=== PATIENT | male | born 1940 | race Caucasian/White ===

== ENCOUNTER 2022-09-05 13:58 | Outpatient (OUT) | payer MEDICARE, OTHER, SELFPAY ==
--- NOTE | 2022-09-05 10:56 | P.CN_ITS ---
Consult Note: HPI Data of Consult Patient: new to practice Consult date: 09/05/22 Requesting Physician: Anneliese Contreras MD Primary Care Provider: CALIN RODRÍGUEZ Consult Narrative Reason for consult: Low back pain, bilateral buttock and hip pain Narrative: this is a pleasant 82-year-old gentleman who presents for evaluation. He notes increasing pain throughout his low back that radiates into the bilateral hips and lower extremities. His lumbar imaging was reviewed, which is significant for a fusion at L3-L4, as well as foraminal narrowing at multiple levels, including L5-S1. There is facet degeneration noted at multiple levels. He currently engages in provider directed home exercises and physical therapy exercises, but these have not provided relief. He utilizes [id number] pain medications. He otherwise denies adverse medication side effects or loss of bowel or bladder control. cc:: CC: Anneliese Contreras MD Review of Systems ROS Status of ROS 10 or more systems reviewed and unremarkable except as noted in history and below Exam Constitutional Common normals: no apparent distress, oriented x3 and healthy appearing Respiratory Common normals: normal respiratory effort Effort & inspection: able to speak in complete sentences Back & Pelvis Other: tenderness to palpation throughout the bilateral lower extremity. Pain is elicited with flexion, extension, and lateral rotation the lumbar spine. Facet loading maneuvers are positive bilaterally. Strength noted to be unremarkable throughout the bilateral lower extremity success for decreased strength four out of five in the bilateral quadriceps femoris, anterior tibialis. Sensation noted to be unremarkable throughout the bilateral lower extremities except for dysesthesia in the bilateral L4, L5 dermatomal distributions. Tenderness to palpation throughout the bilateral PSIS. Mu's maneuver is positive bilaterally. positive Eliseo's bilaterally. Coordination remains intact. Gait remains nonantalgic. Extremity Common normals: normal to inspection Neuro Common normals: oriented x3, CN's II-XII intact bilaterally and no focal motor deficits Psych Common normals: mental status grossly normal and cooperative Assessment and Plan Assessment and Plan (1) Lumbar stenosis with neurogenic claudication: (2) Lumbar spondylosis: (3) Sacroiliac joint disease: (4) Lumbar postlaminectomy syndrome: Plan this is a pleasant 82-year-old gentleman who presents for evaluation. He has failed physical and medical modalities, as listed above. Imaging was reviewed, as noted above. Given his symptomatology and imaging findings, it is present to attempt bilateral L5 transforaminal epidural steroid injections to provide analg esia. He may even benefit from bilateral sacroiliac joint injections. He is in agreement with this plan. Medications were reviewed, and no changes were made at this time. He'll follow up after the procedures completed.
== END 2022-09-05 13:59 ==
LOC: PM 10-13 13:58
PROVIDERS: PCP Family Medicine; Visit Provider Anesthesiology
DX: M47.819 Spondylosis without myelopathy or radiculopathy, site unspecified (principal); M96.1 Postlaminectomy syndrome, not elsewhere classified; M48.062 Spinal stenosis, lumbar region with neurogenic claudication; M53.3 Sacrococcygeal disorders, not elsewhere classified
CPT/HCPCS: G0463

== ENCOUNTER 2022-09-19 08:32 | Day surgery (SDC) | payer MEDICARE, OTHER, SELFPAY ==
[2022-09-19 09:40] VITALS: BP 131/76; PULSE 80; RESP 16; TEMP 36.2; O2SAT 96
[2022-09-19] MEDS: 0.9 % SODIUM CHLORIDE 10 ML INJ (10:26)
[2022-09-19] MEDS: BUPIVACAINE HCL 0.25% PF 25 MG/10 ML VIAL INJ (10:26)
[2022-09-19] MEDS: IOHEXOL 240 MG/ML - 10 ML VIAL INJ (10:27)
[2022-09-19] MEDS: LIDOCAINE HCL 2% PF 100 MG/5 ML VIAL INJ (10:27)
[2022-09-19] MEDS: TRIAMCINOLONE ACETONIDE 40 MG/ML VIAL INJ (10:28)
--- NOTE | 2022-09-19 10:29 | W.PM.PROCNOT ---
Date of procedure: 09/19/22 Pre-op diagnosis: lumbar stenosis w neurogenic claudication, lumbar postlaminectomy syndrome Post-op diagnosis: same Procedure: Procedure: Bilateral L4-5 transforaminal epidural steroid injection Medications: Bupivacaine 0.25% 2cc, kenalog 40mg, normal saline 0.9% 1cc The patient was seen and examined in the preoperative holding area.? Informed consent was obtained and placed on the chart.? Patient was brought to the medical procedure unit and placed in the prone position where a timeout was completed verifying the correct patient, procedure site, position, and planned special equipment using sterile aseptic technique.? Under direct fluoroscopic visualization a 25-gauge Quincke tipped spinal needle was advanced at level left L4-5 to the designated neural foramen where contrast dye was injected to show adequate spread.? There was no evidence of vascular or adverse uptake.? Epidural spread was appreciated.? The above-mentioned injectate was then placed in a 1.5 mL aliquot preceded by negative aspiration.? The needle was removed. The same procedure, at the same level, was completed on the opposite side. ? Patient was taken to the postprocedural recovery area and monitored for an appropriate length of time before found suitable for discharge in the accompaniment of a responsible adult. Anesthesia: None Surgeon: Anneliese Contreras Condition: stable
[2022-09-19 12:32] VITALS: BP 149/84; BP 158/74; PULSE 73; PULSE 80; RESP 18; O2SAT 97; O2SAT 98
== END 2022-09-19 10:33 | disposition home or self-care (01) ==
LOC: SURGOUT 08:33
PROVIDERS: PCP Family Medicine; Visit Provider Anesthesiology
DX: M48.062 Spinal stenosis, lumbar region with neurogenic claudication (principal); M96.1 Postlaminectomy syndrome, not elsewhere classified
CPT/HCPCS: 64483; Q9966

== ENCOUNTER 2022-10-03 07:55 | Day surgery (SDC) | payer MEDICARE, OTHER, SELFPAY ==
[2022-10-03 07:56] VITALS: BP 119/70; PULSE 91; RESP 14; TEMP 36.2; O2SAT 97
[2022-10-03] MEDS: BUPIVACAINE HCL 0.25% PF 25 MG/10 ML VIAL INJ (08:34)
[2022-10-03] MEDS: IOHEXOL 240 MG/ML - 10 ML VIAL INJ (08:35)
[2022-10-03] MEDS: LIDOCAINE HCL 2% PF 100 MG/5 ML VIAL INJ (08:35)
[2022-10-03] MEDS: TRIAMCINOLONE ACETONIDE 40 MG/ML VIAL INJ (08:36)
--- NOTE | 2022-10-03 08:36 | W.PM.PROCNOT ---
Date of procedure: 10/03/22 Pre-op diagnosis: Sacroiliitis, bilateral Post-op diagnosis: same Procedure: Procedure: Bilateral block of the nerve innervating the sacroiliac joint Medications: Bupivacaine 0.25% 3cc, kenalog 40mg x2 After informed consent was obtained, the patient was brought to the medical procedure unit and placed in the prone position, when a timeout was completed verifying correct patient, procedure, site, positioning, implant, and/or special equipment.? The skin overlying the area was prepped and draped in standard sterile fashion using alcohol.? A 25-gauge needle was directed towards the nerve innervating the left sacroiliac joint under direct fluoroscopic imaging.? Needle tip was advanced until the nerve was encountered.? After contrast dye was injected and showed no vascular uptake, we instilled a total of 3 mL of solution.? Postoperatively needles were removed. The same procedure was then completed on the opposite side. The patient tolerated the procedure well without complication.? The patient reported reduction in pain symptoms postoperatively. Anesthesia: None Surgeon: Anneliese Contreras Pathology: none sent Condition: stable Disposition: no change
[2022-10-03 09:13] VITALS: BP 108/61; BP 109/55; PULSE 78; PULSE 84; RESP 18; O2SAT 97
== END 2022-10-03 09:30 | disposition home or self-care (01) ==
PROVIDERS: PCP Family Medicine; Visit Provider Anesthesiology
DX: M46.1 Sacroiliitis, not elsewhere classified (principal)
CPT/HCPCS: 64451; 77002; Q9966

== ENCOUNTER 2022-10-20 09:37 | Outpatient (OUT) | payer MEDICARE, OTHER, SELFPAY ==
--- NOTE | 2022-10-20 10:13 | PM.CN ---
Consult Note: HPI Data of Consult Patient: known to practice within the last 3 years Consult date: 10/20/22 Requesting Physician: NUPUR QUILES NP Primary Care Provider: CALIN RODRÍGUEZ Consult Narrative Narrative: Patient is here for f/u of right bilat TFESI and SI injections. He had 50% relief of pain with increased fx procedure continued through today. He has not had to take any pain meds anymore after procedure. Pain is in bilat lumbar area, worse with standing and walking. We did discuss the RFA procedure and educational materials were given. No new sensorimotor sx or bowel or bladder issues. No adverse medication SE. Medications assist patient with better ability to perform ADLs. cc:: CC: NUPUR QUILES NP Review of Systems ROS Status of ROS 10 or more systems reviewed and unremarkable except as noted in history and below Musculoskeletal Reports: back pain PFSH PFSH Medical History Surgical History Meds Home Medications and Allergies Home Medications Medication Instructions Recorded Confirmed Type aspirin 81 mg tablet,delayed 81 mg PO DAILY 09/05/22 10/03/22 History release clopidogrel 75 mg tablet 75 mg PO DAILY 09/05/22 10/03/22 History gabapentin 300 mg capsule 300 mg PO DAILY 09/05/22 10/03/22 History melatonin 10 mg tablet 10 mg PO DAILY 09/05/22 10/03/22 History ranolazine 500 mg tablet,extended 500 mg PO BID 09/05/22 10/03/22 History release,12 hr rosuvastatin 40 mg tablet 40 mg PO DAILY 09/05/22 10/03/22 History acetaminophen 500 mg capsule 500 mg PO Q6H PRN pain 09/19/22 10/03/22 History Allergies Allergy/AdvReac Type Severity Reaction Status Date / Time No Known Drug Allergies Allergy Verified 10/03/22 07:52 Exam Constitutional Documenting provider has reviewed patient's vital signs: yes Common normals: no apparent distress, average body habitus, oriented x3, no limitations, healthy appearing, alert and well nourished General appearance: cooperative, comfortable and well developed Nutritional appearance: overweight Orientation/consciousness: Yes awake, Yes oriented to person, Yes oriented to place and Yes oriented to time HENMT Common normals: normocephalic and moist oral mucous membranes Respiratory Common normals: normal respiratory effort, no retractions and no use of accessory muscles Effort & inspection: able to speak in complete sentences and symmetric chest movement Back & Pelvis Lumbar spine/lower back: normal to inspection, ROM limited, pain with ROM and paraspinal muscle tenderness Other: negative facet and helen muscle strength 5/5 bilat LE with intact sensation Assessment and Plan Assessment and Plan (1) Lumbar postlaminectomy syndrome: (2) Sacroiliac joint disease: (3) Lumbar spondylosis: (4) Lumbar stenosis with neurogenic claudication:
== END 2022-10-20 09:38 | disposition home or self-care (01) ==
LOC: PM 09:37
PROVIDERS: PCP Family Medicine; Visit Provider Nurse Practitioner
DX: M96.1 Postlaminectomy syndrome, not elsewhere classified (principal); M47.816 Spondylosis without myelopathy or radiculopathy, lumbar region; M48.062 Spinal stenosis, lumbar region with neurogenic claudication; M53.3 Sacrococcygeal disorders, not elsewhere classified
CPT/HCPCS: G0463

== ENCOUNTER 2022-12-26 09:07 | Outpatient (OUT) | payer MEDICARE, OTHER, SELFPAY ==
--- NOTE | 2022-12-26 11:07 | P.CN_ITS ---
Consult Note: HPI Data of Consult Patient: known to practice within the last 3 years Consult date: 12/26/22 Requesting Physician: Anneliese Contreras MD Primary Care Provider: CALIN RODRÍGUEZ Consult Narrative Reason for consult: low back pain Narrative: 82yom who presents for assessment. worsening axial low back pain. imaging reviewed, significant for lumbar facet arthropathy. engages in >6 weeks of provider directed home exercise, with minimal benefit. utilizes tylenol. denies adverse med side effects. 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 of unspecified finger, initial encounter (ICD-10) Angina at rest ?I20.8 - Other forms of angina pectoris (ICD-10) Hearing deficit ?H91.90 - Unspecified hearing loss, unspecified ear (ICD-10) Hiatal hernia ?K44.9 - Diaphragmatic hernia without obstruction or gangrene (ICD-10) Low back pain ?M54.50 - Low back pain, unspecified (ICD-10) Obesity ?E66.9 - Obesity, unspecified (ICD-10) Trigger finger ?M65.30 - Trigger finger, unspecified finger (ICD-10) Surgical History History of carpal tunnel release ?Z98.890 - Other specified postprocedural states (ICD-10) History of lumbar surgery ?Z98.890 - Other specified postprocedural states (ICD-10) History of open heart surgery ?Z98.890 - Other specified postprocedural states (ICD-10) Status post wrist surgery ?Z98.890 - Other specified postprocedural states (ICD-10) Meds Home Medications and Allergies Home Medications Medication Instructions Recorded Confirmed Type aspirin 81 mg tablet,delayed 81 mg PO DAILY 09/05/22 10/03/22 History release clopidogrel 75 mg tablet 75 mg PO DAILY 09/05/22 10/03/22 History gabapentin 300 mg capsule 300 mg PO DAILY 09/05/22 10/03/22 History melatonin 10 mg tablet 10 mg PO DAILY 09/05/22 10/03/22 History ranolazine 500 mg tablet,extended 500 mg PO BID 09/05/22 10/03/22 History release,12 hr rosuvastatin 40 mg tablet 40 mg PO DAILY 09/05/22 10/03/22 History acetaminophen 500 mg capsule 500 mg PO Q6H PRN pain 09/19/22 10/03/22 History Allergies Allergy/AdvReac Type Severity Reaction Status Date / Time No Known Drug Allergies Allergy Verified 10/03/22 07:52 Exam Narrative Exam Narrative: Psych-alert and oriented x 3. Attentive and appropriate, constitutionally normal, displays normal mood and affect per situation.? There are no obvious deficits in memory, reasoning, or intellect.? Skin-no obvious rashes, bruising, erythema noted to the patient's area of pain. Extremities- extremities are warm with minimal edema and palpable pulses. Lumbar-no significant tenderness to palpation noted in the lumbar spine and paraspinal musculature.? Pain is elicited with extension, and lateral rotation of the lumbar spine. Range of motion is slightly diminished with these motions due to pain. Facet loading maneuvers are positive bilaterally and do appear to be concordant with the patient's normal complaints of pain.? Coordination remains intact.? Gait remains non-antalgic. Assessment and Plan Assessment and Plan (1) Lumbar spondylosis: (2) Lumbar stenosis with neurogenic claudication: Plan 82yom who presents for assessment. failed conservative measures, as noted. imaging reviewed, as noted. given symptoms and imaging, prudent to proceed with diagnostic bilateral l4-5, l5-s1 medial branch block under fluoroscopic guidance with intention of proceeding to radiofrequency ablation. he is in agreement. medications reviewed, no changes. he wishes to avoid pain medications. follow up after procedure.
== END 2022-12-26 09:08 | disposition home or self-care (01) ==
LOC: PM 09:08
PROVIDERS: PCP Family Medicine; Visit Provider Anesthesiology
DX: M47.816 Spondylosis without myelopathy or radiculopathy, lumbar region (principal); M48.062 Spinal stenosis, lumbar region with neurogenic claudication
CPT/HCPCS: G0463

== ENCOUNTER 2023-01-09 07:45 | Day surgery (SDC) | payer MEDICARE, OTHER, SELFPAY ==
[2023-01-09 08:11] VITALS: BP 107/73; PULSE 89; RESP 14; TEMP 36.6; O2SAT 97
[2023-01-09] MEDS: LIDOCAINE HCL 2% PF 100 MG/5 ML VIAL INJ (09:00)
[2023-01-09] MEDS: TRIAMCINOLONE ACETONIDE 40 MG/ML VIAL INJ (09:00)
[2023-01-09] MEDS: BUPIVACAINE HCL 0.5% PF 50 MG/10 ML VIAL 8 ML INJ (09:00)
[2023-01-09 09:02] VITALS: BP 97/50; BP 97/54; PULSE 84; PULSE 86; RESP 18; O2SAT 97; O2SAT 98
--- NOTE | 2023-01-09 09:04 | W.PM.PROCNOT ---
Date of procedure: 01/09/23 Pre-op diagnosis: Lumbar spondylosis Post-op diagnosis: same as pre-op Procedure: Procedure: Bilateral L2-3, L5-S1 medial branch block Medications: Bupivacaine 0.25% 4cc The patient was seen and examined in the preoperative holding area.? An informed consent was obtained and placed on the chart.? The patient was brought to the medical procedure unit and placed in the prone position.? A timeout was completed verifying correct patient, procedure site, positioning, plan, and special equipment.? Using aseptic technique, the needle was placed at left L2. Under direct fluoroscopic visualization a Quincke-tipped spinal needle was advanced to the junction of the superior articulating process with the transverse process at the designated medial branch segment.? Preceded by negative aspiration, the above-mentioned injectate was placed in 1 mL aliquots.? The procedure was repeated at left L3, L5, S1.? The needle was removed and insertion site was covered. The same procedure, at the same levels, was completed on the right side. The patient was taken to the postprocedural recovery area and monitored for an appropriate length of time before found suitable for discharge in the company of a responsible adult. Anesthesia: Local Surgeon: Anneliese Contreras Pathology: none sent Condition: stable Disposition: no change
== END 2023-01-09 09:08 | disposition home or self-care (01) ==
PROVIDERS: PCP Family Medicine; Visit Provider Anesthesiology
DX: M47.816 Spondylosis without myelopathy or radiculopathy, lumbar region (principal)
CPT/HCPCS: 64493; 64494

== ENCOUNTER 2023-01-19 09:57 | Outpatient (OUT) | payer MEDICARE, OTHER, SELFPAY ==
--- NOTE | 2023-01-19 10:09 | PM.CN ---
Consult Note: HPI Data of Consult Patient: known to practice within the last 3 years Requesting Physician: Shavon Tsai NP Primary Care Provider: CALIN RODRÍGUEZ Consult Narrative Reason for consult: f/u Narrative: Radu Ruiz a pleasant 82 year old male presents for evaluation and management of chronic low back and bilateral SIJ pain. Today rating pain in low back 7/10 without radiculopathy, describes it as a dull ache. Patient had 90% pain relief and functional improvement immediately following MBB #1 at bilateral L4-5 L5-S1 and hours after the procedure. Patient would like to discuss proceeding with second MBB working towards thermal RFA. 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, initial encounter (ICD-10) Angina at rest ?I20.8 - Other forms of angina pectoris (ICD-10) Hearing deficit ?H91.90 - Unspecified hearing loss, unspecified ear (ICD-10) Hiatal hernia ?K44.9 - Diaphragmatic hernia without obstruction or gangrene (ICD-10) Low back pain ?M54.50 - Low back pain, unspecified (ICD-10) Obesity ?E66.9 - Obesity, unspecified (ICD-10) Trigger finger ?M65.30 - Trigger finger, unspecified finger (ICD-10) Surgical History History of carpal tunnel release ?Z98.890 - Other specified postprocedural states (ICD-10) History of lumbar surgery ?Z98.890 - Other specified postprocedural states (ICD-10) History of open heart surgery ?Z98.890 - Other specified postprocedural states (ICD-10) Status post wrist surgery ?Z98.890 - Other specified postprocedural states (ICD-10) Meds Home Medications and Allergies Home Medications Medication Instructions Recorded Confirmed Type aspirin 81 mg tablet,delayed 81 mg PO DAILY 09/05/22 01/09/23 History release clopidogrel 75 mg tablet 75 mg PO DAILY 09/05/22 01/09/23 History gabapentin 300 mg capsule 300 mg PO DAILY 09/05/22 01/09/23 History melatonin 10 mg tablet 10 mg PO DAILY 09/05/22 01/09/23 History ranolazine 500 mg tablet,extended 500 mg PO BID 09/05/22 01/09/23 History release,12 hr rosuvastatin 40 mg tablet 40 mg PO DAILY 09/05/22 01/09/23 History acetaminophen 500 mg capsule 500 mg PO Q6H PRN pain 09/19/22 01/09/23 History Allergies Allergy/AdvReac Type Severity Reaction Status Date / Time No Known Drug Allergies Allergy Verified 10/03/22 07:52 Exam Constitutional Documenting provider has reviewed patient's vital signs: yes Common normals: no apparent distress, oriented x3, healthy appearing, alert and well nourished General appearance: cooperative Nutritional appearance: overweight Orientation/consciousness: Yes awake, Yes oriented to person, Yes oriented to place and Yes oriented to time HENMT Common normals: normocephalic, hearing grossly normal bilaterally and moist oral mucous membranes Head and scalp: normocephalic Eye Common normals: PERRL Pupil: PERRL Neck & C-Spine Common normals: full ROM General: normal visual inspection Chest Common normals: inspection of chest normal Respiratory Common normals: normal respiratory effort, no retractions and no use of accessory muscles Effort & inspection: able to speak in complete sentences and symmetric chest movement Back & Pelvis Lumbar spine/lower back: normal to inspection, ROM limited, pain with ROM and straight leg raise negative bilaterally Sacroiliac joints: SI joint(s) abnormal Other: bilateral facet loading pain over L4-5 L5-S1 facets bilateral positive helen, thigh thrust, and gaenslens. Pain over bialteral PSIS. Extremity Common normals: normal to inspection and full ROM Neuro Common normals: oriented x3, CN's II-XII intact bilaterally, moves all extremities, no focal motor deficits, no sensory deficits noted and deep tendon reflexes 2+ bilaterally Sensorium/orientation: alert Gait (neuro): antalgic Motor exam: strength 5/5 throughout and no movement abnormalities noted Psych Common normals: mental status grossly normal, thought process normal, cooperative, affect normal, speech normal and activity/motor behavior normal Speech: normal speech Thought process: normal thought process Results Additional Findings Additional findings: I have checked an [place] report on this patient today and there are no aberrancies noted in the prescribing history.?? A drug screen was completed and reviewed within the last year, and if there has not been a drug screen completed we ordered one today to monitor higher risk, state monitored pain medication use. As part of providing excellent, safe, comprehensive care, the following was completed at our patient's visit: 1. A medication reconciliation and review to ensure accurate knowledge of current/active medications, including asking our patients to inform us about any [id number] medications or herbal remedies/nutritional supplements/alternative remedies. 2. A review to specifically ensure our patients have had annual screening for: elevated body mass index (BMI), tobacco use, screening for depression, and screening for unhealthy alcohol use. When screening is concerning, patients are provided with education and the specific recommendation to discuss the concerning health issue and treatment options with their primary care provider. Assessment and Plan Assessment and Plan (1) Lumbar spondylosis: Assessment and Plan: The patient has had over 3 months of moderate to severe low back pain with functional impairment and inadequate response to conservative care including NSAIDS (unless there are contraindication such as concurrent blood thinners), multiple oral or topical pain medications, and home exercise program/physical therapy.? Patient has completed >6 weeks of guided home exercise program and/or formal physical therapy program without relief of their symptoms.? I have reviewed the imaging of the lumbar spine and no red flags were identified.? The imaging reveals radiographic findings consistent with lumbar spondylosis We discussed the risks and benefits of the procedure with the patient, and we are not planning on using sedation as outlined in the guidelines from Medicare unless there is a documented reason that sedation would be strongly recommended.?? ?The procedure will be completed with fluoroscopic guidance.? (2) Sacroiliac joint disease: Plan bilateral L4-5 L5-S1 MBB #2 working towards thermal RFA consider repeat bilateral SIJ injections in the future continue current medications avoid NSAIDs with plavix f/u 1 week after MBB
== END 2023-01-19 09:58 | disposition home or self-care (01) ==
LOC: PM 09:58
PROVIDERS: PCP Family Medicine; Visit Provider Nurse Practitioner
DX: M47.816 Spondylosis without myelopathy or radiculopathy, lumbar region (principal); M53.3 Sacrococcygeal disorders, not elsewhere classified
CPT/HCPCS: G0463

== ENCOUNTER 2023-01-30 08:28 | Day surgery (SDC) | payer MEDICARE, OTHER, SELFPAY ==
[2023-01-30 09:01] VITALS: BP 151/82; PULSE 75; RESP 16; TEMP 36.5; O2SAT 96
[2023-01-30 09:45] VITALS: BP 105/62; PULSE 85; RESP 18; O2SAT 97
[2023-01-30 09:48] VITALS: BP 113/63; PULSE 89; RESP 18; O2SAT 97
[2023-01-30] MEDS: BUPIVACAINE HCL 0.5% PF 50 MG/10 ML VIAL 8 ML INJ (09:48)
[2023-01-30] MEDS: LIDOCAINE HCL 2% PF 100 MG/5 ML VIAL 4 ML INJ (09:48)
--- NOTE | 2023-01-30 09:50 | W.PM.PROCNOT ---
Date of procedure: 01/30/23 Pre-op diagnosis: Lumbar spondylosis Post-op diagnosis: same as pre-op Procedure: Procedure: Bilateral L2-3, L5-S1 medial branch block Medications: Bupivacaine 0.5% 4cc x2 The patient was seen and examined in the preoperative holding area.? An informed consent was obtained and placed on the chart.? The patient was brought to the medical procedure unit and placed in the prone position.? A timeout was completed verifying correct patient, procedure site, positioning, plan, and special equipment.? Using aseptic technique, the needle was placed at left L2. Under direct fluoroscopic visualization a Quincke-tipped spinal needle was advanced to the junction of the superior articulating process with the transverse process at the designated medial branch segment.? Preceded by negative aspiration, the above-mentioned injectate was placed in 1 mL aliquots.? The procedure was repeated at left L3, L5, S1.? The needle was removed and insertion site was covered. The same procedure, at the same levels, was completed on the right side. The patient was taken to the postprocedural recovery area and monitored for an appropriate length of time before found suitable for discharge in the company of a responsible adult. Anesthesia: Local Surgeon: Anneliese Contreras Pathology: none sent Condition: stable Disposition: no change
== END 2023-01-30 09:56 | disposition home or self-care (01) ==
PROVIDERS: PCP Family Medicine; Visit Provider Anesthesiology
DX: M47.816 Spondylosis without myelopathy or radiculopathy, lumbar region (principal)
CPT/HCPCS: 64493; 64494

== ENCOUNTER 2023-02-08 10:08 | Outpatient (OUT) | payer MEDICARE, OTHER, SELFPAY ==
--- NOTE | 2023-02-08 10:21 | PM.CN ---
Consult Note: HPI Data of Consult Patient: known to practice within the last 3 years Requesting Physician: Shavon Tsai NP Primary Care Provider: CALIN RODRÍGUEZ Consult Narrative Reason for consult: f/u Narrative: Radu Ruiz a pleasant 82 year old male presents for evaluation and management of chronic low back pain, today rating pain 7/10. Patient has underwent bilateral L2-3 L5-S1 MBB x2 with 90% pain relief and functional improvement immediately after and hours following the procedure. Patient would like to discuss proceeding with thermal RFA. 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, initial encounter (ICD-10) Angina at rest ?I20.8 - Other forms of angina pectoris (ICD-10) Hearing deficit ?H91.90 - Unspecified hearing loss, unspecified ear (ICD-10) Hiatal hernia ?K44.9 - Diaphragmatic hernia without obstruction or gangrene (ICD-10) Low back pain ?M54.50 - Low back pain, unspecified (ICD-10) Obesity ?E66.9 - Obesity, unspecified (ICD-10) Trigger finger ?M65.30 - Trigger finger, unspecified finger (ICD-10) Surgical History History of carpal tunnel release ?Z98.890 - Other specified postprocedural states (ICD-10) History of lumbar surgery ?Z98.890 - Other specified postprocedural states (ICD-10) History of open heart surgery ?Z98.890 - Other specified postprocedural states (ICD-10) Status post wrist surgery ?Z98.890 - Other specified postprocedural states (ICD-10) Meds Home Medications and Allergies Home Medications Medication Instructions Recorded Confirmed Type aspirin 81 mg tablet,delayed 81 mg PO DAILY 09/05/22 01/30/23 History release clopidogrel 75 mg tablet 75 mg PO DAILY 09/05/22 01/30/23 History gabapentin 300 mg capsule 300 mg PO DAILY 09/05/22 01/30/23 History ranolazine 500 mg tablet,extended 500 mg PO BID 09/05/22 01/30/23 History release,12 hr rosuvastatin 40 mg tablet 40 mg PO DAILY 09/05/22 01/30/23 History acetaminophen 500 mg capsule 500 mg PO Q6H PRN pain 09/19/22 01/30/23 History Allergies Allergy/AdvReac Type Severity Reaction Status Date / Time No Known Drug Allergies Allergy Verified 01/30/23 08:58 Exam Constitutional Documenting provider has reviewed patient's vital signs: yes Common normals: no apparent distress, oriented x3, healthy appearing, alert and well nourished General appearance: cooperative Nutritional appearance: overweight Orientation/consciousness: Yes awake, Yes oriented to person, Yes oriented to place and Yes oriented to time HENSC Common normals: normocephalic, hearing grossly normal bilaterally and moist oral mucous membranes Head and scalp: normocephalic Eye Common normals: PERRL Pupil: PERRL Neck & C-Spine Common normals: full ROM General: normal visual inspection Chest Common normals: inspection of chest normal Respiratory Common normals: normal respiratory effort, no retractions and no use of accessory muscles Effort & inspection: able to speak in complete sentences and symmetric chest movement Back & Pelvis Lumbar spine/lower back: normal to inspection, ROM limited, pain with ROM and straight leg raise negative bilaterally Sacroiliac joints: SI joint(s) abnormal Other: bilateral facet loading pain over L2-3 L5-S1 facets bilateral positive helen, thigh thrust, and gaenslens. Pain over bialteral PSIS. Extremity Common normals: normal to inspection and full ROM Neuro Common normals: oriented x3, CN's II-XII intact bilaterally, moves all extremities, no focal motor deficits, no sensory deficits noted and deep tendon reflexes 2+ bilaterally Sensorium/orientation: alert Gait (neuro): antalgic Motor exam: strength 5/5 throughout and no movement abnormalities noted Psych Common normals: mental status grossly normal, thought process normal, cooperative, affect normal, speech normal and activity/motor behavior normal Speech: normal speech Thought process: normal thought process Results Additional Findings Additional findings: I have checked an [place] report on this patient today and there are no aberrancies noted in the prescribing history.?? A drug screen was completed and reviewed within the last year, and if there has not been a drug screen completed we ordered one today to monitor higher risk, state monitored pain medication use. As part of providing excellent, safe, comprehensive care, the following was completed at our patient's visit: 1. A medication reconciliation and review to ensure accurate knowledge of current/active medications, including asking our patients to inform us about any [id number] medications or herbal remedies/nutritional supplements/alternative remedies. 2. A review to specifically ensure our patients have had annual screening for: elevated body mass index (BMI), tobacco use, screening for depression, and screening for unhealthy alcohol use. When screening is concerning, patients are provided with education and the specific recommendation to discuss the concerning health issue and treatment options with their primary care provider. Assessment and Plan Assessment and Plan (1) Lumbar spondylosis: Assessment and Plan: The patient has had over 3 months of moderate to severe low backl pain with functional impairment and inadequate response to conservative care including NSAIDS (unless there are contraindication such as concurrent blood thinners), multiple oral or topical pain medications, and home exercise program/physical therapy.? Patient has completed >6 weeks of guided home exercise program and/or formal physical therapy program without relief of their symptoms.? I have reviewed the imaging of the lumbar spine and no red flags were identified.? The imaging reveals radiographic findings consistent with lumbar spondylosis The Oswestry Disability Index was completed, and the patient scored a 34%.? We discussed the risks and benefits of the procedure with the patient ?The procedure will be completed with fluoroscopic guidance.? Plan -proceed with bilateral L2-3 L5-S1 thermal RFA with 10mg PO valium prior to the procedure -continue prn Tylenol -f/u 1 month after RFA
== END 2023-02-08 10:09 | disposition home or self-care (01) ==
LOC: PM 10:08
PROVIDERS: PCP Family Medicine; Visit Provider Nurse Practitioner
DX: M47.816 Spondylosis without myelopathy or radiculopathy, lumbar region (principal)
CPT/HCPCS: G0463

== ENCOUNTER 2023-02-27 09:31 | Day surgery (SDC) | payer MEDICARE, OTHER, SELFPAY ==
[2023-02-27 10:32] VITALS: BP 146/89; PULSE 75; RESP 14; TEMP 36.4; O2SAT 94
[2023-02-27 10:59] VITALS: BP 129/73; PULSE 83; RESP 18; O2SAT 96
[2023-02-27] MEDS: BUPIVACAINE HCL 0.25% PF 25 MG/10 ML VIAL 4 ML INJ (11:00)
[2023-02-27] MEDS: LIDOCAINE HCL 2% 400 MG/20 ML MDV 16 ML INJ (11:00)
[2023-02-27] MEDS: TRIAMCINOLONE ACETONIDE 40 MG/ML VIAL 80 MG INJ (11:00)
[2023-02-27 11:04] VITALS: BP 140/73; PULSE 78; RESP 16; O2SAT 97
--- NOTE | 2023-02-27 11:14 | P.ON_ITS ---
Date of procedure: 02/27/23 Pre-op diagnosis: Lumbar spondylosis Post-op diagnosis: same as pre-op Procedure: Procedure: Bilateral L2-3, L5-S1 radiofrequency ablation Medications: Bupivacaine 0.25% 6cc, lidocaine 2% 6cc, kenalog 80mg The patient was seen and examined in the preoperative holding area.? The site was marked.? Written informed consent was obtained and placed on the chart.? The patient was brought to the medical procedure unit and placed in the prone position.? A timeout was completed verifying correct patient, procedure, positioning, and special requirements.? The skin overlying the target points, the designated medial branch, were prepped and draped in the usual sterile fashion.? The target point was achieved with a 20-gauge 15 cm with a 10 mm curved active tip radiofrequency cannula under direct fluoroscopic visualization.? The needle was inserted at level L2 on the right side. Needle tip position was confirmed with lateral fluoroscopic position.? Motor stimulation was carried out at 2 Hz up to 5 volts with the absence of extremity activity.? This was repeated at level L3, L5, S1 on right side.?? Sensory stimulation was carried out.? Concordant pain was realized at the above- mentioned sites.? Then radiofrequency lesioning was carried out times 90 seconds at 80 degrees times 2 lesions at each level.? The radiofrequency probe was removed prior to cannula removal.? The above-mentioned injectate was placed in 1 mL increments.? The needle was removed. The same procedure, with the same steps, was then completed on the left side at the same levels. Insertion sites were covered.? The patient was taken to the postoperative recovery area and monitored for an appropriate length of time before being found suitable for discharge in the company of a responsible adult. Anesthesia: Local Surgeon: Anneliese Contreras Pathology: none sent Condition: stable Disposition: no change
== END 2023-02-27 11:21 | disposition home or self-care (01) ==
PROVIDERS: PCP Family Medicine; Visit Provider Anesthesiology
DX: M47.816 Spondylosis without myelopathy or radiculopathy, lumbar region (principal)
CPT/HCPCS: 64635; 64636

== ENCOUNTER 2023-04-06 10:32 | Outpatient (OUT) | payer MEDICARE, OTHER, SELFPAY ==
--- NOTE | 2023-04-06 10:52 | P.CN_ITS ---
Consult Note: HPI Data of Consult Patient: known to practice within the last 3 years Requesting Physician: Shavon Tsai NP Primary Care Provider: CALIN RODRÍGUEZ Consult Narrative Reason for consult: f/u Narrative: Radu Ruiz a pleasant 82 year old male presents for evaluation and management of chronic low back pain, today rating pain 5/10. Patient has underwent bilateral L2-3 L5-S1 thermal RFA with 50% ongoing improvement, notices he is now able to spend time on the floor with grandkids. Pain increased with activity and decreased with sitting. 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 - Complete traumatic metacarpophalangeal amputation of unspecified finger, initial encounter (ICD-10) Angina at rest ?I20.8 - Other forms of angina pectoris (ICD-10) Hearing deficit ?H91.90 - Unspecified hearing loss, unspecified ear (ICD-10) Hiatal hernia ?K44.9 - Diaphragmatic hernia without obstruction or gangrene (ICD-10) Low back pain ?M54.50 - Low back pain, unspecified (ICD-10) Obesity ?E66.9 - Obesity, unspecified (ICD-10) Trigger finger ?M65.30 - Trigger finger, unspecified finger (ICD-10) Surgical History Status post wrist surgery ?Z98.890 - Other specified postprocedural states (ICD-10) History of lumbar surgery ?Z98.890 - Other specified postprocedural states (ICD-10) History of carpal tunnel release ?Z98.890 - Other specified postprocedural states (ICD-10) History of open heart surgery ?Z98.890 - Other specified postprocedural states (ICD-10) Meds Home Medications and Allergies Home Medications Medication Instructions Recorded Confirmed Type aspirin 81 mg tablet,delayed 81 mg PO DAILY 09/05/22 02/27/23 History release clopidogrel 75 mg tablet 75 mg PO DAILY 09/05/22 02/27/23 History gabapentin 300 mg capsule 300 mg PO DAILY 09/05/22 02/27/23 History ranolazine 500 mg tablet,extended 500 mg PO BID 09/05/22 02/27/23 History release,12 hr rosuvastatin 40 mg tablet 40 mg PO DAILY 09/05/22 02/27/23 History acetaminophen 500 mg capsule 500 mg PO Q6H PRN pain 09/19/22 02/27/23 History diazepam 10 mg tablet mg 02/27/23 History Allergies Allergy/AdvReac Type Severity Reaction Status Date / Time No Known Drug Allergies Allergy Verified 02/27/23 10:23 Exam Constitutional Documenting provider has reviewed patient's vital signs: yes Common normals: no apparent distress, oriented x3, healthy appearing, alert and well nourished General appearance: cooperative Nutritional appearance: overweight Orientation/consciousness: Yes awake, Yes oriented to person, Yes oriented to place and Yes oriented to time HENMT Common normals: normocephalic, hearing grossly normal bilaterally and moist oral mucous membranes Head and scalp: normocephalic Eye Common normals: PERRL Pupil: PERRL Neck & C-Spine Common normals: full ROM General: normal visual inspection Chest Common normals: inspection of chest normal Respiratory Common normals: normal respiratory effort, no retractions and no use of accessory muscles Effort & inspection: able to speak in complete sentences and symmetric chest movement Back & Pelvis Lumbar spine/lower back: normal to inspection, ROM limited, pain with ROM and straight leg raise negative bilaterally Sacroiliac joints: SI joint(s) abnormal Other: bilateral facet loading pain over L2-3 bilateral positive helen, thigh thrust, and gaenslens. Pain over bialteral PSIS. Extremity Common normals: normal to inspection and full ROM Neuro Common normals: oriented x3, CN's II-XII intact bilaterally, moves all extremities, no focal motor deficits, no sensory deficits noted and deep tendon reflexes 2+ bilaterally Sensorium/orientation: alert Gait (neuro): antalgic Motor exam: strength 5/5 throughout and no movement abnormalities noted Psych Common normals: mental status grossly normal, thought process normal, cooperative, affect normal, speech normal and activity/motor behavior normal Speech: normal speech Thought process: normal thought process Assessment and Plan Assessment and Plan (1) Lumbar stenosis with neurogenic claudication: (2) Lumbar spondylosis: (3) Sacroiliac joint disease: Plan bilateral L2 TFESI based on physical exam, xray findings, and patient complaints of bilateral radiating lumbar pain continue current medications f/u 2 weeks after TFESI
--- OUTSIDE RECORDS SUMMARY | 2023-04-06 10:52 | XMS_ITS | CCD ---
Author Name Unknown Address [address] [place] [address] Organization [facility] Care Team Providers Care Major Case Detective Name Role Phone Francisco RIVERA, [facility] Primary Care Provider DR RHODA GARAY Primary Care Unavailable GIEDRAITIS, ANDRIUS Attending Unavailable GIEDRAITIS, ANDRIUS Admitting Unavailable MD Francisco [facility] Primary Care Provider DO Haroldo Rausch Attending Provider Kandy RIVERA, Jim Unavailable Haroldo Rausch Attending Unavailable Haroldo Rausch Admitting Unavailable [facility] Care Unavailable Gisotoitis , Andrius Vytautdamir Attending Unavailable Giedraitis , Andrius Vytautdamir Attending Unavailable Giedraitis , Andrius Vytautdamir Attending Unavailable Giedraitis , Andrius Vytautas Attending Unavailable Giedraitis , Andrius Vytautas Attending Unavailable Giedraitis , Andrius Vytautas Attending Unavailable Giedraitis , Andrius Vytautdamir Attending Unavailable [facility] Primary Care Unavailable QUATROMONI, JIM Referring Unavailable [facility] Primary Care Unavailable QUATROMONI, JIM Referring Unavailable [facility] Primary Care Unavailable QUATROMONI, JIM Referring Unavailable ABHYANKAR, FITO Referring Unavailable [facility] Primary Care Unavailable [facility] Primary Care Unavailable QUATROMONI, JIM Referring Unavailable [facility] Primary Care Unavailable QUATROMONI, JIM Referring Unavailable QUATROMONI, JIM Attending Unavailable [facility] Primary Care Unavailable QUATROMONI, JIM Referring Unavailable [facility] Primary Care Unavailable QUATROMONI, JIM Referring Unavailable GALEAS, JENAYE Referring Unavailable SHAISTA DORADO Attending Unavailable CRYSTAL SINGH Primary Care Unavailable ROBYN GALEAS Attending Unavailable CRYSTAL SINGH Primary Care Unavailable GINTARIQJIM GUTIERREZ Referring Unavailable FITO ROGERS Attending Unavailable CRYSTAL SINGH Primary Care Unavailable LAURAAndreas, JIM Referring Unavailable CRYSTAL SINGH Primary Care Unavailable ELI SIBLEY Attending Unavailable CRYSTAL SINGH Primary Care Unavailable AI SWIFT Referring Unavailable HAROLDO RAUSCH Attending Unavailable IRINEO NAGEL Attending Unavailable AI SWIFT Attending Unavailable Medications Current Medications Medication Drug Class(es) Dates Sig (Normalized) Sig (Original) montelukast 10 mg oral tablet (1 source) Leukotriene Receptor Antagonist Start: 04-07-2017 take 10 mg by mouth at bedtime Montelukast Active 10 MG PO Bedtime April 07, 2017 1:00am Completed/Discontinued Medications Medication Drug Class(es) Dates Sig (Normalized) Sig (Original) acetaminophen 500 mg oral capsule (12 sources) Acetaminophen 50 0 mg cap Indications: Coronary artery 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 , Orthostatic hypotension , Spinal stenosis, unspecified spinal region , SOB (shortness of breath) , Weight gain , Bilateral carpal tunnel syndrome , Hyperlipidemia, unspecified hyperlipidemia type , Former tobacco use , Coronary stent patent , Hx of CABG , Chest pain, unspecified type Take 500 mg by mouth. 0 Active Comment on above: Take 500 mg by mouth . aspirin 81 mg delayed release oral tablet (15 sources) Platelet Aggregation Inhibitor, Nonsteroidal Anti-inflammatory Drug Start: 12-23-2020 take 1 tablet by mouth once daily aspirin, enteric coated (ASPIRIN, ENTERIC COATED) 81 mg EC tablet Take 81 mg by mouth once daily. 0 12/23/2020 Active Comment on above: Take 81 mg by mouth once daily. clopidogrel 75 mg oral tablet (15 sources) P2Y12 Platelet Inhibitor Start: 08-13-2021 take 1 tablet by mouth once daily clopidogrel (PLAVIX) 75 mg tablet Take 75 mg by mouth once daily. 0 08/13/2021 Active Comment on above: Take 75 mg by mouth once daily. fluticasone propionate 0.05 mg/actuat metered dose nasal spray (12 sources) Corticosteroid Start: 04-27-2022 End: 03-06-2023 take 1 spray(s) nasal route twice daily fluticasone (FLONASE) 50 mcg/actuation nasal spray Indications: Negative middle ear pressure of left ear , Nasal congestion SPRAY 1 SPRAY INTO EACH NOSTRIL TWICE A DAY 48 mL 2 04/27/2022 03/06/2023 Discontinued (Course of therapy completed) Start: 04-13-2022 End: 04-27-2022 take 1 spray(s) nasal route twice daily fluticasone (FLONASE ALLERGY RELIEF) 50 mcg/actuation nasal spray Indications: Negative middle ear pressure of left ear , Nasal congestion Use 1 [place] in each nostril twice daily. 16 g 1 04/13/2022 04/27/2022 Discontinued Comment on above: SPRAY 1 SPRAY INTO E ACH NOSTRIL TWICE A DAY Use 1 [place] in each nostril twice daily. 24 hr isosorbide mononitrate 30 mg extended release oral tablet (12 sources) Nitrate Vasodilator Start: 12-03-19 take 1 tablet by mouth once isosorbide mononitrate ER (IMDUR) 30 mg 24 hr tablet Indications: Coronary artery 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 , Orthostatic hypotension , Spinal stenosis, unspecified spinal region , SOB (shortness of breath) , Weight gain , Bilateral carpal tunnel syndrome , Hyperlipidemia, unspecified hyperlipidemia type , Former tobacco use , Coronary stent patent , Hx of CABG , Chest pain, unspecified type Take 1 tablet by mouth every afternoon. 0 12/02/2022 Active Comment on above: Take 1 tablet by cristino th every afternoon. melatonin 1 mg oral tablet (12 sources) End: 03-06-20 take 10 mg by mouth once daily melatonin 1 mg tablet Take 10 mg by mouth once daily. 0 03/06/2023 Discontinued (Course of therapy completed) Comment on above: Take 10 mg by mouth once daily. pantoprazole 40 mg delayed release oral tablet (15 sources) Proton Pump Inhibitor Start: 03-09-[address] (PROTONIX) 40 mg tablet Take 40 mg by mouth as needed. 0 03/09/2022 Active Comment on above: Take 40 mg by mouth as needed. perflutren lipid microspheres 1.3 mL in NaCl (PF) 0.9% 10 mL injection (DEFINITY) (4 sources) Start: 03-03-20 23 End: 03-10-20 23 perflutren lipid microspheres 1.3 mL in NaCl (PF) 0.9% 10 mL injection (DEFINITY) 12 hr ranolazine 1000 mg extended release oral tablet (12 sources) Anti-anginal Start: 03-06-20 take 1 tablet by mouth twice daily ranolazine ER (RANEXA) 1,000 mg tab ER 12 hr Indications: Coronary artery 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 , Orthostatic hypotension , Spinal stenosis, unspecified spinal region , SOB (shortness of breath) , Weight gain , Bilateral carpal tunnel syndrome , Hyperlipidemia, unspecified hyperlipidemia type , Former tobacco use , Coronary stent patent , Hx of CABG , Chest pain, unspecified type Take 1 tablet by mouth two times a day. 180 tablet 3 03/06/2023 Active Start: 07-19-2022 End: 03-06-2023 take 1 tablet by mouth twice daily, then take 1 tablet by mouth every twelve hours ranolazine ER (RANEXA) 500 mg 12 hr tablet Indications: Coronary artery 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 , Orthostatic hypotension , Spinal stenosis, unspecified spinal region , SOB (shortness of breath) , Weight gain , Bilateral carpal tunnel syndrome , Hyperlipidemia, unspecified hyperlipidemia type , Former tobacco use , Coronary stent patent , Hx of CABG , Chest pain, unspecified type Take 500 mg by mouth two times a day. 0 07/19/2022 03/06/2023 Discontinued Comment on above: Take 500 mg by mouth . Take 500 mg by mouth two times a day. Take 1 tablet by cristino th two times a day. rosuvastatin calcium 40 mg oral tablet (15 sources) HMG-CoA Reductase Inhibitor Start: 2 take 1 tablet by mouth once daily rosuvastatin (CRESTOR) 40 mg tablet Take 40 mg by mouth once daily. 0 07/13/2021 Active Comment on above: Take 40 mg by mouth once daily. 125 ml sodium chloride 9 mg/ml prefilled syringe (4 sources) Start: 3 End: 3 sodium chloride 0.9 % (flush) 10 mL (BD POSIFLUSH) Problems Problem Classification Problem Date Documented Da te Episodic/Chronic Coma; stupor; and brain damage (1 source) Daytime somnolence; Translations: [Somnolence] 03-09-2023 Episodic Conditions associated with dizziness or vertigo (1 source) Lightheadedness; Translations: [Dizziness and giddiness] 02-04-2023 Episodic Coronary atherosclerosis and other heart disease (7 sources) Coronary atherosclerosis; Translations: [Atherosclerotic heart disease of [place] coronary artery without angina pectoris] Onset: 03-03-2023 02-03-2023 Chronic Coronary atherosclerosis and other heart disease (3 sources) Coronary stent patent; Translations: [Presence of coronary angioplasty implant and graft] Onset: 03-03-2023 02-04-2023 Episodic Diseases of white blood cells (3 sources) Non-malignant lymphocyte AND/OR plasma cell disorder; Translations: [Disorder of white blood cells, unspecified] Onset: 03-09-2023 02-28-2023 Chronic Disorders of lipid metabolism (2 sources) Hyperlipidemia; Translations: [Hyperlipidemia, unspecified] Onset: 03-03-2023 02-04-2023 Chronic Neoplasms of unspecified nature or uncertain behavior (1 source) Monoclonal gammopathy of uncertain significance; Translations: [Monoclonal gammopathy] 03-01-2023 Chronic Nonspecific chest pain (5 sources) Chest pain; Translations: [Other chest pain] Onset: 02-03-2023 01-20-2023 Episodic Other circulatory disease (1 source) Orthostatic hypotension; Translations: [Orthostatic hypotension] 02-03-2023 Episodic Other circulatory disease (1 source) Orthostatic hypotension; Translations: [Orthostatic hypotension] Onset: 03-03-2023 Episodic Other lower respiratory disease (1 source) Dyspnea; Translations: [Shortness of breath] 02-04-2023 Episodic Other lower respiratory disease (4 sources) Dyspnea on exertion; Translations: [Other forms of dyspnea] Onset: 03-06-2023 03-06-2023 Episodic Other lower respiratory disease (1 source) Snoring; Translations: [Snoring] 03-09-2023 Episodic Other lower respiratory disease (1 source) Shortness of breath; Translations: [SOB (shortness of breath)] Onset: 03-03-2023 Episodic Other nervous system disorders (1 source) Bilateral carpal tunnel syndrome; Translations: [Carpal tunnel syndrome, bilateral upper limbs] 02-04-2023 Chronic Other nervous system disorders (1 source) Carpal tunnel syndrome, bilateral upper limbs; Translations: [Bilateral carpal tunnel syndrome] Onset: 03-03-2023 Chronic Other nutritional; endocrine; and metabolic disorders (13 sources) Morbid obesity; Translations: [Morbid (severe) obesity due to excess calories] Onset: 02-04-2023 02-04-2023 Chronic Other nutritional; endocrine; and metabolic disorders (4 sources) Obese class II; Translations: [Obesity, unspecified] Onset: 03-06-2023 03-06-2023 Chronic Other nutritional; endocrine; and metabolic disorders (1 source) Weight gain; Translations: [Abnormal weight gain] 02-03-2023 Episodic Other nutritional; endocrine; and metabolic disorders (1 source) Abnormal weight gain; Translations: [Weight gain] Onset: 03-03-2023 Episodic Other upper respiratory disease (1 source) Nasal congestion; Translations: [Nasal congestion] Episodic Otitis media and related conditions (2 sources) Dysfunction of left eustachian tube; Translations: [Other specified disorders of Eustachian tube, left ear] Episodic Peripheral and visceral atherosclerosis (12 sources) Peripheral vascular disease; Translations: [Peripheral vascular disease, unspecified] Onset: 02-04-2023 02-04-2023 Chronic Screening and history of mental health and substance abuse codes (2 sources) Ex-tobacco user; Translations: [Personal history of nicotine dependence] Onset: 03-03-2023 02-04-2023 Episodic Spondylosis; intervertebral disc disorders; other back problems (2 sources) Spinal stenosis; Translations: [Spinal stenosis, site unspecified] Onset: 03-03-2023 02-03-2023 Episodic Unclassified (1 source) Encounter for other preprocedural examination; Translations: [Encounter for other preprocedural examination] Onset: 01-09-2023 Results Test Name Value Interpretation Reference Range Facility [facility] US CAROTID ARTERY DUPLE X BILATERALon 03-24-2023 [facility] US CAROTID ARTERY DUPLEX BILATERAL Carotid Ultrasound Examination Comparison: None. Findings Grayscale and color Doppler ultrasound examination of the carotid and vertebral artery systems bilaterally. Maximum peak systolic velocity (PSV) / end diastolic velocity (EDV) measurements were obtained. Right Carotid System Right Common Carotid Artery (RCCA): 73/20 cm/s. Right Carotid Bulb: 58/16 cm/s Rig h Proximal, Mid, and Distal t Internal Carotid Artery (LONNIE): 74/28, 82/30, and 89/23 cm/s. Right External Carotid Artery (LONNIE): 146 cm/s. Right Vertebral Artery (RVA): Antegrade flow. Right ICA/CCA ratio: 1.22. Calcified plaque at bifurcation, and origins of right internal and external carotid arteries. Left Carotid System Left Common Carotid Artery (LCCA): 66/19 cm/s. Left Carotid Bulb: 51/13 LeftProximal, Mid, and Distal Internal Carotid Artery (LICA): 39/12, 95/18, 62/27 cm/s. Left External Carotid Artery (LECA): 60 cm/s. Left Vertebral Artery (LVA): No flow identified. Calcified plaques visualized within the proximal, mid, and distal left common carotid artery, carotid bifurcation, and origin of left internal and external carotid arteries. Left carotid stent demonstrated. IMPRESSION: Impression: Less than 50% stenosis, bilateral internal carotid arteries. Left carotid stent. Validated velocity measurements with angiographic measurements, velocity criteria are extrapolated from diameter data as defined by the Society of Radiologist in Ultrasound Consensus Conference Radiology 2003; 229;340-346 . ELECTRONICALLY SIGNED BY: Haroldo Mohamud MD Normal Not Available Julia 03-16-2023 [facility] Telephone (CATHMN) RADU DEL RIO ([id number]) 1940 M Date Time Provider Department 03/16/23 ELI SIBLEY [facility] During your visit today, we recorded the following information about you: Lore Zavaleta 03/16/2023 10:47 AM Signed Requested 08/17/2022 Angio films from Sukh Larsen Allergies As of Date: 03/16/2023 (No Known Allergies) Date Reviewed: 03/09/2023 Reviewed by: Neelam Solano - Fully Assessed Reason for Visit: Request Outside Medical Records [[id number]] Prescriptions as of 03/16/2023 - ranolazine ER (RANEXA) 1,000 mg tab ER 12 hr Take 1 tablet by mouth two times a day. - isosorbide mononitrate ER (IMDUR) 30 mg 24 hr tablet Take 1 tablet by mouth every afternoon. - Acetaminophen 500 mg cap Take 500 mg by mouth. - aspirin, enteric coated (ASPIRIN, ENTERIC COATED) 81 mg EC tablet Take 81 mg by mouth once daily. - clopidogrel (PLAVIX) 75 mg tablet Take 75 mg by mouth once daily. - pantoprazole DR (PROTONIX) 40 mg tablet Take 40 mg by mouth as needed. - rosuvastatin (CRESTOR) 40 mg tablet Take 40 mg by mouth once daily. Problem List As Of Date 03/16/2023 Noted Resolved Peripheral vascular disease (HCC) [I73.9] 02/04/2023 Morbid obesity (HCC) [E66.01] 02/04/2023 Coronary artery disease involving [place] cazares*03/06/2023 S/P drug eluting coronary stent placement [Z95.*03/06/2023 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.1] 03/06/2023 CHRISTIANSON (dyspnea on exertion) [R06.09] 03/06/2023 Obesity, Class II, 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] 03/06/2023 Encounter Status:Closed by LORE ZAVALETA on 03/16/23 Normal [facility] US LIVERon 03-13-2023 US LIVER FINDINGS: Liver normal in size and echogenicity, and nodular in contour. No intrahepatic and no extrahepatic ductal dilatation. Common duct measures 2.6 mm. Color flow without anomaly. Gallbladder contains no shadowing and no echogenic foci. No para cholecystic fluid. No gallbladder wall thickening. Pancreatic body normal in size, shape, and echogenicity. Remainder of pancreas obscured by overlying bowel gas. IMPRESSION: Impression: Cirrhosis. ELECTRONICALLY SIGNED BY: Haroldo Mohamud MD Normal Not Available [facility]SP[facility] ([facility]) RADU DEL RIO ([id number]) 1940 M Date Time Provider Department 03/09/23 3:30 PM FITO ROGERS During your visit today, we recorded the following information about you: Temperature Pulse Respiration Blood pressure 97.6 degrees 87/minute 18/minute 137/78 Weight 102.2 kg Fito Rogers MD 03/11/2023 10:46 AM Signed NAME: Radu Del Rio CLINIC NO.: [id number] DATE OF SERVICE: March 09, 2023 (Devin) Referring Provider: Jim Gaitan Consultation requested by Dr. Gaitan for an opinion regarding Mr. Radu Del Rio, and my final recommendations will be communicated back to the requesting physician by way of shared medical record or letter via US mail. 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 No laboratory evidence of MGUS. Symptoms are more likely related to sleep apnea based on daytime somnolence and snoring as well as obesity. PLAN: Refer for sleep study Return PRN - HPI: CASE HISTORY: Reverse Chronological Order Initial Visit, March 09, 2023: Radu Del Rio presents today Hematology and Oncology evaluation. He is a 82 year old male who was referred for possible MGUS. His symptoms include SOB and chest pain on exertion for the past 2-3 years. Elevated proteins in urine. However, labwork is negative. Proteins seen in labs are thought to be due to age-related kidney decline. He denies any other medical problems. Radu's former work was with [employer], also a former cigarette smoker. His 's name is Gloria. He reports he snores during the night. He is concerned about frequent nap taking. Has daytime somnolence. He denies CPAP use. Possible explanation for respiratory issues can be associated with BJ, which I suspect he may have. He reports he has had symptoms for 60 years, yet his weight has remained unchanged for the past 40 years. Has been obese for most of his life. I will refer him for a sleep consultation. - REVIEW OF SYSTEMS Per HPI and otherwise negative by full review of organ systems. - ECOG PERFORMANCE STATUS: 0 PHYSICAL EXAMINATION: Vitals: BP 137/78 Pulse 87 Temp (Src) 97.6 (Temporal) Resp 18 Wt 225 lb 5 oz (102.2kg) Body surface area is 2.2 meters squared. Exam limited to gross visualization where appropriate. Obese. Gen.: This is an age-appropriate patient in no acute distress. Head: Appears atraumatic with no visible lesions. Eyes: Pupils equally round and reactive to light, extraocular muscles are intact. Neck: Supple. Respiratory: Appears to be respiring comfortably. Neurologic: Nonfocal to gross visualization. Alert and oriented ?3. Psychiatric: No evidence of inappropriate anxiety or depression. Skin: Visible areas of skin without rash, lesions, wounds or petechiae. - ALLERGIES: ALLERGIES No Known Allergies MEDICATIONS: ranolazine ER (RANEXA) 1,000 mg tab ER 12 hr Take 1 tablet by mouth two times a day. isosorbide mononitrate ER (IMDUR) 30 mg 24 hr tablet Take 1 tablet by mouth every afternoon. Acetaminophen 500 mg cap Take 500 mg by mouth. aspirin, enteric coated (ASPIRIN, ENTERIC COATED) 81 mg EC tablet Take 81 mg by mouth once daily. clopidogrel (PLAVIX) 75 mg tablet Take 75 mg by mouth once daily. pantoprazole DR (PROTONIX) 40 mg tablet Take 40 mg by mouth as needed. rosuvastatin (CRESTOR) 40 mg tablet Take 40 mg by mouth once daily. - LABORATORY VALUES: WBC (k/uL) Date Value 03/02/2023 10.72 RBC (m/uL) Date Value 03/02/2023 4.59 Hemoglobin (g/dL) Date Value 03/02/2023 14.5 Hematocrit (%) Date Value 03/02/2023 42.7 MCV (fL) Date Value 03/02/2023 93.0 MCH (pg) Date Value 03/02/2023 31.6 MCHC (g/dL) Date Value 03/02/2023 34.0 RDW-CV (%) Date Value 03/02/2023 12.4 Platelet Count (k/uL) Date Value 03/02/2023 163 MPV (fL) Date Value 03/02/2023 12.3 Glucose (mg/dL) Date Value 03/02/2023 125 (H) BUN (mg/dL) Date Value 03/02/2023 20 Creatinine (mg/dL) Date Value 03/02/2023 0.96 Sodium (mmol/L) Date Value 03/02/2023 139 Potassium (mmol/L) Date Value 03/02/2023 4.2 Chloride (mmol/L) Date Value 03/02/2023 104 CO2 (mmol/L) Date Value 03/02/2023 24 Protein, Total (g/dL) Date Value 03/02/2023 7.3 03/02/2023 6.8 Alb (more content not included)... Normal [facility] Julia 03-09-2023 CNPN Telephone (NCCAP) RADU DEL RIO ([id number]) 1940 M Date Time Provider Department 03/09/23 FITO ROGERS [facility] During your visit today, we recorded the following information about you: Bo Alexander 03/09/2023 4:24 PM Signed Patient would like to be referred to [facility] for Sleep Study. Faxed order to [facility] March 09, 2023 4:23 PM. Will call and follow up on this to make sure [facility] received order. Bo Sanches 03/14/2023 10:57 AM Signed Left message w/ [facility] scheduling for update. Bo Sanches 03/14/2023 11:27 AM Signed No order received per Amanda. Refaxed order to [facility] March 14, 2023 11:27 AM Bo Sanches 03/15/2023 4:24 PM Signed Order received. Per Sharifa, order was faxed to sleep study and they will be in contact with patient to get scheduled. Bo Alexander Allergies As of Date: 03/09/2023 (No Known Allergies) Date Reviewed: 03/09/2023 Reviewed by: Neelam Solano - Fully Assessed Reason for Visit: Referral Information [[id number]] Cmt: Sleep Study Prescriptions as of 03/15/2023 - ranolazine ER (RANEXA) 1,000 mg tab ER 12 hr Take 1 tablet by mouth two times a day. - isosorbide mononitrate ER (IMDUR) 30 mg 24 hr tablet Take 1 tablet by mouth every afternoon. - Acetaminophen 500 mg cap Take 500 mg by mouth. - aspirin, enteric coated (ASPIRIN, ENTERIC COATED) 81 mg EC tablet Take 81 mg by mouth once daily. - clopidogrel (PLAVIX) 75 mg tablet Take 75 mg by mouth once daily. - pantoprazole DR (PROTONIX) 40 mg tablet Take 40 mg by mouth as needed. - rosuvastatin (CRESTOR) 40 mg tablet Take 40 mg by mouth once daily. Problem List As Of Date 03/09/2023 Noted Resolved Peripheral vascular disease (HCC) [I73.9] 02/04/2023 Morbid obesity (HCC) [E66.01] 02/04/2023 Coronary artery disease involving [place] cazares*03/06/2023 S/P drug eluting coronary stent placement [Z95.*03/06/2023 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.1] 03/06/2023 CHRISTIANSON (dyspnea on exertion) [R06.09] 03/06/2023 Obesity, Class II, 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] 03/06/2023 Encounter Status:Closed by BO ALEXANDER on 03/15/23 [facility] CNOVon 03-06-2023 CNOV Office Visit (CATHMN ) RADU DEL RIO ([id number]) 1940 M Date Time Provider Department 03/06/23 11:30 AM ELI SIBLEY During your visit today, we recorded the following information about you: Pulse Respiration Blood pressure Weight 80/minute 18/minute 118/66 101.6 kg Height 1.702 m Eli Sibley MD 03/14/2023 8:22 PM Signed [facility] [place] [facility] Department of Cardiovascular Medicine SECTION OF INTERVENTIONAL CARDIOLOGY OUTPATIENT VISIT DATE March 06, 2023 OUTPATIENT VISIT TYPE CONSULTATION PRIMARY CARE PHYSICIAN: Crystal Singh (Pravin) [address] [place] [address] REFERRING PHYSICIAN Jim Gaitan [address] [facility] [id number] CHIEF COMPLAINT: No chief complaint on file. HISTORY OF PRESENT ILLNESS: Cardiac consultation at the request of Dr. Jim Gaitan.A copy of this consultation note will be provided to the requesting physician by way of shared Medical record or letter to requesting physician via US mail. Mr. Del Rio is a 82 year old male who is seen today for feasilblity of PCI. No outside angiogram available for my evaluation. CRFs: lipids, HTN, FHx Followed by Dr. Gaitan. 1993 - CABG - no details 08/13/2021 - PCI at OSH with orbital atherectomy and SHIRLEY to proximal/mid LAD (no films available. But report): 1. Hemodynamically significant lesion in the mid LAD with an IFR of 0.84 2. Occluded bypass graft to the LAD and circumflex 3. Atretic CALDWELL, bypass surgery 1993 4. Status post orbital atherectomy with 1.25 crown in prox to mid LAD followed by placement of 3.25 x 33 drug-eluting stent under intravascular ultrasound guidance, post dilated with 3.5 noncompliant 5. 80% stenosis in proximal circumflex not treated 6. Mild disease and non dominant right coronary artery 7. Calcified right common femoral artery placement of 6 [place] Angio-Seal device 08/17/2022 - cardiac catheterization at OSH (by report, no films available): LM - normal LAD - patent stent LCX - ostial 90%, OM1 80%, OM2 90% RCA - ostial 60%, IFR 0.93 LCX disease felt not suitable for revascularization. Medical management recommended 03/03/2023 - Echocardiogram at F - The left ventricle is normal in size. There is mild septal left ventricular hypertrophy. Left ventricular systolic function is mildly decreased. EF = 51 ? 5% (2D biplane) Grade I left ventricular diastolic dysfunction. - The right ventricle is normal in size. Right ventricular systolic function is normal. - The left atrial cavity is mildly dilated. - Difficult to appreciate AV leaflet morphology, appears tricuspid. 03/03/23 NM SPECT/CT cardiac amyloid: 1. Not Consistent with TTR amyloidosis 2. No bone abnormalities. Complains of CHRISTIANSON on walking 75 feet on level to the mailbox, walking across his house. Associated with chest pressure. Resolves with 5-10 minutes rest. Progressive for last 2-3 years. Had improved after PCI in 07/2021, but has worsened since. Unclear whether he has had any improvement with ranolazine. Has severe back pain, s/p ablation recently. This limits his activity as well. NURSING INTAKE: Past medical history of: HTN, HLD, CAD S/P CABGx2 1993 and PCI rotational atherectomy and SHIRLEY LAD 07/2021, PAD (right femoral calcification), obesity, spinal stenosis, carotid artery disease s/p L CEA 2015, COVID, GERD, family hx CAD. He presents today for 2nd opinion regarding CAD. He follows with Dr. Gaitan and was seen in January: He had a remote history of CABG 1993. At that time, he doesn't recall his symptoms but his noted that he did not look right (looked very pale) so she brought him to the hospital where he underwent work up which resulted in in CABG. He did well until 2 years ago when he started to notice exertional shortness of breath which has been progressive, now limited to walking 75 ft to his mailbox, after which he requires rest. He also reports chest scratching in the mornings and through the day it turns into a tightness. This happens with activity as well, improving with rest. By 10 minutes symptoms will resolve. He also admits to worsening fatigue. He gets dizzy with position changes. He feels lightheaded with exertion when the chest tightness progressively gets worse. He also has spinal stenosis and has had multiple back surgeries. He states maybe if my back would get better my symptoms wouldn't feel so bad. 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 2021 [place] stress was negative for ischemia. Coronary angiogram in 2021 with prox-mid LAD stenosis status post orbital atherectomy and SHIRLEY. 80% Lcx stenosis was med mngt. Known occluded bypass to the LAD/Cx. Symptoms did not improve after revascularization. Stress test with (more content not included)... Normal [facility] Julia 03-06-2023 IDALIAN Telephone (CARCMN) RADU DEL RIO ([id number]) 1940 M Date Time Provider Department 03/06/23 JIM GAITAN CARCNEVAEH During your visit today, we recorded the following information about you: Kareen Anderson RN 03/06/2023 10:49 AM Signed Jim Gaitan MD P [facility] Clinical Nurse Phone Pool Please let the patient know that his echo overall looks fine with low normal/mildly decreased pumping function. There is no evidence of one type of protein disease (TTR amyloidosis) on the heart scan but he did have some calcified lymph nodes on his CT that he will need to follow up with his primary care doctor on. Additionally, it is very important he follow up with the blood doctors as scheduled to get an evaluation of the elevated protein in his blood and urine (already scheduled) in addition to appts with Dr. Sibley and Mery. Thank you. Kareen Anderson RN 03/06/2023 10:50 AM Signed Spoke with patient's , she verbalized understanding. Kareen Anderson RN Allergies As of Date: 03/06/2023 (No Known Allergies) Date Reviewed: 02/03/2023 Reviewed by: Jo Mcmahon, OLIVIA - Fully Assessed Prescriptions as of 03/06/2023 - isosorbide mononitrate ER (IMDUR) 30 mg 24 hr tablet Take 1 tablet by mouth every afternoon. - ranolazine ER (RANEXA) 500 mg 12 hr tablet Take 500 mg by mouth. - Acetaminophen 500 mg cap Take 500 mg by mouth. - fluticasone (FLONASE) 50 mcg/actuation nasal spray SPRAY 1 SPRAY INTO EACH NOSTRIL TWICE A DAY - aspirin, enteric coated (ASPIRIN, ENTERIC COATED) 81 mg EC tablet Take 81 mg by mouth once daily. - clopidogrel (PLAVIX) 75 mg tablet Take 75 mg by mouth once daily. - pantoprazole DR (PROTONIX) 40 mg tablet Take 40 mg by mouth as needed. - rosuvastatin (CRESTOR) 40 mg tablet Take 40 mg by mouth once daily. - melatonin 1 mg tablet Take 10 mg by mouth once daily. Facility-Administered Medications as of 03/06/2023 - perflutren lipid microspheres 1.3 mL in NaCl (PF) 0.9% 10 mL injection (DEFINITY) - sodium chloride 0.9 % (flush) 10 mL (BD POSIFLUSH) Problem List As Of Date 03/06/2023 Noted Resolved Peripheral vascular disease (HCC) [I73.9] 02/04/2023 Morbid obesity (HCC) [E66.01] 02/04/2023 Encounter Status:Closed by KAREEN ANDERSON on 03/06/23 Normal [facility] MONOCLONAL PROT 24 UR W/INTE RPon 03-06-2023 STAFF REVIEW (PA) Reviewed by Zac Cuevas MD, Ph.D ([id number]) Normal [facility] Comment on above: Order Comment: Speci men Type: BLOOD SPECIMEN Ordering Facility: [facility] Address: [address] [place] [address] Performed By: #### 5 7021-8 #### [facility] CLIA [id number] [address] [place] [address] UMPA RESULT No M protein is identified. Normal No M protein is identified. [facility] Comment on above: Order Comment: Speci men Type: BLOOD SPECIMEN Ordering Facility: [facility] Address: [address] [place] [address] Performed By: #### 5 7021-8 #### [facility] CLIA [id number] [address] [place], [place] [address] PROT ELEC UR 24HR W/M SPIKE (P)on 03-06-2023 Albumin/Globulin Elph (24H U) [Mass ratio] 33.77 % Normal [facility] Comment on above: Order Comment: Speci men Type: BLOOD SPECIMEN Ordering Facility: [facility] Address: [address] [place] [address] Performed By: #### 5 7021-8 #### [facility] CLIA [id number] [address] [place] [address] Alpha 1 globulin Elph (24H U) [Mass fraction] 5.29 % Normal [facility] Comment on above: Order Comment: Speci men Type: BLOOD SPECIMEN Ordering Facility: [facility] Address: [address] [place] [address] Performed By: #### 5 7021-8 #### [facility] CLIA [id number] [address] [place] [address] Alpha 2 globulin Elph (24H U) [Mass fraction] 24.92 % Normal [facility] Comment on above: Order Comment: Speci men Type: BLOOD SPECIMEN Ordering Facility: [facility] Address: [address] [place] [address] Performed By: #### 5 7021-8 #### [facility] CLIA [id number] [address] [place] [address] Beta globulin Elph (24H U) [Mass fraction] 20.86 % Normal [facility] Comment on above: Order Comment: Speci men Type: BLOOD SPECIMEN Ordering Facility: [facility] Address: [address] [place] [address] Performed By: #### 5 7021-8 #### [facility] CLIA [id number] [address] [place] [address] Gamma globulin Elph (24H U) [Mass fraction] 15.17 % Normal [facility] Comment on above: Order Comment: Speci men Type: BLOOD SPECIMEN Ordering Facility: [facility] Address: [address] [place] [address] Performed By: #### 5 7021-8 #### [facility] CLIA [id number] [address] [place] [address] Protein Fractions Elph Juarez (24H U) [Interp] No definitive M protein is identified on protein electrophoresis. Normal No definitive M protein is identified on protein electrophores is. [facility] Comment on above: Order Comment: Speci men Type: BLOOD SPECIMEN Ordering Facility: [facility] Address: [address] [place] [address] Performed By: #### 5 7021-8 #### [facility] CLIA [id number] [address] [place] [address] Protein.monoclonal Elph (24H U) [Mass/Time] 0.00 g/24hr Normal [facility] Comment on above: Order Comment: Speci men Type: BLOOD SPECIMEN Ordering Facility: [facility] Address: [address] [place] [address] Performed By: #### 5 7021-8 #### [facility] CLIA [id number] [address] [place], [place] [address] STAFF REVIEW ([id number]) Reviewed by Zac Cuevas MD, Ph.D ([id number]) Normal [facility] Comment on above: Order Comment: Speci men Type: BLOOD SPECIMEN Ordering Facility: [facility] Address: [address] [place] [address] Performed By: #### 5 7021-8 #### [facility] CLIA [id number] [address] [place] [address] Prot 24h Ur-mRateon 03-06-20 23 Protein (24H U) [Mass/Time] 0.25 g/24 Hr High <0.15 [facility] Comment on above: Order Comment: Speci men Type: TIMED URINE SPECIMENOrdering Facility: [facility] Address: [address] [place] [address] Result Comment: Adul t Proteinuria Categories: <0.15 g/24 hours is considered normal to mildly increased 0.15 - 0.50 g/24 hours is considered moderately increased >0.50 g/24 hours is considered severely increased KDIGO. (2013). KDIGO 2012 Clinical Practice Guideline for the Evaluation and Management of Chronic Kidney Disease. Official Journal of the International Society of Nephrology, 3(1), 1-150. Performed By: #### 2 889-4 ####[facility] [id number] [facility] [id number] LABCLIA [id number] [place] [address] Protein (24H U) [Mass/Time]o n 03-06-2023 PERIOD (HRS) 24 hr Normal [facility] Comment on above: Order Comment: Speci men Type: TIMED URINE SPECIMENOrdering Facility: [facility] Address: [address] [place] [address] Performed By: #### 2 889-4 ####[facility]IA [id number] [address] LABCLIA [id number] [place] [address] Specimen volume (24H U) 1.2 L Normal [facility] Comment on above: Order Comment: Speci men Type: TIMED URINE SPECIMENOrdering Facility: [facility] Address: [address] [place] [address] Performed By: #### 2 889-4 ####[facility]CLIA [id number] [address] LABCLIA [id number] [place] [address] Julia 03-03-2023 IDALIAN Telephone (SARAH) RADU DEL RIO ([id number]) 1940 M Date Time Provider Department 03/03/23 JIM GAITAN During your visit today, we recorded the following information about you: Srini Servin 03/03/2023 4:10 PM Signed [facility] - 02/14/23 Allergies As of Date: 03/03/2023 (No Known Allergies) Date Reviewed: 02/03/2023 Reviewed by: Jo Mcmahon RN - Fully Assessed Reason for Visit: LAB RESULTS RCVD VIA MAIL [Other] Prescriptions as of 03/03/2023 - isosorbide mononitrate ER (IMDUR) 30 mg 24 hr tablet Take 1 tablet by mouth every afternoon. - ranolazine ER (RANEXA) 500 mg 12 hr tablet Take 500 mg by mouth. - Acetaminophen 500 mg cap Take 500 mg by mouth. - fluticasone (FLONASE) 50 mcg/actuation nasal spray SPRAY 1 SPRAY INTO EACH NOSTRIL TWICE A DAY - aspirin, enteric coated (ASPIRIN, ENTERIC COATED) 81 mg EC tablet Take 81 mg by mouth once daily. - clopidogrel (PLAVIX) 75 mg tablet Take 75 mg by mouth once daily. - pantoprazole DR (PROTONIX) 40 mg tablet Take 40 mg by mouth as needed. - rosuvastatin (CRESTOR) 40 mg tablet Take 40 mg by mouth once daily. - melatonin 1 mg tablet Take 10 mg by mouth once daily. Facility-Administered Medications as of 03/03/2023 - perflutren lipid microspheres 1.3 mL in NaCl (PF) 0.9% 10 mL injection (DEFINITY) - sodium chloride 0.9 % (flush) 10 mL (BD POSIFLUSH) Problem List As Of Date 03/03/2023 Noted Resolved Peripheral vascular disease (HCC) [I73.9] 02/04/2023 Morbid obesity (HCC) [E66.01] 02/04/2023 Encounter Status:Closed by SRINI SERVIN on 03/03/23 [facility] ECHOon 03-03-2023 Echocardiography Echocardiography Report: Transthoracic Echo [facility] LONNY-2 Date of service: 03/03/2023 3:13:42 PM HOST Ordering physician: JIM GAITAN Indication: Hx of CABG, PCI, CAD Technologist: Hanh Boyd RVT and Gilberto Babin Interpreting physician: Fela Mccain MD PATIENT: Name: MR. RADU DEL RIO : 1940 Age: 82 years Gender: M Previous cardiovascular interventions: CABG (1994) PCI (2021) Primary rhythm: sinus. Height: 170.20 cm BSA: 2.19 m Weight: 101.15 kg BMI: 34.9 kg/m Heart rate 54 bpm Blood pressure 145/66 mmHg Technically difficult exam due to body habitus. Color Doppler was utilized to interrogate the cardiac valves assessed and spectral Doppler was utilized to determine the flow velocities and pressure gradients reported in this exam. MEASUREMENTS: Value Indexed Normal Max aortic dimension 3.7 cm Ao < 3.8 Left atrial volume 76 ml (biplane A-L) 35 ml/m Ham <= 34 LV ID (diastole) 4.5 cm (2D) 2.04 cm/m LV ID (systole) 3.0 cm (2D) 1.39 cm/m IVS, leaflet tips 1.1 cm (2D) Posterior wall thickness 1.0 cm (2D) Left ventricular mass 162 g (2D) 74 g/m LV stroke volume 39 ml (2D biplane) LV end diastolic volume 77 ml (2D biplane) 35.0 ml/m 34<=EDVi<75 LV end systolic volume 37 ml (2D biplane) 17.0 ml/m Ejection Fraction 51 % (2D biplane) EF > 52 FINDINGS: LEFT VENTRICLE The left ventricle is normal in size. There is mild septal left ventricular hypertrophy. Left ventricular systolic function is mildly decreased globally. Grade I left ventricular diastolic dysfunction. Mitral annular lateral E/e': 8.1. Mitral annular septal E/e': 14.3. Wall Motion: The entire anterior wall, entire lateral wall, entire septum, entire apex, and entire inferior wall are mildly hypokinetic. RIGHT VENTRICLE The right ventricle is normal in size. Right ventricular systolic function is normal. RV systolic tissue Doppler velocity is 10.8 cm/s. Tricuspid annular displacement is 1.8 cm. Estimated right ventricular systolic pressure is not reported due to an insufficient tricuspid regurgitation signal. Estimated right atrial pressure is 3 mmHg based on IVC assessment. LEFT ATRIUM The left atrial cavity is mildly dilated. Pulmonary Veins: The pulmonary venous pattern showed blunted systolic flow. RIGHT ATRIUM The right atrial cavity is normal in size. Inferior Vena Cava: The inferior vena cava appears normal measuring 1.2 cm. The vessel decreases greater than 50 percent with inspiration. MITRAL VALVE There is mild (1+) mitral valve regurgitation. There is mild thickening. The pressure half time is 52 msec. The peak mitral E/A ratio is 0.88. The average mitral E/e' ratio is 11.2. The mitral flow deceleration time is 180 msec. TRICUSPID VALVE The tricuspid valve leaflets are structurally normal. There is trace tricuspid valve regurgitation. AORTIC VALVE There is trace aortic valve regurgitation. Tricuspid aortic valve. There is mild thickening. PULMONIC VALVE The pulmonic valve was not seen or not interrogated. There is trace (trace - 1+) pulmonic valve regurgitation. AORTA The visualized aorta is normal in size. Measurements - Sinus: 3.7 cm. Sinotubular junction 3.0 cm. Mid ascending aorta 3.4 cm. INTERATRIAL SEPTUM There is no evidence of intracardiac shunting as detected by Doppler. INTERVENTRICULAR SEPTUM There is no flow through the interventricular septum as detected by Doppler. CONCLUSIONS: - Technically difficult exam due to body habitus. - Exam indication: Hx of CABG, PCI, CAD - The left ventricle is normal in size. There is mild septal left ventricular hypertrophy. Left ventricular systolic function is mildly decreased. EF = 51 5% (2D biplane) Grade I left ventricular diastolic dysfunction. - The right ventricle is normal in size. Right ventricular systolic function is normal. - The left atrial cavity is mildly dilated. - Difficult to appreciate AV leaflet morphology, appears tricuspid. - The patient has not had a prior CC echocardiographic exam for comparison. 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 RADU DEL RIO Age: 82 years Gender: M 1. Incidental Findings from limited non-diagnostic CTAC: - Coronary calcifications visualized. Median sternotomy. Multiple calcified nodules in left lung parenchyma and perihilar area. Most consistent with prior granulomatous disease. No prior CTs available. * * * Final * * * ------ Patient: Name: MR. RADU DEL RIO Age: 82 years Gender: M CONCLUSIONS: 1. Not Consistent with TTR amyloidosis 2. No bone abnormalities. * Please note that a negative or mildly positive study does not exclude AL amyloid. In addition, equivocal results could represent AL amyloid or early ATTR. We suggest concomitant workup of AL amyloid with laboratory testing and pathologic assessment as appropriate. Nuclear Med Report: [id number] PLANAR and SPECT: Myocardial imaging of the chest with CT attenuation correction was performed at 3 hours post IV injection of Tc-99m Pyrophosphate. See administered doses below. Main [place] Date of service: 03/03/2023 12:51:26 PM Ordering Physician: Requesting Physician: JIM GAITAN Indication: Suspected Amyloid Heart Disease Interpreting physician: Tomas Diez MD CT Dose-Length Product(DLP): 143.0 mGy * cm. CT Dose Reduction Employed: Yes. Exam Type: Rest Study Date: 03/03/2023 Radiopharm: 99m Technetium-Pyrophospha te Dosage(mCi): 22.1 Injection Time: 10:10:00 AM Atten Correction: performed Time Interval: 3.0 hours Image Quality The overall study imaging quality was deemed to be good. CARDIAC FINDINGS: PLANAR: Visual Comparison to Bone: Grade 0 = No uptake and normal bone uptake (negative for ATTR) SPECT: Uptake Pattern: Absent NON CARDIAC FINDINGS: No bone abnormalities. Summary: Not Consistent with TTR amyloidosis * Please note that a negative or mildly positive study does not exclude AL amyloid. In addition, equivocal results could represent AL amyloid or early ATTR. We suggest concomitant workup of AL amyloid with laboratory testing and pathologic assessment as appropriate. * * * Final * * * RP Ice Delivery Driver: NATY Transcribe Date/Time: Mar 03 2023 12:51P Dictated by : TOMAS DIEZ MD This examination was interpreted and the report reviewed and electronically signed by: TOMAS DIEZ MD on Mar 03 2023 1:35PM EST [id number] Normal [facility] NM SPECT/CT CARDIAC AMYLOIDo n 03-03-2023 [facility] B2 Microglob SerPl-mCncon Zicc-6-Nclcxvffumbgj [Mass/Vol] 1.6 ug/mL Normal <3.1 [facility] Comment on above: Order Comment: Speci men Type: BLOOD SPECIMENOrdering Facility: [facility] Address: [address] [place] [address] Result Comment: Beta -2 Microglobulin test is performed using the [employer] immunoturbidimetric method. Results obtained with different methods or kits cannot be used interchangeably. Performed By: #### 2 885-2, 1951-03 ####[facility]CLIA [id number] [place] [address] [place] CBC W Auto Differential pane l (Bld)on 03-02-2023 Basophils (Bld) [#/Vol] 10*3/uL Normal <0.11 [facility] Comment on above: Order Comment: Speci men Type: BLOOD SPECIMEN Ordering Facility: [facility] Address: [address] [place] [address] Performed By: #### 5 7021-8 #### [facility] CLIA [id number] [address] [place], [place] [address] Basophils/100 WBC (Bld) 0.2 % Normal [facility] Comment on above: Order Comment: Mariveli men Type: BLOOD SPECIMEN Ordering Facility: [facility] Address: [address] [place] [address] Performed By: #### 5 7021-8 #### [facility] CLIA [id number] [address] [place] [address] Differential cell count method Nom (Bld) Auto Normal [facility] Comment on above: Order Comment: Speci men Type: BLOOD SPECIMEN Ordering Facility: [facility] Address: [address] [place] [address] Performed By: #### 5 7021-8 #### [facility] CLIA [id number] [address] [place] [address] Eosinophils (Bld) [#/Vol] 10*3/uL Normal <0.46 [facility] Comment on above: Order Comment: Speci men Type: BLOOD SPECIMEN Ordering Facility: [facility] Address: [address] [place] [address] Performed By: #### 5 7021-8 #### [facility] CLIA [id number] [address] [place] [address] Eosinophils/100 WBC (Bld) 0.0 % Normal [facility] Comment on above: Order Comment: Speci men Type: BLOOD SPECIMEN Ordering Facility: [facility] Address: [address] [place] [address] Performed By: #### 5 7021-8 #### [facility] CLIA [id number] [address] [place] [address] Erythrocyte distribution width (RBC) [Ratio] 12.4 % Normal 11.5-15.0 [facility] Comment on above: Order Comment: Speci men Type: BLOOD SPECIMEN Ordering Facility: [facility] Address: [address] [place] [address] Performed By: #### 5 7021-8 #### [facility] CLIA [id number] [address] [place] [address] Hematocrit (Bld) [Volume fraction] 42.7 % Normal 39.0-51.0 [facility] Comment on above: Order Comment: Speci men Type: BLOOD SPECIMEN Ordering Facility: [facility] Address: [address] [place] [address] Performed By: #### 5 7021-8 #### [facility] CLIA [id number] [address] [place] [address] Hemoglobin (Bld) [Mass/Vol] 14.5 g/dL Normal 13.0-17.0 [facility] Comment on above: Order Comment: Speci men Type: BLOOD SPECIMEN Ordering Facility: [facility] Address: [address] [place] [address] Performed By: #### 5 7021-8 #### [facility] CLIA [id number] [address] [place] [address] Immature granulocytes (Bld) [#/Vol] 0.12 10*3/uL High <0.10 [facility] Comment on above: Order Comment: Speci men Type: BLOOD SPECIMEN Ordering Facility: [facility] Address: [address] [place] [address] Performed By: #### 5 7021-8 #### [facility] CLIA [id number] [address] [place] [address] Immature granulocytes/100 WBC (Bld) 1.1 % Normal [facility] Comment on above: Order Comment: Speci men Type: BLOOD SPECIMEN Ordering Facility: [facility] Address: [address] [place] [address] Performed By: #### 5 7021-8 #### [facility] CLIA [id number] [address] [place] [address] Lymphocytes (Bld) [#/Vol] 1.04 10*3/uL Normal 1.00-4.00 [facility] Comment on above: Order Comment: Speci men Type: BLOOD SPECIMEN Ordering Facility: [facility] Address: [address] [place] [address] Performed By: #### 5 7021-8 #### [facility] CLIA [id number] [address] [place] [address] Lymphocytes/100 WBC (Bld) 9.7 % Normal [facility] Comment on above: Order Comment: Speci men Type: BLOOD SPECIMEN Ordering Facility: [facility] Address: [address] [place] [address] Performed By: #### 5 7021-8 #### [facility] CLIA [id number] [address] [place] [address] 26227 MCH (RBC) [Entitic mass] 31.6 pg Normal 26.0-34.0 [facility] Comment on above: Order Comment: Speci men Type: BLOOD SPECIMEN Ordering Facility: [facility] Address: [address] [place] [id number] Performed By: #### 5 7021-8 #### [facility] CLIA [id number] [address] [place] [address] MCHC (RBC) [Mass/Vol] 34.0 g/dL Normal 30.5-36.0 [facility] Comment on above: Order Comment: Speci men Type: BLOOD SPECIMEN Ordering Facility: [facility] Address: [address] [place] [address] Performed By: #### 5 7021-8 #### [facility] CLIA [id number] [address] [place] [address] 24636 MCV (RBC) [Entitic vol] 93.0 fL Normal 80.0-100.0 [facility] Comment on above: Order Comment: Speci men Type: BLOOD SPECIMEN Ordering Facility: [facility] Address: [address] [place] [address] Performed By: #### 5 7021-8 #### [facility] CLIA [id number] [address] [place] [address] 41919 Monocytes (Bld) [#/Vol] 0.72 10*3/uL Normal <0.87 [facility] Comment on above: Order Comment: Speci men Type: BLOOD SPECIMEN Ordering Facility: [facility] Address: [address] [place] [address] Performed By: #### 5 7021-8 #### [facility] CLIA [id number] [address] [place] [address] 56482 Monocytes/100 WBC (Bld) 6.7 % Normal [facility] Comment on above: Order Comment: Speci men Type: BLOOD SPECIMEN Ordering Facility: [facility] Address: [address] [place], [place] [address] Performed By: #### 5 7021-8 #### [facility] CLIA [id number] [address] [place] [address] 16679 Neutrophils (Bld) [#/Vol] 8.82 10*3/uL High 1.45-7.50 [facility] Comment on above: Order Comment: Speci men Type: BLOOD SPECIMEN Ordering Facility: [facility] Address: [address] [place] [address] Performed By: #### 5 7021-8 #### [facility] CLIA [id number] [address] [place] [address] 42291 Neutrophils/100 WBC (Bld) 82.3 % Normal [facility] Comment on above: Order Comment: Speci men Type: BLOOD SPECIMEN Ordering Facility: [facility] Address: [address] [place] [address] Performed By: #### 5 7021-8 #### [facility] CLIA [id number] [address] [place] [address] 26352 Nucleated RBC (Bld) [#/Vol] 10*3/uL Normal <0.01 [facility] Comment on above: Order Comment: Speci men Type: BLOOD SPECIMEN Ordering Facility: [facility] Address: [address] [place] [address] Performed By: #### 5 7021-8 #### [facility] CLIA [id number] [address] [place] [address] 41243 Nucleated RBC/100 WBC (Bld) [Ratio] 0.0 /100 WBC Normal [facility] Comment on above: Order Comment: Speci men Type: BLOOD SPECIMEN Ordering Facility: [facility] Address: [address] [place] [address] Performed By: #### 5 7021-8 #### [facility] CLIA [id number] [address] [place] [address] 57878 Platelet mean volume (Bld) [Entitic vol] 12.3 fL Normal 9.0-12.7 [facility] Comment on above: Order Comment: Speci men Type: BLOOD SPECIMEN Ordering Facility: [facility] Address: [address] [place] [address] Performed By: #### 5 7021-8 #### [facility] CLIA [id number] [address] [place] [address] 85470 Platelets (Bld) [#/Vol] 163 10*3/uL Normal 150-400 [facility] Comment on above: Order Comment: Speci men Type: BLOOD SPECIMEN Ordering Facility: [facility] Address: [address] [place] [address] Performed By: #### 5 7021-8 #### [facility] CLIA [id number] [address] [place] [address] 87304 RBC (Bld) [#/Vol] 4.59 10*6/uL Normal 4.20-6.00 [facility] Comment on above: Order Comment: Speci men Type: BLOOD SPECIMEN Ordering Facility: [facility] Address: [address] [place] [address] Performed By: #### 5 7021-8 #### [facility] CLIA [id number] [address] [place] [address] 32068 WBC (Bld) [#/Vol] 10.72 10*3/uL Normal 3.70-11.00 [facility] Comment on above: Order Comment: Speci men Type: BLOOD SPECIMEN Ordering Facility: [facility] Address: [address] [place] [address] Performed By: #### 5 7021-8 #### [facility] CLIA [id number] [address] [place] [address] 08124 Calcium.ionized [Moles/Vol]o n 03-02-2023 Calcium.ionized (Bld) [Mass/Vol] 1.27 mmol/L Normal 1.08-1.30 [facility] Comment on above: Order Comment: Speci men Type: BLOOD SPECIMENOrdering Facility: [facility] Address: [address] [place] [address] Performed By: #### 1 995-0 ####[facility] [id number] [address] [address] [place] [facility] Calcium.ionized adjusted to pH 7.4 (Bld) [Moles/Vol] 1.27 mmol/L Normal 1.08-1.30 [facility] Comment on above: Order Comment: Speci men Type: BLOOD SPECIMENOrdering Facility: [facility] Address: [address] [place] [address] Performed By: #### 1 995-0 ####[facility]CLIA [id number] [place] [id number] [facility] Comprehensive metabolic 2000 panelon 03-02-2023 Albumin [Mass/Vol] 4.6 g/dL Normal 3.9-4.9 [facility] Comment on above: Order Comment: Speci men Type: BLOOD SPECIMENOrdering Facility: [facility] Address: [address] [place] [address] Performed By: #### 3 084-1, 67653-4, 2531-0, 2776-1 ####[facility] [id number] [place] [address] ALP [Catalytic activity/Vol] 123 U/L High 38-113 [facility] Comment on above: Order Comment: Speci men Type: BLOOD SPECIMENOrdering Facility: [facility] Address: [address] [place] [address] Performed By: #### 3 084-1, 62169-4, 253-0, 2776-1 ####[facility]IA [id number] [place] [address] ALT [Catalytic activity/Vol] 41 U/L Normal 10-54 [facility] Comment on above: Order Comment: Speci men Type: BLOOD SPECIMENOrdering Facility: [facility] Address: [address] [place] [address] Performed By: #### 3 084-1, 88699-7, 2532-0, 2777-1 ####[facility] [id number] [place] [address] Anion gap [Moles/Vol] 11 mmol/L Normal 9-18 [facility] Comment on above: Order Comment: Speci men Type: BLOOD SPECIMENOrdering Facility: [facility] Address: [address] [place] [address] Performed By: #### 3 084-1, 06233-8, 2531-0, 2776- ####[facility]CLIA [id number] [place] [address] AST [Catalytic activity/Vol] 39 U/L Normal 14-40 [facility] Comment on above: Order Comment: Speci men Type: BLOOD SPECIMENOrdering Facility: [facility] Address: [address] [place] [address] Performed By: #### 3 084-1, 58651-1, 2531-0, 2776- ####[facility]CLIA [id number] [place] [address] Bilirubin [Mass/Vol] 0.7 mg/dL Normal 0.2-1.3 [facility] Comment on above: Order Comment: Speci men Type: BLOOD SPECIMENOrdering Facility: [facility] Address: [address] [place] [address] Performed By: #### 3 084-1, 81386-5, 2531-0, 2776- ####[facility]CLIA [id number] [place] [address] Calcium [Mass/Vol] 9.8 mg/dL Normal 8.5-10.2 [facility] Comment on above: Order Comment: Speci men Type: BLOOD SPECIMENOrdering Facility: [facility] Address: [address] [place], [place] [address] Performed By: #### 3 084-1, 80177-9, 2-0, 2776-1 ####[facility]CLIA [id number] [place] [address] Chloride [Moles/Vol] 104 mmol/L Normal 97-105 [facility] Comment on above: Order Comment: Speci men Type: BLOOD SPECIMENOrdering Facility: [facility] Address: [address] [place] [address] Performed By: #### 3 084-1, 01765-8, 2532-0, 2777-1 ####[facility] LABIA [id number] [place] [address] CO2 [Moles/Vol] 24 mmol/L Normal 22-30 [facility] Comment on above: Order Comment: Speci men Type: BLOOD SPECIMENOrdering Facility: [facility] Address: [address] [place] [address] Performed By: #### 3 084-1, 10352-7, 2532-0, 2777-1 ####[facility] [id number] [place] [address] Creatinine [Mass/Vol] 0.96 mg/dL Normal 0.73-1.22 [facility] Comment on above: Order Comment: Speci men Type: BLOOD SPECIMENOrdering Facility: [facility] Address: [address] [place] [address] Performed By: #### 3 084-1, 50535-5, 2532-0, 2777-1 ####[facility] [id number] [place] [address] Creatinine and Glomerular filtration rate.predicted panel (S/P/Bld) 80 mL/min/1.73m??? Normal >=60 [facility] Comment on above: Order Comment: Speci men Type: BLOOD SPECIMENOrdering Facility: [facility] Address: [address] [place] [address] Result Comment: Saba mated Glomerular Filtration Rate (eGFR) is calculated using the 2020 CKD-EPI creatinine equation. This equation utilizes serum creatinine, sex, and age as parameters. The creatinine assay has traceable calibration to isotope dilution-mass spectrometry. Refer to KDIGO guidelines for clinical interpretation. In patients with unstable renal function, e.g. those with acute kidney injury, the eGFR may not accurately reflect actual GFR. Performed By: #### 3 084-1, 75315-3, 0, 2776-03 ####[facility] LABCLIA [id number] [place] [address] Glucose [Mass/Vol] 125 mg/dL High 74-99 [facility] Comment on above: Order Comment: Specandreas el Type: BLOOD SPECIMENOrdering Facility: [facility] Address: [address] [place], [place] [address] Result Comment: The [place] Diabetes Association (ADA) provides guidance for cutoff values for fasting glucose and random glucose. The ADA defines fasting as no caloric intake for at least 8 hours. Fasting plasma glucose results between 100 to 125 mg/dL indicate increased risk for diabetes (prediabetes). Fasting plasma glucose results greater than or equal to 126 mg/dL meet the criteria for diagnosis of diabetes. In the absence of unequivocal hyperglycemia, results should be confirmed by repeat testing. In a patient with classic symptoms of hyperglycemia or hyperglycemic crisis, random plasma glucose results greater than or equal to 200 mg/dL meet the criteria for diagnosis of diabetes. Reference: Standards of Medical Care in Diabetes 2016, [place] [employer] Association. Diabetes Care. 2016.39(Suppl 1). Performed By: #### 3 084-1, 95021-4, 0, 2776-03 ####[facility] LABCLIA [id number] [place] [address] Potassium [Moles/Vol] 4.2 mmol/L Normal 3.7-5.1 [facility] Comment on above: Order Comment: Mai el Type: BLOOD SPECIMENOrdering Facility: [facility] Address: [address] [place] [address] Performed By: #### 3 084-1, 44406-5, 0, 2776-03 ####[facility] LABCLIA [id number] [place] [address] Protein [Mass/Vol] 7.3 g/dL Normal 6.3-8.0 [facility] Comment on above: Order Comment: Speci men Type: BLOOD SPECIMENOrdering Facility: [facility] Address: [place] [address] Performed By: #### 3 084-1, 06471-1, 2532-0, 2777-1 ####[facility] LABCLIA [id number] [place] [address] Sodium [Moles/Vol] 139 mmol/L Normal 136-144 [facility] Comment on above: Order Comment: Speci men Type: BLOOD SPECIMENOrdering Facility: [facility] Address: [address] [place] [address] Performed By: #### 3 084-1, 60550-8, 2532-0, 7-1 ####[facility] LABCLIA [id number] [place] [address] Urea nitrogen [Mass/Vol] 20 mg/dL Normal 9-24 [facility] Comment on above: Order Comment: Speci men Type: BLOOD SPECIMENOrdering Facility: [facility] Address: [address] [place] [address] Performed By: #### 3 084-1, 14317-8, 2-0, 7-1 ####[facility] LABCLIA [id number] [place] [address] IMMUNOFIXATION SCREEN, SERUM on 03-02-2023 MPA RESULT No M protein is identified. Normal No M protein is identified. [facility] Comment on above: Order Comment: Speci men Type: BLOOD SPECIMEN [facility] Address: [address] [place] [address] Performed By: #### 5 7021-8 #### [facility] CLIA [id number] [address] [place] [address] STAFF REVIEW ([facility]) Reviewed by Zac Cuevas MD, Ph.D ([id number]) Normal [facility] Comment on above: Order Comment: Speci men Type: BLOOD SPECIMEN Order[facility]: [facility] Address: [address] [place] [address] Performed By: #### 5 7021-8 #### [facility] CLIA [id number] [address] [place] [address] IMMUNOGLOBULINS GAMon 2022 IgA [Mass/Vol] 269 mg/dL Normal 70-400 [facility] Comment on above: Order Comment: Speci men Type: BLOOD SPECIMEN [facility]: [facility] Address: [address] [place] [address] Performed By: #### S ERIMM #### [facility] CLIA [id number] [address] [place] [address] [place] IgG [Mass/Vol] 736 mg/dL Normal 700-1600 [facility] Comment on above: Order Comment: Speci men Type: BLOOD SPECIMEN Order[facility] Facility: [facility] Address: [address] [place] [address] Performed By: #### S ERIMM #### [facility] CLIA [id number] [address] [place] [address] [place] IgM [Mass/Vol] 28 mg/dL Low 40-230 [facility] Comment on above: Order Comment: Speci men Type: BLOOD SPECIMEN [facility] Facility: [facility] Address: [address] [place] [address] Performed By: #### S ERIMM #### [facility] CLIA [id number] [address] [place] [address] [place] KAPPA/CLAY,FREE,SERon 2022 Immunoglobulin light chains.kappa.free (S) [Mass/Vol] 22.0 mg/L High 3.3-19.4 [facility] Comment on above: Order Comment: Speci men Type: BLOOD SPECIMEN Order[facility] Facility: [facility] Address: [address] [place] [address] Result Comment: Rare ly, increased serum free light chains levels may not be detected or accurately quantified due to prozone phenomenon or in high viscosity samples using this immunoturbidimetric assay. Correlation with other laboratory results and clinical findings is recommended. The [place] Free Light Chain was performed using the Binding Site Optilite immunoturbidimetric method. Result obtained with different assay methods or kits cannot be used interchangeably. Performed By: #### 5 7021-8 #### [facility] CLIA [id number] [address] [place] [address] Immunoglobulin light chains.kappa/Immunoglob ulin light chains.lambda (S) [Mass ratio] 1.75 High 0.26-1.65 [facility] Comment on above: Order Comment: Speci men Type: BLOOD SPECIMEN Order[facility] Facility: [facility] Address: [address] [place] [address] Performed By: #### 5 7021-8 #### [facility] CLIA [id number] [address] [place] [address] Immunoglobulin light chains.lambda.free [Mass/Vol] 12.6 mg/L Normal 5.7-26.3 [facility] Comment on above: Order Comment: Speci men Type: BLOOD SPECIMEN Ordering Facility: [facility] Address: [address] [place] [address] Result Comment: Rare ly, increased serum free light chains levels may not be detected or accurately quantified due to prozone phenomenon or in high viscosity samples using this immunoturbidimetric assay. Correlation with other laboratory results and clinical findings is recommended. The [place] Free Light Chain was performed using the Binding Site Optilite immunoturbidimetric method. Result obtained with different assay methods or kits cannot be used interchangeably. Performed By: #### 5 7021-8 #### [facility] CLIA [id number] [address] [place] [address]96[address] LDH SerPl-cCncon 03-02-2023 LDH [Catalytic activity/Vol] 216 U/L Normal 135-225 [facility] Comment on above: Order Comment: Speci men Type: BLOOD SPECIMENOrdering Facility: [facility] Address: [address] [place] [address] Performed By: #### 3 084-1, 86712-8, 2532-0, 2777-1 ####[facility] LABCLIA [id number] [place] [address] MONOCLONAL PROT UR W/INTERPo n 03-02-2023 STAFF REVIEW ([facility]) Reviewed by Zac Cuevas MD, Ph.D ([id number]) Normal [facility] Comment on above: Order Comment: Speci men Type: URINE SPECIMENOrdering Facility: [facility] Address: [address] [place] [address] Performed By: #### U RMPA ####[facility] LABCLIA [id number] [place] [address] [place] UMPA RESULT No M protein is identified. Normal No M protein is identified. [facility] Comment on above: Order Comment: Speci men Type: URINE SPECIMENOrdering Facility: [facility] Address: [address] [place] [address] Performed By: #### U RMPA ####[facility] LABCLIA [id number] [place] [address] [place] PROTEIN ELECTROPHORESIS SERU M (P)on 03-02-2023 Albumin [Mass/Vol] 4.07 g/dL Normal 3.43-5.41 [facility] Comment on above: Order Comment: Speci men Type: BLOOD SPECIMEN Ordering Facility: [facility] Address: [address] [place] [address] Performed By: #### 5 7021-8 #### [facility] CLIA [id number] [address] [place] [address] Alpha 1 globulin Elph [Mass/Vol] 0.29 g/dL Normal 0.18-0.43 [facility] Comment on above: Order Comment: Speci men Type: BLOOD SPECIMEN Ordering Facility: [facility] Address: [address] [place] [address] Performed By: #### 5 7021-8 #### [facility] CLIA [id number] [address] [place] [address] 29910 Alpha 2 globulin Elph [Mass/Vol] 0.85 g/dL Normal 0.42-0.98 [facility] Comment on above: Order Comment: Speci men Type: BLOOD SPECIMEN Ordering Facility: [facility] Address: [address] [place] [address] Performed By: #### 5 7021-8 #### [facility] CLIA [id number] [address] [place] [address] 45[address] Beta globulin Elph [Mass/Vol] 0.91 g/dL Normal 0.61-1.17 [facility] Comment on above: Order Comment: Speci men Type: BLOOD SPECIMEN Ordering Facility: [facility] Address: [address] [place] [address] Performed By: #### 5 7021-8 #### [facility] CLIA [id number] [address] [place] [address] 19291 Gamma globulin Elph [Mass/Vol] 0.67 g/dL Normal 0.53-1.51 [facility] Comment on above: Order Comment: Speci men Type: BLOOD SPECIMEN [facility] Facility: [facility] Address: [address] [place] [address] Performed By: #### 5 7021-8 #### [facility] CLIA [id number] [address] [place] [address] M-PROTEIN LOCATION Normal [facility] Comment on above: Order Comment: Speci men Type: BLOOD SPECIMEN [facility]ing Facility: [facility] Address: [address] [place] [address] Result Comment: Not Applicable. Performed By: #### 5 7021-8 #### [facility] CLIA [id number] [address] [place] [address] Protein Fractions [Interp] No definitive M protein is identified on protein electrophoresis. Normal No definitive M protein is identified on protein electrophores is. [facility] Comment on above: Order Comment: Speci men Type: BLOOD SPECIMEN Ordering Facility: [facility] Address: [address] [place] [address] Performed By: #### 5 7021-8 #### [facility] CLIA [id number] [address] [place] [address] Protein.monoclonal Elph [Mass/Vol] 0.00 g/dL Normal <=0.00 [facility] Comment on above: Order Comment: Speci men Type: BLOOD SPECIMEN Ordering Facility: [facility] Address: [address] [place] [address] Performed By: #### 5 7021-8 #### [facility] CLIA [id number] [address] [place] [address] SPE STAFF REVIEW Reviewed by Zac Cuevas MD, Ph.D ([id number]) [facility] Comment on above: Order Comment: Speci men Type: BLOOD SPECIMEN Ordering Facility: [facility] Address: [address] [place] [address] Performed By: #### 5 7021-8 #### [facility] CLIA [id number] [address] [place] [address] Phosphate SerPl-mCncon 03-02 Phosphate [Mass/Vol] 3.1 mg/dL Normal 2.7-4.8 [facility] Comment on above: Order Comment: Speci men Type: BLOOD SPECIMENOrdering Facility: [facility] Address: [address] [place] [address] Performed By: #### 3 084-1, 32868-2, 2532-0, 2777-1 ####[facility] LABCLIA [id number] [place] [address] Prot SerPl-mCncon 03-02-2023 Protein [Mass/Vol] 6.8 g/dL Normal 6.3-8.0 [facility] Comment on above: Order Comment: Speci men Type: BLOOD SPECIMENOrdering Facility: [facility] Address: [address] [place] [address] Performed By: #### 2 885-2, 1952-1 ####[facility] LABCLIA [id number] [place] [address] [place] Prot/Creat Uron 03-02-2023 Protein/Creatinine (U) [Mass ratio] 0.28 mg/mg High <0.15 [facility] Comment on above: Order Comment: Speci men Type: URINE SPECIMENOrdering Facility: [facility] Address: [address] [place] [address] Result Comment: Adul t Proteinuria Categories: <0.15 mg/mg is considered normal to mildly increased 0.15 - 0.50 mg/mg is considered moderately increased >0.50 mg/mg is considered severely increased KDIGO. (2013). KDIGO 2012 Clinical Practice Guideline for the Evaluation and Management of Chronic Kidney Disease. Official Journal of the International Society of Nephrology, 3(1), 1-150. Performed By: #### 2 890-2 ####[facility] LABIA [id number] [place] [address] [place] Protein/Creatinine (U) [Mass ratio]on 03-02-2023 Creatinine (U) [Mass/Vol] 66.8 mg/dL Normal 20.0-300.0 [facility] Comment on above: Order Comment: Speci men Type: URINE SPECIMENOrdering Facility: [facility] Address: [address] [place] [address] Performed By: #### 2 890-2 ####[facility] LABIA [id number] [place] [address] [place] Protein (U) [Mass/Vol] 19 mg/dL Normal 0-20 [facility] Comment on above: Order Comment: Speci men Type: URINE SPECIMENOrdering Facility: [facility] Address: [address] [place] [address] Performed By: #### 2 890-2 ####[facility] LABIA [id number] [place] [address] [place] Urate SerPl-mCncon Urate [Mass/Vol] 3.0 mg/dL Low 4.0-8.1 Vandana jimenez [facility] Comment on above: Order Comment: Speci men Type: BLOOD SPECIMENOrdering Facility: [facility] Address: [place] [address] Performed By: #### 3 084-1, 07257-3, 2532-0, 2777-1 ####[facility] LABCLIA [id number] [place] [address] Julia 02-23-2023 CNPN Telephone (CARCMN) [facility] ([id number]) 1940 M Date Time Provider Department 02/23/23 JIM GAITAN [facility] During your visit today, we recorded the following information about you: Srini Servin 02/23/2023 4:04 PM Signed Received [employer] 02/14/23 - uploaded to Scanned Documents in [employer] through onbase Appointment on Visit date not found Last appointment with department 02/03/2023 Srini Montero 02/24/2023 4:18 PM Signed Additional Results received from [facility] As of Date: 02/23/2023 (No Known Allergies) Date Reviewed: 02/03/2023 Reviewed by: Jo Mcmahon, OLIVIA - Fully Assessed Reason for Visit: LAB RESULTS RCVD VIA FAX [Other] Prescriptions as of 02/24/2023 - isosorbide mononitrate ER (IMDUR) 30 mg 24 hr tablet Take 1 tablet by mouth every afternoon. - ranolazine ER (RANEXA) 500 mg 12 hr tablet Take 500 mg by mouth. - Acetaminophen 500 mg cap Take 500 mg by mouth. - fluticasone (FLONASE) 50 mcg/actuation nasal spray SPRAY 1 SPRAY INTO EACH NOSTRIL TWICE A DAY - aspirin, enteric coated (ASPIRIN, ENTERIC COATED) 81 mg EC tablet Take 81 mg by mouth once daily. - clopidogrel (PLAVIX) 75 mg tablet Take 75 mg by mouth once daily. - pantoprazole DR (PROTONIX) 40 mg tablet Take 40 mg by mouth as needed. - rosuvastatin (CRESTOR) 40 mg tablet Take 40 mg by mouth once daily. - melatonin 1 mg tablet Take 10 mg by mouth once daily. Problem List As Of Date 02/23/2023 Noted Resolved Peripheral vascular disease (HCC) [I73.9] 02/04/2023 Morbid obesity (HCC) [E66.01] 02/04/2023 Encounter Status:Closed by SRINI SERVIN on 02/23/23 [facility] Julia 02-13-2023 CNPN Telephone (CARCMN) RADU DEL RIO ([id number]) 1940 M Date Time Provider Department 02/13/23 JIM GAITAN During your visit today, we recorded the following information about you: Faby Serra 02/13/2023 9:44 AM Signed Blood and urine lab orders were faxed to [facility] in [place], [place]. Fax number is [phone]. Faby Serra Allergies As of Date: 02/13/2023 (No Known Allergies) Date Reviewed: 02/03/2023 Reviewed by: Jo Mcmahon, RN - Fully Assessed Reason for Visit: Orders [681] Prescriptions as of 02/13/2023 - isosorbide mononitrate ER (IMDUR) 30 mg 24 hr tablet Take 1 tablet by mouth every afternoon. - ranolazine ER (RANEXA) 500 mg 12 hr tablet Take 500 mg by mouth. - Acetaminophen 500 mg cap Take 500 mg by mouth. - fluticasone (FLONASE) 50 mcg/actuation nasal spray SPRAY 1 SPRAY INTO EACH NOSTRIL TWICE A DAY - aspirin, enteric coated (ASPIRIN, ENTERIC COATED) 81 mg EC tablet Take 81 mg by mouth once daily. - clopidogrel (PLAVIX) 75 mg tablet Take 75 mg by mouth once daily. - pantoprazole DR (PROTONIX) 40 mg tablet Take 40 mg by mouth as needed. - rosuvastatin (CRESTOR) 40 mg tablet Take 40 mg by mouth once daily. - melatonin 1 mg tablet Take 10 mg by mouth once daily. Problem List As Of Date 02/13/2023 Noted Resolved Peripheral vascular disease (HCC) [I73.9] 02/04/2023 Morbid obesity (HCC) [E66.01] 02/04/2023 Encounter Status:Closed by FABY SERRA on 02/13/23 [facility] Julia 02-06-2023 CNPN Telephone (CARCMN) RADU DEL RIO ([id number]) 1940 M Date Time Provider Department 02/06/23 JIM GAITAN During your visit today, we recorded the following information about you: Srini Servin 02/06/2023 4:07 PM Signed [facility] - 08/30/22 Office Note Allergies As of Date: 02/06/2023 (No Known Allergies) Date Reviewed: 02/03/2023 Reviewed by: Jo Mcmahon, OLIVIA - Fully Assessed Reason for Visit: MED RECS RCVD VIA FAX [Other] Prescriptions as of 02/06/2023 - isosorbide mononitrate ER (IMDUR) 30 mg 24 hr tablet Take 1 tablet by mouth every afternoon. - ranolazine ER (RANEXA) 500 mg 12 hr tablet Take 500 mg by mouth. - Acetaminophen 500 mg cap Take 500 mg by mouth. - fluticasone (FLONASE) 50 mcg/actuation nasal spray SPRAY 1 SPRAY INTO EACH NOSTRIL TWICE A DAY - aspirin, enteric coated (ASPIRIN, ENTERIC COATED) 81 mg EC tablet Take 81 mg by mouth once daily. - clopidogrel (PLAVIX) 75 mg tablet Take 75 mg by mouth once daily. - pantoprazole DR (PROTONIX) 40 mg tablet Take 40 mg by mouth as needed. - rosuvastatin (CRESTOR) 40 mg tablet Take 40 mg by mouth once daily. - melatonin 1 mg tablet Take 10 mg by mouth once daily. Problem List As Of Date 02/06/2023 Noted Resolved Peripheral vascular disease (HCC) [I73.9] 02/04/2023 Morbid obesity (HCC) [E66.01] 02/04/2023 Encounter Status:Closed by SRINI SERVIN on 02/06/23 [facility] Joon 02-03-2023 CNOV Office Visit (CARCMN ) RADU DEL RIO ([id number]) 1940 M Date Time Provider Department 02/03/23 7:45 AM JIM GAITNA During your visit today, we recorded the following information about you: Weight Height 101.2 kg 1.702 m Jim Gaitan MD 02/04/2023 3:20 PM Signed [facility] [place] [facility] Department of Cardiovascular Medicine SECTION OF CLINICAL CARDIOLOGY OUTPATIENT VISIT DATE February 03, 2023 OUTPATIENT VISIT TYPE NEW PRIMARY CARE PHYSICIAN: Crystal Singh (Pravin) [address] [place] [address] CHIEF COMPLAINT: Second opinion HISTORY OF PRESENT ILLNESS: Mr. 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 He is accompanied by his and son. We have limited records to review. He had a remote history of CABG (unclear anatomy, 1994). At that time, he doesn't recall his symptoms but his noted that he did not look right so she brought him to the hospital where he underwent work up which resulted in in CABG. He did well until 1-2 years ago when he started to notice exertional shortness of breath which has been progressive, now limited to walking 75 ft to his mailbox, after which he requires rest. No chest pain. He denies palpitations, orthopnea, PND, significant edema, or syncope. His weight has been stable/slightly increased. He has lightheadedness when he gets up from a lying down/seated position to standing. He also has limited due to spinal stenosis and has undergone lower back injections. Considering back surgery. He has a history of bilateral carpal tunnel surgeries remotely in . Has significant back pain lower pain s/p injections, consideration surgery surgery. He denies ever having issues with hypertension. + orthostatic on today's exam. 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 2021 [place] stress was negative for ischemia. Coronary angio in 2021 with prox-mid LAD stenosis status post orbital atherectomy and SHIRLEY. 80% Lcx stenosis was med mngt. Known occluded bypass to the LAD/Cx. Symptoms did not improve after revascularization. Stress test with small size moderate intensity reversal defect in the apex. TID 1.46. Most recent coronary angio in 07/2022 reportedly with severe ostial/prox and mid Cx disease the OM1 and OM2. Moderate diffuse ostial/prox and mid RCA stenosis iFR neg. He was recommended to undergo med mngt. And reportedly intervention was thought to be technically too challenging. We do not have these images. He would like a second opinion re: feasibility of revascularization. Nursing Intake : Mr. Del Rio is a 82 year old male from [place], [place] here today for cardiovascular evaluation related to experiencing chest pain. Had heart cath done in July 2022. The doctors said that if they place a stent that the patient's symptoms could become worse. They are here for a second opinion. Severe multivessel atherosclerotic heart disease. Codominant circulation. Normal left main. Patent stent extending from the ostial LAD through the mid segment. Severe ostial/proximal and mid circumflex disease extending into OM1 and OM2. Moderate diffuse ostial/proximal and mid RCA stenosis. IFR was 0.93. 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 He reports the following symptoms: -Shortness of breath: Has been going on for about a year now and has been increasing. He says that his mailbox is 75 feet from his home. Says that once he gets home from the mailbox, he is completely winded and has to sit down right away to catch his breath. He does not get short of breath when he is at rest. -Chest pain: Says that he does have chest pain that he describes as burning almost daily. The sensation occurs in the center of his chest without radiating. -Lightheadedness: Has been going on for about 6-8 months now. He says that he gets extremely dizzy when he goes from a sitting to a stand position that occurs daily. He has had no falls or no syncopal episodes. -He denies palpitations, syncope, PND, and edema. Orthostatic blood pressures done in office today: BP w/Orthostatic Vitals Date and Time Orthostatic BP Orthostatic Pulse BP Pulse BP Positio (more content not included)... Normal [facility] ECG COMPLETEon 02-03-2023 ECG COMPLETE Ventricular Rate : 7 3 BPM Atrial Rate : 73 BPM P-R Interval : 208 ms QRS Duration : 106 ms Q-T Interval : 410 ms QTC Calculation(Bazett) : 451 ms Calculated P Denton : 64 degrees Calculated R Denton : 40 degrees Calculated T Denton : 42 degrees NORMAL SINUS RHYTHM NONSPECIFIC ST ABNORMALITY ABNORMAL ECG Confirmed by JIM GAITAN MD ([id number]) on 02/07/2023 9:51:00 AM NAME : RADU DEL RIO PID : [id number] : 1940 Gender : Male Race : ORD : [id number] Procedure Date : Feb 03 2023 06:59:54 Edit Date : Feb 07 2023 09:51:05 Diagnosis: NORMAL SINUS RHYTHM NONSPECIFIC ST ABNORMALITY ABNORMAL ECG Confirmed by JIM GAITAN MD ([id number]) on 02/07/2023 9:51:00 AM Test Reason : Location : [address] : [place] [address] Overread By : JIM GAITAN MD Edited By : JIM GAITAN MD Referred By : JIM GAITAN Acquired by : OLESYA ANTOINE Normal [facility] Lipid 1996 panelon Cholesterol [Mass/Vol] 163 mg/dL <200 mg/dL [facility] Cholesterol in HDL [Mass/Vol] 74 mg/dL >39 mg/dL [facility] Cholesterol in LDL [Mass/Vol] 77 mg/dL <100 mg/dL [facility] Cholesterol in LDL/Cholesterol in HDL [Mass ratio] 1.04 {ratio} <2.54 [facility] Cholesterol in VLDL [Mass/Vol] 12 mg/dL <30 mg/dL [facility] Cholesterol non HDL [Mass/Vol] 89 mg/dL <130 mg/dL [facility] Cholesterol.total/Brittney sterol in HDL [Mass ratio] 2.20 {ratio} <5.10 [facility] Fasting Time 12 hrs [facility] Triglyceride [Mass/Vol] 61 mg/dL <150 mg/dL [facility] Cholesterol [Mass/Vol] 163 mg/dL Normal <200 [facility] Comment on above: Order Comment: Mai el Type: BLOOD SPECIMEN Ordering Facility: [facility] Address: [address] [place] [address] Result Comment: <200 mg/dL, Desirable 200-239 mg/dL, Borderline high >239 mg/dL, High Performed By: #### 5 7021-8 #### [facility] CLIA [id number] [address] [place] [address] Cholesterol in HDL [Mass/Vol] 74 mg/dL Normal >39 [facility] Comment on above: Order Comment: Mai el Type: BLOOD SPECIMEN Ordering Facility: [facility] Address: [address] [place] [address] Result Comment: 40-5 9 mg/dL, Acceptable >59 mg/dL, High: Negative risk factor for coronary heart disease <40 mg/dL, Low: Positive risk factor for coronary heart disease Performed By: #### 5 7021-8 #### [facility] CLIA [id number] [address] [place] [address] Cholesterol in LDL [Mass/Vol] 77 mg/dL Normal <100 [facility] Comment on above: Order Comment: Speci men Type: BLOOD SPECIMEN Ordering Facility: [facility] Address: [address] [place] [address] Result Comment: <100 mg/dL, Optimal 100-129 mg/dL, Near optimal/above optimal 130-159 mg/dL, Borderline high 160-189 mg/dL, High >189 mg/dL, Very high Secondary prevention optimal LDL Cholesterol levels are recommended to be < 70 mg/dL Performed By: #### 5 7021-8 #### [facility] CLIA [id number] [address] [place] [address] Cholesterol in LDL/Cholesterol in HDL [Mass ratio] 1.04 {ratio} Normal <2.54 [facility] Comment on above: Order Comment: Mariveli nikko Type: BLOOD SPECIMEN Ordering Facility: [facility] Address: [address] [place] [address] Result Comment: Refe rence: 1. National Cholesterol Education Program ATP III Guideline At-A-Glance Quick Desk Reference: National Heart, Lung, and Blood [place]. National Institutes of Health. 2001: NIH Publication No. 01-3305. 2. An International Atherosclerosis Society position paper: global recommendations for the management of dyslipidemia: executive summary, Atherosclerosis. 2014: 232(2):410-413. Performed By: #### 5 7021-8 #### [facility] CLIA [id number] [address] [place] [address] Cholesterol in VLDL [Mass/Vol] 12 mg/dL Normal <30 [facility] Comment on above: Order Comment: Mariveli nikko Type: BLOOD SPECIMEN Ordering Facility: [facility] Address: [address] [place] [address] Performed By: #### 5 7021-8 #### [facility] CLIA [id number] [address] [place] [address] Cholesterol non HDL [Mass/Vol] 89 mg/dL Normal <130 [facility] Comment on above: Order Comment: Speci men Type: BLOOD SPECIMEN Ordering Facility: [facility] Address: [address] [place] [address] Result Comment: <130 mg/dL, Optimal 130-159 mg/dL, Near optimal/above optimal 160-189 mg/dL, Borderline high 190-219 mg/dL, High >219 mg/dL, Very high Secondary prevention optimal non HDL Cholesterol levels are recommended to be <100 mg/dL Performed By: #### 5 7021-8 #### [facility] CLIA [id number] [address] [place] [address] Cholesterol.total/Brittney sterol in HDL [Mass ratio] 2.20 {ratio} Normal <5.10 [facility] Comment on above: Order Comment: Speci men Type: BLOOD SPECIMEN Ordering Facility: [facility] Address: [address] [place] [address] Performed By: #### 5 7021-8 #### [facility] CLIA [id number] [address] [place] [address] FASTING TIME 12 hrs Normal [facility] Comment on above: Order Comment: Speci men Type: BLOOD SPECIMEN Ordering Facility: [facility] Address: [address] [place] [address] Performed By: #### 5 7021-8 #### [facility] CLIA [id number] [address] [place] [address] Triglyceride [Mass/Vol] 61 mg/dL Normal <150 [facility] Comment on above: Order Comment: Speci men Type: BLOOD SPECIMEN Ordering Facility: [facility] Address: [address] [place] [address] Result Comment: <150 mg/dL, Normal 150-199 mg/dL, Borderline high 200-499 mg/dL, High >499 mg/dL, Very high Performed By: #### 5 7021-8 #### [facility] CLIA [id number] [address] [place] [address] NT PRO BNPon 02-03-2023 Natriuretic peptide.B prohormone N-Terminal [Mass/Vol] 289 pg/mL <450 pg/mL [facility] NT-proBNP SerPl-mCncon 02-03 Natriuretic peptide.B prohormone N-Terminal [Mass/Vol] 289 pg/mL Normal <450 [facility] Comment on above: Order Comment: Speci men Type: BLOOD SPECIMEN Ordering Facility: [facility] Address: [address] [place] [address] Performed By: #### 5 7021-8 #### [facility] CLIA [id number] [address] [place] [address] TSH BLDon 02-03-2023 TSH Qn 1.180 m[IU]/L 0.270 - 4.200 mIU/L [facility] TSH SerPl-aCncon 02-03-2023 TSH Qn 1.180 m[IU]/L Normal 0.270-4.200 [facility] Comment on above: Order Comment: Speci men Type: BLOOD SPECIMEN Ordering Facility: [facility] Address: [address] [place] [address] Performed By: #### 5 7021-8 #### [facility] CLIA [id number] [address] [place] [address] Basic Metabolic Panelon 12-25 Anion gap [Moles/Vol] 10.4 mmol/L Normal 6.0-15.0 [facility] Comment on above: Performed By: #### C BC, BMP #### [place] [address] [place] Calcium [Mass/Vol] 9.1 mg/dL Normal 8.6-10.3 [facility] Comment on above: Result Comment: PERF ORMED BY: [facility] [address] [facility] [place] [address] PATHOLOGIST TEMPLATE STORAGE CLERK MARCEL ELAINE M.D. Performed By: #### C BC, BMP #### [facility] [address] [place] [id number] [place] Chloride [Moles/Vol] 104 mmol/L Normal 98-107 [facility] Comment on above: Performed By: #### C BC, BMP #### [facility] [address] [place] [address] [place] CO2 [Moles/Vol] 28.0 mmol/L Normal 21.0-31.0 [facility] Comment on above: Performed By: #### C BC, BMP #### [facility] [address] [place] [address] [place] Creatinine [Mass/Vol] 0.99 mg/dL Normal 0.70-1.30 [facility] Comment on above: Performed By: #### C BC, BMP #### [facility] [address] [place] [address] [place] GFR/1.73 sq M.predicted MDRD (S/P/Bld) [Vol rate/Area] mL/min/{1.73_m2} Normal [facility] Comment on above: Performed By: #### C BC, BMP #### [facility] [address] [place] [address] [place] Glucose [Mass/Vol] 112 mg/dL High 70-100 [facility] Comment on above: Result Comment: [facility] Glucose Reference Range is dependent on time and content of last meal. Glucose of more than 200 mg/dL in a nonstressed, ambulatory subject supports the diagnosis of Diabetes Mellitus. ADA recommended reference range Performed By: #### C BC, BMP #### [facility] [address] [place] [address] [place] Potassium [Moles/Vol] 4.4 mmol/L Normal 3.5-5.1 [facility] Comment on above: Performed By: #### C BC, BMP #### [facility] [address] [place] [id number] [place] Sodium [Moles/Vol] 138 mmol/L Normal 136-145 [facility] Comment on above: Performed By: #### C BC, BMP #### [facility] [address] Urea nitrogen [Mass/Vol] 13 mg/dL Normal 7-25 [facility] Comment on above: Performed By: #### C JAYRO, SOFÍA #### [facility] [address] Basophils Auto (Bld) [#/Vol] Ordered By: Haroldo Rausch on 01-09-2023 Basophils (Bld) [#/Vol] 0.0 10*3/uL 0.0-0.2 [facility] Basophils/100 WBC Auto (Bld) Ordered By: Haroldo Rausch on 01-09-2023 Basophils/100 WBC (Bld) 0.7 % . [facility] Calcium [Mass/volume] in Ser um or PlasmaOrdered By: Haroldo Rausch on 01-09-2023 Calcium [Mass/Vol] 9.1 mg/dL 8.6-10.3 [facility] Carbon dioxide, total [Moles /volume] in Serum or PlasmaOrdered By: Haroldo Rausch on 01-09-2023 CO2 [Moles/Vol] 28.0 mmol/L 21.0-31.0 [facility] Chloride [Moles/volume] in S reagan or PlasmaOrdered By: Haroldo Rausch on 01-09-2023 Chloride [Moles/Vol] 104 mmol/L 98-107 [facility] Complete Blood Count Auto Di ffon 01-09-2023 Basophils (Bld) [#/Vol] 0.0 10*3/uL Normal 0.0-0.2 [facility] Comment on above: Result Comment: PERF ORMED BY: [place] [address] PATHOLOGIST TEMPLATE STORAGE CLERK MARCEL ELAINE M.D. Performed By: #### C JAYRO, BMP #### [place] [address] [place] Basophils/100 WBC (Bld) 0.7 % Normal . [facility] Comment on above: Performed By: #### C BC, BMP #### [facility] [address] [place] [address] [place] Eosinophils (Bld) [#/Vol] 0.0 10*3/uL Normal 0.0-0.45 [facility] Comment on above: Performed By: #### C BC, BMP #### [address] Eosinophils/100 WBC (Bld) 0.4 % Normal . [facility] Comment on above: Performed By: #### C BC, BMP #### [address] Erythrocyte distribution width (RBC) [Ratio] 14.0 % Normal 12.0-14.8 [facility] Comment on above: Performed By: #### C JAYRO, BMP #### [address] Hematocrit (Bld) [Volume fraction] 40.8 % Normal 38.8-50.0 [facility] Comment on above: Performed By: #### C BC, BMP #### [address] Hemoglobin (Bld) [Mass/Vol] 13.7 g/dL Normal 13.0-17.0 [facility] Comment on above: Performed By: #### C JAYRO, BMP #### [address] Lymphocytes (Bld) [#/Vol] 0.8 10*3/uL Low 1.00-4.8 [facility] Comment on above: Performed By: #### C BC, BMP #### [address] Lymphocytes/100 WBC (Bld) 13.4 % Normal . [facility] Comment on above: Performed By: #### C BC, BMP #### [address] MCH (RBC) [Entitic mass] 32.0 pg Normal 27.5-35.2 [facility] Comment on above: Performed By: #### C BC, BMP #### [address] MCV (RBC) [Entitic vol] 94.9 fL Normal 83.5-[address] [facility] Comment on above: Performed By: #### C BC, BMP #### [facility] [address] Mean Corpuscular HGB Conc 33.7 g/dL Normal 32.5-35.6 [facility] Comment on above: Performed By: #### C BC, BMP #### [facility] [address] [place] [address] [place] Monocytes (Bld) [#/Vol] 0.2 10*3/uL Normal 0.0-0.8 [facility] Comment on above: Performed By: #### C BC, BMP #### [facility] [address] Monocytes/100 WBC (Bld) 3.2 % Normal . [facility] Comment on above: Performed By: #### C BC, BMP #### [facility] [address] Neutrophils (Bld) [#/Vol] 4.9 10*3/uL Normal 1.8-7.7 [facility] Comment on above: Performed By: #### C BC, BMP #### [address] Neutrophils/100 WBC (Bld) 82.3 % Normal . [facility] Comment on above: Performed By: #### C BC, BMP #### [facility] [address] [place] [address] [place] NRBC% 0.1 /100{WBC} Normal 0-0.5 [facility] Comment on above: Performed By: #### C BC, BMP #### [facility] [address] Platelet mean volume (Bld) [Entitic vol] 10.9 fL High 6.6-10.1 [facility] Comment on above: Performed By: #### C BC, BMP #### [facility] [address] Platelets (Bld) [#/Vol] 130 10*3/uL Low 150-450 [facility] Comment on above: Performed By: #### C BC, BMP #### [facility] [address] RBC (Bld) [#/Vol] 4.30 10*6/uL Normal 3.90-5.60 [facility] Comment on above: Performed By: #### C BC, BMP #### [facility] [address] WBC (Bld) [#/Vol] 6.0 10*3/uL Normal 4.1-10.5 [facility] Comment on above: Performed By: #### C BC, BMP #### [facility] [address] Creatinine [Mass/volume] in Serum or PlasmaOrdered By: Haroldo Rausch on 01-09-2023 Creatinine [Mass/Vol] 0.99 mg/dL 0.70-1.30 [facility] ECG 12 lead ECGon 01-09-2023 ECG 12 lead ECG [facility] [place] [address] [place] [address] Electrocardiograph Report Signed Patient: Radu Del Rio MR#: [id number] 18 : 1940 Acct:[id number] Age/Sex: 82 / M ADM Date: 01/09/23 Loc: Room: Type: [facility] Attending Dr: Haroldo Rausch DO Ordering Provider: Haroldo Rausch DO Date of Service: 01/09/23/ ECG/ECG 12 lead ECG: pre op Copies to: Test Reason : Blood Pressure : / mmHG Vent. Rate : 088 BPM Atrial Rate : 088 BPM P-R Int : 194 ms QRS Dur : 102 ms QT Int : 410 ms P-R-T Axes : 071 070 057 degrees QTc Int : 496 ms Normal sinus rhythm Nonspecific ST abnormality Prolonged QT Abnormal ECG No previous ECGs available Confirmed by SILKE RAVI MD, FACC ([id number]) on 01/09/2023 4:21:25 PM Referred By: EWA Electronically Signed By:SILKE RAVI MD, FACC Transcribed By: MUS Signed By Eddie Ravi MD 01/09/23 1621 Normal [facility] [facility] Eosinophils Auto (Bld) [#/Vo l]Ordered By: Haroldo Rausch on 01-09-2023 Eosinophils (Bld) [#/Vol] 0.0 10*3/uL 0.0-0.45 [facility] Eosinophils/100 WBC Auto (Bl d)Ordered By: Haroldo Rausch on 01-09-2023 Eosinophils/100 WBC (Bld) 0.4 % . [facility] Erythrocyte distribution wid th Auto (RBC) [Ratio]Ordered By: Haroldo Rausch on 01-09-2023 Erythrocyte distribution width (RBC) [Ratio] 14.0 % 12.0-14.8 [facility] Glucose [Mass/volume] in Ser um or PlasmaOrdered By: Haroldo Rausch on 01-09-2023 Glucose [Mass/Vol] 112 mg/dL 70-100 [facility] Comment on above: ADA recommended refe rence rangeRandom Glucose Reference Range is dependent on time and content of last meal. Glucose of more than 200 mg/dL in a nonstressed, ambulatory subject supports the diagnosis of Diabetes Mellitus. Hematocrit Auto (Bld) [Volum e fraction]Ordered By: Haroldo Rausch on 01-09-2023 Hematocrit (Bld) [Volume fraction] 40.8 % 38.8-50.0 [facility] Hemoglobin [Mass/volume] in BloodOrdered By: Haroldo Rausch on 01-09-2023 Hemoglobin (Bld) [Mass/Vol] 13.7 g/dL 13.0-17.0 [facility] Leukocytes [#/volume] correc macy for nucleated erythrocytes in Blood by Automated counOrdered By: Haroldo Rausch on 01-09-2023 WBC corrected for nucl RBC Auto (Bld) [#/Vol] 6.0 10*3/uL 4.1-10.5 [facility] Lymphocytes Auto (Bld) [#/Vo l]Ordered By: Haroldo Rausch on 01-09-2023 Lymphocytes (Bld) [#/Vol] 0.8 10*3/uL 1.00-4.8 [facility] Lymphocytes/100 WBC Auto (Bl d)Ordered By: Haroldo Rausch on 01-09-2023 Lymphocytes/100 WBC (Bld) 13.4 % . [facility] MCH Auto (RBC) [Entitic mass ]Ordered By: Haroldo Rausch on 01-09-2023 MCH (RBC) [Entitic mass] 32.0 pg 27.5-35.2 [facility] MCHC Auto (RBC) [Mass/Vol]Or dered By: Haroldo Rausch on 01-09-2023 MCHC (RBC) [Mass/Vol] 33.7 g/dL 32.5-35.6 [facility] MCV Auto (RBC) [Entitic vol] Ordered By: Haroldo Rausch on 01-09-2023 MCV (RBC) [Entitic vol] 94.9 fL 83.5-[address] [facility] Monocytes Auto (Bld) [#/Vol] Ordered By: Haroldo Rausch on 01-09-2023 Monocytes (Bld) [#/Vol] 0.2 10*3/uL 0.0-0.8 [facility] Monocytes/100 WBC Auto (Bld) Ordered By: Haroldo Rausch on 01-09-2023 Monocytes/100 WBC (Bld) 3.2 % . [facility] Neutrophils Auto (Bld) [#/Vo l]Ordered By: Haroldo Rausch on 01-09-2023 Neutrophils (Bld) [#/Vol] 4.9 10*3/uL 1.8-7.7 [facility] Neutrophils/100 WBC Auto (Bl d)Ordered By: Haroldo Rausch on 01-09-2023 Neutrophils/100 WBC (Bld) 82.3 % . [facility] No Panel InformationOrdered By: Haroldo Rausch on 01-09-2023 Estimated GFR (CKD-EPI) > 60.0 mL/Min [facility] Creatinine Clearance (Chem N/A [facility] Nucleated erythrocytes [Pres ence] in Blood by Automated countOrdered By: Haroldo Rausch on 01-09-2023 Nucleated RBC Auto Ql (Bld) 0.1 /100{WBC} 0-0.5 [facility] Platelet mean volume Auto (B ld) [Entitic vol]Ordered By: Haroldo Rausch on 01-09-2023 Platelet mean volume (Bld) [Entitic vol] 10.9 fL 6.6-10.1 [facility] Platelets Auto (Bld) [#/Vol] Ordered By: Haroldo Rausch on 01-09-2023 Platelets (Bld) [#/Vol] 130 10*3/uL 150-450 [facility] Potassium [Moles/volume] in Serum or PlasmaOrdered By: Haroldo Rausch on 01-09-2023 Potassium [Moles/Vol] 4.4 mmol/L 3.5-5.1 [facility] RBC Auto (Bld) [#/Vol]Ordere d By: Haroldo Rausch on 01-09-2023 RBC (Bld) [#/Vol] 4.30 10*6/uL 3.90-5.60 [facility] Serum or plasma anion gap de terminationOrdered By: Haroldo Rausch on 01-09-2023 Anion gap [Moles/Vol] 10.4 mmol/L 6.0-15.0 [facility] Sodium [Moles/volume] in Ser um or PlasmaOrdered By: Haroldo Rausch on 01-09-2023 Sodium [Moles/Vol] 138 mmol/L 136-145 [facility] Urea nitrogen [Mass/volume] in Serum or PlasmaOrdered By: Haroldo Rausch on 01-09-2023 Urea nitrogen [Mass/Vol] 13 mg/dL 7-25 [facility] WBC Auto (Bld) [#/Vol]Ordere d By: Haroldo Rausch on 01-09-2023 WBC (Bld) [#/Vol] 6.0 10*3/uL 4.1-10.5 [facility] CNOVon 04-13-2022 CNOV Office Visit (ALMAZ ) RADU DEL RIO ([id number]) 1940 Date Time Provider Department 04/13/22 8:30 AM SHAISTA DORADO During your visit today, we recorded the following information about you: Sharad Jaramillo, CCC-A 04/13/2022 2:49 PM Signed TYMPANOMETRY Name: Radu Del Rio CCF#: [id number] Date of Service: 04/13/2022 Date of : 1940 Age: [age] year old Patient was sent by Robyn Galeas PA-C for tympanometry only. Right ear: Normal middle ear pressure and mobility. Left ear: Negative middle ear pressure (-179 daPa) with good mobility. Patient returned to the physician for follow-up. Teresa MARQUES, Sharad Side Gluer Sharad Jaramillo, CCC-A Referring Provider: ROBYN GALEAS [[id number]] Allergies As of Date: 04/13/2022 (No Known Allergies) Date Reviewed: 04/13/2022 Reviewed by: Kody Jimenez RN - Fully Assessed Reason for Visit: Pressure In Ear(s) [1122] Primary Visit Diagnosis:Dysfunction of left eustachian tube [H69.82] Prescriptions as of 04/13/2022 - aspirin, enteric coated (ASPIRIN, ENTERIC COATED) 81 mg EC tablet Take 81 mg by mouth once daily. - clopidogrel (PLAVIX) 75 mg tablet Take 75 mg by mouth once daily. - pantoprazole DR (PROTONIX) 40 mg tablet Take 40 mg by mouth as needed. - rosuvastatin (CRESTOR) 40 mg tablet Take 40 mg by mouth once daily. - melatonin 1 mg tablet Take 10 mg by mouth once daily. - fluticasone (FLONASE ALLERGY RELIEF) 50 mcg/actuation nasal spray Use 1 [place] in each nostril twice daily. Problem List As Of Date: 04/13/2022 (None) Classic SmartForms filed during this visit: Audiometry Encounter Status:Closed by SHAISTA DORADO on 04/13/22 Normal [facility] CNOV Office Visit (OTOLIN ) RADU DEL RIO ([id number]) 1940 M Date Time Provider Department 04/13/22 8:00 AM ROBYN GALEAS During your visit today, we recorded the following information about you: Robyn Galeas PA-C 04/13/2022 9:03 AM Signed You have negative pressure in your left ear. There is no perforation of your left ear drum. This is likely a chronic condition. From my standpoint, you are cleared to You can do flonase or nasocort - 1 spray per nostril twice a day Azelastine 0.1% - brand is Astelin or Astepro - 1 spray per nostril twice a day Robyn Galeas PA-C 04/13/2022 4:11 PM Signed CC: Raud Del Rio is 82 year old male who is seen at the request of Rachelle Fox for evaluation of ear problem. My findings and recommendations will be communicated to the referring provider via the shared electronic medical record. Assessment and Plan: (H69.92) Negative middle ear pressure of left ear (primary encounter diagnosis) (H69.82) Dysfunction of left eustachian tube (H61.22) Impacted cerumen of left ear (R09.81) Nasal congestion ~cleaned scant cerumen from outermost portion of left ear canal - old ventilation tube amongst the wax ~left TM demonstrates large monomeric region that is retracted ~tympanometry demonstrates negative pressure in left ear with normal compliance. Right ear has normal middle ear function ~negative pressure likely chronic with h/o ventilation tubes in left ear x2 ~prescribed flonase - 1 spray per nostril ~advised to find OTC azelastine 0.1% and use 1 spray per nostril twice daily (not covered by insurance) ~he is cleared to pursue hearing aids (recommend [employer]) ~follow up with me as needed HPI: Radu is a 82 year old who reports left ear problem. Accompanied by his and son. He uses hearing aids from [facility] and feels the left ear does not hear well for the last 6 months. Went to pursue new hearing aids, but Splicing Technician sent him here due to abnormal appearance of ear drum. Ear drum is gone. H/o ventilation tubes in left ear x2. Occasional ear pain. Denies otorrhea. Ambulates with walker. Denies worsening balance. He does have mild nasal congestion. Uses oxymetazoline nightly. No audiogram on file and did not bring one with him. ALLERGIES No Known Allergies Current Outpatient Medications Medication Sig aspirin, enteric coated (ASPIRIN, ENTERIC COATED) 81 mg EC tablet Take 81 mg by mouth once daily. clopidogrel (PLAVIX) 75 mg tablet Take 75 mg by mouth once daily. rosuvastatin (CRESTOR) 40 mg tablet Take 40 mg by mouth once daily. pantoprazole DR (PROTONIX) 40 mg tablet Take 40 mg by mouth as needed. melatonin 1 mg tablet Take 10 mg by mouth once daily. fluticasone (FLONASE ALLERGY RELIEF) 50 mcg/actuation nasal spray Use 1 [place] in each nostril twice daily. No current facility-administered medications for this visit. No past medical history on file. No past surgical history on file. Social History: Social History Tobacco Use Smoking status: Former Years: 50.00 Types: Cigarettes Smokeless tobacco: Former Tobacco comments: quit smoking approx 2009 No family history on file. Review Of Systems GENERAL: No weight loss, malaise or fevers. HEENT: Negative for frequent or significant headaches, Ears Positive for hearing loss, tinnitus, earaches, Nose Positive for congestion, nasal discharge I have confirmed and edited as necessary the ROS obtained by others. Robyn Galeas PA-C PHYSICAL EXAM: There were no vitals taken for this visit. No weight on file for this encounter. General appearance: Well appearing, alert, in no acute distress, well-hydrated, well nourished. Cranial Nerves: III-XII: grossly intact Skin: Skin color, texture, turgor normal, no suspicious rashes or lesions Head: normocephalic, no masses, lesions, tenderness or abnormalities Ears: Bilateral external ear normal, Left external auditory canal has small quantity of cerumen with ventilation tube mixed in - removed with alligator forceps, Right EAC is normal, Left tympanic membrane retracted and monomeric. Right TM is normal Nose/Sinuses: Nares normal. Mucosa and the visible turbinates are normal on anterior rhinoscopy. No purulence or polyps Oral Cavity / Oropharynx: Lips, oral mucosa, hard and soft palates, tongue and posterior pharngeal wall are without lesions Neck: The neck appears symmetric without scars. Neuro: Gait normal. Mental status revealed patient to be alert and oriented. Mood is appropriate Tympanometry today reviewed: Robyn Galeas PA-C Medical Decision Making: Problems: Low: Stable chronic illness Data: Unique test result(s) reviewed: 1 Unique test(s) ordered: 1 Risk: Low: Low risk from testing/treatment Moderate: Drug management Medical Decision Making Level: 3 - Low Referring Provider: RACHELLE FOX [[id number]] Allergi (more content not included)... Normal [facility] Bladder Pre/Post Voidon 1 03-30-2021 US Bladder Pre/Post Void FINDINGS: Full bladder volume: 57 cc Post-void bladder volume: 85 cc. Prostate volume is 10 cc No bladder stone or mass. 85 cc post void residual. Reduced prostate volume 10 cc. IMPRESSION: 1. No bladder stone or mass. 2. 85 cc post void residual. Report reported and signed by Gopal Gutierres on 02/01/2022 0928 Normal [facility] Mechanical Engineering Lecturer US Carotid, Bilateralon 11-0 US Carotid, Bilateral HISTORY: Left bryant tid endarterectomy 2014 FINDINGS: Right (% stenosis)Left (% stenosis) ICA Peak Systolic Velocity (cm/sec)86 (N/A)77 (N/A) ICA/CCA Systolic Ratio1.0 (N/A)1.1 (N/A) BILATERAL CAROTID SYSTEMS: LEFT CAROTID SYSTEM: Endarterectomy changes. No visual stenosis within the internal carotid artery. Elevated external carotid artery, peak systolic velocity 243 cm/sec with shadowing involving the ECA origin and proximal regions, visualized suggesting significant external carotid stenosis. RIGHT CAROTID SYSTEM: No significant internal carotid stenosis. Mild to moderate echogenic plaque (less than that seen on the left), peak external carotid velocity 150 cm/sec. Both vertebral arteries have normal cephalad-directed flow. Estimated range of stenosis*: LEFT: Post-surgical changes, significant stenosis within the origin of the external carotid artery RIGHT: Mild, not hemodynamically significant *COMMENT: These estimates represent a median value within a 95% confidence interval range. They represent percent diameter ICA stenosis derived from regression curve analysis using the NASCET method and Doppler ultrasound velocities. Please note with high-grade stenosis (greater than 95%), an actual reduction in velocity will occur. Reference: Gopal Live. carotid ultrasound, in RAD [facility] NA, 39 (3), Jul, 2000. Report reported and signed by Gopal Gutierres on 02/01/2022 0943 Normal [facility] Mechanical Engineering Lecturer US Liveron 01-28-2022 US Liver CLINICAL HISTORY: Elevated LFTs TECHNIQUE: Grayscale images and Doppler images of the right upper quadrant were obtained in multiple planes. COMPARISON: NONE. FINDINGS: The liver has an inhomogeneous slightly nodular appearance. There is prominence of the quadrate lobe, segment 1, with a maximum diameter of 4.5 x 3.3 x 3.6 cm. There is no intra or extrahepatic bile duct dilatation. The common bile duct measures 4mm. There is no free fluid. The gallbladder contains no filling defects or wall abnormalities. There is no pericholecystic fluid. The gallbladder wall measures 2mm. IMPRESSION: The liver is inhomogeneous with slightly nodular appearance and prominence of the quadrate lobe which may be secondary to hepatic cirrhosis. Depending on clinical presentation and symptoms may consider dedicated contrast hepatic MRI or CT. Report reported and signed by BRAYAN JANE on 01/31/2022 0931 Normal [facility] Specialist XR Chest 2 Views*on 06-23-19 22 XR Chest 2 Views* HISTORY: Persistent SOB on exertion x weeks. FINDINGS: Comparison made with prior examination of June 14, 2021, February 28, 2018. Persistent diffuse interstitial prominence greatest involvement with the bases with a minimal upper lobe emphysematous component. No new infiltrates or parenchymal consolidation. Persistent parenchymal, hilar calcified granulomas. Sternotomy wires. IMPRESSION: No new infiltrates or consolidation. Parenchymal findings likely reflect interstitial lung disease. Given this history, pulmonary consultation may be of assistance if this has not been recently performed. Report reported and signed by Gopal Gutierres on 06/22/2021 1553 Normal [facility] Complete Blood Count with Au to Diffon 06-14-2021 Basophils (Bld) [#/Vol] 0.08 10*3/uL Normal 0.00-0.20 [facility] Specialist Comment on above: Performed By: #### C MP, CBCAD #### [facility] [address] [place], [place] [id number] Basophils/100 WBC (Bld) 1.3 % [facility] Comment on above: Performed By: #### C MP, CBCAD #### [facility] [address] [place], [place] [id number] Eosinophils (Bld) [#/Vol] 0.13 10*3/uL Normal 0.02-0.50 [facility] Specialist Comment on above: Performed By: #### C MP, CBCAD #### [facility] [address] [place], [place] [id number] Eosinophils/100 WBC (Bld) 2.1 % Normal [facility] Specialist Comment on above: Performed By: #### C MP, CBCAD #### [facility] [address] [place], [place] [id number] Erythrocyte distribution width (RBC) [Ratio] 12.8 % Normal 11.0-15.0 [facility] Specialist Comment on above: Performed By: #### C MP, CBCAD #### [facility] [address] [place], [place] [id number] Hematocrit (Bld) [Volume fraction] 46.0 % Normal 38.5-50.0 [facility] Specialist Comment on above: Performed By: #### C MP, CBCAD #### [facility] [address] [place], [place] [id number] Hemoglobin (Bld) [Mass/Vol] 15.0 g/dL Normal 13.0-17.1 [facility] Specialist Comment on above: Performed By: #### C MP, CBCAD #### [facility] [address] [place], [place] [id number] Lymphocytes (Bld) [#/Vol] 1.4 10*3/uL Normal 0.9-3.9 [facility] Specialist Comment on above: Performed By: #### C MP, CBCAD #### [facility] [address] [place], [place] [id number] Lymphocytes/100 WBC (Bld) 23.5 % Normal [facility] Specialist Comment on above: Performed By: #### C MP, CBCAD #### [facility] [address] [place], [place] [id number] MCH (RBC) [Entitic mass] 30.2 pg Normal 27.0-33.0 [facility] Specialist Comment on above: Performed By: #### C MP, CBCAD #### [facility] [address] [place], [place] [id number] MCHC (RBC) [Mass/Vol] 32.6 g/dL Normal 32.0-36.0 [facility] Comment on above: Performed By: #### C MP, CBCAD #### [facility] [address] [place], [place] [id number] MCV (RBC) [Entitic vol] 93 fL Normal 80-100 [facility] Specialist Comment on above: Performed By: #### C MP, CBCAD #### [facility] [address] [place], [place] [id number] Monocytes (Bld) [#/Vol] 0.6 10*3/uL Normal 0.2-0.9 [facility] Comment on above: Performed By: #### C MP, CBCAD #### [facility] [address] [place], [place] [id number] Monocytes/100 WBC (Bld) 10.1 % Normal [facility] Specialist Comment on above: Performed By: #### C MP, CBCAD #### [facility] [address] [place], [place] [id number] Neutrophils (Bld) [#/Vol] 3.8 10*3/uL Normal 1.5-7.8 [facility] Specialist Comment on above: Performed By: #### C MP, CBCAD #### [facility] [address] [place], [place] [id number] Neutrophils/100 WBC (Bld) 62.5 % Normal [facility] Specialist Comment on above: Performed By: #### C MP, CBCAD #### [facility] [address] [place], [place] [id number] Platelet mean volume (Bld) [Entitic vol] 13.50 fL High 7.50-12.50 [facility] Specialist Comment on above: Performed By: #### C MP, CBCAD #### [facility] [address] [place], [place] [id number] Platelets (Bld) [#/Vol] 167 10*3/uL Normal 140-400 [facility] Specialist Comment on above: Performed By: #### C MP, CBCAD #### [facility] [address] [place], [place] [id number] RBC (Bld) [#/Vol] 4.96 10*6/uL Normal 4.20-5.80 [facility] Comment on above: Performed By: #### C MP, CBCAD #### [facility] [address] [place], [place] [id number] RDW-SD 43.8 fL Normal 37.0-50.0 [facility] Specialist Comment on above: Performed By: #### C MP, CBCAD #### [facility] [address] [place], [place] [id number] WBC (Bld) [#/Vol] 6.1 10*3/uL Normal 3.8-11.0 [facility] Mechanical Engineering Lecturer Comment on above: Performed By: #### C OLIVIA, CBCAD #### [facility] [address] [place], [place] [id number] Comprehensive Metabolic Pane [facility] 06-14-2021 Albumin [Mass/Vol] 4.3 g/dL Normal 3.6-5.1 [facility] Specialist Comment on above: Performed By: #### C OLIVIA, CBCAD #### [facility] [address] [place], [place] [id number] Albumin/Globulin [Mass ratio] 1.7 {ratio} Normal 1.0-2.5 [facility] Specialist Comment on above: Performed By: #### C MP, CBCAD #### [facility] [address] [place], [place] [id number] ALP [Catalytic activity/Vol] 149 U/L High 40-129 [facility] Specialist Comment on above: Performed By: #### C MP, CBCAD #### [facility] [address] [place], [place] [id number] ALT [Catalytic activity/Vol] 51 U/L High 9-46 [facility] Specialist Comment on above: Result Comment: 02/24 Female reference range changed. Performed By: #### C MP, CBCAD #### [facility] [address] [place], [place] [id number] Anion gap [Moles/Vol] 16 mmol/L Normal 12-20 [facility] Specialist Comment on above: Result Comment: Effe ctive 04/01/2019 reference range changed. Performed By: #### C MP, CBCAD #### [facility] [address] [place], [place] [id number] AST [Catalytic activity/Vol] 44 U/L High 10-40 [facility] Comment on above: Performed By: #### C MP, CBCAD #### [facility] [address] [place], [place] [id number] Bilirubin [Mass/Vol] 0.43 mg/dL Normal 0.30-1.20 [facility] Comment on above: Performed By: #### C MP, CBCAD #### [facility] [address] [place], [place] [id number] BUN/CREA 26 Ratio High 6-22 [facility] Comment on above: Performed By: #### C MP, CBCAD #### [facility] [address] [place], [place] [id number] Calcium [Mass/Vol] 9.1 mg/dL Normal 8.6-10.2 [facility] Comment on above: Performed By: #### C MP, CBCAD #### [facility] [address] [place], [place] [id number] Chloride [Moles/Vol] 106 mmol/L Normal 98-107 [facility] Comment on above: Performed By: #### C MP, CBCAD #### [facility] [address] [place], [place] [id number] CO2 [Moles/Vol] 21 mmol/L Normal 20-31 [facility] Comment on above: Performed By: #### C MP, CBCAD #### [facility] [address] [place], [place] [id number] Creatinine [Mass/Vol] 0.8 mg/dL Normal 0.7-1.4 [facility] Comment on above: Performed By: #### C MP, CBCAD #### [facility] [address] [place], [place] [id number] eGFRAA 116 mL/min/1.73m2 Normal >60 [facility] Specialist Comment on above: Performed By: #### C MP, CBCAD #### [facility] [address] [place], [place] [id number] eGFRNAA 96 mL/min/1.73m2 Normal >60 [facility] Specialist Comment on above: Performed By: #### C MP, CBCAD #### [facility] [address] [place], [place] [id number] Globulin (S) [Mass/Vol] 2.6 g/dL Normal 1.9-3.7 [facility] Comment on above: Performed By: #### C MP, CBCAD #### [facility] [address] [place], [place] [id number] Glucose [Mass/Vol] 85 mg/dL Normal 65-99 [facility] Mechanical Engineering Lecturer Comment on above: Result Comment: For FASTING Glucose --- ADA reference ranges: Normal 65-99 mg/dl Prediabetes 100-125 Diabetes >/= 126 Performed By: #### C MP, CBCAD #### [facility] [address] [place], [place] [id number] Potassium [Moles/Vol] 4.4 mmol/L Normal 3.5-5.5 [facility] Comment on above: Performed By: #### C MP, CBCAD #### [facility] [address] [place], [place] [id number] Protein [Mass/Vol] 6.9 g/dL Normal 6.1-8.1 [facility] Lecturer Comment on above: Performed By: #### C MP, CBCAD #### [facility] [address] [place], [place] [id number] Sodium [Moles/Vol] 138 mmol/L Normal 135-146 [facility] Mechanical Engineering Lecturer Comment on above: Performed By: #### C MP, CBCAD #### [facility] [address] [place], [place] [id number] Urea nitrogen [Mass/Vol] 20 mg/dL Normal 7-25 [facility] Mechanical Engineering Lecturer Comment on above: Performed By: #### C MP, CBCAD #### [facility] [address] [place], [place] [id number] XR Chest 2 Views*on 06-15-19 XR Chest 2 Views* FINDINGS: Comparison made with prior exam of February 28, 2018. Increased basilar interstitial markings compared to 2018, no parenchymal consolidation or pulmonary edema. No pleural effusions. Bilateral prominent hilar calcified granulomas. Sternotomy wires. Normal cardiac silhouette size. IMPRESSION: Increased basilar interstitial markings, diagnostic considerations include acute interstitial pneumonia vs interstitial lung disease Report reported and signed by Gopal Gutierres on 06/14/2021 1620 Normal [facility] Specialist Vital Signs Date Time Vital Sign Value Performing Clinician Hamlet chand 03-09-2023 15:42-0500 Body temperature 97.59 [degF] Fito Rogers MD Work Phone: [facility] 03-09-2023 15:42-0500 Body weight 102.2 kg Fito Rogers MD Work Phone: [facility] 03-09-2023 15:42-0500 Diastolic blood pressure 78 mm[Hg] Fito Rogers MD Work Phone: [facility] 03-09-2023 15:42-0500 Heart rate 87 /min Fito Rogers MD Work Phone: [facility] 03-09-2023 15:42-0500 Respiratory rate 18 /min Fito Rogers MD Work Phone: [facility] 03-09-2023 15:42-0500 Systolic blood pressure 137 mm[Hg] Fito Rogers MD Work Phone: [facility] [facility] 02-03-2023 08:22-0500 SaO2% (BldA) [Mass fraction] 95 % Jim Gaitan MD Work Phone: [facility] 02-03-2023 08:19-0500 Body height 170.2 cm Jim Gaitan MD Work Phone: [facility] 02-03-2023 08:19-0500 Body weight 101.15 kg Jim Gaitan MD Work Phone: [facility] Encounters Encounter Date Encounter Type Care Provider Facility Start: 03-24-2023 End: 03-25-2023 ambulatory AI SWIFT Not Available Start: 03-16-2023 Telephone encounter Eli gar MD Work Phone: Cardiology Comment on above: Request Outside [facility] Records Start: 03-13-2023 End: 03-13-2023 ambulatory AI SWIFT Not Available Start: 03-09-2023 End: 03-09-2023 ambulatory JIM GAITAN Facility:[facility] Start: 03-09-2023 End: 03-09-2023 Office outpatient new 60 minutes Fito Rogers MD Work Phone: Hematology/Oncology Comment on above: Uncontrolled daytime somnolence (Primary Dx); Plasma cell disorder; Snoring; Morbid obesity (HCC) Start: 03-09-2023 Telephone encounter [facility]acarias MD [facility] Comment on above: Referral Information (Sleep Study) Start: 03-06-2023 Telephone encounter Jim gutierrez MD Work Phone: Cardiology Start: 03-06-2023 End: 03-06-2023 ambulatory CRYSTAL Alejandra [facility] Facility:[facility] Start: 03-03-2023 Telephone encounter Jim gutierrez MD Work Phone: Cardiology Comment on above: LAB RESULTS RCVD VIA MAIL Start: 03-03-2023 End: 03-03-2023 Subsequent hospital visit by physician Spectct3 Work Phone: Molecular Imaging Comment on above: 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, I25.83] Start: 03-03-2023 End: 03-03-2023 ambulatory CRYSTAL SINGH Facility:[facility] Start: 03-03-2023 End: 03-03-2023 Subsequent hospital visit by physician [facility] Start: 03-02-2023 End: 03-02-2023 ambulatory FITO ROGERS Facility:[facility] Start: 03-01-2023 Orders Only Fito perales MD Work Phone: Hematology/Oncology Comment on above: MGUS (monoclonal obi mopathy of unknown significance) (Primary Dx) Start: 02-28-2023 Orders Only Jim High i, MD Work Phone: Cardiology Comment on above: Plasma cell disorder (Primary Dx) Start: 02-27-2023 End: 02-28-2023 ambulatory Anneliese Contreras MD Facility:[facility] Start: 02-13-2023 Telephone encounter Jim gutierrez MD Work Phone: Cardiology Comment on above: Orders Start: 02-08-2023 End: 02-08-2023 ambulatory HAROLDO RAUSCH Not Available Start: 02-03-2023 End: 02-04-2023 ambulatory CRYSTAL SINGH Facility:[facility] Start: 02-03-2023 End: 02-03-2023 ambulatory [facility] Work Phone: Cardiology Comment on above: Event (Zio patch) Start: 02-03-2023 End: 02-03-2023 Patient encounter procedure Jim Gaitan MD Work Phone: Cardiology Comment on above: SOB (shortness of br eath) (Primary Dx); Coronary artery 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; Orthostatic hypotension; Spinal stenosis, unspecified spinal region; Weight gain; Bilateral carpal tunnel syndrome; Hyperlipidemia, unspecified hyperlipidemia type; Former tobacco use; Coronary stent patent; Hx of CABG; Chest pain, unspecified type; Lightheadedness; Peripheral vascular disease (HCC); Morbid obesity (HCC) Start: 01-30-2023 End: 01-31-2023 ambulatory Anneliese Contreras MD Facility:[facility] Start: 01-20-2023 Orders Only Jim High i, MD Work Phone: Cardiology Comment on above: Other chest pain (Pr imary Dx) Start: 01-09-2023 End: 01-10-2023 ambulatory Anneliese Contreras MD Facility:[facility] Start: 01-09-2023 End: 01-09-2023 ambulatory Haroldo Rausch Facility:[facility] Start: 01-09-2023 End: 01-09-2023 ambulatory MD Crystal Singh Work Phone: [facility] Work Phone: Start: 01-09-2023 End: 01-09-2023 Patient encounter procedure MD Crystal Singh Work Phone: [facility] Work Phone: Start: 12-26-2022 End: 12-27-2022 ambulatory Anneliese Contreras MD Facility:[facility] Start: 10-03-2022 End: 10-04-2022 ambulatory Anneliese Contreras MD Facility:[facility] Start: 09-19-2022 End: 09-20-2022 ambulatory Anneliese Contreras MD Facility:[facility] Start: 09-05-2022 End: 09-06-[address] RHODA GARAY Facility: Start: 04-27-2022 Refill Robyn Roper-Wendy Work Phone: Otolaryngology Comment on above: Med Change Request Start: 04-13-2022 End: 04-13-2022 ambulatory ROBYN GALEAS Facility:[facility] Start: 04-13-2022 End: 04-13-2022 Patient encounter procedure Shaista Orourke, CCC-A Work Phone: Audiology Comment on above: Dysfunction of left eustachian tube (Primary Dx) Procedures Date Procedure Procedure Detail Performing Clinician Start: 03-06-2023 History of coronary artery bypass grafting S/P CABG (coronary artery bypass graft) Jim Gaitan MD Work Phone: Start: 03-06-2023 History of placement of stent for coronary artery disease S/P drug eluting coronary stent placement Jim Gaitan MD Work Phone: History of coronary artery bypass grafting Hx of CABG Jim Gaitan MD Work Phone: Plan of Treatment Date Care Activity Detail Author Start: 01-12-2028 Urine microalbumin profile DTaP,Tdap,Td Vaccine (3 - Td or Tdap) [facility] Start: 03-02-2026 Diabetes Screening Diabetes Screenin g [facility] Start: 02-04-2024 Hepatitis B surface antibody level LDL Cholesterol [facility] Start: 03-03-2023 End: 03-01-2024 [id number] [Mass/volume] in Serum or Plasma B2 MICROGLOBULIN B Lab Routine MGUS (monoclonal gammopathy of unknown significance) Expected: 03/03/2023 (Approximate), Expires: 03/01/2024 [facility] Work Phone: Comment on above: Expected: 03/03/2023 (Approximate), Expires: 03/01/2024 Start: 03-03-2023 End: 03-01-2024 Calcium.ionized [Moles/volume] in Blood CALCIUM IONIZED BLOOD Lab Routine MGUS (monoclonal gammopathy of unknown significance) Expected: 03/03/2023 (Approximate), Expires: 03/01/2024 [facility] Work Phone: Comment on above: Expected: 03/03/2023 (Approximate), Expires: 03/01/2024 Start: 03-03-2023 End: 03-01-2024 CBC W Auto Differential panel - Blood CBC + DIFF Lab Routine MGUS (monoclonal gammopathy of unknown significance) Expected: 03/03/2023 (Approximate), Expires: 03/01/2024 [facility] Work Phone: Comment on above: Expected: 03/03/2023 (Approximate), Expires: 03/01/2024 Start: 03-03-2023 End: 03-01-2024 Comprehensive metabolic 2000 panel - Serum or Plasma COMP METABOLIC PANEL Lab Routine MGUS (monoclonal gammopathy of unknown significance) Expected: 03/03/2023 (Approximate), Expires: 03/01/2024 [facility] Work Phone: Comment on above: Expected: 03/03/2023 (Approximate), Expires: 03/01/2024 Start: 03-03-2023 End: 06-02-2023 KAPPA/CLAY,FREE,SER KAPPA/CLAY,FREE,SER Lab Routine MGUS (monoclonal gammopathy of unknown significance) Expected: 03/03/2023 (Approximate), Expires: 06/02/2023 [facility] Work Phone: Comment on above: Expected: 03/03/2023 (Approximate), Expires: 06/02/2023 Start: 03-03-2023 End: 03-01-2024 Lactate dehydrogenase [Enzymatic activity/volume] in Serum or Plasma LD LACTATE DEHYDRO Lab Routine MGUS (monoclonal gammopathy of unknown significance) Expected: 03/03/2023 (Approximate), Expires: 03/01/2024 [facility] Work Phone: Comment on above: Expected: 03/03/2023 (Approximate), Expires: 03/01/2024 Start: 03-03-2023 End: 03-01-2024 MONOCLONAL PROT 24 UR W/INTERP MONOCLONAL PROT 24 UR W/INTERP Lab Routine MGUS (monoclonal gammopathy of unknown significance) Expected: 03/03/2023 (Approximate), Expires: 03/01/2024 [facility] Work Phone: Comment on above: Expected: 03/03/2023 (Approximate), Expires: 03/01/2024 Start: 03-03-2023 End: 03-01-2024 MONOCLONAL PROTEIN, SERUM (BLOOD) MONOCLONAL PROTEIN, SERUM (BLOOD) Lab Routine MGUS (monoclonal gammopathy of unknown significance) Expected: 03/03/2023 (Approximate), Expires: 03/01/2024 [facility] Work Phone: Comment on above: Expected: 03/03/2023 (Approximate), Expires: 03/01/2024 Start: 03-03-2023 End: 03-01-2024 Phosphate [Mass/volume] in Serum or Plasma PHOSPHORUS INORGANIC Lab Routine MGUS (monoclonal gammopathy of unknown significance) Expected: 03/03/2023 (Approximate), Expires: 03/01/2024 [facility] Work Phone: Comment on above: Expected: 03/03/2023 (Approximate), Expires: 03/01/2024 Start: 03-03-2023 End: 03-01-2024 PROT ELEC UR 24HR W/M SPIKE AND INTERP PROT ELEC UR 24HR W/M SPIKE AND INTERP Lab Routine MGUS (monoclonal gammopathy of unknown significance) Expected: 03/03/2023 (Approximate), Expires: 03/01/2024 [facility] Work Phone: Comment on above: Expected: 03/03/2023 (Approximate), Expires: 03/01/2024 Start: 03-03-2023 End: 03-01-2024 PROTEIN ELECTROPHORESIS SERUM W/INTERP PROTEIN ELECTROPHORESIS SERUM W/INTERP Lab Routine MGUS (monoclonal gammopathy of unknown significance) Expected: 03/03/2023 (Approximate), Expires: 03/01/2024 [facility] Work Phone: Comment on above: Expected: 03/03/2023 (Approximate), Expires: 03/01/2024 Start: 03-03-2023 End: 03-01-2024 Urate [Mass/volume] in Serum or Plasma URIC ACID BLOOD Lab Routine MGUS (monoclonal gammopathy of unknown significance) Expected: 03/03/2023 (Approximate), Expires: 03/01/2024 [facility] Work Phone: Comment on above: Expected: 03/03/2023 (Approximate), Expires: 03/01/2024 Start: 02-03-2023 End: 05-05-2023 IMMUNOFIXATION SCREEN, SERUM IMMUNOFIXATION SCREEN, SERUM Lab Routine Coronary artery 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 Orthostatic hypotension Spinal stenosis, unspecified spinal region SOB (shortness of breath) Weight gain Bilateral carpal tunnel syndrome Hyperlipidemia, unspecified hyperlipidemia type Former tobacco use Coronary stent patent Hx of CABG Chest pain, unspecified type Expected: 02/03/2023, Expires: 05/05/2023 [facility] Work Phone: Comment on above: Expected: 02/03/2023 , Expires: 05/05/2023 Start: 02-03-2023 End: 05-05-2023 KAPPA/CLAY,FREE,SER KAPPA/CLAY,FREE,SER Lab Routine Coronary artery 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 Orthostatic hypotension Spinal stenosis, unspecified spinal region SOB (shortness of breath) Weight gain Bilateral carpal tunnel syndrome Hyperlipidemia, unspecified hyperlipidemia type Former tobacco use Coronary stent patent Hx of CABG Chest pain, unspecified type Expected: 02/03/2023, Expires: 05/05/2023 [facility] Work Phone: Comment on above: Expected: 02/03/2023 , Expires: 05/05/2023 Start: 02-03-2023 End: 05-05-2023 MONOCLONAL PROT UR W/INTERP MONOCLONAL PROT UR W/INTERP Lab Routine Coronary artery 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 Orthostatic hypotension Spinal stenosis, unspecified spinal region SOB (shortness of breath) Weight gain Bilateral carpal tunnel syndrome Hyperlipidemia, unspecified hyperlipidemia type Former tobacco use Coronary stent patent Hx of CABG Chest pain, unspecified type Expected: 02/03/2023, Expires: 05/05/2023 [facility] Work Phone: Comment on above: Expected: 02/03/2023 , Expires: 05/05/2023 Start: 02-03-2023 End: 05-05-2023 Protein/Creatinine [Mass Ratio] in Urine PROTEIN CREATININE RATIO Lab Routine Coronary artery 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 Orthostatic hypotension Spinal stenosis, unspecified spinal region SOB (shortness of breath) Weight gain Bilateral carpal tunnel syndrome Hyperlipidemia, unspecified hyperlipidemia type Former tobacco use Coronary stent patent Hx of CABG Chest pain, unspecified type Expected: 02/03/2023, Expires: 05/05/2023 [facility] Work Phone: Comment on above: Expected: 02/03/2023 , Expires: 05/05/2023 Start: 11-25-2022 Covid-19 Vaccine ( season) Covid-19 Vaccine ( season) [facility] Start: 11-25-2022 Influenza vaccination Influenza Vacc ine (#1) [facility] Start: 03-27-2022 ADVANCE DIRECTIVE DISCUSSION ADVANCE DIRECTIVE DISCUSSION [facility] Start: 03-27-2022 DEPRESSION ASSESSMENT DEPRESSION ASS ESSMENT [facility] Start: 2007 PNEUMOCOCCAL: 65+ (1 - PCV) PNEUMOCOCCAL: 65+ (1 - PCV) [facility] Start: 2002 RSV Vaccine (1 - 1-d ose 60+ series) RSV Vaccine (1 - 1-dose 60+ series) [facility] Start: 1992 SHINGRIX VACCINE (1 of 2) [place] GRIX VACCINE (1 of 2) [facility] Start: 1987 DIABETES SCREEN DIABETES SCREEN [facility] Start: 1987 Diabetes Screening Diabetes Screenin g [facility] Start: 1961 Urine microalbumin profile DTAP,TDAP,TD (1 - Tdap) [facility] Start: 1960 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 Disease Visit Annual PCP Team Chronic Disease Visit [facility] End: 01-21-2024 ECG COMPLETE ECG COMPLETE ECG Routine Other chest pain 1 Occurrences starting 01/20/2023 until 01/21/2024 [facility] Work Phone: Comment on above: 1 Occurrences starti ng 01/20/2023 until 01/21/2024 End: 02-04-2024 Echocardiography ECHO Cardiology Routine Coronary artery 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 Orthostatic hypotension Spinal stenosis, unspecified spinal region SOB (shortness of breath) Weight gain Bilateral carpal tunnel syndrome Hyperlipidemia, unspecified hyperlipidemia type Former tobacco use Coronary stent patent Hx of CABG Chest pain, unspecified type 1 Occurrences starting 02/03/2023 until 02/04/2024 [facility] Work Phone: Comment on above: 1 Occurrences starti ng 02/03/2023 until 02/04/2024 End: 03-04-2024 NM SPECT/CT CARDIAC AMYLOID NM SPECT/CT CARDIAC AMYLOID Radiology Routine Coronary artery 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 Orthostatic hypotension Spinal stenosis, unspecified spinal region SOB (shortness of breath) Weight gain Bilateral carpal tunnel syndrome Hyperlipidemia, unspecified hyperlipidemia type Former tobacco use Coronary stent patent Hx of CABG Chest pain, unspecified type 1 Occurrences starting 02/03/2023 until 03/04/2024 [facility] Work Phone: Comment on above: 1 Occurrences starti ng 02/03/2023 until 03/04/2024 OUTSIDE VENDOR CARDI AC OUTPATIENT EXTENDED RHYTHM RECORDING (WITHOUT TELEMETRY) OUTSIDE VENDOR CARDIAC OUTPATIENT EXTENDED RHYTHM RECORDING (WITHOUT TELEMETRY) Holter Routine Coronary artery 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 Orthostatic hypotension Spinal stenosis, unspecified spinal region SOB (shortness of breath) Weight gain Bilateral carpal tunnel syndrome Hyperlipidemia, unspecified hyperlipidemia type Former tobacco use Coronary stent patent Hx of CABG Chest pain, unspecified type Ordered: 02/03/2023 [facility] Work Phone: Comment on above: Ordered: 02/03/2023 [facility] Immunization Date Immunization Notes Care Provider Fa chloe 01-24-2022 influenza virus vaccine, unspecified formulation Jim Gaitan MD Work Phone: [facility] Payers Date Payer Category Payer Self-pay [id number] 2023 Unknown [id number] 2012 Unknown [id number] 2007 Medicare [id number] 1959 Medicare [id number] 1959 Unknown [id number] 1942 Unknown [id number] 2.16.84 [id number] 1942 Unknown [id number] 2.16. [id number] 1942 Unknown [id number] 2.16. [id number] 1942 Unknown [id number] 2.16. [id number] 1942 Unknown [id number] 2.16. [id number] 1942 Unknown [id number] 2.16. [id number] 1942 Unknown [id number] 2.16. [id number] 1942 Unknown [id number] 2.16. [id number] 1942 Unknown [id number] 2.16.840 .[id number] 1942 Unknown [id number] 2.16.840 .[id number] 1942 Unknown [id number] 2.16.840 .[id number] 1942 Unknown [id number] 2.16.840 .[id number] 1942 Unknown [id number] 2.16.840 .[id number] Unknown [id number] 2.16.8 [id number] Social History Date Type Detail Facility Start: 04-13-2022 End: 02-03-2023 Tobacco smoking status NHIS Ex-smoker [facility] Work Phone: End: 03-27-2007 History of tobacco use Current smoker [facility] Work Phone: End: 03-27-2007 History of tobacco use Cigarette Smoker [facility] Work Phone: Start: 04-13-2022 Tobacco use and exposure Former smokeless tobacco user [facility] Work Phone: Start: 04-13-2022 Tobacco Comment quit smoking a pprox 2009 [facility] Start: 1942 Sex Assigned At Not on file C [facility] Start: 1942 Sex Assigned At Male F [facility] Start: 04-13-2022 End: 03-09-2023 History of Social function [facility] Start: 04-13-2022 End: 03-09-2023 Tobacco use panel [facility] Start: 02-03-2023 Tobacco use and exposure Smokeless tobacco non-user [facility] Start: 02-03-2023 End: 03-09-2023 Alcohol intake Lifetime non-drinker (finding) [facility] Medical Equipment Procedure Code Equipment Code Equipment Origin al Text Equipment Identifier Dates Angioplasty of carotid artery with insertion of stent IR STENT PRECISE [id number] FDA Start: 04-10-2017 Clinical Notes 02-07-2022 to 03-16-2023 Telephone Encounter - Lore Zavaleta - 03/16/2023 10:46 AM ESTTelephone Encounter - Bo Alexander - 03/15/2023 4:23 PM ESTTelephone Encounter - Bo Alexander - 03/14/2023 11:26 AM EST Note Date & Type Note Facility 03-16-2023 Miscellaneous Notes Requested 08/17/2022 Angio films from [facility] documented in this encounter [facility] 03-15-2023 Miscellaneous Notes Order received. Per Sharifa, order was faxed to sleep study and they will be in contact with patient to get scheduled. Bo Alexander No order received per Amanda. Refaxed order to [facility] March 14, 2023 11:27 AM Bo Alexander Left message w/ [facility] scheduling for update. Bo Alexander Patient would like to be referred to [facility] for Sleep Study. Faxed order to [facility] March 09, 2023 4:23 PM. Will call and follow up on this to make sure [facility] received order. Bo Alexander documented in this encounter [facility] 03-09-2023 Note HNO ID: [id number] Author: Fito Rogers MD Service: ? Author Type: Physician Type: Progress Notes Filed: 03/11/2023 10:46 AM Note Text: NAME: Radu Del Rio [facility] NO.: [id number] DATE OF SERVICE: March 09, 2023 ([facility]) Referring Provider: Jim Gaitan Consultation requested by Dr. Gaitan for an opinion regarding Mr. Radu Del Rio, and my final recommendations will be communicated back to the requesting physician by way of shared medical record or letter via [place] mail. 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 No laboratory evidence of MGUS. Symptoms are more likely related to sleep apnea based on daytime somnolence and snoring as well as obesity. PLAN: Refer for sleep study Return PRN HPI: CASE HISTORY: Reverse Chronological Order Initial Visit, March 09, 2023: Radu Del Rio presents today Hematology and Oncology evaluation. He is a 82 year old male who was referred for possible MGUS. His symptoms include SOB and chest pain on exertion for the past 2-3 years. Elevated proteins in urine. However, labwork is negative. Proteins seen in labs are thought to be due to age-related kidney decline. He denies any other medical problems. Radu's former work was with [employer], also a former cigarette smoker. His 's name is Gloria. He reports he snores during the night. He is concerned about frequent nap taking. Has daytime somnolence. He denies CPAP use. Possible explanation for respiratory issues can be associated with BJ, which I suspect he may have. He reports he has had symptoms for 60 years, yet his weight has remained unchanged for the past 40 years. Has been obese for most of his life. I will refer him for a sleep consultation. REVIEW OF SYSTEMS Per HPI and otherwise negative by full review of organ systems. ECOG PERFORMANCE STATUS: 0 PHYSICAL EXAMINATION: Vitals: BP 137/78 Pulse 87 Temp (Src) 97.6 (Temporal) Resp 18 Wt 225 lb 5 oz (102.2kg) Body surface area is 2.2 meters squared. Exam limited to gross visualization where appropriate. Obese. Gen.: This is an age-appropriate patient in no acute distress. Head: Appears atraumatic with no visible lesions. Eyes: Pupils equally round and reactive to light, extraocular muscles are intact. Neck: Supple. Respiratory: Appears to be respiring comfortably. Neurologic: Nonfocal to gross visualization. Alert and oriented ?3. Psychiatric: No evidence of inappropriate anxiety or depression. Skin: Visible areas of skin without rash, lesions, wounds or petechiae. ALLERGIES: ALLERGIES No Known Allergies MEDICATIONS: ranolazine ER (RANEXA) 1,000 mg tab ER 12 hr Take 1 tablet by mouth two times a day. isosorbide mononitrate ER (IMDUR) 30 mg 24 hr tablet Take 1 tablet by mouth every afternoon. Acetaminophen 500 mg cap Take 500 mg by mouth. aspirin, enteric coated (ASPIRIN, ENTERIC COATED) 81 mg EC tablet Take 81 mg by mouth once daily. clopidogrel (PLAVIX) 75 mg tablet Take 75 mg by mouth once daily. pantoprazole DR (PROTONIX) 40 mg tablet Take 40 mg by mouth as needed. rosuvastatin (CRESTOR) 40 mg tablet Take 40 mg by mouth once daily. LABORATORY VALUES: WBC (k/uL) Date Value 03/02/2023 10.72 RBC (m/uL) Date Value 03/02/2023 4.59 Hemoglobin (g/dL) Date Value 03/02/2023 14.5 Hematocrit (%) Date Value 03/02/2023 42.7 MCV (fL) Date Value 03/02/2023 93.0 MCH (pg) Date Value 03/02/2023 31.6 MCHC (g/dL) Date Value 03/02/2023 34.0 RDW-CV (%) Date Value 03/02/2023 12.4 Platelet Count (k/uL) Date Value 03/02/2023 163 MPV (fL) Date Value 03/02/2023 12.3 Glucose (mg/dL) Date Value 03/02/2023 125 (H) BUN (mg/dL) Date Value 03/02/2023 20 Creatinine (mg/dL) Date Value 03/02/2023 0.96 Sodium (mmol/L) Date Value 03/02/2023 139 Potassium (mmol/L) Date Value 03/02/2023 4.2 Chloride (mmol/L) Date Value 03/02/2023 104 CO2 (mmol/L) Date Value 03/02/2023 24 Protein, Total (g/dL) Date Value 03/02/2023 7.3 03/02/2023 6.8 Albumin (g/dL) Date Value 03/02/2023 4.6 Calcium, Total (mg/dL) Date Value 03/02/2023 9.8 Alkaline Phosphatase (U/L) Date Value 03/02/2023 123 (H) Bilirubin, Total (mg/dL) Date Value 03/02/2023 0.7 AST (U/L) Date Value 03/02/2023 39 ALT (U/L) Date Value 03/02/2023 41 C (more content not included)... [facility] 03-09-2023 Instructions Brianna Truong - 03/09/2023 4:13 PM EST Refer for sleep study Return PRN documented in this encounter [facility] 03-09-2023 History of Present illness Narrative Images from the original note were not included. NAME: Radu Del Rio [facility] NO.: [id number] DATE OF SERVICE: March 09, 2023 ([facility]) Referring Provider: Jim Gaitan Consultation requested by Dr. Gaitan for an opinion regarding Mr. Radu Del Rio, and my final recommendations will be communicated back to the requesting physician by way of shared medical record or letter via [place] mail. 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 No laboratory evidence of MGUS. Symptoms are more likely related to sleep apnea based on daytime somnolence and snoring as well as obesity. PLAN: Refer for sleep study Return PRN HPI: CASE HISTORY: Reverse Chronological Order Initial Visit, March 09, 2023: Radu Del Rio presents today Hematology and Oncology evaluation. He is a 82 year old male who was referred for possible MGUS. His symptoms include SOB and chest pain on exertion for the past 2-3 years. Elevated proteins in urine. However, labwork is negative. Proteins seen in labs are thought to be due to age-related kidney decline. He denies any other medical problems. 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 His 's name is Gloria. He reports he snores during the night. He is concerned about frequent nap taking. Has daytime somnolence. He denies CPAP use. Possible explanation for respiratory issues can be associated with BJ, which I suspect he may have. He reports he has had symptoms for 60 years, yet his weight has remained unchanged for the past 40 years. Has been obese for most of his life. I will refer him for a sleep consultation. REVIEW OF SYSTEMS Per HPI and otherwise negative by full review of organ systems. ECOG PERFORMANCE STATUS: 0 PHYSICAL EXAMINATION: Vitals: BP 137/78 Pulse 87 Temp (Src) 97.6 (Temporal) Resp 18 Wt 225 lb 5 oz (102.2kg) Body surface area is 2.2 meters squared. Exam limited to gross visualization where appropriate. Obese. Gen.: This is an age-appropriate patient in no acute distress. Head: Appears atraumatic with no visible lesions. Eyes: Pupils equally round and reactive to light, extraocular muscles are intact. Neck: Supple. Respiratory: Appears to be respiring comfortably. Neurologic: Nonfocal to gross visualization. Alert and oriented 3. Psychiatric: No evidence of inappropriate anxiety or depression. Skin: Visible areas of skin without rash, lesions, wounds or petechiae. ALLERGIES: ALLERGIES No Known Allergies MEDICATIONS: ranolazine ER (RANEXA) 1,000 mg tab ER 12 hr Take 1 tablet by mouth two times a day. isosorbide mononitrate ER (IMDUR) 30 mg 24 hr tablet Take 1 tablet by mouth every afternoon. Acetaminophen 500 mg cap Take 500 mg by mouth. aspirin, enteric coated (ASPIRIN, ENTERIC COATED) 81 mg EC tablet Take 81 mg by mouth once daily. clopidogrel (PLAVIX) 75 mg tablet Take 75 mg by mouth once daily. pantoprazole DR (PROTONIX) 40 mg tablet Take 40 mg by mouth as needed. rosuvastatin (CRESTOR) 40 mg tablet Take 40 mg by mouth once daily. LABORATORY VALUES: WBC (k/uL) Date Value 03/02/2023 10.72 RBC (m/uL) Date Value 03/02/2023 4.59 Hemoglobin (g/dL) Date Value 03/02/2023 14.5 Hematocrit (%) Date Value 03/02/2023 42.7 MCV (fL) Date Value 03/02/2023 93.0 MCH (pg) Date Value 03/02/2023 31.6 MCHC (g/dL) Date Value 03/02/2023 34.0 RDW-CV (%) Date Value 03/02/2023 12.4 Platelet Count (k/uL) Date Value 03/02/2023 163 MPV (fL) Date Value 03/02/2023 12.3 Glucose (mg/dL) Date Value 03/02/2023 125 (H) BUN (mg/dL) Date Value 03/02/2023 20 Creatinine (mg/dL) Date Value 03/02/2023 0.96 Sodium (mmol/L) Date Value 03/02/2023 139 Potassium (mmol/L) Date Value 03/02/2023 4.2 Chloride (mmol/L) Date Value 03/02/2023 104 CO2 (mmol/L) Date Value 03/02/2023 24 Protein, Total (g/dL) Date Value 03/02/2023 7.3 03/02/2023 6.8 Albumin (g/dL) Date Value 03/02/2023 4.6 Calcium, Total (mg/dL) Date Value 03/02/2023 9.8 Alkaline Phosphatase (U/L) Date Value 03/02/2023 123 (H) Bilirubin, Total (mg/dL) Date Value 03/02/2023 0.7 AST (U/L) Date Value 03/02/2023 39 ALT (U/L) Date Value 03/02/2023 41 Cholesterol, Total (mg/dL) Date Value 02/03/2023 163 Triglyceride (mg/dL) Date Value 02/03/2023 61 DIAGNOSIS: (R40.0) Uncontrolled daytime somnolence (primary encounter diagnosis) Plan: CONSULT TO SLEEP MEDICINE - ADULT (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 Plan: CONSULT TO HEMATOLOGY/ONCOLOGY (R06.83) Snoring Plan: CONSULT TO SLEEP MEDICINE - ADULT PAST MEDICAL HISTORY Diagnosis Date Arthritis CAD (coronary artery disease) Carpal tunnel syndrome COVID GERD (gastroesophageal reflux disease) HLD (hyperlipidemia) Spinal stenosis PAST SURGICAL HISTORY Procedure Laterality Date BACK SURGERY HX multiple PAST SURGICAL HISTORY OF 1994 CABG (2-3 bypasses ) [facility] in [place] PAST SURGICAL HISTORY OF 2020 left carotid endarterectomy PCI/STENT multiple Social History Tobacco Use Smoking status: Former Years: 52 Types: Cigarettes Quit date: 2007 Years since quittin.9 Smokeless tobacco: Never Vaping Use Vaping Use: Never used Substance Use Topics Alcohol use: Never Drug use: Never FAMILY HISTORY Problem Relation Age of Onset Heart disease Mother Heart disease Father Heart Attack Father Heart Attack Brother Diabetes Brother Heart Attack Brother I spent a total of 60 minutes on the date of the service which included preparing to see the patient, [id number] patient care, completing clinical documentation, obtaining and/or reviewing separately obtained history, performing a medically appropriate examination, counseling and educating the patient/family/caregiver, ordering medications, tests, or procedures, independently interpreting results (not separately reported), communicating results to the patient/family/caregiver, and care coordination (not separately reported). Fito Rogers MD, CPE [facility]ology [facility] On[facility] Services Provided at: [place], [place] Scribe Attestation: This note was scribed by Brianna Truong on March 09, 2023 under the direction and supervision of Dr. Fito Rogers. I attest that all of the information documented is correct to the best of my knowledge. Provider Attestation: I, Fito Rogers MD, attest that all information documented by the above scribe is correct, and was supervised by me and under my direction. CC: Jim Welsh0 Paige Mistry [facility] [id number] Crystal Singh MD [address] [facility] [id number] documented in this encounter [facility] 03-06-2023 Note HNO ID: [id number] Author: Eli Sibley MD Service: ? Author Type: Physician Type: Progress Notes Filed: 03/14/2023 8:22 PM Note Text: [facility] [place] [facility] Department of Cardiovascular Medicine SECTION OF INTERVENTIONAL CARDIOLOGY OUTPATIENT VISIT DATE March 06, 2023 OUTPATIENT VISIT TYPE CONSULTATION PRIMARY CARE PHYSICIAN: Crystal Singh (Pravin) [address] [place] [address] REFERRING PHYSICIAN Jim Gaitan [address] [facility] [facility] [id number] CHIEF COMPLAINT: No chief complaint on file. HISTORY OF PRESENT ILLNESS: Cardiac consultation at the request of Dr. Jim Gaiatn.A copy of this consultation note will be provided to the requesting physician by way of shared Medical record or letter to requesting physician via US mail. Mr. Del Rio is a 82 year old male who is seen today for feasilblity of PCI. No outside angiogram available for my evaluation. CRFs: lipids, HTN, FHx Followed by Dr. Gaitan. 1993 - CABG - no details 08/13/2021 - PCI at OSH with orbital atherectomy and SHIRLEY to proximal/mid LAD (no films available. But report): 1. Hemodynamically significant lesion in the mid LAD with an IFR of 0.84 2. Occluded bypass graft to the LAD and circumflex 3. Atretic CALDWELL, bypass surgery 1993 4. Status post orbital atherectomy with 1.25 crown in prox to mid LAD followed by placement of 3.25 x 33 drug-eluting stent under intravascular ultrasound guidance, post dilated with 3.5 noncompliant 5. 80% stenosis in proximal circumflex not treated 6. Mild disease and non dominant right coronary artery 7. Calcified right common femoral artery placement of 6 Marshallese Angio-Seal device 08/17/2022 - cardiac catheterization at OSH (by report, no films available): LM - normal LAD - patent stent LCX - ostial 90%, OM1 80%, OM2 90% RCA - ostial 60%, IFR 0.93 LCX disease felt not suitable for revascularization. Medical management recommended 03/03/2023 - Echocardiogram at F - The left ventricle is normal in size. There is mild septal left ventricular hypertrophy. Left ventricular systolic function is mildly decreased. EF = 51 ? 5% (2D biplane) Grade I left ventricular diastolic dysfunction. - The right ventricle is normal in size. Right ventricular systolic function is normal. - The left atrial cavity is mildly dilated. - Difficult to appreciate AV leaflet morphology, appears tricuspid. 03/03/23 NM SPECT/CT cardiac amyloid: 1. Not Consistent with TTR amyloidosis 2. No bone abnormalities. Complains of CHRISTIANSON on walking 75 feet on level to the mailbox, walking across his house. Associated with chest pressure. Resolves with 5-10 minutes rest. Progressive for last 2-3 years. Had improved after PCI in 07/2021, but has worsened since. Unclear whether he has had any improvement with ranolazine. Has severe back pain, s/p ablation recently. This limits his activity as well. NURSING INTAKE: Past medical history of: HTN, HLD, CAD S/P CABGx2 1993 and PCI rotational atherectomy and SHIRLEY LAD 07/2021, PAD (right femoral calcification), obesity, spinal stenosis, carotid artery disease s/p L CEA 2015, COVID, GERD, family hx CAD. He presents today for 2nd opinion regarding CAD. He follows with Dr. Gaitan and was seen in January: He had a remote history of CABG 1993. At that time, he doesn't recall his symptoms but his noted that he did not look right (looked very pale) so she brought him to the hospital where he underwent work up which resulted in in CABG. He did well until 2 years ago when he started to notice exertional shortness of breath which has been progressive, now limited to walking 75 ft to his mailbox, after which he requires rest. He also reports chest scratching in the mornings and through the day it turns into a tightness. This happens with activity as well, improving with rest. By 10 minutes symptoms will resolve. He also admits to worsening fatigue. He gets dizzy with position changes. He feels lightheaded with exertion when the chest tightness progressively gets worse. He also has spinal stenosis and has had multiple back surgeries. He states maybe if my back would get better my symptoms wouldn't feel so bad. 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 2021 MN stress was negative for ischemia. Coronary angiogram in 2021 with prox-mid LAD stenosis status post orbital atherectomy and SHIRLEY. 80% Lcx stenosis was med mngt. Known occluded bypass to the LAD/Cx. Symptoms did not improve after revascularization. Stress test with small size moderate intensity reversal defect in the apex. Most recent coronary angiogram in 07/2022 reportedly with severe ostial/prox and mid Cx disease the OM1 and OM2. Moderate diffuse ostial/prox and mid RCA stenosis iFR neg. He was recommended to undergo med management. (more content not included)... [facility] 03-06-2023 Miscellaneous Notes Spoke with patient's , she verbalized understanding. Kareen Anderson RN Images from the original note were not included. Jim Gaitan MD P [facility] Clinical Nurse Phone Pool Please let the patient know that his echo overall looks fine with low normal/mildly decreased pumping function. There is no evidence of one type of protein disease (TTR amyloidosis) on the heart scan but he did have some calcified lymph nodes on his CT that he will need to follow up with his primary care doctor on. Additionally, it is very important he follow up with the blood doctors as scheduled to get an evaluation of the elevated protein in his blood and urine (already scheduled) in addition to appts with Dr. Sibley and Mery. Thank you. documented in this encounter [facility] 03-03-2023 Miscellaneous Notes Summary: 1 PG IN OPD FILE Images from the original note were not included. [facility] - 02/14/23 documented in this encounter [facility] 03-03-2023 Note HNO ID: [id number] Author: Vanessa Ramos RT(Tabby) Service: Radiology Author Type: Technologist Type: Progress Notes Filed: 03/03/2023 10:13 AM Note Text: RADIOLOGY SERVICE PROGRESS NOTE SERVICE DATE: 03/03/2023 SERVICE TIME: 10:01 AM PATIENT IDENTITY VERIFICATION COMPLETED USING TWO (2) STANDARD IDENTIFIERS: Name and Date of confirmed by patient verbally and Name and Date of confirmed by identification band FALL SCREENING: Has the patient had 2 falls in the last year or 1 fall with injury or currently using an Ambulatory Assistive Device (Walker, Cane, Wheelchair, Crutches, etc.)? Yes, Patient High Risk for Falls What interventions were put in place to prevent falls during this visit? Yellow Falls Risk Wristband Applied, Instructed Patient to Call for Help if Needed, Offered Assistance with Transfers/Clothing, Instructed Patient to Remain Seated (Not on Exam Table) Until Exam, Increased Observations by Caregivers, and Escorted to/from Restroom PATIENT GENDER DATA: .male ALLERGIES: Reviewed and unchanged MEDICATIONS REVIEWED: Not applicable PATIENT RELEVANT IMPLANT DATA REVIEWED: Not Applicable CREATININE: Creatinine Date Value Ref Range Status 03/02/2023 0.96 0.73 - 1.22 mg/dL Final Estimated Glomerular Filtration Rate Date Value Ref Range Status 03/02/2023 80 >=60 mL/min/1.73m? Final Comment: Estimated Glomerular Filtration Rate (eGFR) is calculated using the 2020 CKD-EPI creatinine equation. This equation utilizes serum creatinine, sex, and age as parameters. The creatinine assay has traceable calibration to isotope dilution-mass spectrometry. Refer to KDIGO guidelines for clinical interpretation. In patients with unstable renal function, e.g. those with acute kidney injury, the eGFR may not accurately reflect actual GFR. P.O.C.T. RESULTS: N/A March 03, [address] PERFORMED: No IV SITE: Ambulatory: A peripheral IV was started in the Left antecubital site with a Angio cath: 22 gauge. POST EXAM PIV STATUS: Discontinued PROCEDURE TYPE: NM INJECT: Cardiac Amyloid Protocol. 22.1 mCi F18 Amyvid. No other medications given.. ADMINISTRATION TIME: 1010 PATIENT DISCHARGED TO: Ambulatory patient, left NM department area. A Diagnostic radioactive procedure has taken place, with no further precautions necessary other than routine body substance precautions. More information regarding radiation safety can be found using this link: [email or web address]%20Me [email or web address] SIGNATURE: RT Homero(R) PATIENT NAME: Radu Del Rio DATE: March 03, 2023 TIME: 10:01 AM PAGER/CONTACT #: [facility] 03-03-2023 History of Present illness Narrative RADIOLOGY SERVICE PROGRESS NOTE SERVICE DATE: 03/03/2023 SERVICE TIME: 10:01 AM PATIENT IDENTITY VERIFICATION COMPLETED USING TWO (2) STANDARD IDENTIFIERS: Name and Date of confirmed by patient verbally and Name and Date of confirmed by identification band FALL SCREENING: Has the patient had 2 falls in the last year or 1 fall with injury or currently using an Ambulatory Assistive Device (Walker, Cane, Wheelchair, Crutches, etc.)? Yes, Patient High Risk for Falls What interventions were put in place to prevent falls during this visit? Yellow Falls Risk Wristband Applied, Instructed Patient to Call for Help if Needed, Offered Assistance with Transfers/Clothing, Instructed Patient to Remain Seated (Not on Exam Table) Until Exam, Increased Observations by Caregivers, and Escorted to/from Restroom PATIENT GENDER DATA: .male ALLERGIES: Reviewed and unchanged MEDICATIONS REVIEWED: Not applicable PATIENT RELEVANT IMPLANT DATA REVIEWED: Not Applicable CREATININE: Creatinine Date Value Ref Range Status 03/02/2023 0.96 0.73 - 1.22 mg/dL Final Estimated Glomerular Filtration Rate Date Value Ref Range Status 03/02/2023 80 >=60 mL/min/1.73m Final Comment: Estimated Glomerular Filtration Rate (eGFR) is calculated using the 2020 CKD-EPI creatinine equation. This equation utilizes serum creatinine, sex, and age as parameters. The creatinine assay has traceable calibration to isotope dilution-mass spectrometry. Refer to KDIGO guidelines for clinical interpretation. In patients with unstable renal function, e.g. those with acute kidney injury, the eGFR may not accurately reflect actual GFR. P.O.C.T. RESULTS: N/A March 03, [address] PERFORMED: No IV SITE: Ambulatory: A peripheral IV was started in the Left antecubital site with a Angio cath: 22 gauge. POST EXAM PIV STATUS: Discontinued PROCEDURE TYPE: NM INJECT: Cardiac Amyloid Protocol. 22.1 mCi F18 Amyvid. No other medications given.. ADMINISTRATION TIME: 1010 PATIENT DISCHARGED TO: Ambulatory patient, left NM department area. A Diagnostic radioactive procedure has taken place, with no further precautions necessary other than routine body substance precautions. More information regarding radiation safety can be found using this link: [email or web address]%20N uclear%20Medicine%20Procedures.p df SIGNATURE: Vanessa Ramos RT(R) PATIENT NAME: Radu Del Rio DATE: March 03, 2023 TIME: 10:01 AM PAGER/CONTACT #: documented in this encounter [facility] 02-13-2023 Miscellaneous Notes Blood and urine lab orders were faxed to [facility] in [place], [place]. Fax number is [phone]. Faby Serra documented in this encounter [facility] 02-03-2023 Note HNO ID: [id number] Author: Kory Miguel Service: ? Author Type: ? Type: Progress Notes Filed: 02/03/2023 10:03 AM Note Text: EVENT MONITOR DISPOSABLE PATCH INSTRUCTIONS Patient Name: Radu Del Rio [facility] Number: [id number] Skin prepped and cleansed with alcohol Patch secured to prepped area Monitor Activated Serial #: [id number] Patient Instructed: Prescribed order timeframe Bathing guidelines Usage of event button and diary documentation Return of monitor at the end of prescribed order Call with problems [phone] or [phone]. [phone] Patient expresses a good understanding of instructions Kory Zarate [facility] 02-03-2023 Note Education (CARDMN) RADU DEL RIO ([id number]) 1940 M Date Time Provider Department 02/03/23 9:45 AM ARRHYTHMIA MONITORING LAB CARDMN Reason for Visit: Event [921] Cmt: Zio patch Primary Visit Diagnosis:Chest pain, unspecified type [R07.9] During your visit today, we recorded the following information about you: Allergies As of Date: 02/03/2023 (No Known Allergies) Date Reviewed: 02/03/2023 Reviewed by: Jo Mcmahon, OLIVIA - Fully Assessed Prescriptions as of 02/03/2023 - isosorbide mononitrate ER (IMDUR) 30 mg 24 hr tablet Take 1 tablet by mouth every afternoon. - ranolazine ER (RANEXA) 500 mg 12 hr tablet Take 500 mg by mouth. - Acetaminophen 500 mg cap Take 500 mg by mouth. - fluticasone (FLONASE) 50 mcg/actuation nasal spray SPRAY 1 SPRAY INTO EACH NOSTRIL TWICE A DAY - aspirin, enteric coated (ASPIRIN, ENTERIC COATED) 81 mg EC tablet Take 81 mg by mouth once daily. - clopidogrel (PLAVIX) 75 mg tablet Take 75 mg by mouth once daily. - pantoprazole DR (PROTONIX) 40 mg tablet Take 40 mg by mouth as needed. - rosuvastatin (CRESTOR) 40 mg tablet Take 40 mg by mouth once daily. - melatonin 1 mg tablet Take 10 mg by mouth once daily. Encounter Status:Closed by KORY MIGUEL on 02/03/23 [facility] 02-03-2023 History of Present illness Narrative EVENT MONITOR DISPOSABLE PATCH INSTRUCTIONS [facility]: [id number] Skin prepped and cleansed with alcohol Patch secured to prepped area Monitor Activated Serial #: [id number] Patient Instructed: Prescribed order timeframe Bathing guidelines Usage of event button and diary documentation Return of monitor at the end of prescribed order Call with problems [phone] or [phone]. [phone] Patient expresses a good understanding of instructions Kory Zarate documented in this encounter [facility] 02-03-2023 Note HNO ID: [id number] Author: Jim Gaitan MD Service: ? Author Type: Physician Type: Progress Notes Filed: 02/04/2023 3:20 PM Note Text: [facility] [place] [facility] Department of Cardiovascular Medicine SECTION OF CLINICAL CARDIOLOGY OUTPATIENT VISIT DATE February 03, 2023 OUTPATIENT VISIT TYPE NEW PRIMARY CARE PHYSICIAN: Crystal Singh (Pravin) [address] [place] [address] CHIEF COMPLAINT: Second opinion HISTORY OF PRESENT ILLNESS: Mr. 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 He is accompanied by his and son. We have limited records to review. He had a remote history of CABG (unclear anatomy, 1994). At that time, he doesn't recall his symptoms but his noted that he did not look right so she brought him to the hospital where he underwent work up which resulted in in CABG. He did well until 1-2 years ago when he started to notice exertional shortness of breath which has been progressive, now limited to walking 75 ft to his mailbox, after which he requires rest. No chest pain. He denies palpitations, orthopnea, PND, significant edema, or syncope. His weight has been stable/slightly increased. He has lightheadedness when he gets up from a lying down/seated position to standing. He also has limited due to spinal stenosis and has undergone lower back injections. Considering back surgery. He has a history of bilateral carpal tunnel surgeries remotely in . Has significant back pain lower pain s/p injections, consideration surgery surgery. He denies ever having issues with hypertension. + orthostatic on today's exam. 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 2021 MN stress was negative for ischemia. Coronary angio in 2021 with prox-mid LAD stenosis status post orbital atherectomy and SHIRLEY. 80% Lcx stenosis was med mngt. Known occluded bypass to the LAD/Cx. Symptoms did not improve after revascularization. Stress test with small size moderate intensity reversal defect in the apex. TID 1.46. Most recent coronary angio in 07/2022 reportedly with severe ostial/prox and mid Cx disease the OM1 and OM2. Moderate diffuse ostial/prox and mid RCA stenosis iFR neg. He was recommended to undergo med mngt. And reportedly intervention was thought to be technically too challenging. We do not have these images. He would like a second opinion re: feasibility of revascularization. Nursing Intake : Mr. Del Rio is a 82 year old male from [place], [place] here today for cardiovascular evaluation related to experiencing chest pain. Had heart cath done in July 2022. The doctors said that if they place a stent that the patient's symptoms could become worse. They are here for a second opinion. Severe multivessel atherosclerotic heart disease. Codominant circulation. Normal left main. Patent stent extending from the ostial LAD through the mid segment. Severe ostial/proximal and mid circumflex disease extending into OM1 and OM2. Moderate diffuse ostial/proximal and mid RCA stenosis. IFR was 0.93. 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 He reports the following symptoms: -Shortness of breath: Has been going on for about a year now and has been increasing. He says that his mailbox is 75 feet from his home. Says that once he gets home from the mailbox, he is completely winded and has to sit down right away to catch his breath. He does not get short of breath when he is at rest. -Chest pain: Says that he does have chest pain that he describes as burning almost daily. The sensation occurs in the center of his chest without radiating. -Lightheadedness: Has been going on for about 6-8 months now. He says that he gets extremely dizzy when he goes from a sitting to a stand position that occurs daily. He has had no falls or no syncopal episodes. -He denies palpitations, syncope, PND, and edema. 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 [facility] 02-03-2023 Note HNO ID: [id number] Author: Femi Flores MD Service: ? Author Type: Physician Type: Procedures Filed: 02/27/2023 7:47 AM Note Text: Patient Name: Radu Del Rio : 1940 Ordering Provider: JIM GAITAN Indication: R07.9 Chest pain, unspecified Type of Monitor: Extended Monitoring-Zio Patch Enrollment Dates: 02/03/2023-02/08/2023 Patient had a min HR of 48 bpm, max HR of 154 bpm, and avg HR of 83 bpm. Predominant underlying rhythm was Sinus Rhythm. First Degree AV Block was present. 1 run of Supraventricular Tachycardia occurred lasting 7 beats with a max rate of 145 bpm (avg 126 bpm). Isolated SVEs were rare (<1.0%), SVE Couplets were rare (<1.0%), and SVE Triplets were rare (<1.0%). Isolated VEs were rare (<1.0%), VE Couplets were rare (<1.0%), and no VE Triplets were present. Ventricular Trigeminy was present. Fmei Flores MD [facility] 02-03-2023 Instructions Jim Gaitan MD - 02/03/2023 8:45 AM EST No changes to meds. We will need your cath images to review. I have provided a referral to intervention cardiology for further evaluation of your heart artery disease once we have the images. Please get your work up completed for the possible protein disease we discussed (labs, imaging). Stay hydrated. Our office will arrange for a monitor to evaluate your heart rhythm/rates. Please mail it back to me after 2 weeks. Keep in mind it may take 1-2 weeks for the results to become available once we have received it. J2-2 Zio Try to adhere to a Mediterranean diet (which includes foods like vegetables, fruits, olive oil, nuts (amount that can fit in your fist), legumes, lentils, etc). Avoid: red meat, fried foods, and full fat dairy products, including whole milk cheeses). Avoid: refined carbs (white starches & simple sugars). Avoid processed foods. Suggested resource: Google search [employer] mediterranean diet Follow up with my partners in 3 months after results are completed. Follow up with me in 6 months after that. Seek ER care for any concerning symptoms. documented in this encounter [facility] 02-03-2023 History of Present illness Narrative Images from the original note were not included. [facility] [place] Mon[facility] Department of Cardiovascular Medicine SECTION OF CLINICAL CARDIOLOGY OUTPATIENT VISIT DATE February 03, 2023 OUTPATIENT VISIT TYPE NEW PRIMARY CARE PHYSICIAN: Crystal Singh ([facility]) [address] [place] [address] CHIEF COMPLAINT: Second opinion HISTORY OF PRESENT ILLNESS: Mr. 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 He is accompanied by his and son. We have limited records to review. He had a remote history of CABG (unclear anatomy, 1994). At that time, he doesn't recall his symptoms but his noted that he did not look right so she brought him to the hospital where he underwent work up which resulted in in CABG. He did well until 1-2 years ago when he started to notice exertional shortness of breath which has been progressive, now limited to walking 75 ft to his mailbox, after which he requires rest. No chest pain. He denies palpitations, orthopnea, PND, significant edema, or syncope. His weight has been stable/slightly increased. He has lightheadedness when he gets up from a lying down/seated position to standing. He also has limited due to spinal stenosis and has undergone lower back injections. Considering back surgery. He has a history of bilateral carpal tunnel surgeries remotely in . Has significant back pain lower pain s/p injections, consideration surgery surgery. He denies ever having issues with hypertension. + orthostatic on today's exam. 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 2021 [place] stress was negative for ischemia. Coronary angio in 2021 with prox-mid LAD stenosis status post orbital atherectomy and SHIRLEY. 80% Lcx stenosis was med mngt. Known occluded bypass to the LAD/Cx. Symptoms did not improve after revascularization. Stress test with small size moderate intensity reversal defect in the apex. TID 1.46. Most recent coronary angio in 07/2022 reportedly with severe ostial/prox and mid Cx disease the OM1 and OM2. Moderate diffuse ostial/prox and mid RCA stenosis iFR neg. He was recommended to undergo med mngt. And reportedly intervention was thought to be technically too challenging. We do not have these images. He would like a second opinion re: feasibility of revascularization. Nursing Intake : Mr. Del Rio is a 82 year old male from [place], [place] here today for cardiovascular evaluation related to experiencing chest pain. Had heart cath done in July 2022. The doctors said that if they place a stent that the patient's symptoms could become worse. They are here for a second opinion. Severe multivessel atherosclerotic heart disease. Codominant circulation. Normal left main. Patent stent extending from the ostial LAD through the mid segment. Severe ostial/proximal and mid circumflex disease extending into OM1 and OM2. Moderate diffuse ostial/proximal and mid RCA stenosis. IFR was 0.93. 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 He reports the following symptoms: -Shortness of breath: Has been going on for about a year now and has been increasing. He says that his mailbox is 75 feet from his home. Says that once he gets home from the mailbox, he is completely winded and has to sit down right away to catch his breath. He does not get short of breath when he is at rest. -Chest pain: Says that he does have chest pain that he describes as burning almost daily. The sensation occurs in the center of his chest without radiating. -Lightheadedness: Has been going on for about 6-8 months now. He says that he gets extremely dizzy when he goes from a sitting to a stand position that occurs daily. He has had no falls or no syncopal episodes. -He denies palpitations, syncope, PND, and edema. Orthostatic blood pressures done in office today: BP w/Orthostatic Vitals Date and Time Orthostatic BP Orthostatic Pulse BP Pulse BP Position BP Site BP Cuff Size 02/03/23 0822 133/77 82 -- -- Standing Right Arm -- 02/03/23 0820 126/73 73 -- -- Sitting Right Arm -- 02/03/23 0819 156/84 77 -- -- Supine Right Arm -- Occupation: [employer] up employee for about 30 years. Diet: Regular diet without any restricitons Exercise: No, due to back pain. PAST CARDIAC HISTORY: As above. Past Medical History: No date: CAD (coronary artery disease) No date: GERD (gastroesophageal reflux disease) No date: HLD (hyperlipidemia) No date: Spinal stenosis Past Surgical History: No date: CABG (1) VEIN GRAFT & ARTERIAL GRAFT No date: LEFT HEART CATH,PERCUTANEOUS ALLERGIES No Known Allergies Current Outpatient Medications: isosorbide mononitrate ER (IMDUR) 30 mg 24 hr tablet ranolazine ER (RANEXA) 500 mg 12 hr tablet Acetaminophen 500 mg cap aspirin, enteric coated (ASPIRIN, ENTERIC COATED) 81 mg EC tablet clopidogrel (PLAVIX) 75 mg tablet rosuvastatin (CRESTOR) 40 mg tablet fluticasone (FLONASE) 50 mcg/actuation nasal spray pantoprazole DR (PROTONIX) 40 mg tablet melatonin 1 mg tablet FAMILY HISTORY: family history includes Heart Attack in his brother, brother, and father; Heart disease in his father and mother. SOCIAL HISTORY: He reports that he has quit smoking. His smoking use included cigarettes. He has quit using smokeless tobacco. REVIEW OF SYSTEMS: POSITIVES IN BOLD GENERAL: Negative for: Weight loss or gain, Fever or Chills, Weakness and Sleep difficulties. HEENT: Negative for: Headache, Impaired Vision, Glasses, Hearing Impairment, Ringing in Ears, Nosebleeds, Poor dental care, Bleeding Gums, Dentures NECK: Negative for: Swelling, Pain, Stiffness RESPIRATORY: Negative for: Cough, Blood in Sputum, Shortness of breath, Wheezing, Apnea GASTROINTESTINAL: Negative for: Trouble swallowing, Heartburn, Change in bowel habits, Blood in stool, Dark black stools MUSCULOSKELETAL: Negative for: Muscle or joint pain, Stiffness , Joint swelling NEUROLOGIC/PSYCHIATRIC: Negative for: Weakness, Paralysis, Numbness, Tingling, Tremor, Nervousness, Depressed mood, Memory loss SKIN: Negative for: Rashes, Itching HEMATOLOGICAL/LYMPHATIC: Negative for: Easy bruising , Easy bleeding ENDOCRINE: Negative for: Heat or cold intolerance, Excessive sweating, Frequent urination, Frequent thirst PHYSICAL EXAMINATION: Ht 170.2 cm (5' 7 ) Wt 101.2 kg (223 lb) SpO2 95% BMI 34.93 kg/m 02/03/23 0819 02/03/23 0820 02/03/23 08 SpO2: 94% 95% 95% Height: 170.2 cm (5' 7 ) Weight: 101.2 kg (223 lb) Orthostatic BP: 156/84 126/73 133/77 BP Position: Supine Sitting Standing Orthostatic Pulse: 77 73 82 General: Well developed, well nourished, looks stated age. Alert and oriented and in no visible distress. HEENT: Face symmetric. Gaze Conjugate. Neck: supple, without thyromegaly. No carotid bruits, 2+ upstrokes bilaterally. No nodes felt in neck. Thyroid no nodules. Lungs: clear without rales, rhonchi or wheezing throughout. Cardiovascular: regular rate and rhythm,1/6 systolic murmur at the base, no extra heart sounds heard. JVP 6 cm H2O, neg HJR. non Carotid bruits bilaterally, +2 radial pulses bilaterally, +2 DP pulses bilaterally. Warm and well perfused. Extremeties: +trace Peripheral edema bilaterally . No Clubbing or cyanosis of extremeties. Abdomen: benign without organomegaly. Normal bowel sounds. Non palpable abdominal aorta. Neuro: Memory and judgement intact. Essentially normal neuropyschiatric exam. Pertinent labs reviewed: OS LABS 08/10/2022 OS LABS 12/07/2021 CARDIOVASCULAR MEDICINE TESTING: ECG 02/03/2023 OSH CARDIAC CATH 08/17/2022 Severe multivessel atherosclerotic heart disease. Codominant circulation. Normal left main. Patent stent extending from the ostial LAD through the mid segment. Severe ostial/proximal and mid circumflex disease extending into OM1 and OM2. Moderate diffuse ostial/proximal and mid RCA stenosis. IFR was 0.93. LVEDP 11 mm Hg Recommendations: Continue to optimize medical therapy and risk factor modification. There is severe right femoral artery calcification. There is a high bifurcation as well as a low takeoff of the inferior hypogastric. Coronary Findings Diagnostic Dominance: Co-dominant Left Main: The vessel was visualized by angiography, is moderate in size and is angiographically normal. Left Anterior Descending: The vessel was visualized by angiography and is moderate in size. Previously placed Ost LAD to Mid LAD stent of unknown type is widely patent. Left Circumflex: The vessel was visualized by angiography and is moderate in size. Ost Cx to Mid Cx lesion is 90% stenosed. First Obtuse Marginal Branch: 1st Mrg lesion is 80% stenosed. Second Obtuse Marginal Branch: 2nd Mrg lesion is 90% stenosed. Right Coronary Artery: The vessel was visualized by angiography and is moderate in size. Ost RCA to Mid RCA lesion is 60% stenosed. iFR was measured. iFR ratio: 0.93. Intervention No interventions have been documented. Left Ventricle LV end diastolic pressure is normal. OSH CT ABD WOIVCON 02/02/2022 FINDINGS: Hepatic findings are typical for cirrhosis, lobular contour, slight diffuse fatty replacement, no intrahepatic mass. Normal homogeneous enhancement. No ascites. Normal size portal vein, mild splenomegaly 13.6 cm. No significant collateralization. Normal gallbladder, biliary tree, pancreas and adrenal glands. Normal visualized small and large bowel. No inflammatory changes or mass. Normal kidneys and visualized collecting systems (right posterior mid pole 1.0 cm cyst). Small fusiform mid abdominal aortic aneurysm, 3.0 cm length, no surrounding inflammation. Distal lumbar fusion hardware/arthritis. IMPRESSION: 1. Hepatic findings consistent with cirrhosis, probable early portal venous hypertension, no intrahepatic mass. OSH CARDIAC CATH 08/13/2021 Conclusion 1. Hemodynamically significant lesion in the mid LAD with an IFR of 0.84 2. Occluded bypass graft to the LAD and circumflex 3. Atretic CALDWELL, bypass surgery 1993 4. Status post orbital atherectomy with 1.25 crown in prox to mid LAD followed by placement of 3.25 x 33 drug-eluting stent under intravascular ultrasound guidance, post dilated with 3.5 noncompliant 5. 80% stenosis in proximal circumflex not treated 6. Mild disease and non dominant right coronary artery 7. Calcified right common femoral artery placement of 6 Marshallese Angio-Seal device Recommendations: 1. Dual antiplatelet therapy including aspirin Plavix. Continue Plavix for 6 months to a year 2. DC Angiomax drip 3. Bedrest for 3 hours 4. Post percutaneous coronary intervention orders. 5. DC in a.m. Coronary Findings Diagnostic Dominance: Left Left Main: The vessel is moderate in size. There is moderate diffuse disease throughout the vessel. Left Anterior Descending: Prox LAD lesion is 60% stenosed. Mid LAD lesion is 80% stenosed. Culprit lesion. Lesion length: 28 mm. SIMBA flow is 3. The lesion is type C. The lesion is severely calcified. The lesion is not chronically occluded. The lesion was not previously treated. iFR was measured. iFR ratio: 0.84. Ultrasound (IVUS) was performed. Severe plaque burden was detected. IVUS has determined that the lesion is calcified and concentric. CFVR was not performed. Syntax Score calculation: Intermediate Syntax Score Left Circumflex: Ost Cx to Prox Cx lesion is 70% stenosed. Right Coronary Artery: Prox RCA lesion is 40% stenosed. Intervention Mid LAD lesion: Stent: Drug-eluting stent was successfully placed. The stent used was a SYSTEM COR STNT 3.25MM X 33MM 145CM XIENCE SKYPNT MTLNK SHIRLEY. Stent was deployed by way of balloon expansion. Post-Intervention Lesion Assessment: The intervention was successful. Post-intervention SIMBA flow is 3. Lesion had 30 mm of its length treated. There were no complications. There is a 0% residual stenosis post intervention. OS NM STRESS TEST 07/07/2021 The stress ECG was negative. Stress Function Comments: Left ventricular function post-stress is normal. Post-stress ejection fraction is 60 %. The stress end diastolic cavity size is normal. The stress end systolic cavity size is normal. Perfusion Comments: Left ventricular perfusion is abnormal. Based on the perfusion study data, risk of cardiovascular events is low risk. The study is consistent with ischemia. Stress Findings A pharmacological stress test was performed using regadenoson. Patient achieved a maximal heart rate of 88 bpm (62% of maximum predicted heart rate). The patient reached the end of the protocol. The patient reported no symptoms during the stress test. ECG Baseline ECG indicates sinus rhythm. Arrhythmias during stress: PVC. PVC's were rare. The stress ECG was negative. Isotope Administration The isotope used for nuclear imaging was technetium sestamibi. Imaging was performed at rest after an injection on 07/07/2021 at 07:10 EDT of 10.4 mCi. Imaging was performed at peak stress after an injection on 07/07/2021 at 08:59 EDT of 30.5 mCi. Nuclear Study Quality A Lexiscan protocol was performed. Perfusion Comments Left ventricular perfusion is abnormal. Based on the perfusion study data, risk of cardiovascular events is low risk. The study is consistent with ischemia. Perfusion Defect There is a left ventricular function defect that is small in size with moderate reduction in uptake present in the apical location(s) that is reversible. The defect appears to be ischemia. Perfusion Defect Conclusion TID ratio is 1.46. Stress Function Comments Left ventricular function post-stress is normal. Post-stress ejection fraction is 60 %. The stress end diastolic cavity size is normal. The stress end systolic cavity size is normal. OSH ECHO 07/07/2021 Overall the study quality was poor. The study had technical difficulties. The study was difficult due to patient's body habitus, poor acoustic windows and patient respiration. Left Ventricle: Systolic function is low normal to mildly decreased with an ejection fraction of 50-55%. Septal motion abnormality likely due to previous open heart surgery Aortic Valve: The aortic valve is trileaflet. There is mild sclerosis. Mitral Valve: There is trace regurgitation. There is no evidence of mitral valve stenosis. Left Ventricle Left ventricle appears normal in size. There is mild concentric increased wall thickness/hypertrophy. Systolic function is low normal to mildly decreased with an ejection fraction of 50-55%. Septal motion abnormality likely due to previous open heart surgery Right Ventricle Right ventricular size appears normal. Systolic function is low normal. Left Atrium Left atrium is normal in size. The left atrial volume index is 25.3 mL/m2. Right Atrium Right atrium is normal in size. The right atrial area is 14.4 cm2. IVC/SVC IVC appears normal. Mitral Valve The mitral valve was not well visualized. There is trace regurgitation. There is no evidence of mitral valve stenosis. Tricuspid Valve The tricuspid valve was not well visualized. There is trace regurgitation. There is no evidence of tricuspid valve stenosis. The right ventricular systolic pressure normal. Aortic Valve The aortic valve was not well visualized. The aortic valve is trileaflet. There is mild sclerosis. There is no regurgitation or stenosis. Pulmonic Valve The pulmonic valve was not well visualized. There is trace regurgitation. There is no evidence of pulmonic valve stenosis. Ascending Aorta The aortic root is normal in size. Pericardium There is no pericardial effusion. Study Details A complete echo was performed using complete 2D, color flow Doppler and spectral Doppler. Definity study was performed. Overall the study quality was poor. The study had technical difficulties. The study was difficult due to patient's body habitus, poor acoustic windows and patient respiration. OSH CT ABD/PEL W/O IVCON 03/17/2020 Small peripheral groundglass opacities are seen in both lung bases. The liver, spleen, and pancreas demonstrate no acute abnormality given compromised evaluation without intravenous contrast. The adrenal glands appear within normal limits. There is no evidence of hydronephrosis or nephrolithiasis. No obstructing calculi are seen. There is no free fluid in the upper abdomen or free intraperitoneal air. The appendix is visualized in the right lower quadrant and appears within normal limits. There is no evidence for bowel obstruction. There are no acute osseous abnormalities. There is grade 1 spondylolisthesis of L4 on L5 with bilateral pars interarticularis defects and with degenerative disc disease. Degenerative disc disease is also seen at the L5-S1 level. CT PELVIS FINDINGS: No distal ureteral calculi or bladder calculi. There is no free fluid in the pelvis. IMPRESSION: No evidence of acute process within the abdomen or pelvis. No hydronephrosis or urinary tract calculi seen Small groundglass opacities in both lung bases which could represent resolving Covid 19 pneumonia. I have personally reviewed the Electrocardiogram, Laboratory Testing, Echocardiogram, Stress Test and Cardiac Catheterization/Percutaneous Coronary Intervention (PCI) reports. IMPRESSION: Mr. 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 We have limited records to review Overall, Radu Del Rio is stable. There is no evidence of active ischemia, decompensated heart failure, or malignant arrhythmias and he appears largely euvolemic on exam. He has stable exertional shortness of breath over the past 1-2 years. Etiology is unclear but likely multifactorial secondary to deconditioning vs weight vs progressive valve disease based on murmur however infiltrative cardiomyopathy ie amyloidosis must be considered given hx of spinal stenosis, bilateral carpal tunnel, orthostatic hypotension. ECG without low voltage but that may be absent in sizable portion of patients with CA. Ischemia is on the differential given residual coronary artery disease that was not intervened upon however he did not have improvement in his symptoms after his last LAD intervention. Plan for echo with strain to evaluate for any structural heart disease. Plan for cardiac amyloidosis work up with biomarkers to exclude AL and PYP scan to exclude TTR amyloidosis. OSH labs for CBC/CMP were reassuring. Check TSH. We have requested coronary angio films and will refer to interventional cardiology for evaluation of revascularization feasibility and indication for his residual disease. Suspicion for arrhythmia leading to his symptoms is lower but will send an event monitor for comprehensive evaluation. He has evidence of orthostatics on today's exam. Likely secondary to age related changes and volume depletion, stay hydrated. Counseled on careful positional changes.Amyloidosis work up as noted above. He would benefit from risk factor modification in the form of BP/lipid/glycemic/weight control and I will defer to his local chief creative officer for further mngt. Will check lipid panel to ensure he is at goal. He should adhere to a Mediterranean diet and gradually increase exercise at least 150 mins/week. I have not made any changes to meds. I have provided anticipatory guidance on when to seek ER care. Follow up with my partners in 3 months after results are completed. Follow up with me in 6 month after that. Follow up with PCP and specialists as planned. The patient and his family were in agreement with the plan. As always, I appreciate the opportunity to participate in the care of your patients, and look forward to collaborating with you further. Please don't hesitate to contact me if any questions or problems arise. With best wishes and warmest personal regards, Jim Gaitan MD February 04, 2023, 3:17 PM documented in this encounter [facility] 04-27-2022 Miscellaneous Notes The following medication requests needs approval Requested Prescriptions Pending Prescriptions Disp Refills fluticasone (FLONASE) 50 mcg/actuation nasal spray [Pharmacy Med Name: FLUTICASONE PROP 50 MCG SPRAY] 48 mL 2 Sig: SPRAY 1 SPRAY INTO EACH NOSTRIL TWICE A DAY ELVA FAIRBANKS LPN documented in this encounter [facility] 04-13-2022 Note HNO ID: [id number] Author: Robyn Galeas PA-C Service: ? Author Type: Physician Special Service Officer Type: Progress Notes Filed: 04/13/2022 4:11 PM Note Text: CC: Radu Del Rio is 82 year old male who is seen at the request of Rachelle Fox for evaluation of ear problem. My findings and recommendations will be communicated to the referring provider via the shared electronic medical record. Assessment and Plan: (H69.92) Negative middle ear pressure of left ear (primary encounter diagnosis) (H69.82) Dysfunction of left eustachian tube (H61.22) Impacted cerumen of left ear (R09.81) Nasal congestion ~cleaned scant cerumen from outermost portion of left ear canal - old ventilation tube amongst the wax ~left TM demonstrates large monomeric region that is retracted ~tympanometry demonstrates negative pressure in left ear with normal compliance. Right ear has normal middle ear function ~negative pressure likely chronic with h/o ventilation tubes in left ear x2 ~prescribed flonase - 1 spray per nostril ~advised to find OTC azelastine 0.1% and use 1 spray per nostril twice daily (not covered by insurance) ~he is cleared to pursue hearing aids (recommend [employer]) ~follow up with me as needed HPI: Radu is a 82 year old who reports left ear problem. Accompanied by his and son. He uses hearing aids from [facility] and feels the left ear does not hear well for the last 6 months. Went to pursue new hearing aids, but Splicing Technician sent him here due to abnormal appearance of ear drum. Ear drum is gone. H/o ventilation tubes in left ear x2. Occasional ear pain. Denies otorrhea. Ambulates with walker. Denies worsening balance. He does have mild nasal congestion. Uses oxymetazoline nightly. No audiogram on file and did not bring one with him. ALLERGIES No Known Allergies Current Outpatient Medications Medication Sig aspirin, enteric coated (ASPIRIN, ENTERIC COATED) 81 mg EC tablet Take 81 mg by mouth once daily. clopidogrel (PLAVIX) 75 mg tablet Take 75 mg by mouth once daily. rosuvastatin (CRESTOR) 40 mg tablet Take 40 mg by mouth once daily. pantoprazole DR (PROTONIX) 40 mg tablet Take 40 mg by mouth as needed. melatonin 1 mg tablet Take 10 mg by mouth once daily. fluticasone (FLONASE ALLERGY RELIEF) 50 mcg/actuation nasal spray Use 1 [place] in each nostril twice daily. No current facility-administered medications for this visit. No past medical history on file. No past surgical history on file. Social History: Social History Tobacco Use Smoking status: Former Years: 50.00 Types: Cigarettes Smokeless tobacco: Former Tobacco comments: quit smoking approx 2009 No family history on file. Review Of Systems GENERAL: No weight loss, malaise or fevers. HEENT: Negative for frequent or significant headaches, Ears Positive for hearing loss, tinnitus, earaches, Nose Positive for congestion, nasal discharge I have confirmed and edited as necessary the ROS obtained by others. Robyn Galeas PA-C PHYSICAL EXAM: There were no vitals taken for this visit. No weight on file for this encounter. General appearance: Well appearing, alert, in no acute distress, well-hydrated, well nourished. Cranial Nerves: III-XII: grossly intact Skin: Skin color, texture, turgor normal, no suspicious rashes or lesions Head: normocephalic, no masses, lesions, tenderness or abnormalities Ears: Bilateral external ear normal, Left external auditory canal has small quantity of cerumen with ventilation tube mixed in - removed with alligator forceps, Right EAC is normal, Left tympanic membrane retracted and monomeric. Right TM is normal Nose/Sinuses: Nares normal. Mucosa and the visible turbinates are normal on anterior rhinoscopy. No purulence or polyps Oral Cavity / Oropharynx: Lips, oral mucosa, hard and soft palates, tongue and posterior pharngeal wall are without lesions Neck: The neck appears symmetric without scars. Neuro: Gait normal. Mental status revealed patient to be alert and oriented. Mood is appropriate Tympanometry today reviewed: Robyn Galeas PA-C Medical Decision Making: Problems: Low: Stable chronic illness Data: Unique test result(s) reviewed: 1 Unique test(s) ordered: 1 Risk: Low: Low risk from testing/treatment Moderate: Drug management Medical Decision Making Level: 3 - Low [facility] 04-13-2022 Note HNO ID: [id number] Author: Sharad Jaramillo CCC-A Service: ? Author Type: Splicing Technician Type: Progress Notes Filed: 04/13/2022 2:49 PM Note Text: TYMPANOMETRY Name: Radu Del Rio [facility]#: [id number] Date of Service: 04/13/2022 Date of : 1940 Age: [age] year old Patient was sent by Robyn Galeas PA-C for tympanometry only. Right ear: Normal middle ear pressure and mobility. Left ear: Negative middle ear pressure (-179 daPa) with good mobility. Patient returned to the physician for follow-up. Sharad Mahoney Side Gluer Sharad Jaramillo CCC-A [facility] 04-13-2022 History of Present illness Narrative TYMPANOMETRY Name: Radu Del Rio [facility]#: [id number] Date of Service: 04/13/2022 Date of : 1940 Age: [age] year old Patient was sent by Robyn Galeas PA-C for tympanometry only. Right ear: Normal middle ear pressure and mobility. Left ear: Negative middle ear pressure (-179 daPa) with good mobility. Patient returned to the physician for follow-up. Sharad Mahoney Side Gluer Sharad Jaramillo CCC-A documented in this encounter [facility] 02-07-2022 Note PROCEDURE: [email or web address] VCT 64, 5 mm slice axial images were acquired with coronal reconstruction through the abdomen and pelvis with and without contrast. HISTORY: Abnormal liver ultrasound, comparison made January 28, 2022. FINDINGS: Hepatic findings are typical for cirrhosis, lobular contour, slight diffuse fatty replacement, no intrahepatic mass. Normal homogeneous enhancement. No ascites. Normal size portal vein, mild splenomegaly 13.6 cm. No significant collateralization. Normal gallbladder, biliary tree, pancreas and adrenal glands. Normal visualized small and large bowel. No inflammatory changes or mass. Normal kidneys and visualized collecting systems (right posterior mid pole 1.0 cm cyst). Small fusiform mid abdominal aortic aneurysm, 3.0 cm length, no surrounding inflammation. Distal lumbar fusion hardware/arthritis. IMPRESSION: 1. Hepatic findings consistent with cirrhosis, probable early portal venous hypertension, no intrahepatic mass. Report reported and signed by Gopal Gutierres on 02/08/2022 1141 [facility] Mechanical Engineering Lecturer Evaluation note Diagnosis Dysfunction of left eustachian tube- Primary Dysfunction of Eustachian tube [facility] Diagnosis Negative middle ear pressure of left ear Other disorders of middle ear and mastoid Nasal congestion Other diseases of nasal cavity and sinuses documented [facility] noteNo assessment information availableMer[facility] Work Phone: Evaluation note* Diagnosis Other chest pain- Primary [facility]* Diagnosis Chest pain, unspecified type- Primary [facility]* Diagnosis SOB (shortness of breath)- Primary Shortness of breath Coronary artery 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 Orthostatic hypotension Spinal stenosis, unspecified spinal region Weight gain Abnormal weight gain Bilateral carpal tunnel syndrome Carpal tunnel syndrome Hyperlipidemia, unspecified hyperlipidemia type Former tobacco use Personal history of tobacco use, presenting [facility] Coronary stent patent Hx of CABG Postsurgical aortocoronary bypass status Chest pain, unspecified type Lightheadedness Dizziness and giddiness Peripheral vascular disease (HCC) Peripheral vascular disease, unspecified Morbid obesity (HCC) Morbid obesity [facility] Diagnosis Plasma cell disorder- Primary Other specified disease of white blood cells [facility] Diagnosis 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 [facility]* Diagnosis Uncontrolled daytime somnolence- Primary Other alteration of consciousness Plasma cell disorder Other specified disease of white blood cells Snoring Other dyspnea and respiratory abnormality Morbid obesity (HCC) Morbid obesity documented in this encounter [facility] for referral (narrative)* Outpatient Procedure (Routine) - Authorized Specialty Diagnoses / Procedures Referred By Shana ariza Referred To [facility] Diagnoses Other chest pain Procedures ECG COMPLETE ECG ROUTINE ECG W/LEAST 12 LDS W/I&R Jim Gaitan MD [address] [place] [address] [facility] [place] [address] [place] [address] Referral ID Status Reason Start Date Expiration Date Visits Requested Visits Authorized [id number] Authorized Auto-Generat ed Referral 3 01/20/2024 1 1 [facility] for visit Narrative* Diagnostic Procedure Only (Routine) - Closed Specialty Diagnoses / Procedures Referred By Shana ariza Referred To Contact [facility] Diagnoses Coronary artery 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 Orthostatic hypotension Spinal stenosis, unspecified spinal region SOB (shortness of breath) Weight gain Bilateral carpal tunnel syndrome Hyperlipidemia, unspecified hyperlipidemia type Former tobacco use Coronary stent patent Hx of CABG Chest pain, unspecified type Procedures NM SPECT/CT CARDIAC AMYLOID RP LOCLZJ BLANCO SPECT W/CT 1 AREA 1 DAY IMAGING Jim Gaitan MD [address] [place] [address] [facility] [address] [place] [address] Referral ID Status Reason Start Date Expiration Date V isits Requested Visits Authorized [id number] Closed Auto-Generate d Referral 02/03/2023 03/04/2024 1 1 [facility] Summary Purpose Family History No Family History Records FoundNo Family History Records FoundNo Family History Records FoundNo Family History Records FoundNo Family History Records FoundNo Family History Records Found Advance Directives No Advanced Directives Records Found Advance Directive Response Recorded Date/ Time Advance Directives No February 10:37am Chief Complaint and Reason for Visit Chief Complaint Preop Reason for Referral Specialty Diagnoses / Procedures Referred By Shana ariza Referred To Contact Diagnoses Coronary artery 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 Orthostatic hypotension Spinal stenosis, unspecified spinal region SOB (shortness of breath) Weight gain Bilateral carpal tunnel syndrome Hyperlipidemia, unspecified hyperlipidemia type Former tobacco use Coronary stent patent Hx of CABG Chest pain, unspecified type Procedures CARDIOVASCULAR MEDICINE OP FOLLOW UP APPT ORDER Jim Gaitan MD [address] [place] [address] Referral ID Status Reason Start Date Expiration Date Visits Requested Visits Authorized [id number] Ref Not Required PCP Requested Referral 05/06/2023 02/03/2024 1 1 Specialty Diagnoses / Procedures Referred By Justiceac t Referred To Contact [facility] Diagnoses Coronary artery 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 Orthostatic hypotension Spinal stenosis, unspecified spinal region SOB (shortness of breath) Weight gain Bilateral carpal tunnel syndrome Hyperlipidemia, unspecified hyperlipidemia type Former tobacco use Coronary stent patent Hx of CABG Chest pain, unspecified type Procedures NM SPECT/CT CARDIAC AMYLOID RP LOCLZJ BLANCO SPECT W/CT 1 AREA 1 DAY IMAGING Jim Gaitan MD [address] [place] [address] [facility] [address] [place] [address] Referral ID Status Reason Start Date Expiration Date Visits Requested Visits Authorized [id number] Authorized Auto-Generat ed Referral 3 03/04/2024 1 1 Specialty Diagnoses / Procedures Referred By Shana t Referred To Contact Diagnoses Coronary artery 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 Orthostatic hypotension Spinal stenosis, unspecified spinal region SOB (shortness of breath) Weight gain Bilateral carpal tunnel syndrome Hyperlipidemia, unspecified hyperlipidemia type Former tobacco use Coronary stent patent Hx of CABG Chest pain, unspecified type Procedures CONSULT TO INTERVENTIONAL CARDIOLOGY OFFICE/OUTPATIENT [facility] 60-74 MINUTES Jim Gaitan MD [address] [place] [address] Referral ID Status Reason Start Date Expiration Date Visits Requested Visits Authorized [id number] Authorized PCP Requested Referral 3 02/03/2024 1 1 Specialty Diagnoses / Procedures Referred By Contac t Referred To Contact [facility] Diagnoses Coronary artery 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 Orthostatic hypotension Spinal stenosis, unspecified spinal region SOB (shortness of breath) Weight gain Bilateral carpal tunnel syndrome Hyperlipidemia, unspecified hyperlipidemia type Former tobacco use Coronary stent patent Hx of CABG Chest pain, unspecified type Procedures ECHO ECHO TTHRC R-T 2D W/WOM-MODE COMPL SPEC&COLR D Jim Gaitan MD [address] [place] [address] [facility] [place] [address] [place] [address] Referral ID Status Reason Start Date Expiration Date Visits Requested Visits Authorized [id number] Pending Review Auto-Generat ed Referral 3 02/03/2024 1 1 Specialty Diagnoses / Procedures Referred By Contandrea t Referred To Contact Diagnoses Plasma cell disorder Procedures CONSULT TO HEMATOLOGY/ONCOLOGY OFFICE/OUTPATIENT [facility] 60-74 MINUTES Jim Gaitan MD [address] [place] [address] Referral ID Status Reason Start Date Expiration Date Visits Requested Visits Authorized [id number] Authorized PCP Requested Referral 02/28/2023 02/28/2024 1 1 Specialty Diagnoses / Procedures Referred By Contandrea t Referred To Contact Diagnoses Uncontrolled daytime somnolence Snoring Procedures CONSULT TO SLEEP MEDICINE - ADULT OFFICE/OUTPATIENT [facility] 60-74 MINUTES Fito Rogers MD [address] [place] [address] [place] [address] Referral ID Status Reason Start Date Expiration Date Visits Requested Visits Authorized [id number] Authorized PCP Requested Referral 3 03/08/2024 1 1 Additional Source Comments (unrecognized sect ion and content) No Status Records FoundNo Status Records FoundNo Status Records FoundNo Status Records FoundNo Status Records FoundNo Status Records Found INFORMATION SOURCE (unrecogn ized section and content) DATE CREATED AUTHOR 02/08/2022 [facility] dical Specialist DATE CREATED AUTHOR AUTHOR'S ORGANIZ ATION 07/29/2022 [facility] DATE CREATED AUTHOR AUTHOR'S ORGANIZ ATION 02/04/2023 [facility] DATE CREATED AUTHOR AUTHOR'S ORGANIZ ATION 03/10/2023 [facility] DATE CREATED AUTHOR AUTHOR'S ORGANIZ ATION 03/17/2023 [facility] DATE CREATED AUTHOR AUTHOR'S ORGANIZ ATION 03/27/2023 [facility] EPIC Source Comments (unrecognize d section and content) In the event this informatio n is protected by the Federal Confidentiality of Alcohol and Drug Abuse Patient Records regulations: The Federal rules restrict any use of the information to criminally investigate or prosecute any alcohol or drug abuse patient.[facility] the event this information is protected by the Federal Confidentiality of Alcohol and Drug Abuse Patient Records regulations: The Federal rules restrict any use of the information to criminally investigate or prosecute any alcohol or drug abuse patient.[facility] the event this information is protected by the Federal Confidentiality of Alcohol and Drug Abuse Patient Records regulations: The Federal rules restrict any use of the information to criminally investigate or prosecute any alcohol or drug abuse patient.[facility] the event this information is protected by the Federal Confidentiality of Alcohol and Drug Abuse Patient Records regulations: The Federal rules restrict any use of the information to criminally investigate or prosecute any alcohol or drug abuse patient.[facility] the event this information is protected by the Federal Confidentiality of Alcohol and Drug Abuse Patient Records regulations: The Federal rules restrict any use of the information to criminally investigate or prosecute any alcohol or drug abuse patient.[facility] System[facility] the event this information is protected by the Federal Confidentiality of Alcohol and Drug Abuse Patient Records regulations: The Federal rules restrict any use of the information to criminally investigate or prosecute any alcohol or drug abuse patient.[facility] System[facility] the event this information is protected by the Federal Confidentiality of Alcohol and Drug Abuse Patient Records regulations: The Federal rules restrict any use of the information to criminally investigate or prosecute any alcohol or drug abuse patient.[facility] System[facility] the event this information is protected by the Federal Confidentiality of Alcohol and Drug Abuse Patient Records regulations: The Federal rules restrict any use of the information to criminally investigate or prosecute any alcohol or drug abuse patient.[facility] System[facility] the event this information is protected by the Federal Confidentiality of Alcohol and Drug Abuse Patient Records regulations: The Federal rules restrict any use of the information to criminally investigate or prosecute any alcohol or drug abuse patient.[facility] System[facility] the event this information is protected by the Federal Confidentiality of Alcohol and Drug Abuse Patient Records regulations: The Federal rules restrict any use of the information to criminally investigate or prosecute any alcohol or drug abuse patient.[facility] System[facility] the event this information is protected by the Federal Confidentiality of Alcohol and Drug Abuse Patient Records regulations: The Federal rules restrict any use of the information to criminally investigate or prosecute any alcohol or drug abuse patient.[facility] System[facility] the event this information is protected by the Federal Confidentiality of Alcohol and Drug Abuse Patient Records regulations: The Federal rules restrict any use of the information to criminally investigate or prosecute any alcohol or drug abuse patient.[facility] System[facility] the event this information is protected by the Federal Confidentiality of Alcohol and Drug Abuse Patient Records regulations: The Federal rules restrict any use of the information to criminally investigate or prosecute any alcohol or drug abuse patient.[facility] System[facility] the event this information is protected by the Federal Confidentiality of Alcohol and Drug Abuse Patient Records regulations: The Federal rules restrict any use of the information to criminally investigate or prosecute any alcohol or drug abuse patient.[facility] System[facility] the event this information is protected by the Federal Confidentiality of Alcohol and Drug Abuse Patient Records regulations: The Federal rules restrict any use of the information to criminally investigate or prosecute any alcohol or drug abuse patient.[facility] Reason for Visit (unrecogniz ed section and content) Reason Comments Pressure In Ear(s) Reason Comments Med Change Request Reason Comments Event Zio patch Reason Comments Orders Reason Comments LAB RESULTS RCVD VIA MAIL Reason Comments Radiology NM Specialty Diagnoses / Procedures Referred By Contac t Referred To Contact [facility] Diagnoses Coronary artery 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 Orthostatic hypotension Spinal stenosis, unspecified spinal region SOB (shortness of breath) Weight gain Bilateral carpal tunnel syndrome Hyperlipidemia, unspecified hyperlipidemia type Former tobacco use Coronary stent patent Hx of CABG Chest pain, unspecified type Procedures NM SPECT/CT CARDIAC AMYLOID RP LOCLZJ BLANCO SPECT W/CT 1 AREA 1 DAY IMAGING Jim Gaitan MD [address] [place] [address] [facility] [address] [place] [address] Referral ID Status Reason Start Date Expiration Date V isits Requested Visits Authorized [id number] Closed Auto-Generate d Referral 02/03/2023 03/04/2024 1 1 Reason Comments Consult Specialty Diagnoses / Procedures Referred By Contac t Referred To Contact Diagnoses Plasma cell disorder Procedures CONSULT TO HEMATOLOGY/ONCOLOGY OFFICE/OUTPATIENT [facility] 60-74 MINUTES Jim Gaitan MD [address] [place] [address] Referral ID Status Reason Start Date Expiration Date V isits Requested Visits Authorized [id number] Closed PCP Requested Referral 02/28/2023 02/28/2024 1 1 Reason Comments Referral Information Sleep Study Reason Comments Request Outside Medical Records Care Teams (unrecognized sec tion and content) Major Case Detective Relationship Specialty Start Date End Date Crystal Singh MD [address] [place] [address] PCP - General Family Medicine 10/12/18 Major Case Detective Relationship Specialty Start Date End Date Crystal Singh MD [address] [place] [address] PCP - General Family Medicine 10/12/18 Team Status: Active Member Role Status Dates Crystal Singh MD Primary Care Provider Active Team Status: Inactive Member Role Status Dates Crystal Singh MD Primary Care Provider Active Haroldo Rausch DO Attending Provider Active Major Case Detective Relationship Specialty Start Date End Date Crystal Singh MD [address] [place] [address] PCP - General Family Medicine 10/12/18 Major Case Detective Relationship Specialty Start Date End Date Crystal Singh MD [address] [place] [address] PCP - General Family Medicine 10/12/18 Jim Gaitan MD [address] [place] [address] Primary Staff Physician Cardiology 02/03/23 Major Case Detective Relationship Specialty Start Date End Date Crystal Singh MD [address] [place] [address] PCP - General Family Medicine 10/12/18 Jim Gaitan MD [address] [place] [address] Primary Staff Physician Cardiology 02/03/23 Major Case Detective Relationship Specialty Start Date End Date Crystal Singh MD [address] [place] [address] PCP - General Family Medicine 10/12/18 Jim Gaitan [facility] [address] [facility] [address] Primary Staff Physician Cardiology 02/03/23 Major Case Detective Relationship Specialty Start Date End Date Crystal Singh MD [address] [place] [address] PCP - General Family Medicine 10/12/18 Jim Gaitan MD [address] [place] [address] Primary Staff Physician Cardiology 02/03/23 Major Case Detective Relationship Specialty Start Date End Date Crystal Singh MD [facility] [place] [address] PCP - General Family Medicine 10/12/18 Jim Gaitan MD [address] [place] [address] Primary Staff Physician Cardiology 02/03/23 Major Case Detective Relationship Specialty Start Date End Date Crystal Singh MD [address] [place] [address] PCP - General Family Medicine 10/12/18 Jim Gaitan MD [address] [place] [address] Primary Staff Physician Cardiology 02/03/23 Major Case Detective Relationship Specialty Start Date End Date Crystal Singh MD [address] [place] [address] PCP - General Family Medicine 10/12/18 Jim Gaitan MD [address] [place] [address] Primary Staff Physician Cardiology 02/03/23 Major Case Detective Relationship Specialty Start Date End Date Crystal Singh MD [address] [place] [address] PCP - General Family Medicine 10/12/18 Jim Gaitan MD [address] [place] [address] Primary Staff Physician Cardiology 02/03/23 Major Case Detective Relationship Specialty Start Date End Date Crystal Singh MD [address] [place] [address] PCP - General Family Medicine 10/12/18 Jim Gaitan MD [address] [place] [address] Primary Staff Physician Cardiology 02/03/23 Major Case Detective Relationship Specialty Start Date End Date Crystal Singh MD [address] [place] [address] PCP - General Family Medicine 10/12/18 Jim Gaitan MD [address] [place] [address] Primary Staff Physician Cardiology 02/03/23 Goals (unrecognized section and content) Goals may be documented in a n alternate section FOR RECORDS PERTAINING TO PATIENTS WHO ARE OR HAVE BEEN ENROLLED IN A CHEMICAL DEPENDENCY/SUBSTANCEABUSE PROGRAM, SOME INFORMATION MAY BE OMITTED. This clinical summary was aggregated from multiple sources. Caution should be exercised in using it in the provision of clinical care. This summary normalizes information from multiple sources, and as a consequence, information in this document may materially change the coding, format and clinical context of patient data. In addition, data may be omitted in some cases. CLINICAL DECISIONS SHOULD BE BASED ON THE PRIMARY CLINICAL RECORDS. [employer] [facility]. provides no warranty or guarantee of the accuracy or completeness of information in this document.
== END 2023-04-06 10:33 | disposition home or self-care (01) ==
LOC: PM 10:33
PROVIDERS: PCP Family Medicine; Visit Provider Nurse Practitioner
DX: M54.50 Low back pain, unspecified (principal); G89.29 Other chronic pain; M47.816 Spondylosis without myelopathy or radiculopathy, lumbar region; M48.062 Spinal stenosis, lumbar region with neurogenic claudication; M53.3 Sacrococcygeal disorders, not elsewhere classified
CPT/HCPCS: 72114; G0463

== ENCOUNTER 2023-04-06 11:14 | Outpatient (OUT) | payer MEDICARE, OTHER, SELFPAY ==
--- NOTE | 2023-04-06 11:19 | XR_ITS ---
The [address] [address] Patient Name: RAY DEL RIO MRN: [id number] date: 1940 Sex: M Assigned Patient Location: RAD Current Patient Location: [facility] Accession/Order Number: [id number] Exam Date: 04/06/2023 11:25 Report Date: 04/06/2023 13:30 At the request of: ALEK MOSQUEDA Procedure: XR lumbar spine 6V w bending EXAMINATION: XR lumbar spine 6V w bending HISTORY: chronic low back pain COMPARISON: 07/16/2020 MRI FINDINGS: BONES: Neutral projection demonstrates normal alignment with no acute fracture or spondylolisthesis. Posterior decompression and transpedicular fusion L3-L5. No transient spondylolisthesis with flexion or extension DISC SPACES: Mild to moderate multilevel disc space narrowing. Interbody spacer L4-5 PARASPINOUS: Negative. No paraspinous abnormality is seen. OTHER: Vascular calcifications. Posterior midline BB marker demarcates the L2-L3 interspace/L2 spinous process XR/XR lumbar spine 6V w bending IMPRESSION: Moderate degenerative changes No dynamic instability Electronically authenticated by: KAUSHAL GOOD Date: 04/06/2023 13:30
--- OUTSIDE RECORDS SUMMARY | 2023-04-06 11:20 | XMS_ITS | CCD ---
Author Name Unknown Address [address] [place] [address] Organization [facility] Care Team Providers Care Engineering Professionals Name Role Phone Francisco RIVERA, [facility] Primary Care Provider [phone] DR RHODA GARAY Primary Care Unavailable GIEDRAITIS, ANDRIUS Attending Unavailable GIEDRAITIS, ANDRIUS Admitting Unavailable MD Francisco [facility] Primary Care Provider [phone] Haroldo Rausch Attending Provider [phone] Kandy RIVERA, Jim Unavailable Haroldo Rausch Attending Unavailable Haroldo Rausch Admitting Unavailable [facility] Care Unavailable Gisotoitis , Andrius Vytautdamir Attending Unavailable Giedraitis , Andrius Vytautdamir Attending Unavailable Giedraitis , Andrius Vytautdamir Attending Unavailable Giedraitis , Andrius Vytautas Attending Unavailable Giedraitis , Andrius Vytautas Attending Unavailable Giedraitis , Andrius Vytautas Attending Unavailable Giedraitis , Andrius Vytautdamir Attending Unavailable [facility] Primary Care Unavailable QUATROMONI, JIM Referring Unavailable [facility] Primary Care Unavailable QUATROMONI, JIM Referring Unavailable [facility] Primary Care Unavailable QUATROMONI, JIM Referring Unavailable ABHYANKAR, FITO Referring Unavailable [facility] Primary Care Unavailable [facility] Primary Care Unavailable QUATROMONI, JIM Referring Unavailable [facility] Primary Care Unavailable QUATROMONI, JIM Referring Unavailable QUATROMONI, JIM Attending Unavailable [facility] Primary Care Unavailable QUATROMONI, JIM Referring Unavailable [facility] Primary Care Unavailable QUATROMONI, JIM Referring Unavailable [...] left ear , Nasal congestion Use 1 [place] in each nostril twice daily. 16 g 1 04/13/2022 04/27/2022 Discontinued Comment on above: SPRAY 1 SPRAY INTO E ACH NOSTRIL TWICE A DAY Use 1 [place] in each nostril twice daily. 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] Onset: 03-03-2023 [...] Test Name Value Interpretation Reference Range Facility [facility] US CAROTID ARTERY DUPLE X BILATERALon 03-24-2023 [facility] US CAROTID ARTERY DUPLEX BILATERAL Carotid [...] [facility] Telephone (CATHMN) [facility]U [facility] ([id number]) 1940 M Date Time Provider Department 03/16/23 ELI SIBLEY [facility] During your visit today, we recorded the following information about you: Lore Zavaleta 03/16/2023 10:47 AM Signed Requested 08/17/2022 Angio films from Sukh Larsen Allergies As of Date: 03/16/2023 (No Known Allergies) Date Reviewed: 03/09/2023 Reviewed by: Neelam Solano - Fully Assessed Reason for Visit: Request Outside Medical Records [[id number]] Prescriptions as of 03/16/2023 - ranolazine ER [...] (HCC) [E66.01] 02/04/2023 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/06/2023 S/P drug eluting coronary stent placement [Z95.*03/06/2023 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.1] 03/06/2023 CHRISTIANSON (dyspnea on exertion) [R06.09] 03/06/2023 Obesity, Class II, 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] 03/06/2023 Encounter Status:Closed by LORE ZAVALETA on 03/16/23 Normal [facility] US LIVERon 03-13-2023 US LIVER FINDINGS: Liver [...] BY: Haroldo Mohamud MD [facility]SP[facility] Office ([facility]) RADU [facility] ([id number]) 1940 M Date Time Provider Department 03/09/23 3:30 PM FITO ROGERS During your visit today, we recorded the following information about you: Temperature Pulse Respiration Blood pressure 97.6 degrees 87/minute 18/minute 137/78 Weight 102.2 kg Fito Rogers MD 03/11/2023 10:46 AM Signed NAME: Radu Del Rio CLINIC NO.: [id number] DATE OF SERVICE: March 09, 2023 (Devin) [...] medical problems. Radu's former work was with [employer], also a former cigarette smoker. His 's [...] 6.8 Alb (more content not included)... Normal [facility] Julia 03-09-2023 CNPN Telephone (NCCAP) RADU [facility] ([id number]) 1940 M Date Time Provider Department 03/09/23 FITO ROGERS [facility] During your visit today, we recorded the following information about you: Bo Alexander 03/09/2023 4:24 PM Signed Patient would like to be referred to [facility] for Sleep Study. Faxed order to [place] March 09, 2023 4:23 PM. Will call and follow up on this to make sure [place] received order. Bo Sanches 03/14/2023 10:57 AM Signed Left message w/ [place] scheduling for update. Bo Sanches 03/14/2023 11:27 AM Signed No order received per Amanda. Refaxed order to [place] March 14, 2023 11:27 AM Bo Sanches 03/15/2023 4:24 PM Signed Order received. Per Sharifa, order was faxed to sleep study and they will be in contact with patient to get scheduled. 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] 03/06/2023 Encounter Status:Closed by BO ALEXANDER on 03/15/23 [facility] CNOVon 03-06-2023 CNOV Office Visit (CATHMN ) RADU [facility] RIO ([id number]) 1940 M Date Time Provider Department 03/06/23 11:30 AM ELI SIBLEY During your visit today, we recorded the following information about you: Pulse Respiration Blood pressure Weight 80/minute 18/minute 118/66 101.6 kg Height 1.702 m Eli Sibley MD 03/14/2023 8:22 PM Signed [facility] Thomas Department of Cardiovascular Medicine SECTION OF INTERVENTIONAL CARDIOLOGY OUTPATIENT VISIT DATE March 06, 2023 OUTPATIENT VISIT TYPE CONSULTATION PRIMARY CARE PHYSICIAN: Crystal Singh (Pravin) [address] [place] [address] REFERRING PHYSICIAN Jim Gaitan 910Gian Paige Zacheryheri [facility] [address] CHIEF COMPLAINT: No chief complaint on file. [...] right common femoral artery placement of 6 [place] Angio-Seal device 08/17/2022 - cardiac catheterization at [...] underwent cardiac work up with his local watch parts grinder for exertional shortness of breath. 2021 MN stress was negative for ischemia. Coronary angiogram in 2021 with prox-mid LAD stenosis status post orbital atherectomy and SHIRLEY. 80% Lcx stenosis was med mngt. Known occluded bypass to the LAD/Cx. Symptoms did not improve after revascularization. Stress test with (more content not included)... Normal [facility] Julia 03-06-2023 IDALIAN Telephone (CARCMN) RADU [facility] RIO ([id number]) 1940 M Date Time Provider Department 03/06/23 JIM GAITAN CARCNEVAEH During your visit today, we recorded the following information about you: Kareen Anderson RN 03/06/2023 10:49 AM Signed Jim Gaitan MD P [facility] Clinical Nurse Phone Pool Please let the [...] Status:Closed by KAREEN ANDERSON on 03/06/23 Normal [facility] MONOCLONAL PROT 24 UR W/INTE RPon 03-06-2023 STAFF REVIEW (PA) Reviewed by Zac Cuevas MD, Ph.D ([id number]) Normal [facility] Comment on above: Order Comment: Speci men Type: BLOOD SPECIMEN [facility] Address: [address] [place] [address] Performed By: #### 5 7021-8 #### [facility] CLIA [id number] [address] [place] [address] UMPA RESULT No M protein is identified. Normal No M protein is identified. [facility] Comment on above: Order Comment: Speci men Type: BLOOD SPECIMEN [facility] Facility: [facility] Address: [address] [place] [address] Performed By: #### 5 7021-8 #### [facility] CLIA [id number] [address] [place], [place] [address] PROT ELEC UR 24HR W/M SPIKE (P)on 03-06-2023 Albumin/Globulin Elph (24H U) [Mass ratio] 33.77 % Normal [facility] Comment on above: Order Comment: Speci men Type: BLOOD SPECIMEN [facility] Address: [address] [place] [address] Performed By: #### 5 7021-8 #### [facility] CLIA [id number] [address] [place] [address] Alpha 1 globulin Elph (24H U) [Mass fraction] 5.29 % Normal [facility] Comment on above: Order Comment: Speci men Type: BLOOD SPECIMEN Ordering Facility: [facility] Address: [address] [place] [address] Performed By: #### 5 7021-8 #### [facility] CLIA [id number] [address] [place] [address] Alpha 2 globulin Elph (24H U) [Mass fraction] 24.92 % Normal [facility] Comment on above: Order Comment: Speci men Type: BLOOD SPECIMEN [facility] Facility: [facility] Address: [address] [place] [address] Performed By: #### 5 7021-8 #### [facility] CLIA [id number] [address] [place] [address] Beta globulin Elph (24H U) [Mass fraction] 20.86 % Normal [facility] Comment on above: Order Comment: Speci men Type: BLOOD SPECIMEN [facility] Address: [address] [place] [address] Performed By: #### 5 7021-8 #### [facility] CLIA [id number] [address] [place] [address] Gamma globulin Elph (24H U) [Mass fraction] 15.17 % Normal [facility] Comment on above: Order Comment: Speci men Type: BLOOD SPECIMEN [facility]: [facility] Address: [address] [place] [address] Performed By: #### 5 7021-8 #### [facility] CLIA [id number] [address] [place] [address] Protein Fractions Elph Juarez (24H U) [Interp] No definitive M protein is identified on protein electrophoresis. Normal No definitive M protein is identified on protein electrophores is. [facility] Comment on above: Order Comment: Speci men Type: BLOOD SPECIMEN [facility] Address: [address] [place] [address] Performed By: #### 5 7021-8 #### [facility] CLIA [id number] [address] [place] [address] Protein.monoclonal Elph (24H U) [Mass/Time] 0.00 g/24hr Normal [facility] Comment on above: Order Comment: Speci men Type: BLOOD SPECIMEN [facility] Address: [address] [place] [address] Performed By: #### 5 7021-8 #### [facility] CLIA [id number] [address] [place], [place] [address] STAFF REVIEW ([id number]) Reviewed by Zac Cuevas MD, Ph.D ([id number]) Normal [facility] Comment on above: Order Comment: Speci men Type: BLOOD SPECIMEN [facility] Address: [address] [place] [address] Performed By: #### 5 7021-8 #### [facility] CLIA [id number] [address] [place] [address] Prot 24h Ur-mRateon 03-06-20 23 Protein (24H U) [Mass/Time] 0.25 g/24 Hr High <0.15 [facility] Comment on above: Order Comment: Speci men Type: TIMED URINE SPECIMENOrdering Facility: [facility] Address: [address] [place] [address] Result Comment: Adul t Proteinuria Categories: <0.15 g/24 hours is considered normal to mildly increased 0.15 - 0.50 g/24 hours is considered moderately increased >0.50 g/24 hours is considered severely increased KDIGO. (2013). KDIGO 2012 Clinical Practice Guideline for the Evaluation and Management of Chronic Kidney Disease. Official Journal of the International Society of Nephrology, 3(1), 1-150. Performed By: #### 2 889-4 ####[facility] [id number] [facility] [id number] LABCLIA [id number] [place] [address] Protein (24H U) [Mass/Time]o n 03-06-2023 PERIOD (HRS) 24 hr Normal [facility] Comment on above: Order Comment: Speci men Type: TIMED URINE SPECIMENOrdering Facility: [facility] Address: [address] [place] [address] Performed By: #### 2 889-4 ####[facility]IA [id number] [address] LABCLIA [id number] [place] [address] Specimen volume (24H U) 1.2 L Normal [facility] Comment on above: Order Comment: Speci men Type: TIMED URINE SPECIMENOrdering Facility: [facility] Address: [address] [place] [address] Performed By: #### 2 889-4 ####[facility]CLIA [id number] [address] LABCLIA [id number] [place] [address] Julia 03-03-2023 IDALIAN Telephone (SARAH) [facility]U [facility] ([id number]) 1940 M Date Time Provider Department 03/03/23 [...] Encounter Status:Closed by SRINI SERVIN on 03/03/23 [facility] ECHOon 03-03-2023 Echocardiography Echocardiography Report: Transthoracic Echo [facility] LONNY-2 Date of service: 03/03/2023 3:13:42 PM TEAM LEADER Ordering physician: JIM GAITAN Indication: Hx of [...] * * * Final * * * [employer] [facility] : [id number] sSISUID Normal [facility] CARDIAC AMYLOID SPECT/rail project engineer n 03-03-2023 [place] CARDIAC AMYLOID SPECT/CT * * *Final Report* * * DATE OF EXAM: Mar 03 2023 1:21PM [facility] 0847 - [place] CARDIAC AMYLOID SPECT/CT / PROCEDURE REASON: multiple diagnoses * * * * Physician Interpretation * * * * [place] CTA Report: Main [place] Date of service: 03/03/2023 12:51:26 PM CTA [...] pathologic assessment as appropriate. Nuclear Med Report: [id number] PLANAR and SPECT: Myocardial imaging of the chest with CT attenuation correction was performed at 3 hours post IV injection of Tc-99m Pyrophosphate. See administered doses below. 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 Interpreting physician: Tomas Dize MD CT Dose-Length Product(DLP): 143.0 mGy * [...] * * Final * * * RP Linen Room Attendant: NATY Transcribe Date/Time: Mar 03 2023 12:51P Dictated by : TOMAS DIEZ MD This examination was interpreted and the report reviewed and electronically signed by: TOMAS DIEZ MD on Mar 03 2023 1:35PM EST [id number] Normal [facility] NM SPECT/CT CARDIAC AMYLOIDo n 03-03-2023 [facility] B2 Microglob SerPl-mCncon Xglj-2-Coylgmhgfowcw [Mass/Vol] 1.6 ug/mL Normal <3.1 [facility] Comment on above: Order Comment: Speci men Type: BLOOD SPECIMENOrdering Facility: [facility] Address: [address] [place] [address] Result Comment: Beta -2 Microglobulin test is performed using the [employer] immunoturbidimetric method. Results obtained with different methods or kits cannot be used interchangeably. Performed By: #### 2 885-2, 1951-03 ####[facility] LABCLIA [id number] [place] [address] [place] CBC W Auto Differential pane l (Bld)on 03-02-2023 Basophils (Bld) [#/Vol] 10*3/uL Normal <0.11 [facility] Comment on above: Order Comment: Speci men Type: BLOOD SPECIMEN [facility] Address: [address] [place] [address] Performed By: #### 5 7021-8 #### [facility] CLIA [id number] [address] [place], [place] [address] Basophils/100 WBC (Bld) 0.2 % Normal [facility] Comment on above: Order Comment: Mariveli men Type: BLOOD SPECIMEN [facility] Address: [address] [place] [address] Performed By: #### 5 7021-8 #### [facility] CLIA [id number] [address] [place] [address] 48749 Differential cell count method Nom (Bld) Auto Normal [facility] Comment on above: Order Comment: Speci men Type: BLOOD SPECIMEN [facility] Address: [address] [place] [address] Performed By: #### 5 7021-8 #### [facility] CLIA [id number] [address] [place] [address]896 Eosinophils (Bld) [#/Vol] 10*3/uL Normal <0.46 [facility] Comment on above: Order Comment: Speci men Type: BLOOD SPECIMEN [facility] Address: [address] [place] [address] Performed By: #### 5 7021-8 #### [facility] CLIA [id number] [address] [place] [address]30 Eosinophils/100 WBC (Bld) 0.0 % Normal [facility] Comment on above: Order Comment: Speci men Type: BLOOD SPECIMEN [facility] Address: [address] [place] [address] Performed By: #### 5 7021-8 #### [facility] CLIA [id number] [address] [place] [address]36 Erythrocyte distribution width (RBC) [Ratio] 12.4 % Normal 11.5-15.0 [facility] Comment on above: Order Comment: Speci men Type: BLOOD SPECIMEN [facility] Address: [address] [place] [address] Performed By: #### 5 7021-8 #### [facility] CLIA [id number] [address] [place] [address]40 Hematocrit (Bld) [Volume fraction] 42.7 % Normal 39.0-51.0 [facility] Comment on above: Order Comment: Speci men Type: BLOOD SPECIMEN [facility] Address: [address] [place] [address] Performed By: #### 5 7021-8 #### [facility] CLIA [id number] [address] [place] [address]141 Hemoglobin (Bld) [Mass/Vol] 14.5 g/dL Normal 13.0-17.0 [facility] Comment on above: Order Comment: Speci men Type: BLOOD SPECIMEN [facility] Address: [address] [place] [address] Performed By: #### 5 7021-8 #### [facility] CLIA [id number] [address] [place] [address]400 Immature granulocytes (Bld) [#/Vol] 0.12 10*3/uL High <0.10 [facility] Comment on above: Order Comment: Speci men Type: BLOOD SPECIMEN [facility] Address: [address] [place] [address] Performed By: #### 5 7021-8 #### [facility] CLIA [id number] [address] [place] [address]287 Immature granulocytes/100 WBC (Bld) 1.1 % Normal [facility] Comment on above: Order Comment: Speci men Type: BLOOD SPECIMEN [facility] Address: [address] [place] [address] Performed By: #### 5 7021-8 #### [facility] CLIA [id number] [address] [place] [address]372 Lymphocytes (Bld) [#/Vol] 1.04 10*3/uL Normal 1.00-4.00 [facility] Comment on above: Order Comment: Speci men Type: BLOOD SPECIMEN [facility] Address: [address] [place] [address] Performed By: #### 5 7021-8 #### [facility] CLIA [id number] [address] [place] [address] 10658 Lymphocytes/100 WBC (Bld) 9.7 % Normal [facility] Comment on above: Order Comment: Speci men Type: BLOOD SPECIMEN [facility] Address: [address] [place] [address] Performed By: #### 5 7021-8 #### [facility] CLIA [id number] [address] [place] [address] 75488 MCH (RBC) [Entitic mass] 31.6 pg Normal 26.0-34.0 [facility] Comment on above: Order Comment: Speci men Type: BLOOD SPECIMEN [facility] Address: [address] [place] [id number] Performed By: #### 5 7021-8 #### [facility] CLIA [id number] [address] [place] [address] 25110 MCHC (RBC) [Mass/Vol] 34.0 g/dL Normal 30.5-36.0 [facility] Comment on above: Order Comment: Speci men Type: BLOOD SPECIMEN [facility] Address: [address] [place] [address] Performed By: #### 5 7021-8 #### [facility] CLIA [id number] [address] [place] [address] 99361 MCV (RBC) [Entitic vol] 93.0 fL Normal 80.0-100.0 [facility] Comment on above: Order Comment: Speci men Type: BLOOD SPECIMEN [facility] Address: [address] [place] [address] Performed By: #### 5 7021-8 #### [facility] CLIA [id number] [address] [place] [address] 85409 Monocytes (Bld) [#/Vol] 0.72 10*3/uL Normal <0.87 [facility] Comment on above: Order Comment: Speci men Type: BLOOD SPECIMEN [facility] Address: [address] [place] [address] Performed By: #### 5 7021-8 #### [facility] CLIA [id number] [address] [place] [address] 68433 Monocytes/100 WBC (Bld) 6.7 % Normal [facility] Comment on above: Order Comment: Speci men Type: BLOOD SPECIMEN [facility] Address: [address] [place], [place] [address] Performed By: #### 5 7021-8 #### [facility] CLIA [id number] [address] [place] [address] 85834 Neutrophils (Bld) [#/Vol] 8.82 10*3/uL High 1.45-7.50 [facility] Comment on above: Order Comment: Speci men Type: BLOOD SPECIMEN [facility] Address: [address] [place] [address] Performed By: #### 5 7021-8 #### [facility] CLIA [id number] [address] [place] [address] 89441 Neutrophils/100 WBC (Bld) 82.3 % Normal [facility] Comment on above: Order Comment: Speci men Type: BLOOD SPECIMEN [facility] Address: [address] [place] [address] Performed By: #### 5 7021-8 #### [facility] CLIA [id number] [address] [place] [address] 89710 Nucleated RBC (Bld) [#/Vol] 10*3/uL Normal <0.01 [facility] Comment on above: Order Comment: Speci men Type: BLOOD SPECIMEN [facility] Address: [address] [place] [address] Performed By: #### 5 7021-8 #### [facility] CLIA [id number] [address] [place] [address] 63365 Nucleated RBC/100 WBC (Bld) [Ratio] 0.0 /100 WBC Normal [facility] Comment on above: Order Comment: Speci men Type: BLOOD SPECIMEN [facility] Address: [address] [place] [address] Performed By: #### 5 7021-8 #### [facility] CLIA [id number] [address] [place] [address] 57816 Platelet mean volume (Bld) [Entitic vol] 12.3 fL Normal 9.0-12.7 [facility] Comment on above: Order Comment: Speci men Type: BLOOD SPECIMEN [facility] Address: [address] [place] [address] Performed By: #### 5 7021-8 #### [facility] CLIA [id number] [address] [place] [address] 14711 Platelets (Bld) [#/Vol] 163 10*3/uL Normal 150-400 [facility] Comment on above: Order Comment: Speci men Type: BLOOD SPECIMEN [facility] Address: [address] [place] [address] Performed By: #### 5 7021-8 #### [facility] CLIA [id number] [address] [place] [address] 44721 RBC (Bld) [#/Vol] 4.59 10*6/uL Normal 4.20-6.00 [facility] Comment on above: Order Comment: Speci men Type: BLOOD SPECIMEN [facility] Address: [address] [place] [address] Performed By: #### 5 7021-8 #### [facility] CLIA [id number] [address] [place] [address] 17600 WBC (Bld) [#/Vol] 10.72 10*3/uL Normal 3.70-11.00 [facility] Comment on above: Order Comment: Speci men Type: BLOOD SPECIMEN [facility] Address: [address] [place] [address] Performed By: #### 5 7021-8 #### [facility] CLIA [id number] [address] [place] [address] 77457 Calcium.ionized [Moles/Vol]o n 03-02-2023 Calcium.ionized (Bld) [Mass/Vol] 1.27 mmol/L Normal 1.08-1.30 [facility] Comment on above: Order Comment: Speci men Type: BLOOD SPECIMENOrdering Facility: [facility] Address: [address] [place] [address] Performed By: #### 1 995-0 ####[facility] LAB[facility]IA [id number] [address] [address] [place] [facility] Calcium.ionized adjusted to pH 7.4 (Bld) [Moles/Vol] 1.27 mmol/L Normal 1.08-1.30 [facility] Comment on above: Order Comment: Speci men Type: BLOOD SPECIMENOrdering Facility: [facility] [facility] Address: [address] [place] [address] Performed By: #### 1 995-0 ####[facility] LABCLIA [id number] [place] [id number] [facility] Comprehensive metabolic 2000 panelon 03-02-2023 Albumin [Mass/Vol] 4.6 g/dL Normal 3.9-4.[address] [facility] Comment on above: Order Comment: Speci men Type: BLOOD SPECIMENOrdering Facility: [facility] Address: [address] [place] [address] Performed By: #### 3 084-1, 22148-1, 2531-0, 2776-1 ####[facility] [id number] [place] [address] ALP [Catalytic activity/Vol] 123 U/L High 38-113 [facility] Comment on above: Order Comment: Speci men Type: BLOOD SPECIMENOrdering Facility: [facility] Address: [address] [place] [address] Performed By: #### 3 084-1, 64448-3, 253-0, 2776-1 ####[facility] LABIA [id number] [place] [address] ALT [Catalytic activity/Vol] 41 U/L Normal 10-54 [facility] Comment on above: Order Comment: Speci men Type: BLOOD SPECIMENOrdering Facility: [facility] Address: [address] [place] [address] Performed By: #### 3 084-1, 43107-1, 2532-0, 2777-1 ####[facility] LABCLIA [id number] [place] [address] Anion gap [Moles/Vol] 11 mmol/L Normal 9-18 [facility] Comment on above: Order Comment: Speci men Type: BLOOD SPECIMENOrdering Facility: [facility] Address: [address] [place] [address] Performed By: #### 3 084-1, 65655-5, 2531-0, 2776- ####[facility]CLIA [id number] [place] [address] AST [Catalytic activity/Vol] 39 U/L Normal 14-40 [facility] Comment on above: Order Comment: Speci men Type: BLOOD SPECIMENOrdering Facility: [facility] Address: [address] [place] [address] Performed By: #### 3 084-1, 04921-1, 2531-0, 2776- ####[facility]CLIA [id number] [place] [address] Bilirubin [Mass/Vol] 0.7 mg/dL Normal 0.2-1.3 [facility] Comment on above: Order Comment: Speci men Type: BLOOD SPECIMENOrdering Facility: [facility] Address: [address] [place] [address] Performed By: #### 3 084-1, 66038-0, 2531-0, 2776- ####[facility]CLIA [id number] [place] [address] Calcium [Mass/Vol] 9.8 mg/dL Normal 8.5-10.[address] [facility] Comment on above: Order Comment: Speci men Type: BLOOD SPECIMENOrdering Facility: [facility] Address: [address] [place], [place] [address] Performed By: #### 3 084-1, 55554-4, 2-0, 2776-1 ####[facility] LABCLIA [id number] [place] [address] Chloride [Moles/Vol] 104 mmol/L Normal 97-105 [facility] Comment on above: Order Comment: Speci men Type: BLOOD SPECIMENOrdering Facility: [facility] Address: [address] [place] [address] Performed By: #### 3 084-1, 45245-8, 2532-0, 2777-1 ####[facility] LABIA [id number] [place] [address] CO2 [Moles/Vol] 24 mmol/L Normal 22-30 [facility] Comment on above: Order Comment: Speci men Type: BLOOD SPECIMENOrdering Facility: [facility] Address: [address] [place] [address] Performed By: #### 3 084-1, 75131-8, 2532-0, 2777-1 ####[facility] [id number] [place] [address] Creatinine [Mass/Vol] 0.96 mg/dL Normal 0.73-1.22 [facility] Comment on above: Order Comment: Speci men Type: BLOOD SPECIMENOrdering Facility: [facility] Address: [address] [place] [address] Performed By: #### 3 084-1, 25853-4, 2532-0, 2777-1 ####[facility] [id number] [place] [address] Creatinine and Glomerular filtration rate.predicted panel (S/P/Bld) 80 mL/min/1.73m??? Normal >=60 [facility] Comment on above: Order Comment: Speci men Type: BLOOD SPECIMENOrdering Facility: [facility] Address: [address] [place] [address] Result Comment: Saba mated Glomerular Filtration Rate [...] actual GFR. Performed By: #### 3 084-1, 45033-5, 0, 2776-03 ####[facility] LABCLIA [id number] [place] [address] Glucose [Mass/Vol] 125 mg/dL High 74-[address] [facility] Comment on above: Order Comment: Specandreas el Type: BLOOD SPECIMENOrdering Facility: [facility] Address: [address] [place], [place] [address] Result Comment: The [place] Diabetes Association (ADA) provides guidance for cutoff [...] Standards of Medical Care in Diabetes 2016, [place] [employer] Association. Diabetes Care. 2016.39(Suppl 1). Performed By: #### 3 084-1, 97146-2, 0, 2776-03 ####[facility] LABCLIA [id number] [place] [address] Potassium [Moles/Vol] 4.2 mmol/L Normal 3.7-5.1 [facility] Comment on above: Order Comment: Mai el Type: BLOOD SPECIMENOrdering Facility: [facility] Address: [address] [place] [address] Performed By: #### 3 084-1, 05673-3, 0, 2776-03 ####[facility] LABCLIA [id number] [place] [address] Protein [Mass/Vol] 7.3 g/dL Normal 6.3-8.[address] [facility] Comment on above: Order Comment: Speci men Type: BLOOD SPECIMENOrdering Facility: [facility] Address: [place] [address] Performed By: #### 3 084-1, 86557-4, 2532-0, 2777-1 ####[facility] LABCLIA [id number] [place] [address] Sodium [Moles/Vol] 139 mmol/L Normal 136-[address] [facility] Comment on above: Order Comment: Speci men Type: BLOOD SPECIMENOrdering Facility: [facility] Address: [address] [place] [address] Performed By: #### 3 084-1, 40455-5, 2532-0, 7-1 ####[facility] LABCLIA [id number] [place] [address] Urea nitrogen [Mass/Vol] 20 mg/dL Normal 9-24 [facility] Comment on above: Order Comment: Speci men Type: BLOOD SPECIMENOrdering Facility: [facility] Address: [address] [place] [address] Performed By: #### 3 084-1, 97811-5, 2-0, 7-1 ####[facility] LABCLIA [id number] [place] [address] IMMUNOFIXATION SCREEN, SERUM on 03-02-2023 MPA RESULT No M protein is identified. Normal No M protein is identified. [facility] Comment on above: Order Comment: Speci men Type: BLOOD SPECIMEN [facility] Address: [address] [place] [address] Performed By: #### 5 7021-8 #### [facility] CLIA [id number] [address] [place] [address] STAFF REVIEW ([facility]) Reviewed by Zac Cuevas MD, Ph.D ([id number]) Normal [facility] Comment on above: Order Comment: Speci men Type: BLOOD SPECIMEN [facility] Address: [address] [place] [address] Performed By: #### 5 7021-8 #### [facility] CLIA [id number] [address] [place] [address] IMMUNOGLOBULINS GAMon 2022 IgA [Mass/Vol] 269 mg/dL Normal 70-400 [facility] Comment on above: Order Comment: Speci men Type: BLOOD SPECIMEN [facility] Address: [address] [place] [address] Performed By: #### S ERIMM #### [facility] CLIA [id number] [address] [place] [address] [place] IgG [Mass/Vol] 736 mg/dL Normal 700-1600 [facility] Comment on above: Order Comment: Speci men Type: BLOOD SPECIMEN [facility] Address: [address] [place] [address] Performed By: #### S ERIMM #### [facility] CLIA [id number] [address] [place] [address] [place] IgM [Mass/Vol] 28 mg/dL Low 40-230 [facility] Comment on above: Order Comment: Speci men Type: BLOOD SPECIMEN [facility] Address: [address] [place] [address] Performed By: #### S ERIMM #### [facility] CLIA [id number] [address] [place] [address] [place] KAPPA/CLAY,FREE,SERon 2022 Immunoglobulin light chains.kappa.free (S) [Mass/Vol] 22.0 mg/L High 3.3-19.4 [facility] Comment on above: Order Comment: Speci men Type: BLOOD SPECIMEN [facility] Address: [address] [place] [address] Result Comment: Rare ly, increased serum free light chains levels may not be detected or accurately quantified due to prozone phenomenon or in high viscosity samples using this immunoturbidimetric assay. Correlation with other laboratory results and clinical findings is recommended. The Brimson Free Light Chain was performed using the Binding Site Optilite immunoturbidimetric method. Result obtained with different assay methods or kits cannot be used interchangeably. Performed By: #### 5 7021-8 #### [facility] CLIA [id number] [address] [place] [address] Immunoglobulin light chains.kappa/Immunoglob ulin light chains.lambda (S) [Mass ratio] 1.75 High 0.26-1.65 [facility] Comment on above: Order Comment: Speci men Type: BLOOD SPECIMEN [facility] Address: [address] [place] [address] Performed By: #### 5 7021-8 #### [facility] CLIA [id number] [address] [place] [address] Immunoglobulin light chains.lambda.free [Mass/Vol] 12.6 mg/L Normal 5.7-26.3 [facility] Comment on above: Order Comment: Speci men Type: BLOOD SPECIMEN [facility] Address: [address] [place] [address] Result Comment: Rare ly, increased serum free [...] interchangeably. Performed By: #### 5 7021-8 #### [facility] CLIA [id number] [address] [place] [address] LDH SerPl-cCncon 03-02-2023 LDH [Catalytic activity/Vol] 216 U/L Normal 135-225 [facility] Comment on above: Order Comment: Speci men Type: BLOOD SPECIMENOrdering Facility: [facility] Address: [address] [place] [address] Performed By: #### 3 084-1, 95706-2, 2532-0, 2777-1 ####[facility] LABCLIA [id number] [place] [address] MONOCLONAL PROT UR W/INTERPo n 03-02-2023 STAFF REVIEW ([facility]) Reviewed by Zac Cuevas MD, Ph.D ([id number]) Normal [facility] Comment on above: Order Comment: Speci men Type: URINE SPECIMENOrdering Facility: [facility] Address: [address] [place] [address] Performed By: #### U RMPA ####[facility] LABCLIA [id number] [place] [address] [place] UMPA RESULT No M protein is identified. Normal No M protein is identified. [facility] Comment on above: Order Comment: Speci men Type: URINE SPECIMENOrdering Facility: [facility] Address: [address] [place] [address] Performed By: #### U RMPA ####[facility] LABCLIA [id number] [place] [address] [place] PROTEIN ELECTROPHORESIS SERU M (P)on 03-02-2023 Albumin [Mass/Vol] 4.07 g/dL Normal 3.43-5.[address] [facility] Comment on above: Order Comment: Speci men Type: BLOOD SPECIMEN [facility] Address: [address] [place] [address] Performed By: #### 5 7021-8 #### [facility] CLIA [id number] [address] [place] [address] Alpha 1 globulin Elph [Mass/Vol] 0.29 g/dL Normal 0.18-0.43 [facility] Comment on above: Order Comment: Speci men Type: BLOOD SPECIMEN [facility] Address: [address] [place] [address] Performed By: #### 5 7021-8 #### [facility] CLIA [id number] [address] [place] [address] Alpha 2 globulin Elph [Mass/Vol] 0.85 g/dL Normal 0.42-0.98 [facility] Comment on above: Order Comment: Speci men Type: BLOOD SPECIMEN [facility] Address: [address] [place] [address] Performed By: #### 5 7021-8 #### [facility] CLIA [id number] [address] [place] [address] Beta globulin Elph [Mass/Vol] 0.91 g/dL Normal 0.61-1.17 [facility] Comment on above: Order Comment: Speci men Type: BLOOD SPECIMEN [facility] Address: [address] [place] [address] Performed By: #### 5 7021-8 #### [facility] CLIA [id number] [address] [place] [address] Gamma globulin Elph [Mass/Vol] 0.67 g/dL Normal 0.53-1.51 [facility] Comment on above: Order Comment: Speci men Type: BLOOD SPECIMEN [facility] Address: [address] [place] [address] Performed By: #### 5 7021-8 #### [facility] CLIA [id number] [address] [place] [address] M-PROTEIN LOCATION Normal [facility] Comment on above: Order Comment: Speci men Type: BLOOD SPECIMEN [facility] Address: [address] [place] [address] Result Comment: Not Applicable. Performed By: #### 5 7021-8 #### [facility] CLIA [id number] [address] [place] [address] Protein Fractions [Interp] No definitive M protein is identified on protein electrophoresis. Normal No definitive M protein is identified on protein electrophores is. [facility] Comment on above: Order Comment: Speci men Type: BLOOD SPECIMEN [facility] Address: [address] [place] [address] Performed By: #### 5 7021-8 #### [facility] CLIA [id number] [address] [place] [address] Protein.monoclonal Elph [Mass/Vol] 0.00 g/dL Normal <=0.00 [facility] Comment on above: Order Comment: Speci men Type: BLOOD SPECIMEN [facility] Address: [address] [place] [address] Performed By: #### 5 7021-8 #### [facility] CLIA [id number] [address] [place] [address] SPE STAFF REVIEW Reviewed by Zac Cuevas MD, Ph.D ([id number]) [facility] Comment on above: Order Comment: Speci men Type: BLOOD SPECIMEN [facility] Address: [address] [place] [address] Performed By: #### 5 7021-8 #### [facility] CLIA [id number] [address] [place] [address] Phosphate SerPl-mCncon 03-02 Phosphate [Mass/Vol] 3.1 mg/dL Normal 2.7-4.8 [facility] Comment on above: Order Comment: Speci men Type: BLOOD SPECIMENOrdering Facility: [facility] Address: [address] [place] [address] Performed By: #### 3 084-1, 31104-2, 2532-0, 2777-1 ####[facility] LABCLIA [id number] [place] [address] Prot SerPl-mCncon 03-02-2023 Protein [Mass/Vol] 6.8 g/dL Normal 6.3-8.[address] [facility] Comment on above: Order Comment: Speci men Type: BLOOD SPECIMENOrdering Facility: [facility] Address: [address] [place] [address] Performed By: #### 2 885-2, 1952-1 ####[facility] LABCLIA [id number] [place] [address] [place] Prot/Creat Uron 03-02-2023 Protein/Creatinine (U) [Mass ratio] 0.28 mg/mg High <0.15 [facility] Comment on above: Order Comment: Speci men Type: URINE SPECIMENOrdering Facility: [facility] Address: [address] [place] [address] Result Comment: Adul t Proteinuria Categories: <0.15 mg/mg is considered normal to mildly increased 0.15 - 0.50 mg/mg is considered moderately increased >0.50 mg/mg is considered severely increased KDIGO. (2013). KDIGO 2012 Clinical Practice Guideline for the Evaluation and Management of Chronic Kidney Disease. Official Journal of the International Society of Nephrology, 3(1), 1-150. Performed By: #### 2 890-2 ####[facility] LABIA [id number] [place] [address] [place] Protein/Creatinine (U) [Mass ratio]on 03-02-2023 Creatinine (U) [Mass/Vol] 66.8 mg/dL Normal 20.0-300.0 [facility] Comment on above: Order Comment: Speci men Type: URINE SPECIMENOrdering Facility: [facility] Address: [address] [place] [address] Performed By: #### 2 890-2 ####[facility] LABIA [id number] [place] [address] [place] Protein (U) [Mass/Vol] 19 mg/dL Normal 0-20 [facility] Comment on above: Order Comment: Speci men Type: URINE SPECIMENOrdering Facility: [facility] Address: [address] [place] [address] Performed By: #### 2 890-2 ####[facility] LABIA [id number] [place] [address] [place] Urate SerPl-mCncon Urate [Mass/Vol] 3.0 mg/dL Low 4.0-8.1 [facility] Comment on above: Order Comment: Speci men Type: BLOOD SPECIMENOrdering Facility: [facility] Address: [place] [address] Performed By: #### 3 084-1, 87426-9, 2532-0, 2777-1 ####[facility] LABCLIA [id number] [place] [address] Julia 02-23-2023 CNPN Telephone (CARCMN) [facility] ([id number]) 1940 M Date Time Provider Department 02/23/23 JIM GAITAN CARCPA During your visit today, we recorded the following information about you: Srini Servin 02/23/2023 4:04 PM Signed Received [facility] 02/14/23 - uploaded to Scanned Documents in [employer] through onbase Appointment on Visit date not found Last appointment with department 02/03/2023 Srini Montero 02/24/2023 4:18 PM Signed Additional Results received from [facility] As of Date: 02/23/2023 (No Known [...] Encounter Status:Closed by SRINI SERVIN on 02/23/23 [facility] Julia 02-13-2023 CNPN Telephone (CARCMN) [facility] ([id number]) 1940 M Date Time Provider Department 02/13/23 JIM GAITAN During your visit today, we recorded the following information about you: Faby Serra 02/13/2023 9:44 AM Signed Blood and urine lab orders were faxed to [facility] in [place], [place]. Fax number is [phone]. Faby Serra Allergies As of Date: 02/13/2023 [...] Encounter Status:Closed by FABY SERRA on 02/13/23 [facility] Julia 02-06-2023 CNPN Telephone (CARCMN) [facility] ([id number]) 1940 M Date Time Provider Department 02/06/23 [...] Encounter Status:Closed by SRINI SERVIN on 02/06/23 [facility] Joon 02-03-2023 CNOV Office Visit (CARCMN ) [facility] ([id number]) 1940 M Date Time Provider Department 02/03/23 7:45 AM JIM GAIATN During your visit today, we recorded the following information about you: Weight Height 101.2 kg 1.702 m Jim Gaitan MD 02/04/2023 3:20 PM Signed [facility] [facility] Department of Cardiovascular Medicine SECTION OF CLINICAL CARDIOLOGY OUTPATIENT VISIT DATE February 03, 2023 OUTPATIENT VISIT TYPE NEW PRIMARY CARE PHYSICIAN: Crystal Singh (Pravin) [address] [place] [address] CHIEF COMPLAINT: Second opinion HISTORY OF PRESENT [...] underwent cardiac work up with his local watch parts grinder for exertional shortness of breath. 2021 [place] [...] is a 82 year old male from [place], [place] here today for cardiovascular evaluation related [...] BP Positio (more content not included)... Normal [facility] ECG COMPLETEon 02-03-2023 ECG COMPLETE Ventricular Rate : 7 3 BPM Atrial Rate : 73 BPM P-R Interval : 208 ms QRS Duration : 106 ms Q-T Interval : 410 ms QTC Calculation(Bazett) : 451 ms Calculated P [place] : 64 degrees Calculated R [place] : 40 degrees Calculated T [place] : 42 degrees NORMAL SINUS RHYTHM NONSPECIFIC ST ABNORMALITY ABNORMAL ECG Confirmed by JIM GAITAN MD ([id number]) on 02/07/2023 9:51:00 AM NAME : [facility] PID : [id number] : 1940 Gender : Male Race : ORD : [id number] Procedure Date : Feb 03 2023 06:59:54 Edit Date : Feb 07 2023 09:51:05 Diagnosis: NORMAL SINUS RHYTHM NONSPECIFIC ST ABNORMALITY ABNORMAL ECG Confirmed by JIM GAITAN MD ([id number]) on 02/07/2023 9:51:00 AM Test Reason : Location : [address] : [place] [address] Overread By : JIM GAITAN MD Edited By : JIM GAITAN MD Referred By : JIM GAITAN Acquired by : OLESYA ANTOINE Normal [facility] Lipid 1996 panelon Cholesterol [Mass/Vol] 163 mg/dL <200 mg/dL [facility] Cholesterol in HDL [Mass/Vol] 74 mg/dL >39 mg/dL [facility] Cholesterol in LDL [Mass/Vol] 77 mg/dL <100 mg/dL [facility] Cholesterol in LDL/Cholesterol in HDL [Mass ratio] 1.04 {ratio} <2.54 [facility] Cholesterol in VLDL [Mass/Vol] 12 mg/dL <30 mg/dL [facility] Cholesterol non HDL [Mass/Vol] 89 mg/dL <130 mg/dL [facility] Cholesterol.total/Brittney sterol in HDL [Mass ratio] 2.20 {ratio} <5.10 [facility] Fasting Time 12 hrs [facility] Triglyceride [Mass/Vol] 61 mg/dL <150 mg/dL [facility] Cholesterol [Mass/Vol] 163 mg/dL Normal <200 [facility] Comment on above: Order Comment: Mai el Type: BLOOD SPECIMEN [facility] Address: [address] [place] [address] Result Comment: <200 mg/dL, Desirable 200-239 mg/dL, Borderline high >239 mg/dL, High Performed By: #### 5 7021-8 #### [facility] CLIA [id number] [address] [place] [address] Cholesterol in HDL [Mass/Vol] 74 mg/dL Normal >39 [facility] Comment on above: Order Comment: Mai el Type: BLOOD SPECIMEN [facility] Address: [address] [place] [address] Result Comment: 40-5 9 mg/dL, Acceptable >59 mg/dL, High: Negative risk factor for coronary heart disease <40 mg/dL, Low: Positive risk factor for coronary heart disease Performed By: #### 5 7021-8 #### [facility] CLIA [id number] [address] [place] [address] Cholesterol in LDL [Mass/Vol] 77 mg/dL Normal <100 [facility] Comment on above: Order Comment: Speci men Type: BLOOD SPECIMEN [facility] Address: [address] [place] [address] Result Comment: <100 mg/dL, Optimal 100-129 mg/dL, Near optimal/above optimal 130-159 mg/dL, Borderline high 160-189 mg/dL, High >189 mg/dL, Very high Secondary prevention optimal LDL Cholesterol levels are recommended to be < 70 mg/dL Performed By: #### 5 7021-8 #### [facility] CLIA [id number] [address] [place] [address] Cholesterol in LDL/Cholesterol in HDL [Mass ratio] 1.04 {ratio} Normal <2.54 [facility] Comment on above: Order Comment: Mariveli nikko Type: BLOOD SPECIMEN [facility] Address: [address] [place] [address] Result Comment: Refe rence: 1. National Cholesterol Education Program ATP III Guideline At-A-Glance Quick Desk Reference: National Heart, Lung, and Blood [place]. National Institutes of Health. 2001: NIH Publication No. 01-3305. 2. An International Atherosclerosis Society position paper: global recommendations for the management of dyslipidemia: executive summary, Atherosclerosis. 2014: 232(2):410-413. Performed By: #### 5 7021-8 #### [facility] CLIA [id number] [address] [place] [address] Cholesterol in VLDL [Mass/Vol] 12 mg/dL Normal <30 [facility] Comment on above: Order Comment: Mariveli nikko Type: BLOOD SPECIMEN [facility] Address: [address] [place] [address] Performed By: #### 5 7021-8 #### [facility] CLIA [id number] [address] [place] [address] Cholesterol non HDL [Mass/Vol] 89 mg/dL Normal <130 [facility] Comment on above: Order Comment: Speci men Type: BLOOD SPECIMEN [facility] Address: [address] [place] [address] Result Comment: <130 mg/dL, Optimal 130-159 mg/dL, Near optimal/above optimal 160-189 mg/dL, Borderline high 190-219 mg/dL, High >219 mg/dL, Very high Secondary prevention optimal non HDL Cholesterol levels are recommended to be <100 mg/dL Performed By: #### 5 7021-8 #### [facility] CLIA [id number] [address] [place] [address] Cholesterol.total/Brittney sterol in HDL [Mass ratio] 2.20 {ratio} Normal <5.10 [facility] Comment on above: Order Comment: Speci men Type: BLOOD SPECIMEN [facility] Address: [address] [place] [address] Performed By: #### 5 7021-8 #### [facility] CLIA [id number] [address] [place] [address] 12339 FASTING TIME 12 hrs Normal [facility] Comment on above: Order Comment: Speci men Type: BLOOD SPECIMEN Ordering Facility: [facility] Address: [address] [place] [address] Performed By: #### 5 7021-8 #### [facility] CLIA [id number] [address] [place] [address] 12657 Triglyceride [Mass/Vol] 61 mg/dL Normal <150 [facility] Comment on above: Order Comment: Speci men Type: BLOOD SPECIMEN Ordering Facility: [facility] Address: [address] [place] [address] Result Comment: <150 mg/dL, Normal 150-199 mg/dL, Borderline high 200-499 mg/dL, High >499 mg/dL, Very high Performed By: #### 5 7021-8 #### [facility] CLIA [id number] [address] [place] [address] 22869 NT PRO BNPon 02-03-2023 Natriuretic peptide.B prohormone N-Terminal [Mass/Vol] 289 pg/mL <450 pg/mL [facility] NT-proBNP SerPl-mCncon 02-03 Natriuretic peptide.B prohormone N-Terminal [Mass/Vol] 289 pg/mL Normal <450 [facility] Comment on above: Order Comment: Speci men Type: BLOOD SPECIMEN Ordering Facility: [facility] Address: [address] [place] [address] Performed By: #### 5 7021-8 #### [facility] CLIA [id number] [address] [place] [address] 84939 TSH BLDon 02-03-2023 TSH Qn 1.180 m[IU]/L 0.270 - 4.200 mIU/L [facility] TSH SerPl-aCncon 02-03-2023 TSH Qn 1.180 m[IU]/L Normal 0.270-4.200 [facility] Comment on above: Order Comment: Speci men Type: BLOOD SPECIMEN Ordering Facility: [facility] Address: [address] [place] [address] Performed By: #### 5 7021-8 #### [facility] CLIA [id number] [address] [place] [address] 07623 Basic Metabolic Panelon 12-25 Anion gap [Moles/Vol] 10.4 mmol/L Normal 6.0-15.0 [facility] Comment on above: Performed By: #### C BC, BMP #### [place] [address] [place] Calcium [Mass/Vol] 9.1 mg/dL Normal 8.6-10.3 [facility] Comment on above: Result Comment: PERF ORMED BY: [facility] [address] [facility] [place] [address] PATHOLOGIST [employer] MARCEL ELAINE M.D. Performed By: #### C BC, BMP #### [facility] [address] [place] [id number] [place] Chloride [Moles/Vol] 104 mmol/L Normal 98-107 [facility] Comment on above: Performed By: #### C BC, BMP #### [facility] [address] [place] [address] [place] CO2 [Moles/Vol] 28.0 mmol/L Normal 21.0-31.0 [facility] Comment on above: Performed By: #### C BC, BMP #### [facility] [address] [place] [address] [place] Creatinine [Mass/Vol] 0.99 mg/dL Normal 0.70-1.30 [facility] Comment on above: Performed By: #### C BC, BMP #### [facility] [address] [place] [address] [place] GFR/1.73 sq M.predicted MDRD (S/P/Bld) [Vol rate/Area] mL/min/{1.73_m2} Normal [facility] Comment on above: Performed By: #### C BC, BMP #### [facility] [address] [place] [address] [place] Glucose [Mass/Vol] 112 mg/dL High 70-100 [facility] Comment on above: Result Comment: [facility] Glucose Reference Range is dependent on time and content of last meal. Glucose of more than 200 mg/dL in a nonstressed, ambulatory subject supports the diagnosis of Diabetes Mellitus. ADA recommended reference range Performed By: #### C BC, BMP #### [facility] [address] [place] [address] [place] Potassium [Moles/Vol] 4.4 mmol/L Normal 3.5-5.1 [facility] Comment on above: Performed By: #### C BC, BMP #### [facility] [address] [place] [phone] [place] Sodium [Moles/Vol] 138 mmol/L Normal 136-145 [facility] Comment on above: Performed By: #### C BC, BMP #### [facility] [address] Urea nitrogen [Mass/Vol] 13 mg/dL Normal 7-25 [facility] Comment on above: Performed By: #### C JAYRO, SOFÍA #### [facility] [address] Basophils Auto (Bld) [#/Vol] Ordered By: Haroldo Rausch on 01-09-2023 Basophils (Bld) [#/Vol] 0.0 10*3/uL 0.0-0.2 [facility] Basophils/100 WBC Auto (Bld) Ordered By: Haroldo Rausch on 01-09-2023 Basophils/100 WBC (Bld) 0.7 % . [facility] Calcium [Mass/volume] in Ser um or PlasmaOrdered By: Haroldo Rausch on 01-09-2023 Calcium [Mass/Vol] 9.1 mg/dL 8.6-10.3 [facility] Carbon dioxide, total [Moles /volume] in Serum or PlasmaOrdered By: Haroldo Rausch on 01-09-2023 CO2 [Moles/Vol] 28.0 mmol/L 21.0-31.0 [facility] Chloride [Moles/volume] in S reagan or PlasmaOrdered By: Haroldo Rausch on 01-09-2023 Chloride [Moles/Vol] 104 mmol/L 98-107 [facility] Complete Blood Count Auto Di ffon 01-09-2023 Basophils (Bld) [#/Vol] 0.0 10*3/uL Normal 0.0-0.2 [facility] Comment on above: Result Comment: PERF ORMED BY: [place] [address] PATHOLOGIST [employer] MARCEL ELAINE M.D. Performed By: #### C JAYRO, BMP #### [place] [address] [place] Basophils/100 WBC (Bld) 0.7 % Normal . [facility] Comment on above: Performed By: #### C BC, BMP #### [facility] [address] [place] [address] [place] Eosinophils (Bld) [#/Vol] 0.0 10*3/uL Normal 0.0-0.45 [facility] Comment on above: Performed By: #### C BC, BMP #### [address] Eosinophils/100 WBC (Bld) 0.4 % Normal . [facility] Comment on above: Performed By: #### C BC, BMP #### [address] Erythrocyte distribution width (RBC) [Ratio] 14.0 % Normal 12.0-14.8 [facility] Comment on above: Performed By: #### C JAYRO, BMP #### [address] Hematocrit (Bld) [Volume fraction] 40.8 % Normal 38.8-50.0 [facility] Comment on above: Performed By: #### C BC, BMP #### [address] Hemoglobin (Bld) [Mass/Vol] 13.7 g/dL Normal 13.0-17.0 [facility] Comment on above: Performed By: #### C JAYRO, BMP #### [address] Lymphocytes (Bld) [#/Vol] 0.8 10*3/uL Low 1.00-4.8 [facility] Comment on above: Performed By: #### C BC, BMP #### [address] Lymphocytes/100 WBC (Bld) 13.4 % Normal . [facility] Comment on above: Performed By: #### C BC, BMP #### [address] MCH (RBC) [Entitic mass] 32.0 pg Normal 27.5-35.2 [facility] Comment on above: Performed By: #### C BC, BMP #### [address] MCV (RBC) [Entitic vol] 94.9 fL Normal 83.5-101 [facility] Comment on above: Performed By: #### C BC, BMP #### [facility] [address] Mean Corpuscular HGB Conc 33.7 g/dL Normal 32.5-35.6 [facility] Comment on above: Performed By: #### C BC, BMP #### [facility] [address] [place] [address] [place] Monocytes (Bld) [#/Vol] 0.2 10*3/uL Normal 0.0-0.8 [facility] Comment on above: Performed By: #### C BC, BMP #### [facility] [address] Monocytes/100 WBC (Bld) 3.2 % Normal . [facility] Comment on above: Performed By: #### C BC, BMP #### [facility] [address] Neutrophils (Bld) [#/Vol] 4.9 10*3/uL Normal 1.8-7.7 [facility] Comment on above: Performed By: #### C BC, BMP #### [address] Neutrophils/100 WBC (Bld) 82.3 % Normal . [facility] Comment on above: Performed By: #### C BC, BMP #### [facility] [address] [place] [address] [place] NRBC% 0.1 /100{WBC} Normal 0-0.5 [facility] Comment on above: Performed By: #### C BC, BMP #### [facility] [address] Platelet mean volume (Bld) [Entitic vol] 10.9 fL High 6.6-10.1 [facility] Comment on above: Performed By: #### C BC, BMP #### [facility] [address] Platelets (Bld) [#/Vol] 130 10*3/uL Low 150-450 [facility] Comment on above: Performed By: #### C BC, BMP #### [facility] [address] RBC (Bld) [#/Vol] 4.30 10*6/uL Normal 3.90-5.60 [facility] Comment on above: Performed By: #### C BC, BMP #### [facility] [address] WBC (Bld) [#/Vol] 6.0 10*3/uL Normal 4.1-10.5 [facility] Comment on above: Performed By: #### C BC, BMP #### [facility] [address] Creatinine [Mass/volume] in Serum or PlasmaOrdered By: Haroldo Rausch on 01-09-2023 Creatinine [Mass/Vol] 0.99 mg/dL 0.70-1.30 [facility] ECG 12 lead ECGon 01-09-2023 ECG 12 lead ECG [facility] [place] [address] [place] [address] Electrocardiograph Report Signed Patient: Radu Del Rio MR#: [id number] 18 : 1940 Acct:[id number] Age/Sex: 82 / M ADM Date: 01/09/23 Loc: Room: Type: [facility] Attending Dr: Haroldo Rausch DO Ordering Provider: [...] By Eddie Ravi MD 01/09/23 1621 Normal [facility] Eosinophils Auto (Bld) [#/Vo l]Ordered By: Haroldo Rausch on 01-09-2023 Eosinophils (Bld) [#/Vol] 0.0 10*3/uL 0.0-0.45 [facility] Eosinophils/100 WBC Auto (Bl d)Ordered By: Haroldo Rausch on 01-09-2023 Eosinophils/100 WBC (Bld) 0.4 % . [facility] Erythrocyte distribution wid th Auto (RBC) [Ratio]Ordered By: Haroldo Rausch on 01-09-2023 Erythrocyte distribution width (RBC) [Ratio] 14.0 % 12.0-14.8 [facility] Glucose [Mass/volume] in Ser um or PlasmaOrdered By: Haroldo Rausch on 01-09-2023 Glucose [Mass/Vol] 112 mg/dL 70-100 [facility] Comment on above: ADA recommended refe rence rangeRandom Glucose Reference Range is dependent on time and content of last meal. Glucose of more than 200 mg/dL in a nonstressed, ambulatory subject supports the diagnosis of Diabetes Mellitus. Hematocrit Auto (Bld) [Volum e fraction]Ordered By: Haroldo Rausch on 01-09-2023 Hematocrit (Bld) [Volume fraction] 40.8 % 38.8-50.0 [facility] Hemoglobin [Mass/volume] in BloodOrdered By: aHroldo Rausch on 01-09-2023 Hemoglobin (Bld) [Mass/Vol] 13.7 g/dL 13.0-17.0 [facility] Leukocytes [#/volume] correc macy for nucleated erythrocytes in Blood by Automated counOrdered By: Haroldo Rausch on 01-09-2023 WBC corrected for nucl RBC Auto (Bld) [#/Vol] 6.0 10*3/uL 4.1-10.5 [facility] Lymphocytes Auto (Bld) [#/Vo l]Ordered By: Haroldo Rausch on 01-09-2023 Lymphocytes (Bld) [#/Vol] 0.8 10*3/uL 1.00-4.8 [facility] Lymphocytes/100 WBC Auto (Bl d)Ordered By: Haroldo Rausch on 01-09-2023 Lymphocytes/100 WBC (Bld) 13.4 % . [facility] MCH Auto (RBC) [Entitic mass ]Ordered By: Haroldo Rausch on 01-09-2023 MCH (RBC) [Entitic mass] 32.0 pg 27.5-35.2 [facility] MCHC Auto (RBC) [Mass/Vol]Or dered By: Haroldo Rausch on 01-09-2023 MCHC (RBC) [Mass/Vol] 33.7 g/dL 32.5-35.6 [facility] MCV Auto (RBC) [Entitic vol] Ordered By: Haroldo Rausch on 01-09-2023 MCV (RBC) [Entitic vol] 94.9 fL 83.5-101 [facility] Monocytes Auto (Bld) [#/Vol] Ordered By: Haroldo Rausch on 01-09-2023 Monocytes (Bld) [#/Vol] 0.2 10*3/uL 0.0-0.8 [facility] Monocytes/100 WBC Auto (Bld) Ordered By: Haroldo Rausch on 01-09-2023 Monocytes/100 WBC (Bld) 3.2 % . [facility] Neutrophils Auto (Bld) [#/Vo l]Ordered By: Haroldo Rausch on 01-09-2023 Neutrophils (Bld) [#/Vol] 4.9 10*3/uL 1.8-7.7 [facility] Neutrophils/100 WBC Auto (Bl d)Ordered By: Haroldo Rausch on 01-09-2023 Neutrophils/100 WBC (Bld) 82.3 % . [facility] No Panel InformationOrdered By: Haroldo Rausch on 01-09-2023 Estimated GFR (CKD-EPI) > 60.0 mL/Min [facility] Creatinine Clearance (Chem N/A [facility] Nucleated erythrocytes [Pres ence] in Blood by Automated countOrdered By: Haroldo Rausch on 01-09-2023 Nucleated RBC Auto Ql (Bld) 0.1 /100{WBC} 0-0.5 [facility] Platelet mean volume Auto (B ld) [Entitic vol]Ordered By: Haroldo Rausch on 01-09-2023 Platelet mean volume (Bld) [Entitic vol] 10.9 fL 6.6-10.1 [facility] Platelets Auto (Bld) [#/Vol] Ordered By: Haroldo Rausch on 01-09-2023 Platelets (Bld) [#/Vol] 130 10*3/uL 150-450 [facility] Potassium [Moles/volume] in Serum or PlasmaOrdered By: Haroldo Rausch on 01-09-2023 Potassium [Moles/Vol] 4.4 mmol/L 3.5-5.1 [facility] RBC Auto (Bld) [#/Vol]Ordere d By: Haroldo Rausch on 01-09-2023 RBC (Bld) [#/Vol] 4.30 10*6/uL 3.90-5.60 [facility] Serum or plasma anion gap de terminationOrdered By: Haroldo Rausch on 01-09-2023 Anion gap [Moles/Vol] 10.4 mmol/L 6.0-15.0 [facility] Sodium [Moles/volume] in Ser um or PlasmaOrdered By: Haroldo Rausch on 01-09-2023 Sodium [Moles/Vol] 138 mmol/L 136-145 [facility] Urea nitrogen [Mass/volume] in Serum or PlasmaOrdered By: Haroldo Rausch on 01-09-2023 Urea nitrogen [Mass/Vol] 13 mg/dL 7-25 [facility] WBC Auto (Bld) [#/Vol]Ordere d By: Haroldo Rausch on 01-09-2023 WBC (Bld) [#/Vol] 6.0 10*3/uL 4.1-10.5 [facility] CNOVon 04-13-2022 CNOV Office Visit (ALMAZ ) RADU DEL RIO ([id number]) 1940 Date Time Provider Department 04/13/22 8:30 AM SHAISTA DORADO During your visit today, we recorded the following information about you: Sharad Jaramillo, CCC-A 04/13/2022 2:49 PM Signed TYMPANOMETRY Name: Radu Del Rio CCF#: [id number] Date of Service: 04/13/2022 Date of : 1940 Age: [age] year old Patient was sent by Robyn Galeas PA-C for tympanometry only. Right ear: Normal middle ear pressure and mobility. Left ear: Negative middle ear pressure (-179 daPa) with good mobility. Patient returned to the physician for follow-up. Teresa MARQUES, Sharad [employer] Coordinator Sharad Jaramillo, CCC-A Referring Provider: ROBYN GALEAS [[id number]] Allergies As of Date: 04/13/2022 (No Known [...] RELIEF) 50 mcg/actuation nasal spray Use 1 [place] in each nostril twice daily. Problem List As Of Date: 04/13/2022 (None) Classic SmartForms filed during this visit: Audiometry Encounter Status:Closed by SHAISTA DORADO on 04/13/22 Normal [facility] CNOV Office Visit (OTOLIN ) RADU DEL RIO ([id number]) 1940 M Date Time Provider Department 04/13/22 [...] Galeas PA-C 04/13/2022 4:11 PM Signed CC: Radu Del Rio is 82 year [...] is cleared to pursue hearing aids (recommend [employer]) ~follow up with me as needed HPI: Radu is a 82 year old who reports left ear problem. Accompanied by his and son. He uses hearing aids from [facility] and feels the left ear does not hear well for the last 6 months. Went to pursue new hearing aids, but [employer] sent him here due to abnormal appearance [...] RELIEF) 50 mcg/actuation nasal spray Use 1 [place] in each nostril twice daily. No current [...] 3 - Low Referring Provider: RACHELLE FOX [[id number]] Allergi (more content not included)... Normal [facility] Bladder Pre/Post Voidon 1 03-30-2021 US Bladder [...] by Gopal Gutierres on 02/01/2022 0928 Normal [facility] [employer] US Carotid, Bilateralon 11-0 US Carotid, Bilateral [...] by Gopal Gutierres on 02/01/2022 0943 Normal [facility] [employer] US Liveron 01-28-2022 US Liver CLINICAL HISTORY: [...] by BRAYAN JANE on 01/31/2022 0931 Normal [facility] Specialist XR Chest 2 Views*on 06-23-19 22 [...] by Gopal Gutierres on 06/22/2021 1553 Normal [facility] Complete Blood Count with Au to Diffon 06-14-2021 Basophils (Bld) [#/Vol] 0.08 10*3/uL Normal 0.00-0.20 [facility] Comment on above: Performed By: #### C MP, CBCAD #### [facility] [address] [place], [place] [id number] Basophils/100 WBC (Bld) 1.3 % [facility] Comment on above: Performed By: #### C MP, CBCAD #### [facility] [address] [place], [place] [id number] Eosinophils (Bld) [#/Vol] 0.13 10*3/uL Normal 0.02-0.50 [facility] Comment on above: Performed By: #### C MP, CBCAD #### [facility] [address] [place], [place] [id number] Eosinophils/100 WBC (Bld) 2.1 % Normal [facility] Comment on above: Performed By: #### C MP, CBCAD #### [facility] [address] [place], [place] [id number] Erythrocyte distribution width (RBC) [Ratio] 12.8 % Normal 11.0-15.0 [facility] Comment on above: Performed By: #### C MP, CBCAD #### [facility] [address] [place], [place] [id number] Hematocrit (Bld) [Volume fraction] 46.0 % Normal 38.5-50.0 [facility] Comment on above: Performed By: #### C MP, CBCAD #### [facility] [address] [place], [place] [id number] Hemoglobin (Bld) [Mass/Vol] 15.0 g/dL Normal 13.0-17.1 [facility] Comment on above: Performed By: #### C MP, CBCAD #### [facility] [address] [place], [place] [id number] Lymphocytes (Bld) [#/Vol] 1.4 10*3/uL Normal 0.9-3.9 [facility] Comment on above: Performed By: #### C MP, CBCAD #### [facility] [address] [place], [place] [id number] Lymphocytes/100 WBC (Bld) 23.5 % Normal [facility] Comment on above: Performed By: #### C MP, CBCAD #### [facility] [address] [place], [place] [id number] MCH (RBC) [Entitic mass] 30.2 pg Normal 27.0-33.0 [facility] Comment on above: Performed By: #### C MP, CBCAD #### [facility] [address] [place], [place] [id number] MCHC (RBC) [Mass/Vol] 32.6 g/dL Normal 32.0-36.0 [facility] Comment on above: Performed By: #### C MP, CBCAD #### [facility] [address] [place], [place] [id number] MCV (RBC) [Entitic vol] 93 fL Normal 80-100 [facility] Specialist Comment on above: Performed By: #### C MP, CBCAD #### [facility] [address] [place], [place] [id number] Monocytes (Bld) [#/Vol] 0.6 10*3/uL Normal 0.2-0.9 [facility] Comment on above: Performed By: #### C MP, CBCAD #### [facility] [address] [place], [place] [id number] Monocytes/100 WBC (Bld) 10.1 % Normal N [facility] Specialist Comment on above: Performed By: #### C MP, CBCAD #### [facility] [address] [place], [place] [id number] Neutrophils (Bld) [#/Vol] 3.8 10*3/uL Normal 1.5-7.8 [facility] Comment on above: Performed By: #### C MP, CBCAD #### [facility] [address] [place], [place] [id number] Neutrophils/100 WBC (Bld) 62.5 % Normal [facility] Specialist Comment on above: Performed By: #### C MP, CBCAD #### [facility] [address] [place], [place] [id number] Platelet mean volume (Bld) [Entitic vol] 13.50 fL High 7.50-12.50 [facility] Comment on above: Performed By: #### C MP, CBCAD #### [facility] [address] [place], [place] [id number] Platelets (Bld) [#/Vol] 167 10*3/uL Normal 140-400 [facility] Specialist Comment on above: Performed By: #### C MP, CBCAD #### [facility] [address] [place], [place] [id number] RBC (Bld) [#/Vol] 4.96 10*6/uL Normal 4.20-5.80 [facility] Comment on above: Performed By: #### C MP, CBCAD #### [facility] [address] [place], [place] [id number] RDW-SD 43.8 fL Normal 37.0-50.0 [facility] Specialist Comment on above: Performed By: #### C MP, CBCAD #### [facility] [address] [place], [place] [id number] WBC (Bld) [#/Vol] 6.1 10*3/uL Normal 3.8-11.0 [facility] [employer] Comment on above: Performed By: #### C OLIVIA, CBCAD #### [facility] [address] [place], [place] [id number] Comprehensive Metabolic Pane [facility] 06-14-2021 Albumin [Mass/Vol] 4.3 g/dL Normal 3.6-5.[address] [facility] Specialist Comment on above: Performed By: #### C OLIVIA, CBCAD #### [facility] [address] [place], [place] [id number] Albumin/Globulin [Mass ratio] 1.7 {ratio} Normal 1.0-2.5 [facility] Specialist Comment on above: Performed By: #### C MP, CBCAD #### [facility] [address] [place], [place] [id number] ALP [Catalytic activity/Vol] 149 U/L High 40-129 [facility] Specialist Comment on above: Performed By: #### C MP, CBCAD #### [facility] [address] [place], [place] [id number] ALT [Catalytic activity/Vol] 51 U/L High 9-46 [facility] Specialist Comment on above: Result Comment: 02/24 Female reference range changed. Performed By: #### C MP, CBCAD #### [facility] [address] [place], [place] [id number] Anion gap [Moles/Vol] 16 mmol/L Normal 12-20 [facility] Specialist Comment on above: Result Comment: Effe ctive 04/01/2019 reference range changed. Performed By: #### C MP, CBCAD #### [facility] [address] [place], [place] [id number] AST [Catalytic activity/Vol] 44 U/L High 10-40 [facility] Comment on above: Performed By: #### C MP, CBCAD #### [facility] [address] [place], [place] [id number] Bilirubin [Mass/Vol] 0.43 mg/dL Normal 0.30-1.[address] [facility] Comment on above: Performed By: #### C MP, CBCAD #### [facility] [address] [place], [place] [id number] BUN/CREA 26 Ratio High 6-22 [facility] Comment on above: Performed By: #### C MP, CBCAD #### [facility] [address] [place], [place] [id number] Calcium [Mass/Vol] 9.1 mg/dL Normal 8.6-10.2 [facility] Comment on above: Performed By: #### C MP, CBCAD #### [facility] [address] [place], [place] [id number] Chloride [Moles/Vol] 106 mmol/L Normal 98-[address] [facility] Comment on above: Performed By: #### C MP, CBCAD #### [facility] [address] [place], [place] [id number] CO2 [Moles/Vol] 21 mmol/L Normal 20-31 [facility] Comment on above: Performed By: #### C MP, CBCAD #### [facility] [address] [place], [place] [id number] Creatinine [Mass/Vol] 0.8 mg/dL Normal 0.7-1.4 [facility] Comment on above: Performed By: #### C MP, CBCAD #### [facility] [address] [place], [place] [id number] eGFRAA 116 mL/min/1.73m2 Normal >60 [facility] Specialist Comment on above: Performed By: #### C MP, CBCAD #### [facility] [address] [place], [place] [id number] eGFRNAA 96 mL/min/1.73m2 Normal >60 [facility] Specialist Comment on above: Performed By: #### C MP, CBCAD #### [facility] [address] [place], [place] [id number] Globulin (S) [Mass/Vol] 2.6 g/dL Normal 1.9-3.7 [facility] Comment on above: Performed By: #### C MP, CBCAD #### [facility] [address] [place], [place] [id number] Glucose [Mass/Vol] 85 mg/dL Normal 65-99 [facility] [employer] Comment on above: Result Comment: For FASTING Glucose --- ADA reference ranges: Normal 65-99 mg/dl Prediabetes 100-125 Diabetes >/= 126 Performed By: #### C MP, CBCAD #### [facility] [address] [place], [place] [id number] Potassium [Moles/Vol] 4.4 mmol/L Normal 3.5-5.5 [facility] Comment on above: Performed By: #### C MP, CBCAD #### [facility] [address] [place], [place] [id number] Protein [Mass/Vol] 6.9 g/dL Normal 6.1-8.1 [facility] Comment on above: Performed By: #### C MP, CBCAD #### [facility] [address] [place], [place] [id number] Sodium [Moles/Vol] 138 mmol/L Normal 135-146 [facility] Comment on above: Performed By: #### C MP, CBCAD #### [facility] [address] [place], [place] [id number] Urea nitrogen [Mass/Vol] 20 mg/dL Normal 7-25 [facility] [employer] Comment on above: Performed By: #### C MP, CBCAD #### [facility] [address] [place], [place] [id number] XR Chest 2 Views*on 06-15-19 XR Chest [...] by Gopal Gutierres on 06/14/2021 1620 Normal [facility] Specialist Vital Signs Date Time Vital Sign Value Performing Clinician [place] chand 03-09-2023 15:42-0500 Body temperature 97.59 [degF] Fito Rogers MD Work Phone: [facility] 03-09-2023 15:42-0500 Body weight 102.2 kg Fito Rogers MD Work Phone: [facility] 03-09-2023 15:42-0500 Diastolic blood pressure 78 mm[Hg] Fito Rogers MD Work Phone: [facility] 03-09-2023 15:42-0500 Heart rate 87 /min Fito Rogers MD Work Phone: [facility] 03-09-2023 15:42-0500 Respiratory rate 18 /min Fito Rogers MD Work Phone: [facility] 03-09-2023 15:42-0500 Systolic blood pressure 137 mm[Hg] Fito Rogers MD Work Phone: [facility] 02-03-2023 08:22-0500 SaO2% (BldA) [Mass fraction] 95 % Jim Gaitan MD Work Phone: [facility] 02-03-2023 08:19-0500 Body height 170.2 cm Jim Gaitan MD Work Phone: [facility] 02-03-2023 08:19-0500 Body weight 101.15 kg Jim Gaitan MD Work Phone: [facility] Encounters Encounter Date Encounter Type Care Provider Facility Start: 03-24-2023 End: 03-25-2023 ambulatory AI SWIFT Not Available Start: 03-16-2023 Telephone encounter Eli gar MD Work Phone: Cardiology Comment on above: Request Outside [facility] Records Start: 03-13-2023 End: 03-13-2023 ambulatory AI SWIFT Not Available Start: 03-09-2023 End: 03-09-2023 ambulatory JIM GAITAN Facility:[facility] Start: 03-09-2023 End: 03-09-2023 Office outpatient new 60 minutes Fito Rogers MD Work Phone: Hematology/Oncology Comment on above: Uncontrolled daytime somnolence (Primary Dx); Plasma cell disorder; Snoring; Morbid obesity (HCC) Start: 03-09-2023 Telephone encounter [facility]acarias MD [facility] Comment on above: Referral Information (Sleep Study) Start: 03-06-2023 Telephone encounter Jim gutierrez MD Work Phone: Cardiology Start: 03-06-2023 End: 03-06-2023 ambulatory CRYSTAL Alejandra [facility] Facility:[facility] Start: 03-03-2023 Telephone [...] 02-27-2023 End: 02-28-2023 ambulatory Anneliese Contreras MD Facility:[facility] Start: 02-13-2023 Telephone encounter Jim gutierrez MD [...] 01-30-2023 End: 01-31-2023 ambulatory Anneliese Contreras MD Facility:[facility] Start: 01-20-2023 Orders Only Jim High i, MD Work Phone: Cardiology Comment on above: Other chest pain (Pr imary Dx) Start: 01-09-2023 End: 01-10-2023 ambulatory Anneliese Contreras MD Facility:[facility] Start: 01-09-2023 End: 01-09-2023 ambulatory Haroldo Rausch Facility:[facility] Start: 01-09-2023 End: 01-09-2023 ambulatory MD Crystal Singh Work Phone: [facility] Work Phone: Start: 01-09-2023 End: 01-09-2023 Patient encounter procedure MD Crystal Singh Work Phone: [facility] Work Phone: Start: 12-26-2022 End: 12-27-2022 ambulatory Anneliese Contreras MD Facility:[facility] [place] Start: 10-03-2022 End: 10-04-2022 ambulatory Anneliese Contreras [...] DTaP,Tdap,Td Vaccine (3 - Td or Tdap) [facility] Start: 03-02-2026 Diabetes Screening Diabetes Screenin g [facility] Start: 02-04-2024 Hepatitis B surface antibody level LDL Cholesterol [facility] Start: 03-03-2023 End: 03-01-2024 [id number] [Mass/volume] in Serum or Plasma B2 MICROGLOBULIN B Lab Routine MGUS (monoclonal gammopathy of unknown significance) Expected: 03/03/2023 (Approximate), Expires: 03/01/2024 [facility] Work Phone: Comment on above: Expected: 03/03/2023 (Approximate), Expires: 03/01/2024 Start: 03-03-2023 End: 03-01-2024 Calcium.ionized [Moles/volume] in Blood CALCIUM IONIZED BLOOD Lab Routine MGUS (monoclonal gammopathy of unknown significance) Expected: 03/03/2023 (Approximate), Expires: 03/01/2024 [facility] Work Phone: Comment on above: Expected: 03/03/2023 (Approximate), Expires: 03/01/2024 Start: 03-03-2023 End: 03-01-2024 CBC W Auto Differential panel - Blood CBC + DIFF Lab Routine MGUS (monoclonal gammopathy of unknown significance) Expected: 03/03/2023 (Approximate), Expires: 03/01/2024 [facility] Work Phone: Comment on above: Expected: 03/03/2023 (Approximate), Expires: 03/01/2024 Start: 03-03-2023 End: 03-01-2024 Comprehensive metabolic 2000 panel - Serum or Plasma COMP METABOLIC PANEL Lab Routine MGUS (monoclonal gammopathy of unknown significance) Expected: 03/03/2023 (Approximate), Expires: 03/01/2024 [facility] Work Phone: Comment on above: Expected: 03/03/2023 (Approximate), Expires: 03/01/2024 Start: 03-03-2023 End: 06-02-2023 KAPPA/CLAY,FREE,SER KAPPA/CLAY,FREE,SER Lab Routine MGUS (monoclonal gammopathy of unknown significance) Expected: 03/03/2023 (Approximate), Expires: 06/02/2023 [facility] Work Phone: Comment on above: Expected: 03/03/2023 (Approximate), Expires: 06/02/2023 Start: 03-03-2023 End: 03-01-2024 Lactate dehydrogenase [Enzymatic activity/volume] in Serum or Plasma LD LACTATE DEHYDRO Lab Routine MGUS (monoclonal gammopathy of unknown significance) Expected: 03/03/2023 (Approximate), Expires: 03/01/2024 [facility] Work Phone: Comment on above: Expected: 03/03/2023 (Approximate), Expires: 03/01/2024 Start: 03-03-2023 End: 03-01-2024 MONOCLONAL PROT 24 UR W/INTERP MONOCLONAL PROT 24 UR W/INTERP Lab Routine MGUS (monoclonal gammopathy of unknown significance) Expected: 03/03/2023 (Approximate), Expires: 03/01/2024 [facility] Work Phone: Comment on above: Expected: 03/03/2023 (Approximate), Expires: 03/01/2024 Start: 03-03-2023 End: 03-01-2024 MONOCLONAL PROTEIN, SERUM (BLOOD) MONOCLONAL PROTEIN, SERUM (BLOOD) Lab Routine MGUS (monoclonal gammopathy of unknown significance) Expected: 03/03/2023 (Approximate), Expires: 03/01/2024 [facility] Work Phone: Comment on above: Expected: 03/03/2023 (Approximate), Expires: 03/01/2024 Start: 03-03-2023 End: 03-01-2024 Phosphate [Mass/volume] in Serum or Plasma PHOSPHORUS INORGANIC Lab Routine MGUS (monoclonal gammopathy of unknown significance) Expected: 03/03/2023 (Approximate), Expires: 03/01/2024 [facility] Work Phone: Comment on above: Expected: 03/03/2023 (Approximate), Expires: 03/01/2024 Start: 03-03-2023 End: 03-01-2024 PROT ELEC UR 24HR W/M SPIKE AND INTERP PROT ELEC UR 24HR W/M SPIKE AND INTERP Lab Routine MGUS (monoclonal gammopathy of unknown significance) Expected: 03/03/2023 (Approximate), Expires: 03/01/2024 [facility] Work Phone: Comment on above: Expected: 03/03/2023 (Approximate), Expires: 03/01/2024 Start: 03-03-2023 End: 03-01-2024 PROTEIN ELECTROPHORESIS SERUM W/INTERP PROTEIN ELECTROPHORESIS SERUM W/INTERP Lab Routine MGUS (monoclonal gammopathy of unknown significance) Expected: 03/03/2023 (Approximate), Expires: 03/01/2024 [facility] Work Phone: Comment on above: Expected: 03/03/2023 (Approximate), Expires: 03/01/2024 Start: 03-03-2023 End: 03-01-2024 Urate [Mass/volume] in Serum or Plasma URIC ACID BLOOD Lab Routine MGUS (monoclonal gammopathy of unknown significance) Expected: 03/03/2023 (Approximate), Expires: 03/01/2024 [facility] Work Phone: Comment on above: Expected: [...] pain, unspecified type Expected: 02/03/2023, Expires: 05/05/2023 [facility] Work Phone: Comment on above: Expected: [...] pain, unspecified type Expected: 02/03/2023, Expires: 05/05/2023 [facility] Work Phone: Comment on above: Expected: [...] pain, unspecified type Expected: 02/03/2023, Expires: 05/05/2023 [facility] Work Phone: Comment on above: Expected: [...] pain, unspecified type Expected: 02/03/2023, Expires: 05/05/2023 [facility] Work Phone: Comment on above: Expected: 02/03/2023 , Expires: 05/05/2023 Start: 11-25-2022 Covid-19 Vaccine ( season) Covid-19 Vaccine ( season) [facility] Start: 11-25-2022 Influenza vaccination Influenza Vacc ine (#1) [facility] Start: 03-27-2022 ADVANCE DIRECTIVE DISCUSSION ADVANCE DIRECTIVE DISCUSSION [facility] Start: 03-27-2022 DEPRESSION ASSESSMENT DEPRESSION ASS ESSMENT [facility] Start: 2007 PNEUMOCOCCAL: 65+ (1 - PCV) PNEUMOCOCCAL: 65+ (1 - PCV) [facility] Start: 2002 RSV Vaccine (1 - 1-d ose 60+ series) RSV Vaccine (1 - 1-dose 60+ series) [facility] Start: 1992 SHINGRIX VACCINE (1 of 2) [place] GRIX VACCINE (1 of 2) [facility] Start: 1987 DIABETES SCREEN DIABETES SCREEN [facility] Start: 1987 Diabetes Screening Diabetes Screenin g [facility] Start: 1961 Urine microalbumin profile DTAP,TDAP,TD (1 - Tdap) [facility] Start: 1960 Annual PCP Team Reimbursement Representative prashanth Disease Visit Annual PCP Team Chronic Disease Visit [facility] End: 01-21-2024 ECG COMPLETE ECG COMPLETE ECG Routine Other chest pain 1 Occurrences starting 01/20/2023 until 01/21/2024 [facility] Work Phone: Comment on above: 1 [...] type 1 Occurrences starting 02/03/2023 until 02/04/2024 [facility] Work Phone: Comment on above: 1 [...] type 1 Occurrences starting 02/03/2023 until 03/04/2024 [facility] Work Phone: Comment on above: 1 [...] CABG Chest pain, unspecified type Ordered: 02/03/2023 [facility] Work Phone: Comment on above: Ordered: 02/03/2023 [facility] Immunizations Immunization Date Immunization Notes Care Provider Fa chloe 01-24-2022 influenza virus vaccine, unspecified formulation Jim Gaitan MD Work Phone: [facility] Payers Date Payer Category Payer Self-pay [id number] 2023 Unknown [id number] 2012 Unknown [id number] 2007 Medicare [id number] 1959 Medicare [id number] 1959 Unknown [id number] 1942 Unknown [id number] 2.16.84 [id number] 1942 Unknown [id number] 2.16. 840.1.822414.3.579.2.196 1942 Unknown [id number] 2.16. 840.1.902201.3.579.2.196 1942 Unknown [id number] 2.16. 840.1.061975.3.579.2.196 1942 Unknown [id number] 2.16. 840.1.848005.3.579.2.196 1942 Unknown [id number] 2.16. 840.1.166519.3.579.2.196 1942 Unknown [id number] 2.16. 840.1.064238.3.579.2.196 1942 Unknown [id number] 2.16. 840.1.007039.3.579.2.196 1942 Unknown [id number] 2.16.840 .1.723018.3.579.2.1259 1942 Unknown [id number] 2.16.840 .1.834079.3.579.2.1259 1942 Unknown [id number] 2.16.840 .1.409606.3.579.2.1259 1942 Unknown [id number] 2.16.840 .1.426632.3.579.2.1259 1942 Unknown [id number] 2.16.840 .1.402819.3.579.2.1259 Unknown [id number] 2.16.8 [id number] Social History Date Type Detail Facility Start: 04-13-2022 End: 02-03-2023 Tobacco smoking status NHIS Ex-smoker [facility] Work Phone: End: 03-27-2007 History of tobacco use Current smoker [facility] Work Phone: End: 03-27-2007 History of tobacco use Cigarette Smoker [facility] Work Phone: Start: 04-13-2022 Tobacco use and exposure Former smokeless tobacco user [facility] Work Phone: Start: 04-13-2022 Tobacco Comment quit smoking a pprox 2009 [facility] Start: 1940 Sex Assigned At Not on file [facility] Start: 1940 Sex Assigned At Male F [facility] Start: 04-13-2022 End: 03-09-2023 History of Social function [facility] Start: 04-13-2022 End: 03-09-2023 Tobacco use panel [facility] Start: 02-03-2023 Tobacco use and exposure Smokeless tobacco non-user [facility] Start: 02-03-2023 End: 03-09-2023 Alcohol intake Lifetime non-drinker (finding) [facility] Medical Equipment Procedure Code Equipment Code Equipment [...] from [facility] documented in this encounter [facility] 03-15-2023 Miscellaneous Notes Order received. Per Sharifa, order was faxed to sleep study and they will be in contact with patient to get scheduled. Bo Alexander No order received per Amanda. Refaxed order to [place] March 14, 2023 11:27 AM Bo Alexander Left message w/ [place] scheduling for update. Bo Alexander Patient would like to be referred to [facility] for Sleep Study. Faxed order to [place] March 09, 2023 4:23 PM. Will call and follow up on this to make sure [place] received order. Bo Alexander documented in this encounter [facility] 03-09-2023 Note HNO ID: [id number] Author: Fito Rogers MD Service: ? Author Type: Physician Type: Progress Notes Filed: 03/11/2023 10:46 AM Note Text: NAME: Radu Del Rio [facility] NO.: [id number] DATE OF SERVICE: March 09, 2023 (Devin) [...] medical problems. Radu's former work was with [employer], also a former cigarette smoker. His 's [...] 03/02/2023 41 C (more content not included)... [facility] 03-09-2023 Instructions Brianna Truong - 03/09/2023 4:13 PM EST Refer for sleep study Return PRN documented in this encounter [facility] 03-09-2023 History of Present illness Narrative Images from the original note were not included. NAME: Radu Del Rio [facility] NO.: [id number] DATE OF SERVICE: March 09, 2023 ([facility]) Referring Provider: Jim Gaitan Consultation requested by [...] HISTORY OF 1994 CABG (2-3 bypasses ) [facility] in [place] PAST SURGICAL HISTORY OF 2020 left carotid [...] which included preparing to see the patient, [id number] patient care, completing clinical documentation, obtaining and/or reviewing separately obtained history, performing a medically appropriate examination, counseling and educating the patient/family/caregiver, ordering medications, tests, or procedures, independently interpreting results (not separately reported), communicating results to the patient/family/caregiver, and care coordination (not separately reported). Fito Rogers MD, CPE Hematology and Oncology Services Provided at: [place], [place] Scribe Attestation: This note was scribed [...] my direction. CC: Jim Welsh0 Paige Mistry [facility] [id number] Crystal Singh MD [address] [facility] [address] documented in this encounter [facility] 03-06-2023 Note HNO ID: [id number] Author: Eli Sibley MD Service: ? Author Type: Physician Type: Progress Notes Filed: 03/14/2023 8:22 PM Note Text: [facility] [place] [facility] Department of Cardiovascular Medicine SECTION OF INTERVENTIONAL CARDIOLOGY OUTPATIENT VISIT DATE March 06, 2023 OUTPATIENT VISIT TYPE CONSULTATION PRIMARY CARE PHYSICIAN: Crystal Singh (Pravin) [address] [place] [address] REFERRING PHYSICIAN Jim Gaitan [address] [facility] [address] CHIEF COMPLAINT: No chief complaint on file. [...] right common femoral artery placement of 6 [place] Angio-Seal device 08/17/2022 - cardiac catheterization at [...] underwent cardiac work up with his local watch parts grinder for exertional shortness of breath. 2021 [place] [...] undergo med management. (more content not included)... [facility] 03-06-2023 Miscellaneous Notes Spoke with patient's , she verbalized understanding. Kareen Anderson RN Images from the original note were not included. Jim Gaitan MD P [facility] Clinical Nurse Phone Pool Please let the [...] Mery. Thank you. documented in this encounter [facility] 03-03-2023 Miscellaneous Notes Summary: 1 PG IN OPD FILE Images from the original note were not included. [facility] - 02/14/23 documented in this encounter [facility] 03-03-2023 Note HNO ID: [id number] Author: Vanessa Ramos RT(Tabby) Service: Radiology Author [...] 03, 2023 TIME: 10:01 AM PAGER/CONTACT #: [facility] 03-03-2023 History of Present illness Narrative RADIOLOGY [...] AM PAGER/CONTACT #: documented in this encounter [facility] 02-13-2023 Miscellaneous Notes Blood and urine lab orders were faxed to [facility] in [place], [place]. Fax number is [phone]. Faby Serra documented in this encounter [facility] 02-03-2023 Note HNO ID: [id number] Author: Kory Miguel Service: ? Author Type: ? Type: Progress Notes Filed: 02/03/2023 10:03 AM Note Text: EVENT MONITOR DISPOSABLE PATCH INSTRUCTIONS Patient Name: Radu Del Rio [facility] Number: [id number] Skin prepped and cleansed with alcohol Patch secured to prepped area Monitor Activated Serial #: [id number] Patient Instructed: Prescribed order timeframe Bathing guidelines Usage of event button and diary documentation Return of monitor at the end of prescribed order Call with problems [phone] or [phone]. [phone] Patient expresses a good understanding of instructions Kory Zarate [facility] 02-03-2023 Note Education (CARDMN) RADU DEL RIO ([id number]) 1940 M Date Time Provider Department 02/03/23 [...] Encounter Status:Closed by KORY MIGUEL on 02/03/23 [facility] 02-03-2023 History of Present illness Narrative EVENT MONITOR DISPOSABLE PATCH INSTRUCTIONS [id number] Skin prepped and cleansed with alcohol Patch secured to prepped area Monitor Activated Serial #: [id number] Patient Instructed: Prescribed order timeframe Bathing guidelines Usage of event button and diary documentation Return of monitor at the end of prescribed order Call with problems [phone] or [phone]. [phone] Patient expresses a good understanding of instructions Kory Zarate documented in this encounter [facility] 02-03-2023 Note HNO ID: [id number] Author: Jim Gaitan MD Service: ? Author Type: Physician Type: Progress Notes Filed: 02/04/2023 3:20 PM Note Text: [facility] [place] [facility] Department of Cardiovascular Medicine SECTION OF CLINICAL CARDIOLOGY OUTPATIENT VISIT DATE February 03, 2023 OUTPATIENT VISIT TYPE NEW PRIMARY CARE PHYSICIAN: Crystal Singh (Pravin) [address] [place] [address] CHIEF COMPLAINT: Second opinion HISTORY OF PRESENT [...] underwent cardiac work up with his local watch parts grinder for exertional shortness of breath. 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 [facility] 02-03-2023 Note HNO ID: [id number] Author: Femi Flores MD Service: ? Author [...] Triplets were present. Ventricular Trigeminy was present. Femi Flores MD [facility] 02-03-2023 Instructions Jim Gaitan MD - 02/03/2023 [...] Avoid processed foods. Suggested resource: Google search iZ3D mediterranean diet Follow up with my partners in 3 months after results are completed. Follow up with me in 6 months after that. Seek ER care for any concerning symptoms. documented in this encounter [facility] 02-03-2023 History of Present illness Narrative Images from the original note were not included. [facility] [facility] Department of Cardiovascular Medicine SECTION OF CLINICAL CARDIOLOGY OUTPATIENT VISIT DATE February 03, 2023 OUTPATIENT VISIT TYPE NEW PRIMARY CARE PHYSICIAN: Crystal Singh ([facility] [address] [place] [address] CHIEF COMPLAINT: Second opinion HISTORY OF PRESENT [...] underwent cardiac work up with his local watch parts grinder for exertional shortness of breath. 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 [...] right common femoral artery placement of 6 [place] Angio-Seal device Recommendations: 1. Dual antiplatelet therapy [...] and I will defer to his local watch parts grinder for further mngt. Will check lipid panel [...] 2023, 3:17 PM documented in this encounter [facility] 04-27-2022 Miscellaneous Notes The following medication requests needs approval Requested Prescriptions Pending Prescriptions Disp Refills fluticasone (FLONASE) 50 mcg/actuation nasal spray [Pharmacy Med Name: FLUTICASONE PROP 50 MCG SPRAY] 48 mL 2 Sig: SPRAY 1 SPRAY INTO EACH NOSTRIL TWICE A DAY ELVA FAIRBANKS LPN documented in this encounter [facility] 04-13-2022 Note HNO ID: [id number] Author: Robyn Galeas PA-C Service: ? Author Type: Physician Manager Photo Type: Progress Notes Filed: 04/13/2022 4:11 PM [...] Went to pursue new hearing aids, but Dispatcher [employer] sent him here due to abnormal appearance [...] RELIEF) 50 mcg/actuation nasal spray Use 1 [place] in each nostril twice daily. No current [...] Medical Decision Making Level: 3 - Low [facility] 04-13-2022 Note HNO ID: [id number] Author: Sharad Jaramillo CCC-A Service: ? Author Type: [employer] Type: Progress Notes Filed: 04/13/2022 2:49 PM Note Text: TYMPANOMETRY Name: Radu Del Rio [facility]#: [id number] Date of Service: 04/13/2022 Date of : 1940 Age: [age] year old Patient was sent by Robyn Galeas PA-C for tympanometry only. Right ear: Normal middle ear pressure and mobility. Left ear: Negative middle ear pressure (-179 daPa) with good mobility. Patient returned to the physician for follow-up. Sharad Mahoney Pilates Coordinator Sharad Jaramillo CCC-A [facility] 04-13-2022 History of Present illness Narrative TYMPANOMETRY Name: Radu Del Rio [facility]#: [id number] Date of Service: 04/13/2022 Date of : 1940 Age: [age] year old Patient was sent by Robyn Galeas PA-C for tympanometry only. Right ear: Normal middle ear pressure and mobility. Left ear: Negative middle ear pressure (-179 daPa) with good mobility. Patient returned to the physician for follow-up. 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 Diagnosis Dysfunction of left eustachian tube- Primary Dysfunction of Eustachian tube [facility] Diagnosis Negative middle ear pressure of left ear Other disorders of middle ear and mastoid Nasal congestion Other diseases of nasal cavity and sinuses [facility] noteNo [facility] Work Phone: Evaluation note* Diagnosis Other chest pain- Primary [facility] Diagnosis Chest pain, unspecified type- Primary [facility] Diagnosis SOB (shortness of breath)- Primary Shortness of breath Coronary artery 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 Orthostatic hypotension Spinal stenosis, unspecified spinal region Weight gain Abnormal weight gain Bilateral carpal tunnel syndrome Carpal tunnel syndrome Hyperlipidemia, unspecified hyperlipidemia type Former tobacco use Personal history of tobacco use, presenting hazards to [facility] Coronary stent patent Hx of CABG Postsurgical aortocoronary bypass status Chest pain, unspecified type Lightheadedness Dizziness and giddiness Peripheral vascular disease (HCC) Peripheral vascular disease, unspecified Morbid obesity (HCC) Morbid obesity [facility] Diagnosis Plasma cell disorder- Primary Other specified disease of white blood cells [facility] Diagnosis 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 [facility] Diagnosis Uncontrolled daytime somnolence- Primary Other alteration of consciousness Plasma cell disorder Other specified disease of white blood cells Snoring Other dyspnea and respiratory abnormality Morbid obesity (HCC) Morbid obesity documented in this encounter [facility] for referral (narrative)* Outpatient Procedure (Routine) - Authorized Specialty Diagnoses / Procedures Referred By Shana ariza [facility] Diagnoses Other chest pain Procedures ECG COMPLETE ECG ROUTINE ECG W/LEAST 12 LDS W/I&R Jim Gaitan MD [address] [place] [address] [facility] [address] [place] [address] Referral ID Status Reason Start Date Expiration Date Visits Requested Visits Authorized [id number] Authorized Auto-Generat ed Referral 3 01/20/2024 1 1 [facility] for visit Narrative* Diagnostic Procedure Only (Routine) [...] AREA 1 DAY IMAGING Jim Gaitan MD [address] [place] [address] Molecular & Functional Imaging [address] [place] [address] Referral ID Status Reason Start Date Expiration Date V isits Requested Visits Authorized [id number] Closed Auto-Generate d Referral 02/03/2023 03/04/2024 1 1 [facility] Summary Purpose Family History No Family History [...] FOLLOW UP APPT ORDER Jim Gaitan MD [address] [place] [address] Referral ID Status Reason Start Date Expiration Date Visits Requested Visits Authorized [id number] Ref Not Required PCP Requested Referral 05/06/2023 [...] AREA 1 DAY IMAGING Jim Gaitan MD [address] [place] [address] [facility] [address] [place] [address] Referral ID Status Reason Start Date Expiration Date Visits Requested Visits Authorized [id number] Authorized Auto-Generat ed Referral 3 03/04/2024 1 [...] type Procedures CONSULT TO INTERVENTIONAL CARDIOLOGY OFFICE/OUTPATIENT [facility] 60-74 MINUTES Jim Gaitan MD [address] [place] [address] Referral ID Status Reason Start Date Expiration Date Visits Requested Visits Authorized [id number] Authorized PCP Requested Referral 3 02/03/2024 1 [...] W/WOM-MODE COMPL SPEC&COLR D Jim Gaitan MD [address] [place] [address] [facility] [address] [place] [address] Referral ID Status Reason Start Date Expiration Date Visits Requested Visits Authorized [id number] Pending Review Auto-Generat ed Referral 3 02/03/2024 1 1 Specialty Diagnoses / Procedures Referred By Contandrea t Referred To Contact Diagnoses Plasma cell disorder Procedures CONSULT TO HEMATOLOGY/ONCOLOGY OFFICE/OUTPATIENT [facility] 60-74 MINUTES Jim Gaitan MD [address] [place] [address] Referral ID Status Reason Start Date Expiration Date Visits Requested Visits Authorized [id number] Authorized PCP Requested Referral 02/28/2023 02/28/2024 1 1 Specialty Diagnoses / Procedures Referred By Contandrea t Referred To Contact Diagnoses Uncontrolled daytime somnolence Snoring Procedures CONSULT TO SLEEP MEDICINE - ADULT OFFICE/OUTPATIENT [facility] 60-74 MINUTES Fito Rogers MD [address] [place] [address] [place] [address] Referral ID Status Reason Start Date Expiration Date Visits Requested Visits Authorized [id number] Authorized PCP Requested Referral 3 03/08/2024 1 1 Additional Source Comments (unrecognized sect ion and content) No Status Records FoundNo Status Records FoundNo Status Records FoundNo Status Records FoundNo Status Records FoundNo Status Records Found INFORMATION SOURCE (unrecogn ized section and content) DATE CREATED AUTHOR 02/08/2022 [facility] dical Specialist DATE CREATED AUTHOR AUTHOR'S ORGANIZ ATION 07/29/2022 [facility] DATE CREATED AUTHOR AUTHOR'S ORGANIZ ATION 02/04/2023 [facility] DATE CREATED AUTHOR AUTHOR'S ORGANIZ ATION 03/10/2023 [facility] DATE CREATED AUTHOR AUTHOR'S ORGANIZ ATION 03/17/2023 [facility] DATE CREATED AUTHOR AUTHOR'S ORGANIZ ATION 03/27/2023 [facility] EPIC Source Comments (unrecognize d section and content) In the event this informatio n is protected by the Federal Confidentiality of Alcohol and Drug Abuse Patient Records regulations: The Federal rules restrict any use of the information to criminally investigate or prosecute any alcohol or drug abuse patient.[facility] the event this information is protected by the Federal Confidentiality of Alcohol and Drug Abuse Patient Records regulations: The Federal rules restrict any use of the information to criminally investigate or prosecute any alcohol or drug abuse patient.[facility] the event this information is protected by the Federal Confidentiality of Alcohol and Drug Abuse Patient Records regulations: The Federal rules restrict any use of the information to criminally investigate or prosecute any alcohol or drug abuse patient.[facility] the event this information is protected by the Federal Confidentiality of Alcohol and Drug Abuse Patient Records regulations: The Federal rules restrict any use of the information to criminally investigate or prosecute any alcohol or drug abuse patient.[facility] the event this information is protected by the Federal Confidentiality of Alcohol and Drug Abuse Patient Records regulations: The Federal rules restrict any use of the information to criminally investigate or prosecute any alcohol or drug abuse patient.[facility] the event this information is protected by the Federal Confidentiality of Alcohol and Drug Abuse Patient Records regulations: The Federal rules restrict any use of the information to criminally investigate or prosecute any alcohol or drug abuse patient.[facility] the event this information is protected by the Federal Confidentiality of Alcohol and Drug Abuse Patient Records regulations: The Federal rules restrict any use of the information to criminally investigate or prosecute any alcohol or drug abuse patient.[facility] the event this information is protected by the Federal Confidentiality of Alcohol and Drug Abuse Patient Records regulations: The Federal rules restrict any use of the information to criminally investigate or prosecute any alcohol or drug abuse patient.[facility] the event this information is protected by the Federal Confidentiality of Alcohol and Drug Abuse Patient Records regulations: The Federal rules restrict any use of the information to criminally investigate or prosecute any alcohol or drug abuse patient.[facility] the event this information is protected by the Federal Confidentiality of Alcohol and Drug Abuse Patient Records regulations: The Federal rules restrict any use of the information to criminally investigate or prosecute any alcohol or drug abuse patient.[facility] the event this information is protected by the Federal Confidentiality of Alcohol and Drug Abuse Patient Records regulations: The Federal rules restrict any use of the information to criminally investigate or prosecute any alcohol or drug abuse patient.[facility] the event this information is protected by the Federal Confidentiality of Alcohol and Drug Abuse Patient Records regulations: The Federal rules restrict any use of the information to criminally investigate or prosecute any alcohol or drug abuse patient.[facility] the event this information is protected by the Federal Confidentiality of Alcohol and Drug Abuse Patient Records regulations: The Federal rules restrict any use of the information to criminally investigate or prosecute any alcohol or drug abuse patient.[facility] the event this information is protected by the Federal Confidentiality of Alcohol and Drug Abuse Patient Records regulations: The Federal rules restrict any use of the information to criminally investigate or prosecute any alcohol or drug abuse patient.[facility] the event this information is protected by the Federal Confidentiality of Alcohol and Drug Abuse Patient Records regulations: The Federal rules restrict any use of the information to criminally investigate or prosecute any alcohol or drug abuse patient.[facility] Reason for Visit (unrecogniz ed section and [...] AREA 1 DAY IMAGING Jim Gaitan MD [address] [place] [address] [facility] [address] [place] [address] Referral ID Status Reason Start Date Expiration Date V isits Requested Visits Authorized [id number] Closed Auto-Generate d Referral 02/03/2023 03/04/2024 1 1 Reason Comments Consult Specialty Diagnoses / Procedures Referred By Contac t Referred To Contact Diagnoses Plasma cell disorder Procedures CONSULT TO HEMATOLOGY/ONCOLOGY OFFICE/OUTPATIENT [facility] 60-74 MINUTES Jim Gaitan MD [address] [place] [address] Referral ID Status Reason Start Date Expiration Date V isits Requested Visits Authorized [id number] Closed PCP Requested Referral 02/28/2023 02/28/2024 1 1 Reason Comments Referral Information Sleep Study Reason Comments Request Outside Medical Records Care Teams (unrecognized sec tion and content) [employer] Relationship Specialty Start Date End Date Crystal Singh MD [address] [place] [address] PCP - General Family Medicine 10/12/18 [employer] Relationship Specialty Start Date End Date Crystal Singh MD [address] [place] [address] PCP - General Family Medicine 10/12/18 Team Status: Active Member Role Status Dates Crystal Singh MD Primary Care Provider Active Team Status: Inactive Member Role Status Dates Crystal Singh MD Primary Care Provider Active Haroldo Rausch DO Attending Provider Active [employer] Relationship Specialty Start Date End Date Crystal Singh MD [address] [place] [address] PCP - General Family Medicine 10/12/18 [employer] Relationship Specialty Start Date End Date Crystal Singh MD [address] [place] [address] PCP - General Family Medicine 10/12/18 Jim Gaitan MD [address] [place] [address] Primary Staff Physician Cardiology 02/03/23 [employer] Relationship Specialty Start Date End Date Crystal Singh MD [address] [place] [address] PCP - General Family Medicine 10/12/18 Jim Gaitan MD [address] [place] [address] Primary Staff Physician Cardiology 02/03/23 [employer] Relationship Specialty Start Date End Date Crystal Singh MD [address] [place] [address] PCP - General Family Medicine 10/12/18 Jim Gaitan MD [address] [facility] [place] [address] Primary Staff Physician Cardiology 02/03/23 [employer] Relationship Specialty Start Date End Date Crystal Singh MD [address] [place] [address] PCP - General Family Medicine 10/12/18 Jim Gaitan MD [address] [place] [address] Primary Staff Physician Cardiology 02/03/23 [employer] Relationship Specialty Start Date End Date Crystal Singh MD [facility] [place] [address] PCP - General Family Medicine 10/12/18 Jim Gaitan MD [address] [place] [address] Primary Staff Physician Cardiology 02/03/23 [employer] Relationship Specialty Start Date End Date Crystal Singh MD [address] [place] [address] PCP - General Family Medicine 10/12/18 Jim Gaitan MD [address] [place] [address] Primary Staff Physician Cardiology 02/03/23 [employer] Relationship Specialty Start Date End Date Crystal Singh MD [address] [place] [address] PCP - General Family Medicine 10/12/18 Jim Gaitan MD [address] [place] [address] Primary Staff Physician Cardiology 02/03/23 [employer] Relationship Specialty Start Date End Date Crystal Singh MD [address] [place] [address] PCP - General Family Medicine 10/12/18 Jim Gaitan MD [address] [place] [address] Primary Staff Physician Cardiology 02/03/23 [employer] Relationship Specialty Start Date End Date Crystal Singh MD [address] [place] [address] PCP - General Family Medicine 10/12/18 Jim Gaitan MD [address] [place] [address] Primary Staff Physician Cardiology 02/03/23 [employer] Relationship Specialty Start Date End Date Crystal Singh MD [address] [place] [address] PCP - General Family Medicine 10/12/18 Jim Gaitan MD [address] [place] [address] Primary Staff Physician Cardiology 02/03/23 Goals (unrecognized [...] BE BASED ON THE PRIMARY CLINICAL RECORDS. [employer] [facility]. provides no warranty or guarantee of the accuracy or completeness of information in this document.
== END 2023-04-06 11:15 | disposition home or self-care (01) ==
LOC: RAD 11:15
PROVIDERS: PCP Family Medicine; Visit Provider Nurse Practitioner
DX: M54.50 Low back pain, unspecified (principal); G89.29 Other chronic pain; M47.816 Spondylosis without myelopathy or radiculopathy, lumbar region
CPT/HCPCS: 72114

== ENCOUNTER 2023-04-17 10:25 | Day surgery (SDC) | payer MEDICARE, OTHER, SELFPAY ==
[2023-04-17 10:58] VITALS: BP 144/83; PULSE 75; RESP 16; TEMP 36.4; O2SAT 95
[2023-04-17 11:44] VITALS: RESP 20
[2023-04-17] MEDS: 0.9 % SODIUM CHLORIDE 10 ML INJ (11:49)
[2023-04-17] MEDS: DEXAMETHASONE SOD PHOS 10 MG/ML VIAL INJ (11:50)
[2023-04-17] MEDS: IOHEXOL 240 MG/ML - 10 ML VIAL 20 MG INJ (11:50)
[2023-04-17] MEDS: BUPIVACAINE HCL 0.25% PF 25 MG/10 ML VIAL 4 ML INJ (11:50)
[2023-04-17] MEDS: LIDOCAINE HCL 2% PF 100 MG/5 ML VIAL INJ (11:51)
--- NOTE | 2023-04-17 11:51 | W.PM.PROCNOT ---
Date of procedure: 04/17/23 Pre-op diagnosis: Lumbar stenosis with neurogenic claudication Post-op diagnosis: same as pre-op Procedure: Procedure: Bilateral L2-3 transforaminal epidural steroid injection Medications: Bupivacaine 0.25% 2cc, lidocaine 2% 1cc, dexamethasone 10mg The patient was seen and examined in the preoperative holding area.? Informed consent was obtained and placed on the chart.? Patient was brought to the medical procedure unit and placed in the prone position where a timeout was completed verifying the correct patient, procedure site, position, and planned special equipment using sterile aseptic technique.? Under direct fluoroscopic visualization a 25-gauge Quincke tipped spinal needle was advanced at level left L2-3 to the designated neural foramen where contrast dye was injected to show adequate spread.? There was no evidence of vascular or adverse uptake.? Epidural spread was appreciated.? The above-mentioned injectate was then placed in a 1.5 mL aliquot preceded by negative aspiration.? The needle was removed. The same procedure, at the same level, was completed on the opposite side. ? Patient was taken to the postprocedural recovery area and monitored for an appropriate length of time before found suitable for discharge in the accompaniment of a responsible adult. Anesthesia: Local Surgeon: Anneliese Contreras Pathology: none sent Condition: stable Disposition: no change
[2023-04-17 11:55] VITALS: BP 166/75; BP 169/62; PULSE 91; PULSE 94; O2SAT 97
== END 2023-04-17 11:55 | disposition home or self-care (01) ==
PROVIDERS: PCP Family Medicine; Visit Provider Anesthesiology
DX: M48.062 Spinal stenosis, lumbar region with neurogenic claudication (principal)
CPT/HCPCS: 64483; J0665; J1100; Q9966

== ENCOUNTER 2023-04-19 09:50 | Outpatient (OUT) | payer MEDICARE, OTHER, SELFPAY ==
--- OUTSIDE RECORDS SUMMARY | 2023-04-19 10:01 | XMS_ITS | CCD ---
Author Name Unknown Address [address] [place] [address] Organization [facility] Care Team Providers Care Retail Supervisor Name Role Phone Francisco RIVERA, Crystal Primary Care Provider DR RHODA GARAY Primary Care Unavailable GIEDRAITIS, ANDRIUS Attending Unavailable GIEDSWATI, ANDRIUS Admitting Unavailable MD Francisco [facility] Primary Care Provider DO Haroldo Rausch Attending Provider Kandy RIVERA, Jim Unavailable Haroldo Rausch Attending Unavailable Haroldo Rausch Admitting Unavailable Francisco Crystal Primary Care Unavailable Gisreekanth RIVERA, Andrius Mounika Attending Unavailable Giedraitis , Andrius Vailcia Attending Unavailable Giedraitis , Andrius Valicia Attending Unavailable Giedraitis , Andrius Vanaiautdamir Attending Unavailable Giedraitis , Andrius Vytautdamir Attending Unavailable Giedraitis , Andrius Vytautdamir Attending Unavailable Giedraitis , Andrius Vytdick Attending Unavailable AI SWIFT Referring Unavailable HAROLDO RAUSCH Attending Unavailable IRINEO NAGEL Attending Unavailable AI SWIFT Attending Unavailable FRANCISCO CRYSTAL Primary Care Unavailable FRANCISCO, CRYSTAL Roberts Primary Care Unavailable QUATROMONI, JIM Referring Unavailable FRANCISCOCRYSTAL Primary Care Unavailable QUATROMONI, JIM Referring Unavailable FRANCISCO, CRYSTAL F Primary Care Unavailable QUATROMONI, JIM Referring Unavailable FRANCISCO, CRYSTAL F Primary Care Unavailable FITO ROGERS Referring Unavailable FRANCISCO, [facility] Primary Care Unavailable QUATROMONI, JIM Referring Unavailable FRANCISCO, CRYSTAL Alejandra Primary Care Unavailable QUATROMONI, JIM Referring Unavailable FRANCISCO, CRYSTAL Alejandra Primary Care Unavailable JIM GAITAN Attending Unavailable LAURAJIM Jasso Referring Unavailable CRYSTAL SINGH Primary Care Unavailable LAURAJIM Jasso Referring Unavailable CRYSTAL SINGH Primary Care Unavailable FITO ROGERS Attending Unavailable KANDY, JIM Referring Unavailable CRYSTAL SINGH Primary Care Unavailable JIM GAITAN Referring Unavailable ELI SIBLEY Attending Unavailable Medications Current Medications Medication Drug [...] left ear , Nasal congestion Use 1 Hinckley in each nostril twice daily. 16 g 1 04/13/2022 04/27/2022 Discontinued Comment on above: SPRAY 1 SPRAY INTO E ACH NOSTRIL TWICE A DAY Use 1 Hinckley in each nostril twice daily. 24 hr [...] mL injection (DEFINITY) (4 sources) Start: 03-03-20 End: 03-10-20 perflutren lipid microspheres 1.3 mL in NaCl (PF) 0.9% 10 mL injection (DEFINITY) 12 hr ranolazine 1000 mg extended release oral tablet (12 sources) Anti-anginal Start: 12-11-20 23 take 1 tablet by mouth twice daily [...] Coronary atherosclerosis; Translations: [Atherosclerotic heart disease of nez perce coronary artery without angina pectoris] Onset: 03-03-2023 [...] Test Name Value Interpretation Reference Range Facility [facility] US CAROTID ARTERY DUPLE X BILATERALon 03-24-2023 [facility] US CAROTID ARTERY DUPLEX BILATERAL [...] Mohamud MD Normal Not Available Julia 03-16-2023 CNPN Telephone (CATHMN) RADU [facility] ([id number]) 1940 M Date Time Provider Department 03/16/23 ELI SIBLEY [facility] During your visit today, we recorded the following information about you: Lore Zavaleta 03/16/2023 10:47 AM Signed Requested 08/17/2022 Angio films from Sukh Larsen Allergies As of Date: 03/16/2023 (No Known Allergies) Date Reviewed: 03/09/2023 Reviewed by: Neelam Solano - Fully Assessed Reason for Visit: Request Outside Medical Records [0702] Prescriptions as of 03/16/2023 - ranolazine ER [...] (HCC) [E66.01] 02/04/2023 Coronary artery disease involving nez perce cazares*03/06/2023 S/P drug eluting coronary stent placement [Z95.*03/06/2023 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.1] 03/06/2023 CHRISTIANSON (dyspnea on exertion) [R06.09] 03/06/2023 Obesity, Class II, 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] 03/06/2023 Encounter Status:Closed by LORE ZAVALETA on 03/16/23 Normal [facility] US LIVERon 03-13-2023 US LIVER [...] MD Normal Not [facility] CNOV[facility] Visit (SP) Office (HEMASA) [facility]U [facility] ([id number]) 1940 M Date Time Provider Department 03/09/23 3:30 PM FITO ROGERS During your visit today, we recorded the following information about you: Temperature Pulse Respiration Blood pressure 97.6 degrees 87/minute 18/minute 137/78 Weight 102.2 kg Fito Rogers MD 03/11/2023 10:46 AM Signed NAME: Radu Del Rio CLINIC NO.: [id number] DATE OF SERVICE: March 09, 2023 (Devin) [...] medical problems. Radu's former work was with [employer], also a former cigarette smoker. His 's [...] 6.8 Alb (more content not included)... [facility] Telephone (NCCAP) RADU [facility] RIO ([id number]) 1940 M Date Time Provider Department 03/09/23 FITO ROGERS [facility] During your visit today, we recorded the following information about you: Bo Alexander 03/09/2023 4:24 PM Signed Patient would like to be referred to [facility] for Sleep Study. Faxed order to [facility] March 09, 2023 4:23 PM. Will call and follow up on this to make sure [facility] received order. Bo Sanches 03/14/2023 10:57 AM Signed Left message w/ [facility] scheduling for update. Bo Sanches 03/14/2023 11:27 AM Signed No order received per Amanda. Refaxed order to [facility] March 14, 2023 11:27 AM Bo Sanches 03/15/2023 4:24 PM Signed Order received. Per Sharifa, order was faxed to sleep study and they will be in contact with patient to get scheduled. Bo Alexander Allergies As of Date: 03/09/2023 (No Known Allergies) Date Reviewed: 03/09/2023 Reviewed by: Neelam Solano - Fully Assessed Reason for Visit: Referral Information [8654] Cmt: Sleep Study Prescriptions as of 03/15/2023 [...] (HCC) [E66.01] 02/04/2023 Coronary artery disease involving nez perce cazares*03/06/2023 S/P drug eluting coronary stent placement [Z95.*03/06/2023 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.1] 03/06/2023 CHRISTIANSON (dyspnea on exertion) [R06.09] 03/06/2023 Obesity, Class II, 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] 03/06/2023 Encounter Status:Closed by BO ALEXANDER on 03/15/23 [facility] CNOVon 03-06-2023 CNOV Office Visit (CATHMN ) RADU DEL RIO ([id number]) 1940 M Date Time Provider Department 03/06/23 11:30 AM ELI SIBLEY During your visit today, we recorded the following information about you: Pulse Respiration Blood pressure Weight 80/minute 18/minute 118/66 101.6 kg Height 1.702 m Eli Sibley MD 03/14/2023 8:22 PM Signed [facility] [place] Monique Thomas Department of Cardiovascular Medicine SECTION OF INTERVENTIONAL CARDIOLOGY OUTPATIENT VISIT DATE March 06, 2023 OUTPATIENT VISIT TYPE CONSULTATION PRIMARY CARE PHYSICIAN: Crystal Singh (Pravin) [address] [place] [address] REFERRING PHYSICIAN Jim Gaitan [address] [facility] [address] CHIEF COMPLAINT: No chief complaint on file. 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 2021 MN stress was negative for ischemia. Coronary angiogram in 2021 with prox-mid LAD stenosis status post orbital atherectomy and SHIRLEY. 80% Lcx stenosis was med mngt. Known occluded bypass to the LAD/Cx. Symptoms did not improve after revascularization. Stress test with (more content not included)... Normal [facility] Julia 03-06-2023 MEY Telephone (CARCMN) RADU [facility] RIO ([id number]) 1940 M Date Time Provider Department 03/06/23 JIM GAITAN During your visit today, we recorded the following information about you: Kareen Anderson RN 03/06/2023 10:49 AM Signed Jim Gaitan MD P [facility] Clinical Nurse Phone Pool Please let [...] Status:Closed by KAREEN ANDERSON on 03/06/23 Normal [facility] MONOCLONAL PROT 24 UR W/INTE RPon 03-06-2023 STAFF REVIEW (UMPA) Reviewed by Zac Cuevas MD, Ph.D ([id number]) Normal [facility] Comment on above: Order Comment: Speci men Type: TIMED URINE SPECIMENOrdering Facility: [facility] Address: [address] [place] [address] Performed By: #### U 24MPA ####[facility] LABIA [id number] [place] [address] [place] UMPA RESULT No M protein is identified. Normal No M protein is identified. [facility] Comment on above: Order Comment: Speci men Type: TIMED URINE SPECIMENOrdering Facility: [facility] Address: [address] [place] [address] Performed By: #### U 24MPA ####[facility] [id number] [place] [address] [place] PROT ELEC UR 24HR W/M SPIKE (P)on 03-06-2023 Albumin/Globulin Elph (24H U) [Mass ratio] 33.77 % Normal [facility] Comment on above: Order Comment: Speci men Type: TIMED URINE SPECIMENOrdering Facility: [facility] Address: [address] [place] [address] Performed By: #### L [id number] ####[facility] LABCLIA [id number] [place] [address] [place] Alpha 1 globulin Elph (24H U) [Mass fraction] 5.29 % Normal [facility] Comment on above: Order Comment: Speci men Type: TIMED URINE SPECIMENOrdering Facility: [facility] Address: [address] [place] [address] Performed By: #### L [id number] ####[facility] [id number] [place] [address] [place] Alpha 2 globulin Elph (24H U) [Mass fraction] 24.92 % Normal [facility] Comment on above: Order Comment: Speci men Type: TIMED URINE SPECIMENOrdering Facility: [facility] Address: [address] [place] [address] Performed By: #### L [id number] ####[facility] [id number] [place] [address] [place] Beta globulin Elph (24H U) [Mass fraction] 20.86 % Normal [facility] Comment on above: Order Comment: Speci men Type: TIMED URINE SPECIMENOrdering Facility: [facility] Address: [address] [place] [address] Performed By: #### L [id number] ####[facility] [id number] [place] [address] [place] Gamma globulin Elph (24H U) [Mass fraction] 15.17 % Normal [facility] Comment on above: Order Comment: Speci men Type: TIMED URINE SPECIMENOrdering Facility: [facility] Address: [address] [place] [address] Performed By: #### L [id number] ####[facility] [id number] [place] [address] [place] Protein Fractions Elph Juarez (24H U) [Interp] No definitive M protein is identified on protein electrophoresis. Normal No definitive M protein is identified on protein electrophores is. [facility] Comment on above: Order Comment: Speci men Type: TIMED URINE SPECIMENOrdering Facility: [facility] Address: [address] [place] [address] Performed By: #### L [id number] ####[facility] LABCLIA [id number] [place] [address] [place] Protein.monoclonal Elph (24H U) [Mass/Time] 0.00 g/24hr Normal [facility] Comment on above: Order Comment: Speci men Type: TIMED URINE SPECIMENOrdering Facility: [facility] Address: [address] [place] [address] Performed By: #### L [id number] ####[facility] [id number] [address] [facility] STAFF REVIEW ([id number]) Reviewed by Zac Cuevas MD, Ph.D ([id number]) Normal [facility] Comment on above: Order Comment: Speci men Type: TIMED URINE SPECIMENOrdering Facility: [facility] Address: [address] [place] [address] Performed By: #### L [id number] ####[facility] [id number] [place] [address] [place] Prot 24h Ur-mRateon 03-06-20 23 Protein (24H U) [Mass/Time] 0.25 g/24 Hr High <0.15 [facility] Comment on above: Order Comment: Speci men Type: TIMED URINE SPECIMENOrdering Facility: [facility] Address: [address] [place] [address] Result Comment: Adul t Proteinuria Categories: <0.15 g/24 hours is considered normal to mildly increased 0.15 - 0.50 g/24 hours is considered moderately increased >0.50 g/24 hours is considered severely increased KDIGO. (2013). KDIGO 2012 Clinical Practice Guideline for the Evaluation and Management of Chronic Kidney Disease. Official Journal of the International Society of Nephrology, 3(1), 1-150. Performed By: #### 2 889-4 ####[facility] [id number] [address] [facility] LABCLIA [id number] [place] [address] Protein (24H U) [Mass/Time]o n 03-06-2023 PERIOD (HRS) 24 hr Normal [facility] Comment on above: Order Comment: Speci men Type: TIMED URINE SPECIMENOrdering Facility: [facility] Address: [address] [place] [address] Performed By: #### 2 889-4 ####[facility] [id number] [place] [id number] [facility] LABIA [id number] [place] [address] Specimen volume (24H U) 1.2 L Normal [facility] Comment on above: Order Comment: Speci men Type: TIMED URINE SPECIMENOrdering Facility: [facility] Address: [address] [place] [address] Performed By: #### 2 889-4 ####[facility] [id number] [address] LABIA [id number] [place] [address] Julia 03-03-2023 MEY Telephone (SARAH) [facility]U [facility] ([id number]) 1940 M Date Time Provider Department 03/03/23 [...] Encounter Status:Closed by SRINI SERVIN on 03/03/23 [facility] ECHOon 03-03-2023 Echocardiography Echocardiography Report: Transthoracic Echo [facility] LONNY-2 Date of service: 03/03/2023 3:13:42 PM EQUIPMENT MONITOR Ordering physician: JIM GAITAN Indication: Hx of [...] * * * Final * * * [facility] : [id number] Normal [facility] CARDIAC AMYLOID SPECT/dental appliance mechanic n 03-03-2023 [place] CARDIAC AMYLOID SPECT/CT * * *Final Report* * * DATE OF EXAM: Mar 03 2023 1:21PM [facility] 0847 - [place] CARDIAC AMYLOID SPECT/CT / PROCEDURE REASON: multiple diagnoses * * * * Physician Interpretation * * * * [place] CTA Report: Main Sebastian Date of service: 03/03/2023 12:51:26 PM CTAC interpreting physician: Tomas Diez MD PATIENT: Name: [...] pathologic assessment as appropriate. Nuclear Med Report: [id number] PLANAR and SPECT: Myocardial imaging of the chest with CT attenuation correction was performed at 3 hours post IV injection of Tc-99m Pyrophosphate. See administered doses below. [facility] Sebastian Date of service: 03/03/2023 12:51:26 PM Ordering [...] * * Final * * * RP Java Portal Developer: NATY Transcribe Date/Time: Mar 03 2023 12:51P Dictated by : TOMAS DIEZ MD This examination was interpreted and the report reviewed and electronically signed by: TOMAS DIEZ MD on Mar 03 2023 1:35PM EST [id number] Normal [facility] NM SPECT/CT CARDIAC AMYLOIDo n 03-03-2023 [facility] B2 Microglob SerPl-mCncon [id number]-7-Gjmacbxxrhlnb [Mass/Vol] 1.6 ug/mL Normal <3.1 [facility] Comment on above: Order Comment: Speci men Type: BLOOD SPECIMENOrdering Facility: [facility] Address: [address] [place] [address] Result Comment: Beta -2 Microglobulin test is performed using the [employer] immunoturbidimetric method. Results obtained with different methods or kits cannot be used interchangeably. Performed By: #### 1 952-1, 2885-2 ####[facility] LABCLIA [id number] [place] [address] [place] CBC W Auto Differential pane l (Bld)on 03-02-2023 Basophils (Bld) [#/Vol] 10*3/uL Normal <0.11 [facility] Comment on above: Order Comment: Speci men Type: BLOOD SPECIMENOrdering Facility: [facility] Address: [address] [place] [address] Performed By: #### 5 7021-8 ####[facility] LABCLIA [id number] [place] [address] Basophils/100 WBC (Bld) 0.2 % Normal [facility] Comment on above: Order Comment: Speci men Type: BLOOD SPECIMENOrdering Facility: [facility] Address: [address] [place] [address] Performed By: #### 5 7021-8 ####[facility] LABCLIA [id number] [place] [address] Differential cell count method Nom (Bld) Auto Normal [facility] Comment on above: Order Comment: Speci men Type: BLOOD SPECIMENOrdering Facility: [facility] Address: [address] [place] [address] Performed By: #### 5 7021-8 ####[facility] LABCLIA [id number] [place] [address] Eosinophils (Bld) [#/Vol] 10*3/uL Normal <0.46 [facility] Comment on above: Order Comment: Speci men Type: BLOOD SPECIMENOrdering Facility: [facility] Address: [address] [place] [address] Performed By: #### 5 7021-8 ####[facility] LABCLIA [id number] [place] [address] Eosinophils/100 WBC (Bld) 0.0 % Normal [facility] Comment on above: Order Comment: Speci men Type: BLOOD SPECIMENOrdering Facility: [facility] Address: [address] [place] [address] Performed By: #### 5 7021-8 ####[facility] LABCLIA [id number] [place] [address] Erythrocyte distribution width (RBC) [Ratio] 12.4 % Normal 11.5-15.0 [facility] Comment on above: Order Comment: Speci men Type: BLOOD SPECIMENOrdering Facility: [facility] Address: [address] [place] [address] Performed By: #### 5 7021-8 ####[facility] LABCLIA [id number] [place] [address] Hematocrit (Bld) [Volume fraction] 42.7 % Normal 39.0-51.0 [facility] Comment on above: Order Comment: Speci men Type: BLOOD SPECIMENOrdering Facility: [facility] Address: [address] [place] [address] Performed By: #### 5 7021-8 ####[facility] LABCLIA [id number] [place] [address] Hemoglobin (Bld) [Mass/Vol] 14.5 g/dL Normal 13.0-17.0 [facility] Comment on above: Order Comment: Speci men Type: BLOOD SPECIMENOrdering Facility: [facility] Address: [address] [place] [address] Performed By: #### 5 7021-8 ####[facility] LABCLIA [id number] [place] [address] Immature granulocytes (Bld) [#/Vol] 0.12 10*3/uL High <0.10 [facility] Comment on above: Order Comment: Speci men Type: BLOOD SPECIMENOrdering Facility: [facility] Address: [address] [place] [address] Performed By: #### 5 7021-8 ####[facility] LABCLIA [id number] [place] [address] Immature granulocytes/100 WBC (Bld) 1.1 % Normal [facility] Comment on above: Order Comment: Speci men Type: BLOOD SPECIMENOrdering Facility: [facility] Address: [address] [place] [address] Performed By: #### 5 7021-8 ####[facility] LABCLIA [id number] [place] [address] Lymphocytes (Bld) [#/Vol] 1.04 10*3/uL Normal 1.00-4.00 [facility] Comment on above: Order Comment: Speci men Type: BLOOD SPECIMENOrdering Facility: [facility] Address: [address] [place] [address] Performed By: #### 5 7021-8 ####[facility] LABCLIA [id number] [place] [address] Lymphocytes/100 WBC (Bld) 9.7 % Normal [facility] Comment on above: Order Comment: Speci men Type: BLOOD SPECIMENOrdering Facility: [facility] Address: [address] [place] [address] Performed By: #### 5 7021-8 ####[facility] LABCLIA [id number] [place] [address] MCH (RBC) [Entitic mass] 31.6 pg Normal 26.0-34.0 [facility] Comment on above: Order Comment: Speci men Type: BLOOD SPECIMENOrdering Facility: [facility] Address: [address] [place] [address] Performed By: #### 5 7021-8 ####[facility] LABCLIA [id number] [place] [address] MCHC (RBC) [Mass/Vol] 34.0 g/dL Normal 30.5-36.0 [facility] Comment on above: Order Comment: Speci men Type: BLOOD SPECIMENOrdering Facility: [facility] Address: [address] [place] [address] Performed By: #### 5 7021-8 ####[facility] LABCLIA [id number] [place] [address] MCV (RBC) [Entitic vol] 93.0 fL Normal 80.0-100.0 C [facility] Comment on above: Order Comment: Speci men Type: BLOOD SPECIMENOrdering Facility: [facility] Address: [address] [place] [address] Performed By: #### 5 7021-8 ####[facility] LABCLIA [id number] [place] [address] Monocytes (Bld) [#/Vol] 0.72 10*3/uL Normal <0.87 [facility] Comment on above: Order Comment: Speci men Type: BLOOD SPECIMENOrdering Facility: [facility] Address: [address] [place] [address] Performed By: #### 5 7021-8 ####[facility] LABCLIA [id number] [place] [address] Monocytes/100 WBC (Bld) 6.7 % Normal [facility] Comment on above: Order Comment: Speci men Type: BLOOD SPECIMENOrdering Facility: [facility] Address: [address] [place] [address] Performed By: #### 5 7021-8 ####[facility] LABCLIA [id number] [place] [address] Neutrophils (Bld) [#/Vol] 8.82 10*3/uL High 1.45-7.50 [facility] Comment on above: Order Comment: Speci men Type: BLOOD SPECIMENOrdering Facility: [facility] Address: [address] [place] [address] Performed By: #### 5 7021-8 ####[facility] LABCLIA [id number] [place] [address] Neutrophils/100 WBC (Bld) 82.3 % Normal [facility] Comment on above: Order Comment: Speci men Type: BLOOD SPECIMENOrdering Facility: [facility] Address: [address] [place] [address] Performed By: #### 5 7021-8 ####[facility] LABCLIA [id number] [place] [address] Nucleated RBC (Bld) [#/Vol] 10*3/uL Normal <0.01 [facility] Comment on above: Order Comment: Speci men Type: BLOOD SPECIMENOrdering Facility: [facility] Address: [address] [place] [address] Performed By: #### 5 7021-8 ####[facility] LABCLIA [id number] [place] [address] Nucleated RBC/100 WBC (Bld) [Ratio] 0.0 /100 WBC Normal [facility] Comment on above: Order Comment: Speci men Type: BLOOD SPECIMENOrdering Facility: [facility] Address: [address] [place] [address] Performed By: #### 5 7021-8 ####[facility] LABCLIA [id number] [place] [address] Platelet mean volume (Bld) [Entitic vol] 12.3 fL Normal 9.0-12.7 [facility] Comment on above: Order Comment: Speci men Type: BLOOD SPECIMENOrdering Facility: [facility] Address: [address] [place] [address] Performed By: #### 5 7021-8 ####[facility] LABCLIA [id number] [place] [address] Platelets (Bld) [#/Vol] 163 10*3/uL Normal 150-400 [facility] Comment on above: Order Comment: Speci men Type: BLOOD SPECIMENOrdering Facility: [facility] [facility] Address: [address] [place] [address] Performed By: #### 5 7021-8 ####[facility] LABCLIA [id number] [place] [address] RBC (Bld) [#/Vol] 4.59 10*6/uL Normal 4.20-6.00 [facility] Comment on above: Order Comment: Speci men Type: BLOOD SPECIMENOrdering Facility: [facility] Address: [address] [place] [address] Performed By: #### 5 7021-8 ####[facility] LABCLIA [id number] [place] [address] WBC (Bld) [#/Vol] 10.72 10*3/uL Normal 3.70-11.00 [facility] Comment on above: Order Comment: Speci men Type: BLOOD SPECIMENOrdering Facility: [facility] Address: [address] [place] [address] Performed By: #### 5 7021-8 ####[facility] LABCLIA [id number] [place] [address] Calcium.ionized [Moles/Vol]o n 03-02-2023 Calcium.ionized (Bld) [Mass/Vol] 1.27 mmol/L Normal 1.08-1.30 [facility] Comment on above: Order Comment: Speci men Type: BLOOD SPECIMENOrdering Facility: [facility] Address: [address] [place] [address] Performed By: #### 1 995-0 ####[facility] LABCLIA [id number] [place] [address] [place] Calcium.ionized adjusted to pH 7.4 (Bld) [Moles/Vol] 1.27 mmol/L Normal 1.08-1.30 [facility] Comment on above: Order Comment: Speci men Type: BLOOD SPECIMENOrdering Facility: [facility] Address: [address] [place] [address] Performed By: #### 1 995-0 ####[facility] LABCLIA [id number] [place] [address] [place] Comprehensive metabolic 2000 panelon 03-02-2023 Albumin [Mass/Vol] 4.6 g/dL Normal 3.9-4.9 [facility] Comment on above: Order Comment: Speci men Type: BLOOD SPECIMENOrdering Facility: [facility] Address: [address] [place] [address] Performed By: #### 2 4323-8, 3084-1, 2777-1, 2532-0 ####[facility] LABCLIA [id number] [place] [address] ALP [Catalytic activity/Vol] 123 U/L High 38-113 [facility] Comment on above: Order Comment: Speci men Type: BLOOD SPECIMENOrdering Facility: [facility] Address: [address] [place] [address] Performed By: #### 2 4323-8, 3084-1, 2777-1, 2532-0 ####[facility] LABCLIA [id number] [place] [address] ALT [Catalytic activity/Vol] 41 U/L Normal 10-54 [facility] Comment on above: Order Comment: Speci men Type: BLOOD SPECIMENOrdering Facility: [facility] Address: [address] [place] [address] Performed By: #### 2 4323-8, 3084-1, 2777-1, 2532-0 ####[facility] LABCLIA [id number] [place] [address] Anion gap [Moles/Vol] 11 mmol/L Normal 9-18 [facility] Comment on above: Order Comment: Speci men Type: BLOOD SPECIMENOrdering Facility: [facility] Address: [address] [place] [address] Performed By: #### 2 4323-8, 3084-1, 277-, 2532-0 ####[facility] LABIA [id number] [place] [address] AST [Catalytic activity/Vol] 39 U/L Normal 14-40 [facility] Comment on above: Order Comment: Speci men Type: BLOOD SPECIMENOrdering Facility: [facility] Address: [address] [place] [address] Performed By: #### 2 4323-8, 3084-1, 2776-, 2532-0 ####[facility] LABIA [id number] [place] [address] Bilirubin [Mass/Vol] 0.7 mg/dL Normal 0.2-1.3 [facility] Comment on above: Order Comment: Speci men Type: BLOOD SPECIMENOrdering Facility: [facility] Address: [address] [place] [address] Performed By: #### 2 4323-8, 3084-1, 2776-, 2532-0 ####[facility] LABIA [id number] [place] [address] Calcium [Mass/Vol] 9.8 mg/dL Normal 8.5-10.2 [facility] Comment on above: Order Comment: Speci men Type: BLOOD SPECIMENOrdering Facility: [facility] Address: [address] [place] [address] Performed By: #### 2 4323-8, 3084-1, 2777-1, 2532-0 ####[facility] LABCLIA [id number] [place] [address] Chloride [Moles/Vol] 104 mmol/L Normal 97-105 [facility] Comment on above: Order Comment: Speci men Type: BLOOD SPECIMENOrdering Facility: [facility] Address: [address] [place], [place] [address] Performed By: #### 2 4323-8, 3084-1, 2777-1, 2532-0 ####[facility] LABIA [id number] [place] [address] CO2 [Moles/Vol] 24 mmol/L Normal 22-30 [facility] Comment on above: Order Comment: Speci men Type: BLOOD SPECIMENOrdering Facility: [facility] Address: [address] [place], [place] [address] Performed By: #### 2 4323-8, 3084-1, 2777-, 2532-0 ####[facility] LABIA [id number] [place] [address] Creatinine [Mass/Vol] 0.96 mg/dL Normal 0.73-1.22 [facility] Comment on above: Order Comment: Speci men Type: BLOOD SPECIMENOrdering Facility: [facility] Address: [address] [place], [place] [address] Performed By: #### 2 4323-8, 3084-1, 2777-1, 2532-0 ####[facility] LABIA [id number] [place] [address] Creatinine and Glomerular filtration rate.predicted panel (S/P/Bld) 80 mL/min/1.73m??? Normal >=60 [facility] Comment on above: Order Comment: Speci men Type: BLOOD SPECIMENOrdering Facility: [facility] Address: [address] [place] [address] Result Comment: Saba mated Glomerular Filtration Rate [...] accurately reflect actual GFR. Performed By: #### 2 4323-8, 3084-1, 7-, 2532-0 ####[facility] LABCLIA [id number] [place] [address] Glucose [Mass/Vol] 125 mg/dL High 74-99 [facility] Comment on above: Order Comment: Speci men Type: BLOOD SPECIMENOrdering Facility: [facility] Address: [address] [place] [address] Result Comment: The [place] Diabetes Association (ADA) provides guidance for cutoff [...] Standards of Medical Care in Diabetes 2016, [place] [employer] Association. Diabetes Care. 2016.39(Suppl 1). Performed By: #### 2 4323-8, 3084-1, 2776-, 2532-0 ####[facility] LABCLIA [id number] [place] [address] Potassium [Moles/Vol] 4.2 mmol/L Normal 3.7-5.1 [facility] Comment on above: Order Comment: Speci men Type: BLOOD SPECIMENOrdering Facility: [facility] Address: [address] [place] [address] Performed By: #### 2 4323-8, 3084-1, 2777-1, 2532-0 ####[facility] LABIA [id number] [place] [address] Protein [Mass/Vol] 7.3 g/dL Normal 6.3-8.0 [facility] Comment on above: Order Comment: Speci men Type: BLOOD SPECIMENOrdering Facility: [facility] Address: [address] [id number] Performed By: #### 2 4323-8, 3084-1, 2777-1, 2532-0 ####[facility] LABIA [id number] [place] [address] Sodium [Moles/Vol] 139 mmol/L Normal 136-144 [facility] Comment on above: Order Comment: Speci men Type: BLOOD SPECIMENOrdering Facility: [facility] Address: [address] [address] Performed By: #### 2 4323-8, 3084-1, 2777-1, 2532-0 ####[facility] [id number] [place] [address] Urea nitrogen [Mass/Vol] 20 mg/dL Normal 9-24 [facility] Comment on above: Order Comment: Speci men Type: BLOOD SPECIMENOrdering Facility: [facility] Address: [address] [address] Performed By: #### 2 4323-8, 3084-1, 2777-1, 2532-0 ####[facility] LABIA [id number] [place] [address] IMMUNOFIXATION SCREEN, SERUM on 03-02-2023 MPA RESULT No M protein is identified. Normal No M protein is identified. [facility] Comment on above: Order Comment: Speci men Type: BLOOD SPECIMENOrdering Facility: [facility] Address: [address] [place] [address] Performed By: #### I [facility] ####[facility] LABCLIA [id number] [place] [address] [place] STAFF REVIEW ([facility]) Reviewed by Zac Cuevas MD, Ph.D ([id number]) Normal [facility] Comment on above: Order Comment: Speci men Type: BLOOD SPECIMENOrdering Facility: [facility] Address: [address] [place] [address] Performed By: #### I FES ####[facility] LABIA [id number] [place] [address] [place] IMMUNOGLOBULINS GAMon 2022 IgA [Mass/Vol] 269 mg/dL Normal 70-400 [facility] Comment on above: Order Comment: Speci men Type: BLOOD SPECIMENOrdering Facility: [facility] Address: [address] [place] [address] Performed By: #### S ERIMM ####[facility] LABIA [id number] [place] [address] [place] IgG [Mass/Vol] 736 mg/dL Normal 700-1600 [facility] Comment on above: Order Comment: Speci men Type: BLOOD SPECIMENOrdering Facility: [facility] Address: [address] [place] [address] Performed By: #### S ERIMM ####[facility] LABIA [id number] [place] [address] [place] IgM [Mass/Vol] 28 mg/dL Low 40-230 [facility] Comment on above: Order Comment: Speci men Type: BLOOD SPECIMENOrdering Facility: [facility] Address: [address] [place] [address] Performed By: #### S ERIMM ####[facility] LABIA [id number] [place] [address] [place] KAPPA/CLAY,FREE,SERon 2022 Immunoglobulin light chains.kappa.free (S) [Mass/Vol] 22.0 mg/L High 3.3-19.4 [facility] Comment on above: Order Comment: Speci [facility] Type: BLOOD SPECIMENOrdering Facility: [facility] Address: [address] [place] [address] Result Comment: Rare ly, increased serum free light chains levels may not be detected or accurately quantified due to prozone phenomenon or in high viscosity samples using this immunoturbidimetric assay. Correlation with other laboratory results and clinical findings is recommended. The Letcher Free Light Chain was performed using the Binding Site Optilite immunoturbidimetric method. Result obtained with different assay methods or kits cannot be used interchangeably. Performed By: #### K LFRS ####[facility] LABCLIA [id number] [place] [address] [place] Immunoglobulin light chains.kappa/Immunoglob ulin light chains.lambda (S) [Mass ratio] 1.75 High 0.26-1.65 [facility] Comment on above: Order Comment: [facility]: BLOOD SPECIMENOrdering Facility: [facility] Address: [address] [place] [address] Performed By: #### K LFRS ####[facility] LABCLIA [id number] [place] [address] [place] Immunoglobulin light chains.lambda.free [Mass/Vol] 12.6 mg/L Normal 5.7-26.3 [facility] Comment on above: Order Comment: Speci [facility] Type: BLOOD SPECIMENOrdering Facility: [facility] Address: [address] [place] [address] Result Comment: Rare ly, increased serum free [...] cannot be used interchangeably. Performed By: #### K LFRS ####[facility] LABCLIA [id number] [place] [address] [place] LDH SerPl-cCncon 03-02-2023 LDH [Catalytic activity/Vol] 216 U/L Normal 135-225 [facility] Comment on above: Order Comment: Speci men Type: BLOOD SPECIMENOrdering Facility: [facility] Address: [address] [place] [address] Performed By: #### 2 4323-8, 3084-1, 2777-1, 2532-0 ####[facility] LABCLIA [id number] [place] [address] MONOCLONAL PROT UR W/INTERPo n 03-02-2023 STAFF REVIEW ([facility]) Reviewed by Zac Cuevas MD, Ph.D ([id number]) Normal [facility] Comment on above: Order Comment: Speci men Type: URINE SPECIMENOrdering Facility: [facility] Address: [address] [place] [address] Performed By: #### U RMPA ####[facility] LABCLIA [id number] [place] [address] [place] UMPA RESULT No M protein is identified. Normal No M protein is identified. [facility] Comment on above: Order Comment: Speci men Type: URINE SPECIMENOrdering Facility: [facility] Address: [address] [place] [address] Performed By: #### U RMPA ####[facility] LABIA [id number] [place] [address] [place] PROTEIN ELECTROPHORESIS SERU M (P)on 03-02-2023 Albumin [Mass/Vol] 4.07 g/dL Normal 3.43-5.41 [facility] Comment on above: Order Comment: Speci men Type: BLOOD SPECIMENOrdering Facility: [facility] Address: [address] [place] [address] Performed By: #### L [id number] ####[facility] LABCLIA [id number] [place] [address] [place] Alpha 1 globulin Elph [Mass/Vol] 0.29 g/dL Normal 0.18-0.43 [facility] Comment on above: Order Comment: Speci men Type: BLOOD SPECIMENOrdering Facility: [facility] Address: [address] [place] [address] Performed By: #### L [id number] ####[facility] LABCLIA [id number] [place] [address] [place] Alpha 2 globulin Elph [Mass/Vol] 0.85 g/dL Normal 0.42-0.98 [facility] Comment on above: Order Comment: Speci men Type: BLOOD SPECIMENOrdering Facility: [facility] Address: [address] [place] [address] Performed By: #### L [id number] ####[facility] LABCLIA [id number] [place] [address] [place] Beta globulin Elph [Mass/Vol] 0.91 g/dL Normal 0.61-1.17 [facility] Comment on above: Order Comment: Speci men Type: BLOOD SPECIMENOrdering Facility: [facility] Address: [address] [place] [address] Performed By: #### L [id number] ####[facility] LABCLIA [id number] [place] [address] [place] Gamma globulin Elph [Mass/Vol] 0.67 g/dL Normal 0.53-1.51 [facility] Comment on above: Order Comment: Speci men Type: BLOOD SPECIMENOrdering Facility: [facility] Address: [address] [place] [address] Performed By: #### L [id number] ####[facility] LABCLIA [id number] [place] [address] [place] M-PROTEIN LOCATION Normal [facility] Comment on above: Order Comment: Speci men Type: BLOOD SPECIMENOrdering Facility: [facility] Address: [address] [place] [address] Result Comment: Not Applicable. Performed By: #### L [id number] ####[facility] LABIA [id number] [place] [address] [place] Protein Fractions [Interp] No definitive M protein is identified on protein electrophoresis. Normal No definitive M protein is identified on protein electrophores is. [facility] Comment on above: Order Comment: Speci men Type: BLOOD SPECIMENOrdering Facility: [facility] Address: [address] [place] [address] Performed By: #### L [id number] ####[facility] LABIA [id number] [place] [address] [place] Protein.monoclonal Elph [Mass/Vol] 0.00 g/dL Normal <=0.00 [facility] Comment on above: Order Comment: Speci men Type: BLOOD SPECIMENOrdering Facility: [facility] Address: [address] [place] [address] Performed By: #### L [id number] ####[facility] [id number] [place] [address] [place] SPE STAFF REVIEW Reviewed by Zac Cuevas MD, Ph.D ([id number]) Normal [facility] Comment on above: Order Comment: Speci men Type: BLOOD SPECIMENOrdering Facility: [facility] Address: [address] [place] [address] Performed By: #### L [id number] ####[facility] [id number] [place] [id number] [place] Phosphate SerPl-mCncon 03-02 Phosphate [Mass/Vol] 3.1 mg/dL Normal 2.7-4.8 [facility] Comment on above: Order Comment: Speci men Type: BLOOD SPECIMENOrdering Facility: [facility] Address: [address] [place] [address] Performed By: #### 2 4323-8, 3084-1, 2777-1, 2532-0 ####[facility] LABCLIA [id number] [place] [address] Prot SerPl-mCncon 03-02-2023 Protein [Mass/Vol] 6.8 g/dL Normal 6.3-8.0 [facility] Comment on above: Order Comment: Speci men Type: BLOOD SPECIMENOrdering Facility: [facility] Address: [address] [place] [address] Performed By: #### 1 952-1, 2885-2 ####[facility] LABCLIA [id number] [place] [id number] [place] Prot/Creat Uron 03-02-2023 Protein/Creatinine (U) [Mass ratio] 0.28 mg/mg High <0.15 [facility] Comment on above: Order Comment: Speci men Type: URINE SPECIMENOrdering Facility: [facility] Address: [address] [place] [address] Result Comment: Adul t Proteinuria Categories: <0.15 mg/mg is considered normal to mildly increased 0.15 - 0.50 mg/mg is considered moderately increased >0.50 mg/mg is considered severely increased KDIGO. (2013). KDIGO 2012 Clinical Practice Guideline for the Evaluation and Management of Chronic Kidney Disease. Official Journal of the International Society of Nephrology, 3(1), 1-150. Performed By: #### 2 890-2 ####[facility] LABIA [id number] [place] [id number] [place] Protein/Creatinine (U) [Mass ratio]on 03-02-2023 Creatinine (U) [Mass/Vol] 66.8 mg/dL Normal 20.0-300.0 [facility] Comment on above: Order Comment: Speci men Type: URINE SPECIMENOrdering Facility: [facility] Address: [address] [place] [address] Performed By: #### 2 890-2 ####[facility] LABCLIA [id number] [place] [id number] [place] Protein (U) [Mass/Vol] 19 mg/dL Normal 0-20 [facility] Comment on above: Order Comment: Speci men Type: URINE SPECIMENOrdering Facility: [facility] Address: [place] [address] Performed By: #### 2 890-2 ####[facility] LABCLIA [id number] [facility] [id number] [id number] [place] Urate SerPl-mCncon 3 Urate [Mass/Vol] 3.0 mg/dL Low 4.0-8.1 [facility] Comment on above: Order Comment: Speci men Type: BLOOD SPECIMENOrdering Facility: [facility] Address: [place] [address] Performed By: #### 2 4323-8, 3084-1, 2777-1, 2532-0 ####[facility] LABCLIA [id number] [place] [address] Julia 02-23-2023 CNPN Telephone (CARCMN) [facility]U [facility] ([id number]) 1940 M Date Time Provider Department 02/23/23 JIM GAITAN During your visit today, we recorded the following information about you: Srini Servin 02/23/2023 4:04 PM Signed Received [facility] 02/14/23 - uploaded to Scanned Documents in [place] through onbase Appointment on Visit date not found Last appointment with department 02/03/2023 Srini Montero 02/24/2023 4:18 PM Signed Additional Results received from [facility] Allergies As of Date: 02/23/2023 (No Known [...] Encounter Status:Closed by SRINI SERVIN on 02/23/23 [facility] Julia [facility] ([id number]) 1940 M Date Time Provider Department 02/13/23 JIM GAITAN During your visit today, we recorded the following information about you: Faby Serra 02/13/2023 9:44 AM Signed Blood and urine lab orders were faxed to [facility] in [place], [place]. Fax number is [phone]. DiSheila Fulks Allergies As of Date: 02/13/2023 (No Known Allergies) Date Reviewed: 02/03/2023 Reviewed by: Jo Mcmahon, OLIVIA - Fully Assessed Reason for Visit: Orders [...] Encounter Status:Closed by FABY SERRA on 02/13/23 [facility] Julia 02-06-2023 [facility] ([id number]) 1940 M Date Time Provider Department 02/06/23 JIM GAITAN During your visit today, we recorded the following information about you: Srini Servin 02/06/2023 4:07 PM Signed [facility] - 08/30/22 Office Note Allergies As of Date: 02/06/2023 (No Known Allergies) Date Reviewed: 02/03/2023 Reviewed by: Jo Mcmahon RN - Fully Assessed Reason for Visit: MED [...] Encounter Status:Closed by SRINI SERVIN on 02/06/23 [facility] Joon 02-03-2023 CNOV Office Visit (CARCMN ) RADU [facility] ([id number]) 1940 M Date Time Provider Department 02/03/23 7:45 AM JIM GAITAN During your visit today, we recorded the following information about you: Weight Height 101.2 kg 1.702 m Jim Gaitan MD 02/04/2023 3:20 PM Signed [facility] [place] Monique Thomas Department of Cardiovascular Medicine SECTION OF CLINICAL CARDIOLOGY OUTPATIENT VISIT DATE February 03, 2023 OUTPATIENT VISIT TYPE NEW PRIMARY CARE PHYSICIAN: Crystal Singh ([facility]) [address] [place] [address] CHIEF COMPLAINT: Second opinion HISTORY OF PRESENT [...] 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 2021 [place] [...] is a 82 year old male from [place], [place] here today for cardiovascular evaluation related [...] BP Positio (more content not included)... Normal [facility] ECG COMPLETEon 02-03-2023 ECG COMPLETE Ventricular Rate : 7 3 BPM Atrial Rate : 73 BPM P-R Interval : 208 ms QRS Duration : 106 ms Q-T Interval : 410 ms QTC Calculation(Bazett) : 451 ms Calculated P [place] : 64 degrees Calculated R [place] : 40 degrees Calculated T [place] : 42 degrees NORMAL SINUS RHYTHM NONSPECIFIC ST ABNORMALITY ABNORMAL ECG Confirmed by JIM GAITAN MD ([id number]) on 02/07/2023 9:51:00 AM NAME : RADU DEL RIO PID : [id number] : 1940 Gender : Male Race : ORD : [id number] Procedure Date : Feb 03 2023 06:59:54 Edit Date : Feb 07 2023 09:51:05 Diagnosis: NORMAL SINUS RHYTHM NONSPECIFIC ST ABNORMALITY ABNORMAL ECG Confirmed by JIM GAITAN MD ([id number]) on 02/07/2023 9:51:00 AM Test Reason : Location : [address] [place] [address] Overread By : JIM GAITAN MD Edited By : JIM GAITAN MD Referred By : IJM GAITAN Acquired by : OLESYA ANTOINE Normal [facility] Lipid 1996 panelon 3 Cholesterol [Mass/Vol] 163 mg/dL <200 mg/dL [facility] Cholesterol in HDL [Mass/Vol] 74 mg/dL >39 mg/dL [facility] Cholesterol in LDL [Mass/Vol] 77 mg/dL <100 mg/dL [facility] Cholesterol in LDL/Cholesterol in HDL [Mass ratio] 1.04 {ratio} <2.54 [facility] Cholesterol in VLDL [Mass/Vol] 12 mg/dL <30 mg/dL [facility] Cholesterol non HDL [Mass/Vol] 89 mg/dL <130 mg/dL [facility] Cholesterol.total/Brittney sterol in HDL [Mass ratio] 2.20 {ratio} <5.10 [facility] Fasting Time 12 hrs [facility] Triglyceride [Mass/Vol] 61 mg/dL <150 mg/dL [facility] Cholesterol [Mass/Vol] 163 mg/dL Normal <200 [facility] Comment on above: Order Comment: Speci men Type: BLOOD SPECIMENOrdering Facility: [facility] Address: [address] [place] [address] Result Comment: <200 mg/dL, Desirable 200-239 mg/dL, Borderline high >239 mg/dL, High Performed By: #### 2 4331-1, 08997-2, 6-3 ####[facility]CL[facility] [id number] [place] [address] [place] Cholesterol in HDL [Mass/Vol] 74 mg/dL Normal >39 [facility] Comment on above: Order Comment: Speci men Type: BLOOD SPECIMENOrdering Facility: [facility] Address: [address] [place] [address] Result Comment: 40-5 9 mg/dL, Acceptable >59 mg/dL, High: Negative risk factor for coronary heart disease <40 mg/dL, Low: Positive risk factor for coronary heart disease Performed By: #### 2 4331-1, 04517-3, 3015-3 ####[facility]CL[facility] [id number] [place] [address] [place] Cholesterol in LDL [Mass/Vol] 77 mg/dL Normal <100 [facility] Comment on above: Order Comment: Mariveli men Type: BLOOD SPECIMENOrdering Facility: [facility] Address: [address] [place] [address] Result Comment: <100 mg/dL, Optimal 100-129 mg/dL, Near optimal/above optimal 130-159 mg/dL, Borderline high 160-189 mg/dL, High >189 mg/dL, Very high Secondary prevention optimal LDL Cholesterol levels are recommended to be < 70 mg/dL Performed By: #### 2 4331-1, 42547-2, 6-3 ####[facility] [id number] [place] [address] [place] Cholesterol in LDL/Cholesterol in HDL [Mass ratio] 1.04 {ratio} Normal <2.54 [facility] Comment on above: Order Comment: Mariveli men Type: BLOOD SPECIMENOrdering Facility: [facility] Address: [address] [place] [address] Result Comment: Refe rence: 1. National Cholesterol Education Program ATP III Guideline At-A-Glance Quick Desk Reference: National Heart, Lung, and Blood [place]. National Institutes of Health. 2001: NIH Publication No. 01-3305. 2. An International Atherosclerosis Society position paper: global recommendations for the management of dyslipidemia: executive summary, Atherosclerosis. 2014: 232(2):410-413. Performed By: #### 2 4331-1, 67391-9, 3016-3 ####[facility] [id number] [place] [address] [place] Cholesterol in VLDL [Mass/Vol] 12 mg/dL Normal <30 [facility] Comment on above: Order Comment: Mariveli men Type: BLOOD SPECIMENOrdering Facility: [facility] Address: [address] [place] [address] Performed By: #### 2 4331-1, 39166-9, 6-3 ####[facility]CL[facility] [id number] [place] [address] [place] Cholesterol non HDL [Mass/Vol] 89 mg/dL Normal <130 [facility] Comment on above: Order Comment: Mai el Type: BLOOD SPECIMENOrdering Facility: [facility] Address: [address] [place] [address] Result Comment: <130 mg/dL, Optimal 130-159 mg/dL, Near optimal/above optimal 160-189 mg/dL, Borderline high 190-219 mg/dL, High >219 mg/dL, Very high Secondary prevention optimal non HDL Cholesterol levels are recommended to be <100 mg/dL Performed By: #### 2 4331-1, 02082-4, 3016-3 ####[facility]CL[facility] [id number] [place] [id number] [place] Cholesterol.total/Brittney sterol in HDL [Mass ratio] 2.20 {ratio} Normal <5.10 [facility] Comment on above: Order Comment: Mariveli nikko Type: BLOOD SPECIMENOrdering Facility: [facility] Address: [address] [place] [address] Performed By: #### 2 4331-1, 86297-8, 6-3 ####[facility]CL[facility] [id number] [place] [address] [place] FASTING TIME 12 hrs Normal [facility] Comment on above: Order Comment: Speci men Type: BLOOD SPECIMENOrdering Facility: [facility] Address: [address] [place] [address] Performed By: #### 2 4331-1, 10654-3, 6-3 ####[facility]CL[facility] [id number] [place] [address] [place] Triglyceride [Mass/Vol] 61 mg/dL Normal <150 [facility] Comment on above: Order Comment: Speci men Type: BLOOD SPECIMENOrdering Facility: [facility] Address: [address] [place] [address] Result Comment: <150 mg/dL, Normal 150-199 mg/dL, Borderline high 200-499 mg/dL, High >499 mg/dL, Very high Performed By: #### 2 4331-1, 55986-2, 3015-3 ####[facility]CL[facility] [id number] [place] [address] [place] NT PRO BNPon 02-03-2023 Natriuretic peptide.B prohormone N-Terminal [Mass/Vol] 289 pg/mL <450 pg/mL [facility] NT-proBNP SerPl-mCncon 02-03 Natriuretic peptide.B prohormone N-Terminal [Mass/Vol] 289 pg/mL Normal <450 [facility] Comment on above: Order Comment: Speci men Type: BLOOD SPECIMENOrdering Facility: [facility] Address: [address] [place] [address] Performed By: #### 2 4331-1, 48476-3, 6-3 ####[facility]CL[facility] [id number] [place] [id number] [place] TSH BLDon 11-10-2023 TSH Qn 1.180 m[IU]/L 0.270 - 4.200 mIU/L [facility] TSH SerPl-aCncon 02-03-2023 TSH Qn 1.180 m[IU]/L Normal 0.270-4.200 [facility] Comment on above: Order Comment: Speci men Type: BLOOD SPECIMENOrdering Facility: [facility] Address: [address] [place] [id number] Performed By: #### 2 4331-1, 86451-1, 3016-3 ####[facility]CL[facility] [id number] [facility] [id number] [address] [place] Basic Metabolic Panelon 12-25 Anion gap [Moles/Vol] 10.4 mmol/L Normal 6.0-15.0 [facility] Comment on above: Performed By: #### C BC, BMP #### [facility] [address] [place] [id number] [facility] Calcium [Mass/Vol] 9.1 mg/dL Normal 8.6-10.3 [facility] Comment on above: Result Comment: PERF ORMED BY: [place] [address] PATHOLOGIST PUBLIC ADDRESS TECHNICIAN MARCEL ELAINE M.D. Performed By: #### C BC, BMP #### [facility] [address] [place] [address] [place] Chloride [Moles/Vol] 104 mmol/L Normal 98-107 [facility] Comment on above: Performed By: #### C BC, BMP #### [facility] [address] [place] [address] [place] CO2 [Moles/Vol] 28.0 mmol/L Normal 21.0-31.0 [facility] Comment on above: Performed By: #### C BC, BMP #### [facility] [address] [place] [id number] [place] Creatinine [Mass/Vol] 0.99 mg/dL Normal 0.70-1.30 [facility] Comment on above: Performed By: #### C BC, BMP #### [facility] [address] [place] [address] [place] GFR/1.73 sq M.predicted MDRD (S/P/Bld) [Vol rate/Area] mL/min/{1.73_m2} Normal [facility] Comment on above: Performed By: #### C JAYRO, BMP #### [facility] [address] Glucose [Mass/Vol] 112 mg/dL High 70-100 [facility] Comment on above: Result Comment: [facility] Glucose Reference Range is dependent on time and content of last meal. Glucose of more than 200 mg/dL in a nonstressed, ambulatory subject supports the diagnosis of Diabetes Mellitus. ADA recommended reference range Performed By: #### C JAYRO, BMP #### [facility] [address] Potassium [Moles/Vol] 4.4 mmol/L Normal 3.5-5.1 [facility] Comment on above: Performed By: #### C JAYRO, BMP #### [facility] [address] Sodium [Moles/Vol] 138 mmol/L Normal 136-145 [facility] Comment on above: Performed By: #### C JAYRO, BMP #### [address] Urea nitrogen [Mass/Vol] 13 mg/dL Normal 7-25 [facility] Comment on above: Performed By: #### C JAYRO, BMP #### [place] [address] [place] Basophils Auto (Bld) [#/Vol] Ordered By: Haroldo Rausch on 01-09-2023 Basophils (Bld) [#/Vol] 0.0 10*3/uL 0.0-0.2 [facility] Basophils/100 WBC Auto (Bld) Ordered By: Haroldo Rausch on 01-09-2023 Basophils/100 WBC (Bld) 0.7 % . F [facility] Calcium [Mass/volume] in Ser um or PlasmaOrdered By: Haroldo Rausch on 01-09-2023 Calcium [Mass/Vol] 9.1 mg/dL 8.6-10.3 [facility] Carbon dioxide, total [Moles /volume] in Serum or PlasmaOrdered By: Haroldo Rausch on 01-09-2023 CO2 [Moles/Vol] 28.0 mmol/L 21.0-31.0 [facility] Chloride [Moles/volume] in S reagan or PlasmaOrdered By: Haroldo Rausch on 01-09-2023 Chloride [Moles/Vol] 104 mmol/L 98-107 [facility] Complete Blood Count Auto Di ffon 01-09-2023 Basophils (Bld) [#/Vol] 0.0 10*3/uL Normal 0.0-0.2 [facility] Comment on above: Result Comment: PERF ORMED BY: [place] [address] PATHOLOGIST PUBLIC ADDRESS TECHNICIAN MARCEL ELAINE M.D. Performed By: #### C BC, BMP #### [address] Basophils/100 WBC (Bld) 0.7 % Normal . [facility] Comment on above: Performed By: #### C BC, BMP #### [address] Eosinophils (Bld) [#/Vol] 0.0 10*3/uL Normal 0.0-0.45 [facility] Comment on above: Performed By: #### C BC, BMP #### [address] Eosinophils/100 WBC (Bld) 0.4 % Normal . [facility] Comment on above: Performed By: #### C BC, BMP #### [address] Erythrocyte distribution width (RBC) [Ratio] 14.0 % Normal 12.0-14.8 [facility] Comment on above: Performed By: #### C BC, BMP #### [address] Hematocrit (Bld) [Volume fraction] 40.8 % Normal 38.8-50.0 [facility] Comment on above: Performed By: #### C BC, BMP #### [facility] [address] Hemoglobin (Bld) [Mass/Vol] 13.7 g/dL Normal 13.0-17.0 [facility] Comment on above: Performed By: #### C BC, BMP #### [facility] [address] Lymphocytes (Bld) [#/Vol] 0.8 10*3/uL Low 1.00-4.8 [facility] Comment on above: Performed By: #### C BC, BMP #### [address] Lymphocytes/100 WBC (Bld) 13.4 % Normal . [facility] Comment on above: Performed By: #### C BC, BMP #### [address] MCH (RBC) [Entitic mass] 32.0 pg Normal 27.5-35.2 [facility] Comment on above: Performed By: #### C BC, BMP #### [address] MCV (RBC) [Entitic vol] 94.9 fL Normal 83.5-101 F [facility] Comment on above: Performed By: #### C BC, BMP #### [address] Mean Corpuscular HGB Conc 33.7 g/dL Normal 32.5-35.6 [facility] Comment on above: Performed By: #### C BC, BMP #### [address] Monocytes (Bld) [#/Vol] 0.2 10*3/uL Normal 0.0-0.8 [facility] Comment on above: Performed By: #### C BC, BMP #### [place] [address] [place] Monocytes/100 WBC (Bld) 3.2 % Normal . [facility] Comment on above: Performed By: #### C BC, BMP #### [facility] [address] [place] [address] [place] Neutrophils (Bld) [#/Vol] 4.9 10*3/uL Normal 1.8-7.7 [facility] Comment on above: Performed By: #### C BC, BMP #### [facility] [address] [place] [address] [place] Neutrophils/100 WBC (Bld) 82.3 % Normal . [facility] Comment on above: Performed By: #### C BC, BMP #### [facility] [address] [place] [address] [place] NRBC% 0.1 /100{WBC} Normal 0-0.5 [facility] Comment on above: Performed By: #### C BC, BMP #### [facility] [address] [place] [address] [place] Platelet mean volume (Bld) [Entitic vol] 10.9 fL High 6.6-10.1 [facility] Comment on above: Performed By: #### C BC, BMP #### [facility] [address] [place] [address] [place] Platelets (Bld) [#/Vol] 130 10*3/uL Low 150-450 [facility] Comment on above: Performed By: #### C BC, BMP #### [facility] [address] [place] [address] [place] RBC (Bld) [#/Vol] 4.30 10*6/uL Normal 3.90-5.60 [facility] Comment on above: Performed By: #### C BC, BMP #### [facility] [address] [place] [address] [place] WBC (Bld) [#/Vol] 6.0 10*3/uL Normal 4.1-10.5 [facility] Comment on above: Performed By: #### C BC, BMP #### [facility] [address] [place] [address] [place] Creatinine [Mass/volume] in Serum or PlasmaOrdered By: Haroldo Rausch on 01-09-2023 Creatinine [Mass/Vol] 0.99 mg/dL 0.70-1.30 [facility] ECG 12 lead ECGon 01-09-2023 ECG 12 lead ECG [facility] [place] [address] [place], [place] [id number] Electrocardiograph Report Signed Patient: Radu Del Rio MR#: [id number] 20 : 1940 Acct:[id number] Age/Sex: 82 / M ADM Date: 01/09/23 Loc: Room: Type: [facility] Attending Dr: Haroldo Rausch DO Ordering Provider: [...] ECG No previous ECGs available Confirmed by [facility]AN [facility]IVERA [id number] on 01/09/2023 4:21:25 PM Referred By: EWA Electronically Signed By:SILKE RAVI MD [facility] Transcribed By: ESTELA Signed By Eddie Ravi MD 01/09/23 1621 Normal [facility] Eosinophils Auto (Bld) [#/Vo l]Ordered By: Haroldo Rausch on 01-09-2023 Eosinophils (Bld) [#/Vol] 0.0 10*3/uL 0.0-0.45 [facility] Eosinophils/100 WBC Auto (Bl d)Ordered By: Hraoldo Rausch on 01-09-2023 Eosinophils/100 WBC (Bld) 0.4 % . [facility] Erythrocyte distribution wid th Auto (RBC) [Ratio]Ordered By: Haroldo Rausch on 01-09-2023 Erythrocyte distribution width (RBC) [Ratio] 14.0 % 12.0-14.8 [facility] Glucose [Mass/volume] in Ser um or PlasmaOrdered By: Haroldo Rausch on 01-09-2023 Glucose [Mass/Vol] 112 mg/dL 70-100 [facility] Comment on above: ADA recommended refe rence rangeRandom Glucose Reference Range is dependent on time and content of last meal. Glucose of more than 200 mg/dL in a nonstressed, ambulatory subject supports the diagnosis of Diabetes Mellitus. Hematocrit Auto (Bld) [Volum e fraction]Ordered By: Haroldo Rausch on 01-09-2023 Hematocrit (Bld) [Volume fraction] 40.8 % 38.8-50.0 [facility] Hemoglobin [Mass/volume] in BloodOrdered By: Haroldo Rausch on 01-09-2023 Hemoglobin (Bld) [Mass/Vol] 13.7 g/dL 13.0-17.0 [facility] Leukocytes [#/volume] correc macy for nucleated erythrocytes in Blood by Automated counOrdered By: Haroldo Rausch on 01-09-2023 WBC corrected for nucl RBC Auto (Bld) [#/Vol] 6.0 10*3/uL 4.1-10.5 [facility] Lymphocytes Auto (Bld) [#/Vo l]Ordered By: Haroldo Rausch on 01-09-2023 Lymphocytes (Bld) [#/Vol] 0.8 10*3/uL 1.00-4.8 [facility] Lymphocytes/100 WBC Auto (Bl d)Ordered By: Haroldo Rausch on 01-09-2023 Lymphocytes/100 WBC (Bld) 13.4 % . [facility] MCH Auto (RBC) [Entitic mass ]Ordered By: Haroldo Rausch on 01-09-2023 MCH (RBC) [Entitic mass] 32.0 pg 27.5-35.2 [facility] MCHC Auto (RBC) [Mass/Vol]Or dered By: Haroldo Rausch on 01-09-2023 MCHC (RBC) [Mass/Vol] 33.7 g/dL 32.5-35.6 [facility] MCV Auto (RBC) [Entitic vol] Ordered By: Haroldo Rausch on 01-09-2023 MCV (RBC) [Entitic vol] 94.9 fL 83.5-101 F [facility] Monocytes Auto (Bld) [#/Vol] Ordered By: Haroldo Rausch on 01-09-2023 Monocytes (Bld) [#/Vol] 0.2 10*3/uL 0.0-0.8 [facility] Monocytes/100 WBC Auto (Bld) Ordered By: Haroldo Rausch on 01-09-2023 Monocytes/100 WBC (Bld) 3.2 % . F [facility] Neutrophils Auto (Bld) [#/Vo l]Ordered By: Haroldo Rausch on 01-09-2023 Neutrophils (Bld) [#/Vol] 4.9 10*3/uL 1.8-7.7 [facility] Neutrophils/100 WBC Auto (Bl d)Ordered By: Haroldo Rausch on 01-09-2023 Neutrophils/100 WBC (Bld) 82.3 % . [facility] No Panel InformationOrdered By: Haroldo Rausch on 01-09-2023 Estimated GFR (CKD-EPI) > 60.0 mL/Min [facility] Creatinine Clearance (Chem N/A [facility] Nucleated erythrocytes [Pres ence] in Blood by Automated countOrdered By: Haroldo Rausch on 01-09-2023 Nucleated RBC Auto Ql (Bld) 0.1 /100{WBC} 0-0.5 [facility] Platelet mean volume Auto (B ld) [Entitic vol]Ordered By: Haroldo Rausch on 01-09-2023 Platelet mean volume (Bld) [Entitic vol] 10.9 fL 6.6-10.1 [facility] Platelets Auto (Bld) [#/Vol] Ordered By: Haroldo Rausch on 01-09-2023 Platelets (Bld) [#/Vol] 130 10*3/uL 150-450 [facility] Potassium [Moles/volume] in Serum or PlasmaOrdered By: Haroldo Rausch on 01-09-2023 Potassium [Moles/Vol] 4.4 mmol/L 3.5-5.1 [facility] RBC Auto (Bld) [#/Vol]Ordere d By: Haroldo Rausch on 01-09-2023 RBC (Bld) [#/Vol] 4.30 10*6/uL 3.90-5.60 [facility] Serum or plasma anion gap de terminationOrdered By: Haroldo Rausch on 01-09-2023 Anion gap [Moles/Vol] 10.4 mmol/L 6.0-15.0 [facility] Sodium [Moles/volume] in Ser um or PlasmaOrdered By: Haroldo Rausch on 01-09-2023 Sodium [Moles/Vol] 138 mmol/L 136-145 [facility] Urea nitrogen [Mass/volume] in Serum or PlasmaOrdered By: Haroldo Rausch on 01-09-2023 Urea nitrogen [Mass/Vol] 13 mg/dL 7-25 [facility] WBC Auto (Bld) [#/Vol]Ordere d By: Haroldo Rausch on 01-09-2023 WBC (Bld) [#/Vol] 6.0 10*3/uL 4.1-10.5 [facility] US Bladder Pre/Post Voidon 1 03-30-2021 US Bladder [...] by Gopal Gutierres on 02/01/2022 0928 Normal [facility] [employer] US Carotid, Bilateralon 11-0 US Carotid, Bilateral [...] by Gopal Gutierres on 02/01/2022 0943 Normal [facility] [employer] US Liveron 01-28-2022 US Liver CLINICAL HISTORY: [...] by BRAYAN JANE on 01/31/2022 0931 Normal [facility] XR Chest 2 Views*on 06-23-19 [...] by Gopal Gutierres on 06/22/2021 1553 Normal [facility] Complete Blood Count with Au to Diffon 06-14-2021 Basophils (Bld) [#/Vol] 0.08 10*3/uL Normal 0.00-0.20 [facility] Comment on above: Performed By: #### C MP, CBCAD #### [facility] [address] [place], [place] [id number] Basophils/100 WBC (Bld) 1.3 % Normal [facility] Comment on above: Performed By: #### C MP, CBCAD #### [facility] [address] [place], [place] [id number] Eosinophils (Bld) [#/Vol] 0.13 10*3/uL Normal 0.02-0.50 [facility] Comment on above: Performed By: #### C MP, CBCAD #### [facility] [address] [place], [place] [id number] Eosinophils/100 WBC (Bld) 2.1 % Normal [facility] Comment on above: Performed By: #### C MP, CBCAD #### [facility] [address] [place], [place] [id number] Erythrocyte distribution width (RBC) [Ratio] 12.8 % Normal 11.0-15.0 [facility] Comment on above: Performed By: #### C MP, CBCAD #### [facility] [address] [place], [place] [id number] Hematocrit (Bld) [Volume fraction] 46.0 % Normal 38.5-50.0 [facility] Comment on above: Performed By: #### C MP, CBCAD #### [facility] [address] [place], [place] [id number] Hemoglobin (Bld) [Mass/Vol] 15.0 g/dL Normal 13.0-17.1 [facility] Comment on above: Performed By: #### C MP, CBCAD #### [facility] [address] [place], [place] [id number] Lymphocytes (Bld) [#/Vol] 1.4 10*3/uL Normal 0.9-3.9 [facility] Comment on above: Performed By: #### C MP, CBCAD #### [facility] [address] [place], [place] [id number] Lymphocytes/100 WBC (Bld) 23.5 % Normal [facility] Comment on above: Performed By: #### C MP, CBCAD #### [facility] [address] [place], [place] [id number] MCH (RBC) [Entitic mass] 30.2 pg Normal 27.0-33.0 [facility] Comment on above: Performed By: #### C MP, CBCAD #### [facility] [address] [place], [place] [id number] MCHC (RBC) [Mass/Vol] 32.6 g/dL Normal 32.0-36.0 [facility] Comment on above: Performed By: #### C MP, CBCAD #### [facility] [address] [place], [place] [id number] MCV (RBC) [Entitic vol] 93 fL Normal 80-100 [facility] Comment on above: Performed By: #### C MP, CBCAD #### [facility] [address] [place], [place] [id number] Monocytes (Bld) [#/Vol] 0.6 10*3/uL Normal 0.2-0.9 [facility] Comment on above: Performed By: #### C MP, CBCAD #### [facility] [address] [place], [place] [id number] Monocytes/100 WBC (Bld) 10.1 % Normal [facility] Comment on above: Performed By: #### C MP, CBCAD #### [facility] [address] [place], [place] [id number] Neutrophils (Bld) [#/Vol] 3.8 10*3/uL Normal 1.5-7.8 [facility] Comment on above: Performed By: #### C MP, CBCAD #### [facility] [address] [place], [place] [id number] Neutrophils/100 WBC (Bld) 62.5 % Normal [facility] Comment on above: Performed By: #### C MP, CBCAD #### [facility] [address] [place], [place] [id number] Platelet mean volume (Bld) [Entitic vol] 13.50 fL High 7.50-12.50 [facility] Comment on above: Performed By: #### C MP, CBCAD #### [facility] [address] [place], [place] [id number] Platelets (Bld) [#/Vol] 167 10*3/uL Normal 140-400 [facility] Comment on above: Performed By: #### C MP, CBCAD #### [facility] [address] [place], [place] [id number] RBC (Bld) [#/Vol] 4.96 10*6/uL Normal 4.20-5.80 [facility] Comment on above: Performed By: #### C MP, CBCAD #### [facility] [address] [place], [place] [id number] RDW-SD 43.8 fL Normal 37.0-50.0 [facility] Comment on above: Performed By: #### C MP, CBCAD #### [facility] [address] [place], [place] [id number] WBC (Bld) [#/Vol] 6.1 10*3/uL Normal 3.8-11.0 [facility] Specialist Comment on above: Performed By: #### C MP, CBCAD #### [facility] [address] [place], [place] [id number] Comprehensive Metabolic Pane [facility] 06-14-2021 Albumin [Mass/Vol] 4.3 g/dL Normal 3.6-5.1 [facility] [employer] Comment on above: Performed By: #### C MP, CBCAD #### [facility] [address] [place], [place] [id number] Albumin/Globulin [Mass ratio] 1.7 {ratio} Normal 1.0-2.5 [facility] Comment on above: Performed By: #### C MP, CBCAD #### [facility] [address] [place], [place] [id number] ALP [Catalytic activity/Vol] 149 U/L High 40-129 [facility] Comment on above: Performed By: #### C MP, CBCAD #### [facility] [address] [place], [place] [id number] ALT [Catalytic activity/Vol] 51 U/L High 9-46 [facility] Comment on above: Result Comment: 02/24 Female reference range changed. Performed By: #### C MP, CBCAD #### [facility] [address] [place], [place] [id number] Anion gap [Moles/Vol] 16 mmol/L Normal 12-20 [facility] Comment on above: Result Comment: Effe ctive 04/01/2019 reference range changed. Performed By: #### C MP, CBCAD #### [facility] [address] [place], [place] [id number] AST [Catalytic activity/Vol] 44 U/L High 10-40 [facility] Comment on above: Performed By: #### C MP, CBCAD #### [facility] [address] [place], [place] [id number] Bilirubin [Mass/Vol] 0.43 mg/dL Normal 0.30-1.20 [facility] Comment on above: Performed By: #### C MP, CBCAD #### [facility] [address] [place], [place] [id number] BUN/CREA 26 Ratio High 6-22 [facility] Comment on above: Performed By: #### C MP, CBCAD #### [facility] [address] [place], [place] [id number] Calcium [Mass/Vol] 9.1 mg/dL Normal 8.6-10.2 [facility] Comment on above: Performed By: #### C MP, CBCAD #### [facility] [address] [place], [place] [id number] Chloride [Moles/Vol] 106 mmol/L Normal 98-107 [facility] Comment on above: Performed By: #### C MP, CBCAD #### [facility] [address] [place], [place] [id number] CO2 [Moles/Vol] 21 mmol/L Normal 20-31 [facility] Comment on above: Performed By: #### C MP, CBCAD #### [facility] [address] [place], [place] [id number] Creatinine [Mass/Vol] 0.8 mg/dL Normal 0.7-1.4 [facility] Specialist Comment on above: Performed By: #### C MP, CBCAD #### [facility] [address] [place], [place] [id number] eGFRAA 116 mL/min/1.73m2 Normal >60 [facility] Specialist Comment on above: Performed By: #### C MP, CBCAD #### [facility] [address] [place], [place] [id number] eGFRNAA 96 mL/min/1.73m2 Normal >60 [facility] Comment on above: Performed By: #### C MP, CBCAD #### [facility] [address] [place], [place] [id number] Globulin (S) [Mass/Vol] 2.6 g/dL Normal 1.9-3.7 [facility] Comment on above: Performed By: #### C MP, CBCAD #### [facility] [address] [place], [place] [id number] Glucose [Mass/Vol] 85 mg/dL Normal 65-99 [facility] [employer] Comment on above: Result Comment: For FASTING Glucose --- ADA reference ranges: Normal 65-99 mg/dl Prediabetes 100-125 Diabetes >/= 126 Performed By: #### C MP, CBCAD #### [facility] [address] [place], [place] [id number] Potassium [Moles/Vol] 4.4 mmol/L Normal 3.5-5.5 [facility] Comment on above: Performed By: #### C MP, CBCAD #### [facility] [address] [place], [place] [id number] Protein [Mass/Vol] 6.9 g/dL Normal 6.1-8.1 [facility] [employer] Comment on above: Performed By: #### C MP, CBCAD #### [facility] [address] [place], [place] [id number] Sodium [Moles/Vol] 138 mmol/L Normal 135-[address] [facility] [employer] Comment on above: Performed By: #### C MP, CBCAD #### [facility] [address] [place], [place] [id number] Urea nitrogen [Mass/Vol] 20 mg/dL Normal 7-25 [facility] [employer] Comment on above: Performed By: #### C MP, CBCAD #### [facility] [address] [place], [place] [id number] XR Chest 2 Views*on 06-15-19 22 XR Chest 2 Views* FINDINGS: Comparison made [...] by Gopal Gutierres on 06/14/2021 1620 Normal [facility] Specialist Vital Signs Date Time Vital Sign Value Performing Clinician Hamlet chand 03-09-2023 15:42-0500 Body temperature 97.59 [degF] Fito Rogers MD Work Phone: [facility] 03-09-2023 15:42-0500 Body weight 102.2 kg Fito Rogers MD Work Phone: [facility] 03-09-2023 15:42-0500 Diastolic blood pressure 78 mm[Hg] Fito Rogers MD Work Phone: [facility] 03-09-2023 15:42-0500 Heart rate 87 /min Fito Rogers MD Work Phone: [facility] 03-09-2023 15:42-0500 Respiratory rate 18 /min Fito Rogers MD Work Phone: [facility] 03-09-2023 15:42-0500 Systolic blood pressure 137 mm[Hg] Fito Rogers MD Work Phone: [facility] 02-03-2023 08:22-0500 SaO2% (BldA) [Mass fraction] 95 % Jim Gaitan MD Work Phone: [facility] 02-03-2023 08:19-0500 Body height 170.2 cm Jim Gaitan MD Work Phone: [facility] 02-03-2023 08:19-0500 Body weight 101.15 kg Jim Gaitan MD Work Phone: [facility] Encounters Encounter Date Encounter Type Care Provider Facility Start: 03-24-2023 End: 03-25-2023 ambulatory AI Tabby SWIFT Not Available Start: 03-16-2023 Telephone encounter Eli gar MD Work Phone: Cardiology Comment on above: Request Outside [facility] Records Start: 03-13-2023 End: 03-13-2023 ambulatory AI SWIFT Not Available Start: 03-09-2023 End: 03-09-2023 ambulatory [facility] Facility:[facility] Start: 03-09-2023 End: 03-09-2023 Office outpatient new 60 minutes Fito Rogers MD Work Phone: Hematology/Oncology Comment on above: Uncontrolled daytime somnolence (Primary Dx); Plasma cell disorder; Snoring; Morbid obesity (HCC) Start: 03-09-2023 Telephone encounter Fito zacarias MD Work Phone: [facility] Comment on above: Referral Information (Sleep Study) Start: 03-06-2023 Telephone encounter Jim shipman MD Work Phone: Cardiology Start: 03-06-2023 End: 03-06-2023 [employer] Facility:[facility] Start: 03-03-2023 Telephone encounter Jim shipman MD Work Phone: Cardiology Comment on above: LAB RESULTS RCVD VIA MAIL Start: 03-03-2023 End: 03-03-2023 Subsequent hospital visit by physician [facility] Work Phone: Molecular Imaging Comment on above: 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, 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] Start: 03-03-2023 End: 03-03-2023 ambulatory [facility] Facility:[facility] Start: 03-03-2023 End: 03-03-2023 Subsequent hospital visit by physician [facility] Start: 03-02-2023 End: 03-02-2023 ambulatory [facility] Facility:[facility] Start: 03-01-2023 Orders Only Fito perales MD Work Phone: Hematology/Oncology Comment on above: MGUS (monoclonal obi mopathy of unknown significance) (Primary Dx) Start: 02-28-2023 Orders Only Jim High i, MD Work Phone: Cardiology Comment on above: Plasma cell disorder (Primary Dx) Start: 02-27-2023 End: 02-28-2023 ambulatory Anneliese Contreras MD Facility:[facility] Start: 02-13-2023 Telephone encounter Jim shipman MD Work Phone: Cardiology Comment on above: Orders Start: 02-08-2023 End: 02-08-2023 ambulatory HAROLDO RAUSCH Not Available Start: 02-03-2023 End: 02-04-2023 ambulatory [facility] Facility:[facility] Start: 02-03-2023 End: 02-03-2023 ambulatory Arrhythmia Monitoring [...] 01-30-2023 End: 01-31-2023 ambulatory Anneliese Contreras MD Facility:[facility] Start: 01-20-2023 Orders Only Jim High i, MD Work Phone: Cardiology Comment on above: Other chest pain (Pr imary Dx) Start: 01-09-2023 End: 01-10-2023 ambulatory Anneliese Contreras MD Facility: [facility] Start: 01-09-2023 End: 01-09-2023 ambulatory Haroldo Braggsathish Facility:[facility] Start: 01-09-2023 End: 01-09-2023 ambulatory MD Crystal Singh Work Phone: [facility] Work Phone: Start: 01-09-2023 End: 01-09-2023 Patient encounter procedure MD Crystal Singh Work Phone: [facility] Work Phone: Start: 12-26-2022 End: 12-27-2022 ambulatory [facility] Start: 10-03-2022 End: 10-04-2022 ambulatory Anneliese Contreras MD Facility: [place] Start: 09-19-2022 End: 09-20-2022 ambulatory Anneliese Contreras MD Facility: [facility] Start: 09-05-2022 End: 09-06-[address] RHODA GARAY Facility: Start: 04-27-2022 Jj Garcia Work Phone: Otolaryngology Comment on above: Med Change Request Start: 04-13-2022 End: 04-13-2022 Patient encounter procedure Shaista Orourke, [facility] Work Phone: Audiology Comment on above: Dysfunction [...] DTaP,Tdap,Td Vaccine (3 - Td or Tdap) [facility] Start: 03-02-2026 Diabetes Screening Diabetes Screenin g [facility] Start: 02-04-2024 Hepatitis B surface antibody level LDL Cholesterol [facility] Start: 03-03-2023 End: 03-01-2024 [id number] [Mass/volume] in Serum or Plasma B2 MICROGLOBULIN B Lab Routine MGUS (monoclonal gammopathy of unknown significance) Expected: 03/03/2023 (Approximate), Expires: 03/01/2024 [facility] Work Phone: Comment on above: Expected: 03/03/2023 (Approximate), Expires: 03/01/2024 Start: 03-03-2023 End: 03-01-2024 Calcium.ionized [Moles/volume] in Blood CALCIUM IONIZED BLOOD Lab Routine MGUS (monoclonal gammopathy of unknown significance) Expected: 03/03/2023 (Approximate), Expires: 03/01/2024 [facility] Work Phone: Comment on above: Expected: 03/03/2023 (Approximate), Expires: 03/01/2024 Start: 03-03-2023 End: 03-01-2024 CBC W Auto Differential panel - Blood CBC + DIFF Lab Routine MGUS (monoclonal gammopathy of unknown significance) Expected: 03/03/2023 (Approximate), Expires: 03/01/2024 [facility] Work Phone: Comment on above: Expected: 03/03/2023 (Approximate), Expires: 03/01/2024 Start: 03-03-2023 End: 03-01-2024 Comprehensive metabolic 2000 panel - Serum or Plasma COMP METABOLIC PANEL Lab Routine MGUS (monoclonal gammopathy of unknown significance) Expected: 03/03/2023 (Approximate), Expires: 03/01/2024 [facility] Work Phone: Comment on above: Expected: 03/03/2023 (Approximate), Expires: 03/01/2024 Start: 03-03-2023 End: 06-02-2023 KAPPA/CLAY,FREE,SER KAPPA/CLAY,FREE,SER Lab Routine MGUS (monoclonal gammopathy of unknown significance) Expected: 03/03/2023 (Approximate), Expires: 06/02/2023 [facility] Work Phone: Comment on above: Expected: 03/03/2023 (Approximate), Expires: 06/02/2023 Start: 03-03-2023 End: 03-01-2024 Lactate dehydrogenase [Enzymatic activity/volume] in Serum or Plasma LD LACTATE DEHYDRO Lab Routine MGUS (monoclonal gammopathy of unknown significance) Expected: 03/03/2023 (Approximate), Expires: 03/01/2024 [facility] Work Phone: Comment on above: Expected: 03/03/2023 (Approximate), Expires: 03/01/2024 Start: 03-03-2023 End: 03-01-2024 MONOCLONAL PROT 24 UR W/INTERP MONOCLONAL PROT 24 UR W/INTERP Lab Routine MGUS (monoclonal gammopathy of unknown significance) Expected: 03/03/2023 (Approximate), Expires: 03/01/2024 [facility] Work Phone: Comment on above: Expected: 03/03/2023 (Approximate), Expires: 03/01/2024 Start: 03-03-2023 End: 03-01-2024 MONOCLONAL PROTEIN, SERUM (BLOOD) MONOCLONAL PROTEIN, SERUM (BLOOD) Lab Routine MGUS (monoclonal gammopathy of unknown significance) Expected: 03/03/2023 (Approximate), Expires: 03/01/2024 [facility] Work Phone: Comment on above: Expected: 03/03/2023 (Approximate), Expires: 03/01/2024 Start: 03-03-2023 End: 03-01-2024 Phosphate [Mass/volume] in Serum or Plasma PHOSPHORUS INORGANIC Lab Routine MGUS (monoclonal gammopathy of unknown significance) Expected: 03/03/2023 (Approximate), Expires: 03/01/2024 [facility] Work Phone: Comment on above: Expected: 03/03/2023 (Approximate), Expires: 03/01/2024 Start: 03-03-2023 End: 03-01-2024 PROT ELEC UR 24HR W/M SPIKE AND INTERP PROT ELEC UR 24HR W/M SPIKE AND INTERP Lab Routine MGUS (monoclonal gammopathy of unknown significance) Expected: 03/03/2023 (Approximate), Expires: 03/01/2024 [facility] Work Phone: Comment on above: Expected: 03/03/2023 (Approximate), Expires: 03/01/2024 Start: 03-03-2023 End: 03-01-2024 PROTEIN ELECTROPHORESIS SERUM W/INTERP PROTEIN ELECTROPHORESIS SERUM W/INTERP Lab Routine MGUS (monoclonal gammopathy of unknown significance) Expected: 03/03/2023 (Approximate), Expires: 03/01/2024 [facility] Work Phone: Comment on above: Expected: 03/03/2023 (Approximate), Expires: 03/01/2024 Start: 03-03-2023 End: 03-01-2024 Urate [Mass/volume] in Serum or Plasma URIC ACID BLOOD Lab Routine MGUS (monoclonal gammopathy of unknown significance) Expected: 03/03/2023 (Approximate), Expires: 03/01/2024 [facility] Work Phone: Comment on above: Expected: 03/03/2023 [...] pain, unspecified type Expected: 02/03/2023, Expires: 05/05/2023 [facility] Work Phone: Comment on above: Expected: 02/03/2023 [...] pain, unspecified type Expected: 02/03/2023, Expires: 05/05/2023 [facility] Work Phone: Comment on above: Expected: 02/03/2023 [...] pain, unspecified type Expected: 02/03/2023, Expires: 05/05/2023 [facility] Work Phone: Comment on above: Expected: 02/03/2023 [...] pain, unspecified type Expected: 02/03/2023, Expires: 05/05/2023 [facility] Work Phone: Comment on above: Expected: 02/03/2023 , Expires: 05/05/2023 Start: 11-25-2022 Covid-19 Vaccine () Covid-19 Vaccine () [facility] Start: 11-25-2022 Influenza vaccination Influenza Vacc ine (#1) [facility] Start: 03-27-2022 ADVANCE DIRECTIVE DISCUSSION ADVANCE DIRECTIVE DISCUSSION [facility] Start: 03-27-2022 DEPRESSION ASSESSMENT DEPRESSION ASS ESSMENT [facility] Start: 2007 PNEUMOCOCCAL: 65+ (1 - PCV) PNEUMOCOCCAL: 65+ (1 - PCV) [facility] Start: 2002 RSV Vaccine (1 - 1-d ose 60+ series) RSV Vaccine (1 - 1-dose 60+ series) [facility] Start: 1992 SHINGRIX VACCINE (1 of 2) [place] GRIX VACCINE (1 of 2) [facility] Start: 1987 DIABETES SCREEN DIABETES SCREEN [facility] Start: 1987 Diabetes Screening Diabetes Screenin g [facility] Start: 1961 Urine microalbumin profile DTAP,TDAP,TD (1 - Tdap) [facility] Start: 1960 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 Disease Visit Annual PCP Team Chronic Disease Visit [facility] End: 01-21-2024 ECG COMPLETE ECG COMPLETE ECG Routine Other chest pain 1 Occurrences starting 01/20/2023 until 01/21/2024 [facility] Work Phone: Comment on above: 1 Occurrences [...] type 1 Occurrences starting 02/03/2023 until 02/04/2024 [facility] Work Phone: Comment on above: 1 Occurrences [...] type 1 Occurrences starting 02/03/2023 until 03/04/2024 [facility] Work Phone: Comment on above: 1 Occurrences [...] CABG Chest pain, unspecified type Ordered: 02/03/2023 [facility] Work Phone: Comment on above: Ordered: 02/03/2023 [facility] Immunizations Immunization Date Immunization Notes Care Provider Fa [facility] 01-24-2022 influenza virus vaccine, unspecified formulation Jim Gaitan MD Work Phone: [facility] Payers Date Payer Category Payer Self-pay [id number] 2023 Unknown [id number] 2012 Unknown [id number] 2007 Medicare [id number] 1959 Medicare [id number] 1959 Unknown [id number] 1942 Unknown [id number] 2.16.84 [id number] 1942 Unknown [id number] 2.16. 840.1.366264.3.579.2.196 1942 Unknown [id number] 2.16. 840.1.322276.3.579.2.196 1942 Unknown [id number] 2.16. 840.1.224083.3.579.2.196 1942 Unknown [id number] 2.16. 840.1.007554.3.579.2.196 1942 Unknown [id number] 2.16. 840.1.134685.3.579.2.196 1942 Unknown [id number] 2.16. 840.1.037588.3.579.2.196 1942 Unknown [id number] 2.16. 840.1.996334.3.579.2.196 1942 Unknown [id number] 2.16.840 .1.188523.3.579.2.1259 1942 Unknown [id number] 2.16.840 .1.805067.3.579.2.1259 1942 Unknown [id number] 2.16.840 .1.470417.3.579.2.1259 1942 Unknown [id number] 2.16.840 .1.888950.3.579.2.1259 1942 Unknown [id number] 2.16.840 .[id number] Unknown [id number] 2.16.8 40.1.925523.3.579.2.531 Social History Date Type Detail Facility Start: 04-13-2022 End: 02-03-2023 Tobacco smoking status NHIS Ex-smoker [facility] Work Phone: End: 03-27-2007 History of tobacco use Current smoker [facility] Work Phone: End: 03-27-2007 History of tobacco use Cigarette Smoker [facility] Work Phone: Start: 04-13-2022 Tobacco use and exposure Former smokeless tobacco user [facility] Work Phone: Start: 04-13-2022 Tobacco Comment quit smoking a pprox 2009 [facility] Start: 1942 Sex Assigned At Not on file C [facility] Start: 1940 Sex Assigned At Male F [facility] Start: 04-13-2022 End: 03-09-2023 History of Social function [facility] Start: 04-13-2022 End: 03-09-2023 Tobacco use panel [facility] Start: 02-03-2023 Tobacco use and exposure Smokeless tobacco non-user [facility] Start: 02-03-2023 End: 03-09-2023 Alcohol intake Lifetime non-drinker (finding) [facility] Medical Equipment Procedure Code Equipment Code Equipment Origin al Text Equipment Identifier Dates Angioplasty of carotid artery with insertion of stent IR STENT PRECISE [id number] FDA Start: 04-10-2017 Clinical Notes 02-07-2022 to 04-07-2023 Telephone Encounter - Lore Zavaleta - 03/16/2023 10:46 AM ESTTelephone Encounter - Bo Alexander - 03/15/2023 4:23 PM ESTTelephone Encounter - Bo Alexander - 03/14/2023 11:26 AM EST Note Date & Type Note Facility 04-07-2023 Note HNO ID: [id number] Author: ELI SIBLEY MD Service: ? Author Type: Physician Type: Progress Notes Filed: 04/14/2023 14:30 Note Text: Received outside angiogram for review: 08/17/2022 - Cardiac catheterization at OSH (by my review of images): LM - short, calcified, moderate disease disease LAD - long stent in proximal (not ostial) segment widely patent. Mild to moderate diffuse disease. LCX - codominant, large. Proximal segment is short (~10 mm length), with 80% stenosis before bifurcation into large OM branch and distal LCX. OM branch has proximal tubular 70% stenosis, them moderate diffuse disease. Distal LCX has ostial 95% stenosis immediately after bifurcation, with moderate diffuse disease. (See images pasted below). RCA - codominant, small. Proximal diffuse calcified 60% disease, distal diffuse 50% disease. By report, IFR 0.93 (not significant). Bypass grafts not injected. From prior cath 08/13/2021 by report, CALDWELL atretic, graft to LCX occluded. Impression: PCI of the LCX would be technically difficult. Given severe disease at bifurcation of OM and distal LCX, would likely require bifurcation stenting into OM and distal LCX. With severe stenosis in proximal LCX, which is a short segment, stent would likely need to extend into the LM, crossing over the LAD. The LAD stent placed previously does not extend to the LAD ostium, so crossover stent from LCX into the LM might also require bifurcation stenting from LM into the LAD. With heavy calcification, both OM and distal branches of LCX might require pretreatment with rotational atherectomy. This complex procedure would be performed in a co-dominant left coronary artery system which is not protected by any bypass graft. 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 Would not anticipate improvement in mortality or MT risk with a PCI procedure. Would be performed exclusively for symptom improvement, so that benefit needs to be weighed against procedural short- and long-term risks. Called patient (04/07/2023; 3:15 PM) - no answer, left message on voicemail. Called patient (04/14/2023, 2:20 PM) - discussed with patient and his . At this point, he would prefer to not undergo PCI and continue with medical Rx. We discussed that he should contact me if his symptoms worsen or he wishes to revisit this discussion. Merlyn Sibley MD [facility] 03-16-2023 Miscellaneous Notes Requested 08/17/2022 Angio films from [employer] documented in this encounter [facility] 03-15-2023 Miscellaneous Notes Order received. Per Sharifa, order was faxed to sleep study and they will be in contact with patient to get scheduled. Bo Alexander No order received per Amanda. Refaxed order to [facility] March 14, 2023 11:27 AM Bo Alexander Left message w/ [facility] scheduling for update. Bo Alexander Patient would like to be referred to [facility] for Sleep Study. Faxed order to [facility] March 09, 2023 4:23 PM. Will call and follow up on this to make sure [facility] received order. Bo Alexander documented in this encounter [facility] 03-09-2023 Note HNO ID: [id number] Author: Fito Rogers MD Service: ? Author Type: Physician Type: Progress Notes Filed: 03/11/2023 10:46 AM Note Text: NAME: Radu Del Rio NO.: [id number] DATE OF SERVICE: March 09, 2023 (Devin) [...] 03/02/2023 41 C (more content not included)... [facility] 03-09-2023 Instructions Brianna Truong - 03/09/2023 4:13 PM EST Refer for sleep study Return PRN documented in this encounter [facility] 03-09-2023 History of Present illness Narrative Images from the original note were not included. NAME: Radu Del Rio [facility] NO.: [id number] DATE OF SERVICE: March 09, 2023 ([facility]) Referring Provider: Jim Gaitan Consultation requested by [...] HISTORY OF 1994 CABG (2-3 bypasses ) [facility] in [place] PAST SURGICAL HISTORY OF 2020 left carotid [...] which included preparing to see the patient, [id number] patient care, completing clinical documentation, obtaining and/or reviewing separately obtained history, performing a medically appropriate examination, counseling and educating the patient/family/caregiver, ordering medications, tests, or procedures, independently interpreting results (not separately reported), communicating results to the patient/family/caregiver, and care coordination (not separately reported). Fito Rogers MD, CPE Hematology and Oncology Services Provided at: [place], [place] Scribe Attestation: This note was scribed [...] me and under my direction. CC: Jim Gaitan [id number] [facility] [id number] Crystal Singh MD [address] [facility] [address] documented in this encounter [facility] 03-06-2023 Note HNO ID: [id number] Author: Eli Sibley MD Service: ? Author Type: Physician Type: Progress Notes Filed: 03/14/2023 8:22 PM Note Text: [facility] [place] Monique Thomas Department of Cardiovascular Medicine SECTION OF INTERVENTIONAL CARDIOLOGY OUTPATIENT VISIT DATE March 06, 2023 OUTPATIENT VISIT TYPE CONSULTATION PRIMARY CARE PHYSICIAN: Crystal Singh (Pravin) [address] [place] [address] REFERRING PHYSICIAN Jim Gaitan [id number] [facility] [id number] CHIEF COMPLAINT: No chief complaint on file. [...] right common femoral artery placement of 6 [place] Angio-Seal device 08/17/2022 - cardiac catheterization at OSH (by report, no films available): LM - normal LAD - patent stent LCX - ostial 90%, OM1 80%, OM2 90% RCA - ostial 60%, IFR 0.93 LCX disease felt not suitable for revascularization. 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 2021 [place] [...] undergo med management. (more content not included)... [facility] 03-06-2023 Miscellaneous Notes Spoke with patient's , she verbalized understanding. Kareen Anderson RN Images from the original note were not included. Jim Gaitan MD [facility] Clinical Nurse Phone Pool Please let [...] Mery. Thank you. documented in this encounter [facility] 03-03-2023 Miscellaneous Notes Summary: 1 PG IN OPD FILE Images from the original note were not included. [facility] - 02/14/23 documented in this encounter [facility] [facility]23 Note HNO ID: [id number] Author: Vanessa Ramos RT(R) Service: Radiology Author Type: Technologist Type: Progress [...] link: [email or web address] [email or web address]%20Me dicine%[email or web address] SIGNATURE: Vanessa Fesperman, RT(R) PATIENT NAME: Radu Del Rio DATE: March 03, 2023 TIME: 10:01 AM PAGER/CONTACT #: [facility] 03-03-2023 History of Present illness [...] safety can be found using this link: [email or web address] 0Protection%20-%20Diagnostic%20N uclear%20Medicine%20Procedures.p df SIGNATURE: Vanessa RT Rachel(R) PATIENT NAME: Radu Del Rio DATE: March 03, 2023 TIME: 10:01 AM PAGER/CONTACT #: documented in this encounter [facility] 02-13-2023 Miscellaneous Notes Blood and urine lab orders were faxed to [facility] in [place], [place]. Fax number is [phone]. Faby Serra documented in this encounter [facility] 02-03-2023 Note HNO ID: [id number] Author: Kory Miguel Service: ? Author Type: ? Type: Progress Notes Filed: 02/03/2023 10:03 AM Note Text: EVENT MONITOR DISPOSABLE PATCH INSTRUCTIONS Patient Name: Radu Del Rio [facility] Number: [id number] Skin prepped and cleansed with alcohol Patch secured to prepped area Monitor Activated Serial #: [id number] Patient Instructed: Prescribed order timeframe Bathing guidelines Usage of event button and diary documentation Return of monitor at the end of prescribed order Call with problems [phone] or [phone]. [phone] Patient expresses a good understanding of instructions Kory Zarate [facility] 02-03-2023 Note Education (CARDMN) RADU DEL RIO ([id number]) 1940 M Date Time Provider Department 02/03/23 9:45 AM ARRHYTHMIA MONITORING LAB CARDMN Reason for Visit: Event [921] Cmt: Zio patch Primary Visit Diagnosis:Chest pain, unspecified type [R07.9] During your visit today, we recorded the following information about you: Allergies As of Date: 02/03/2023 (No Known Allergies) Date Reviewed: 02/03/2023 Reviewed by: Jo Mcmahon, RN - Fully Assessed Prescriptions as of 02/03/2023 [...] Encounter Status:Closed by KORY MIGUEL on 02/03/23 [facility] 02-03-2023 History of Present illness Narrative EVENT MONITOR DISPOSABLE PATCH INSTRUCTIONS Patient Name: Radu Del Rio [facility] Number: [id number] Skin prepped and cleansed with alcohol Patch secured to prepped area Monitor Activated Serial #: [id number] Patient Instructed: Prescribed order timeframe Bathing guidelines Usage of event button and diary documentation Return of monitor at the end of prescribed order Call with problems [phone] or [phone]. [phone] Patient expresses a good understanding of instructions Kory Zarate documented in this encounter [facility] 02-03-2023 Note HNO ID: [id number] Author: Jim Gaitan MD Service: ? 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 2021 [place] [...] is a 82 year old male from [place], [place] here today for cardiovascular evaluation related [...] -- -- Supine Right Arm -- Occupation: [employer] empl (more content not included)... [facility] 02-03-2023 Note HNO ID: [id number] Author: Femi Flores MD Service: ? Author [...] Ventricular Trigeminy was present. Femi Flores MD [facility] 02-03-2023 Instructions Jim Gaitan MD [...] Avoid processed foods. Suggested resource: Google search [facility] mediterranean diet Follow up with my partners in 3 months after results are completed. Follow up with me in 6 months after that. Seek ER care for any concerning symptoms. documented in this encounter [facility] 02-03-2023 History of Present illness Narrative Images from the original note were not included. 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 2021 [place] [...] is a 82 year old male from [place], [place] here today for cardiovascular evaluation related [...] -- -- Supine Right Arm -- Occupation: [employer] employee for about 30 years. [...] 34.93 kg/m 02/03/23 0819 02/03/23 0820 02/03/23 0822 SpO2: 94% 95% 95% Height: 170.2 cm [...] Essentially normal neuropyschiatric exam. Pertinent labs reviewed: OSH LABS 08/10/2022 OSH LABS 12/07/2021 CARDIOVASCULAR MEDICINE TESTING: ECG 02/03/2023 [...] early portal venous hypertension, no intrahepatic mass. [facility] CARDIAC CATH 08/13/2021 Conclusion 1. Hemodynamically significant [...] right common femoral artery placement of 6 [place] Angio-Seal device Recommendations: 1. Dual antiplatelet therapy [...] is a 0% residual stenosis post intervention. OSH NM STRESS TEST 07/07/2021 The stress ECG [...] stress end systolic cavity size is normal. OS ECHO 07/07/2021 Overall the study quality was [...] and I will defer to his local estimator lumber for further mngt. Will check lipid panel [...] 2023, 3:17 PM documented in this encounter [facility] 04-27-2022 Miscellaneous Notes The following medication requests needs approval Requested Prescriptions Pending Prescriptions Disp Refills fluticasone (FLONASE) 50 mcg/actuation nasal spray [Pharmacy Med Name: FLUTICASONE PROP 50 MCG SPRAY] 48 mL 2 Sig: SPRAY 1 SPRAY INTO EACH NOSTRIL TWICE A DAY ELVA FAIRBANKS LPN documented in this encounter [facility] 04-13-2022 History of Present illness Narrative TYMPANOMETRY Name: Radu Del Rio [facility]#: [id number] Date of Service: 04/13/2022 Date of : 1940 Age: [age] year old Patient was sent by Robyn Huerta PA-C for tympanometry only. Right ear: Normal middle ear pressure and mobility. Left ear: Negative middle ear pressure (-179 daPa) with good mobility. Patient returned to the physician for follow-up. Teresa MARQUES, AuD Articulation Officer Sharad Jaramillo, CCC-A documented in this encounter [facility] 02-07-2022 Note PROCEDURE: NMRKT VCT 64, 5 mm slice axial images [...] signed by Gopal Gutierres on 02/08/2022 [address] [facility] [employer] Expediter Evaluation note Diagnosis Dysfunction of left eustachian tube- Primary Dysfunction of Eustachian tube [facility] Diagnosis Negative middle ear pressure of left ear Other disorders of middle ear and mastoid Nasal congestion Other diseases of nasal cavity and sinuses [facility] noteNo assessment information availableUniversity Hospitals St. [facility] Work Phone: Evaluation note* Diagnosis Other chest pain- Primary [facility] Diagnosis Chest pain, unspecified type- Primary [facility] Diagnosis SOB (shortness of breath)- Primary Shortness of breath Coronary artery 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 Orthostatic hypotension Spinal stenosis, unspecified spinal region Weight gain Abnormal weight gain Bilateral carpal tunnel syndrome Carpal tunnel syndrome Hyperlipidemia, unspecified hyperlipidemia type Former tobacco use Personal history of tobacco use, presenting hazards to [facility] Coronary stent patent Hx of CABG Postsurgical aortocoronary bypass status Chest pain, unspecified type Lightheadedness Dizziness and giddiness Peripheral vascular disease (HCC) Peripheral vascular disease, unspecified Morbid obesity (HCC) Morbid obesity [facility] Diagnosis Plasma cell disorder- Primary Other specified disease of white blood cells [facility] 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 [facility] Diagnosis Uncontrolled daytime somnolence- Primary Other alteration of consciousness Plasma cell disorder Other specified disease of white blood cells Snoring Other dyspnea and respiratory abnormality Morbid obesity (HCC) Morbid obesity [facility] Outpatient Procedure (Routine) - Authorized Specialty Diagnoses / Procedures Referred By Shana t Referred To [facility] Diagnoses Other chest pain Procedures ECG COMPLETE ECG ROUTINE ECG W/LEAST 12 LDS W/I&R Jim Gaitan MD [address] [place] [address] [facility] [place] [id number] [place] [address] Referral ID Status Reason Start Date Expiration Date Visits Requested Visits Authorized [id number] Authorized Auto-Generat ed Referral 3 01/20/2024 1 1 [facility] for visit Narrative* Diagnostic Procedure Only [...] AREA 1 DAY IMAGING Jim Gaitan MD [address] [place] [address] Molecular & Functional Imaging [address] [place] [address] Referral ID Status Reason Start Date Expiration Date V isits Requested Visits Authorized [id number] Closed Auto-Generate d Referral 02/03/2023 03/04/2024 1 1 [facility] Summary Purpose Family History No Family [...] FOLLOW UP APPT ORDER Jim Gaitan MD [address] [place] [address] Referral ID Status Reason Start Date Expiration Date Visits Requested Visits Authorized [id number] Ref Not Required PCP Requested Referral 05/06/2023 02/03/2024 1 1 Specialty Diagnoses / Procedures Referred By Shana t Referred To Contact MOLECULAR & FUNCTIONAL [...] AREA 1 DAY IMAGING Jim Gaitan MD [address] [place] [address] Molecular [facility] [address] [place] [address] Referral ID Status Reason Start Date Expiration Date Visits Requested Visits Authorized [id number] Authorized Auto-Generat ed Referral 3 03/04/2024 1 [...] type Procedures CONSULT TO INTERVENTIONAL CARDIOLOGY OFFICE/OUTPATIENT [facility] 60-74 MINUTES Jim Gaitan MD [address] [place] [address] Referral ID Status Reason Start Date Expiration Date Visits Requested Visits Authorized [id number] Authorized PCP Requested Referral 3 02/03/2024 1 1 Specialty Diagnoses / Procedures Referred By Shana t Referred To Contact [facility]ASC[facility] [...] W/WOM-MODE COMPL SPEC&COLR D Jim Gaitan MD [address] [place] [address] [facility] [place] [address] [place] [address] Referral ID Status Reason Start Date Expiration Date Visits Requested Visits Authorized [id number] Pending Review Auto-Generat ed Referral 3 02/03/2024 1 1 Specialty Diagnoses / Procedures Referred By Contac t Referred To Contact Diagnoses Plasma cell disorder Procedures CONSULT TO HEMATOLOGY/ONCOLOGY OFFICE/OUTPATIENT [facility] 60-[place] [address] [place] [id number] Referral ID Status Reason Start Date Expiration Date Visits Requested Visits Authorized [id number] Authorized PCP Requested Referral 02/28/2023 02/28/2024 1 1 Specialty Diagnoses / Procedures Referred By Contac t Referred To Contact Diagnoses Uncontrolled daytime somnolence Snoring Procedures CONSULT TO SLEEP MEDICINE - ADULT OFFICE/OUTPATIENT [facility] 60-74 MINUTES Fito Rogers MD [address] [place] [address] [place] [address] Referral ID Status Reason Start Date Expiration Date Visits Requested Visits Authorized [id number] Authorized PCP Requested Referral 3 03/08/2024 1 1 Additional Source Comments (unrecognized sect ion and content) No Status Records FoundNo Status Records FoundNo Status Records FoundNo Status Records FoundNo Status Records FoundNo Status Records Found INFORMATION SOURCE (unrecogn ized section and content) DATE CREATED AUTHOR 02/08/2022 [facility] dical Specialist DATE CREATED AUTHOR AUTHOR'S ORGANIZ ATION 07/29/2022 [facility] DATE CREATED AUTHOR AUTHOR'S ORGANIZ ATION 02/04/2023 [facility] DATE CREATED AUTHOR AUTHOR'S ORGANIZ ATION 03/10/2023 [facility] DATE CREATED AUTHOR AUTHOR'S ORGANIZ ATION 03/27/2023 [facility] Specialists EPIC DATE CREATED AUTHOR AUTHOR'S ORGANIZ ATION 04/15/2023 [facility] Source Comments (unrecognize d section and content) In the event this informatio n is protected by the Federal Confidentiality of Alcohol and Drug Abuse Patient Records regulations: The Federal rules restrict any use of the information to criminally investigate or prosecute any alcohol or drug abuse patient.[facility] the event this information is protected by the Federal Confidentiality of Alcohol and Drug Abuse Patient Records regulations: The Federal rules restrict any use of the information to criminally investigate or prosecute any alcohol or drug abuse patient.[facility] Hospital[facility] the event this information is protected by the Federal Confidentiality of Alcohol and Drug Abuse Patient Records regulations: The Federal rules restrict any use of the information to criminally investigate or prosecute any alcohol or drug abuse patient.[facility] Hospital[facility] the event this information is protected by the Federal Confidentiality of Alcohol and Drug Abuse Patient Records regulations: The Federal rules restrict any use of the information to criminally investigate or prosecute any alcohol or drug abuse patient.[facility] Hospital[facility] the event this information is protected by the Federal Confidentiality of Alcohol and Drug Abuse Patient Records regulations: The Federal rules restrict any use of the information to criminally investigate or prosecute any alcohol or drug abuse patient.[facility] HospitalIn the event this information is protected by the Federal Confidentiality of Alcohol and Drug Abuse Patient Records regulations: The Federal rules restrict any use of the information to criminally investigate or prosecute any alcohol or drug abuse patient.[facility] HospitalIn the event this information is protected by the Federal Confidentiality of Alcohol and Drug Abuse Patient Records regulations: The Federal rules restrict any use of the information to criminally investigate or prosecute any alcohol or drug abuse patient.[facility] Hospital[facility] the event this information is protected by the Federal Confidentiality of Alcohol and Drug Abuse Patient Records regulations: The Federal rules restrict any use of the information to criminally investigate or prosecute any alcohol or drug abuse patient.[facility] Hospital[facility] the event this information is protected by the Federal Confidentiality of Alcohol and Drug Abuse Patient Records regulations: The Federal rules restrict any use of the information to criminally investigate or prosecute any alcohol or drug abuse patient.[facility] Hospital[facility] the event this information is protected by the Federal Confidentiality of Alcohol and Drug Abuse Patient Records regulations: The Federal rules restrict any use of the information to criminally investigate or prosecute any alcohol or drug abuse patient.[facility] HospitalIn the event this information is protected by the Federal Confidentiality of Alcohol and Drug Abuse Patient Records regulations: The Federal rules restrict any use of the information to criminally investigate or prosecute any alcohol or drug abuse patient.[facility] HospitalIn the event this information is protected by the Federal Confidentiality of Alcohol and Drug Abuse Patient Records regulations: The Federal rules restrict any use of the information to criminally investigate or prosecute any alcohol or drug abuse patient.[facility] HospitalIn the event this information is protected by the Federal Confidentiality of Alcohol and Drug Abuse Patient Records regulations: The Federal rules restrict any use of the information to criminally investigate or prosecute any alcohol or drug abuse patient.[facility] HospitalIn the event this information is protected by the Federal Confidentiality of Alcohol and Drug Abuse Patient Records regulations: The Federal rules restrict any use of the information to criminally investigate or prosecute any alcohol or drug abuse patient.[facility] Hospital[facility] the event this information is protected by the Federal Confidentiality of Alcohol and Drug Abuse Patient Records regulations: The Federal rules restrict any use of the information to criminally investigate or prosecute any alcohol or drug abuse patient.[facility] Reason for Visit (unrecogniz ed section and content) Reason Comments Pressure In Ear(s) Reason Comments Med Change Request Reason Comments Event Zio patch Reason Comments Orders Reason Comments LAB RESULTS RCVD VIA MAIL Reason Comments Radiology NM Specialty Diagnoses / Procedures Referred By Shana t Referred To Contact MOLECULAR & FUNCTIONAL [...] AREA 1 DAY IMAGING Jim Gaitan MD [address] [place] [address] Molecular & Functional Imaging [address] [place] [address] Referral ID Status Reason Start Date Expiration Date V isits Requested Visits Authorized [id number] Closed Auto-Generate d Referral 02/03/2023 03/04/2024 1 1 Reason Comments Consult Specialty Diagnoses / Procedures Referred By Shana t Referred To Contact Diagnoses Plasma cell disorder Procedures CONSULT TO HEMATOLOGY/ONCOLOGY OFFICE/OUTPATIENT [facility] 60-74 MINUTES Jim Gaitan MD [address] [place] [id number] Referral ID Status Reason Start Date Expiration Date V isits Requested Visits Authorized [id number] Closed PCP Requested Referral 02/28/2023 02/28/2024 1 1 Reason Comments Referral Information Sleep Study Reason Comments Request Outside Medical Records Care Teams (unrecognized sec tion and content) Retail Supervisor Relationship Specialty Start Date End Date Crystal Singh MD [address] [place] [address] PCP - General Family Medicine 10/12/18 Retail Supervisor Relationship Specialty Start Date End Date Crystal Singh MD [address] [place] [address] PCP - General Family Medicine 10/12/18 Team Status: Active Member Role Status Dates Crystal Singh MD Primary Care Provider Active Team Status: Inactive Member Role Status Dates Crystal Singh MD Primary Care Provider Active Haroldo Rausch DO Attending Provider Active Retail Supervisor Relationship Specialty Start Date End Date Crystal Singh MD [address] [place] [address] PCP - General Family Medicine 10/12/18 Retail Supervisor Relationship Specialty Start Date End Date Crystal Singh MD [address] [place] [address] PCP - General Family Medicine 10/12/18 Jim Gaitan MD [address] [place] [address] Primary Staff Physician Cardiology 02/03/23 Retail Supervisor Relationship Specialty Start Date End Date Crystal Singh MD [address] [place] [address] PCP - General Family Medicine 10/12/18 Jim Gaitan MD [address] [place] [address] Primary Staff Physician Cardiology 02/03/23 Retail Supervisor Relationship Specialty Start Date End Date Crystal Singh MD [address] [place] [address] PCP - General Family Medicine 10/12/18 Jim Gaitan MD [address] [place] [address] Primary Staff Physician Cardiology 02/03/23 Retail Supervisor Relationship Specialty Start Date End Date Crystal Singh MD [address] [place] [address] PCP - General Family Medicine 10/12/18 Jim Gaitan MD [address] [place] [address] Primary Staff Physician Cardiology 02/03/23 Retail Supervisor Relationship Specialty Start Date End Date Crystal Singh MD [address] [place] [address] PCP - General Family Medicine 10/12/18 Jim Gaitan MD [address] [place] [address] Primary Staff Physician Cardiology 02/03/23 Retail Supervisor Relationship Specialty Start Date End Date Crystal Singh MD [address] [place] [address] PCP - General Family Medicine 10/12/18 Jim Gaitan MD [address] [place] [address] Primary Staff Physician Cardiology 02/03/23 Retail Supervisor Relationship Specialty Start Date End Date Crystal Singh MD [address] [place] [address] PCP - General Family Medicine 10/12/18 Jim Gaitan MD [address] [facility] [place] [address] Primary Staff Physician Cardiology 02/03/23 Retail Supervisor Relationship Specialty Start Date End Date Crystal Singh MD [address] [facility] [place] [address] PCP - General Family Medicine 10/12/18 Jim Gaitan MD [address] [facility] [place] [address] Primary Staff Physician Cardiology 02/03/23 Retail Supervisor Relationship Specialty Start Date End Date Crystal Singh MD [address] [place] [address] PCP - General Family Medicine 10/12/18 Jim Gaitan MD [address] [facility] [place] [address] Primary Staff Physician Cardiology 02/03/23 Retail Supervisor Relationship Specialty Start Date End Date Crystal Singh MD [address] [place] [address] PCP - General Family Medicine 10/12/18 Jim Gaitan MD [address] [place] [address] Primary Staff Physician Cardiology 02/03/23 Goals (unrecognized [...] BE BASED ON THE PRIMARY CLINICAL RECORDS. The [employer] provides no warranty or guarantee of the accuracy or completeness of information in this document.
--- NOTE | 2023-04-19 10:17 | P.CN_ITS ---
Consult Note: HPI Data of Consult Patient: known to practice within the last 3 years Requesting Physician: Shavon Tsai NP Primary Care Provider: CALIN RODRÍGUEZ Consult Narrative Reason for consult: f/u Narrative: Radu Ruiz a pleasant 82 year old male presents for evaluation and management of chronic low back pain, today rating pain 4/10. Patient has underwent bilateral L2 TFESI with 50% improvement in pain and increased ability to shower, shave, and do daily ADLs. Patient pleased with his current pain, 4/10 intermittent. 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 - Complete traumatic metacarpophalangeal amputation of unspecified finger, initial encounter (ICD-10) Trigger finger ?M65.30 - Trigger finger, unspecified finger (ICD-10) Low back pain ?M54.50 - Low back pain, unspecified (ICD-10) Obesity ?E66.9 - Obesity, unspecified (ICD-10) Hearing deficit ?H91.90 - Unspecified hearing loss, unspecified ear (ICD-10) Hiatal hernia ?K44.9 - Diaphragmatic hernia without obstruction or gangrene (ICD-10) Acid reflux ?K21.9 - Gastro-esophageal reflux disease without esophagitis (ICD-10) Angina at rest ?I20.8 - Other forms of angina pectoris (ICD-10) Surgical History Status post wrist surgery ?Z98.890 - Other specified postprocedural states (ICD-10) History of lumbar surgery ?Z98.890 - Other specified postprocedural states (ICD-10) History of carpal tunnel release ?Z98.890 - Other specified postprocedural states (ICD-10) History of open heart surgery ?Z98.890 - Other specified postprocedural states (ICD-10) Meds Home Medications and Allergies Home Medications Medication Instructions Recorded Confirmed Type aspirin 81 mg tablet,delayed 81 mg PO DAILY 09/05/22 04/17/23 History release clopidogrel 75 mg tablet 75 mg PO DAILY 09/05/22 04/17/23 History gabapentin 300 mg capsule 300 mg PO DAILY 09/05/22 04/17/23 History ranolazine 500 mg tablet,extended 500 mg PO BID 09/05/22 04/17/23 History release,12 hr rosuvastatin 40 mg tablet 40 mg PO DAILY 09/05/22 04/17/23 History acetaminophen 500 mg capsule 500 mg PO Q6H PRN pain 09/19/22 04/17/23 History Allergies Allergy/AdvReac Type Severity Reaction Status Date / Time No Known Drug Allergies Allergy Verified 04/17/23 11:02 Exam Constitutional Documenting provider has reviewed patient's vital signs: yes Common normals: no apparent distress, oriented x3, healthy appearing, alert and well nourished General appearance: cooperative Nutritional appearance: overweight Orientation/consciousness: Yes awake, Yes oriented to person, Yes oriented to place and Yes oriented to time HENMT Common normals: normocephalic, hearing grossly normal bilaterally and moist oral mucous membranes Head and scalp: normocephalic Eye Common normals: PERRL Pupil: PERRL Neck & C-Spine Common normals: full ROM General: normal visual inspection Chest Common normals: inspection of chest normal Respiratory Common normals: normal respiratory effort, no retractions and no use of accessory muscles Effort & inspection: able to speak in complete sentences and symmetric chest movement Back & Pelvis Lumbar spine/lower back: normal to inspection, ROM limited and straight leg raise negative bilaterally Sacroiliac joints: SI joint(s) abnormal Other: bilateral facet loading negative bilateral positive helen, thigh thrust, and gaenslens. Pain over bialteral PSIS. Extremity Common normals: normal to inspection and full ROM Neuro Common normals: oriented x3, CN's II-XII intact bilaterally, moves all extremities, no focal motor deficits, no sensory deficits noted and deep tendon reflexes 2+ bilaterally Sensorium/orientation: alert Gait (neuro): antalgic Motor exam: strength 5/5 throughout and no movement abnormalities noted Psych Common normals: mental status grossly normal, thought process normal, cooperative, affect normal, speech normal and activity/motor behavior normal Speech: normal speech Thought process: normal thought process Assessment and Plan Assessment and Plan (1) Lumbar postlaminectomy syndrome: (2) Sacroiliac joint disease: (3) Lumbar spondylosis: (4) Lumbar stenosis with neurogenic claudication: Plan patient now reporting improvement in ability to tolerate daily activities such as showering, shaving, playing with grandkids. 50% ongoing improvement from bilateral L2 TFESI continue gabapentin 300mg daily consider updating lumbar MRI without contrast with 10mg PO Valium in the future to explore vertiflex/SCS continue HEP as tolerated f/u 3 months, sooner if needed
== END 2023-04-19 09:51 | disposition home or self-care (01) ==
LOC: PM 09:51
PROVIDERS: PCP Family Medicine; Visit Provider Nurse Practitioner
DX: M47.816 Spondylosis without myelopathy or radiculopathy, lumbar region (principal); M48.062 Spinal stenosis, lumbar region with neurogenic claudication; M96.1 Postlaminectomy syndrome, not elsewhere classified; M53.3 Sacrococcygeal disorders, not elsewhere classified
CPT/HCPCS: G0463